=== PATIENT | male | born 1965 | race Caucasian/White ===

== ENCOUNTER 2023-05-04 09:27 | Emergency (ER) | payer OTHER, SELFPAY ==
[2023-05-04 09:33] VITALS: BP 143/81; PULSE 74; RESP 16; TEMP 36.8; O2SAT 95; BMI 30.8
--- NOTE | 2023-05-04 09:47 | ED_ITS ---
HPI - Dizziness General Chief Complaint: Dizziness Stated Complaint: DIZZINESS Time Seen by Provider: 05/04/23 09:47 Source: patient Mode of arrival: walk-in Limitations: no limitations History of Present Illness HPI Narrative: pt presents emergency department complaining of dizziness. Patient states He feels lightheaded since yesterday. He states when he turns his head it feels worse to the point where he gets nauseated he denies any headache, visual disturbance, or speech difficulties. He has not been vomiting. He denies any injury.Patient denies any recent upper respiratory infection symptoms. Denies any abdominal pain, chest, shortness of breath. He denies any palpitations. He has a history of HIV at states his viral load is undetectable. He states he has been compliant with all of his medications. He denies any cough. He denies any flank pain, hematuria, dysuria. Patient states he wanted to make sure he doesn't fluids because he could be dehydrated. He states he has been eating and drinking well despite of being nauseated. Related Data Home Medications Medication Instructions Recorded Confirmed aripiprazole 5 mg tablet 5 mg PO DAILY 05/04/23 05/04/23 atorvastatin 80 mg tablet 80 mg PO DAILY 05/04/23 05/04/23 bictegravir 50 mg-emtricitabine 1 tab PO DAILY 05/04/23 05/04/23 200 mg-tenofovir alafenam 25 mg tablet (Biktarvy) desvenlafaxine succinate 100 mg 100 mg PO Q24H 05/04/23 05/04/23 tablet,extended release 24 hr dextromethorphan 20 mg-quinidine 1 cap PO DAILY 05/04/23 05/04/23 10 mg capsule (Nuedexta) isosorbide mononitrate 30 mg 30 mg PO DAILY 05/04/23 05/04/23 tablet,extended release 24 hr lisinopril 20 mg tablet 20 mg PO DAILY 05/04/23 05/04/23 lorazepam 0.5 mg tablet 0.5 mg PO DAILY 05/04/23 05/04/23 methimazole 10 mg tablet 5 mg PO DAILY 05/04/23 05/04/23 methylphenidate HCl 20 mg tablet 20 mg PO TID 05/04/23 05/04/23 metoprolol succinate 50 mg 50 mg PO DAILY 05/04/23 05/04/23 tablet,extended release 24 hr nifedipine 30 mg tablet,extended 30 mg PO DAILY 05/04/23 05/04/23 release ubrogepant 100 mg tablet (Ubrelvy) 100 mg PO DAILY PRN migraines 05/04/23 05/04/23 Previous Rx's Medication Instructions Recorded amoxicillin 875 mg-potassium 1 tab PO BID #20 tabs 05/04/23 clavulanate 125 mg tablet meclizine 25 mg tablet 25 mg PO TID PRN dizziness #20 tabs 05/04/23 promethazine 25 mg tablet 25 mg PO TID PRN nausea and 05/04/23 vomiting #10 tabs Allergies Allergy/AdvReac Type Severity Reaction Status Date / Time No Known Drug Allergies Allergy Verified 05/04/23 09:35 Review of Systems ROS Status of ROS 10 or more systems reviewed and unremarkable except as noted in history and below [facility] Social History Smoking status: Current every day smoker Exam Narrative Exam Narrative: Nurses notes and vital signs reviewed and patient is not hypoxic. General: Nontoxic, Well-appearing and in no apparent distress. Skin: Warm, dry, no pallor noted. No Rash Head: Normocephalic, atraumatic. Neck: Supple, non-tender. Eye: Pupils are equal, round and EOMI. No scleral icterus. Ears, Nose, Mouth, and Throat: TM clear, no posterior oropharynx erythema or nasal mucosal hypertrophy, uvula is mid-line Oral mucosa is moist Cardiovascular: Regular Rate and Rhythm without murmur, gallop or rub. Respiratory: No accessory muscle use or respiratory distress. Lungs are clear to auscultation, no wheezing, rales or rhonchi Chest Wall: no tenderness Back: No midline thoracic or lumbar vertebral tenderness. No CVA tenderness Musculoskeletal: normal ROM, no calf or popliteal tenderness, no lower extremity edema/swelling GI: Abdomen is soft, non-distended. Normal bowel sounds. No masses appreciated. No tenderness to palpation. No rebound, guarding, or rigidity noted. Neurological: A&O x4. No cranial nerve dysfunction observed. No truncal ataxia. Moves all extremities. Sensation intact. Psychiatric: Cooperative and interactive. Normal mood and affect. Constitutional Vital Signs, click to edit/add: Last Vital Signs Temp 98.2 F 05/04/23 09:33 Pulse 74 05/04/23 09:33 Resp 16 05/04/23 09:33 BP 143/81 H 05/04/23 09:33 Pulse Ox 95 05/04/23 09:33 O2 Del Method Room Air 05/04/23 09:33 Course Vital Signs Vital signs: Vital Signs Temperature 98.2 F 05/04/23 09:33 Pulse Rate 74 05/04/23 09:33 Respiratory Rate 16 05/04/23 09:33 Blood Pressure 143/81 H 05/04/23 09:33 Pulse Oximetry 95 05/04/23 09:33 Oxygen Delivery Method Room Air 05/04/23 09:33 Temperature 98.2 F 05/04/23 09:33 Pulse Rate 74 05/04/23 09:33 Respiratory Rate 16 05/04/23 09:33 Blood Pressure 143/81 H 05/04/23 09:33 Pulse Oximetry 95 05/04/23 09:33 Oxygen Delivery Method Room Air 05/04/23 09:33 MDM - Dizziness MDM Narrative Medical decision making narrative: pt was given 1 L of normal saline. Lab studies were done and are unremarkable. Patient here she will be given Antivert, and Zofran. ALSO discussed with patient. CT scan with the patient was ordered to rule out any intracranial pathology.CT scan is showing sinusitis and vital EMS and daughter. The patient does not have any pain with percussion of the mastoids bilaterally. He will be placed on Augmentin. At this time the patient is without objective evidence of an acute process requiring hospitalization or inpatient management. The patient has remained hemodynamically stable. No additional indication for emergent studies at this time. I answered all questions. Discussed discharge instructions including standard anticipatory guidance and what should prompt a return to the emergency department, including if they get worse are not getting better or develops any new or concerning symptoms. I've given them specific time frame in which to follow-up, and who to follow-up with. The patient demonstrates understanding. Patient is nontoxic and stable for discharge with outpatient follow-up. This note was created with the assistance of a speech recognition program. Although the intention is to generate documents that actually reflects the content of the visit, no guarantees can be provided that every mistake has been identified and corrected by editing. Lab Data Attestation: I reviewed the patient's lab results. Labs: Lab Results 05/04/23 Range/Units 09:58 WBC 6.9 (4.0-11.0) 10^3/uL RBC 5.13 (4.70-6.10) 10^6/uL Hgb 16.1 (14.0-18.0) g/dL Hct 46.5 (42.0-54.0) % MCV 90.6 (80.0-94.0) fL MCH 31.4 (25.9-34.0) pg MCHC 34.6 (29.9-35.2) g/dL RDW 13.1 (11.0-15.0) % Plt Count 285 (150-450) 10^3/uL MPV 8.3 L (9.5-13.5) fL Neut % (Auto) 56.3 (43.0-75.0) % Lymph % (Auto) 36.1 (20.5-60.0) % [place] % (Auto) 5.5 (1.7-12.0) % Eos % (Auto) 1.0 (0.9-7.0) % Baso % (Auto) 0.7 (0.2-2.0) % Neut # (Auto) 3.9 (1.4-6.5) 10^3/uL Lymph # (Auto) 2.5 (1.2-3.8) 10^3/uL [place] # (Auto) 0.4 (0.3-0.8) 10^3/uL Eos # (Auto) 0.1 (0.0-0.7) 10^3/uL Baso # (Auto) 0.1 (0.0-0.1) 10^3/uL Abs Immat Gran (auto) 0.03 (0.00-0.03) 10^3/uL Imm/Tot Granulo (auto) 0.4 (0.0-0.5) % Sodium 135 L (136-145) mmol/L Potassium 4.2 (3.5-5.1) mmol/L Chloride 99 (98-107) mmol/L Carbon Dioxide 23.6 (21.0-32.0) mmol/L Anion Gap 16.6 BUN 18.0 (7.0-18.0) mg/dL Creatinine 1.07 (0.70-1.30) mg/dL Est GFR ( Amer) >60 (>=60) Est GFR (Non-Af Amer) >60 (>=60) BUN/Creatinine Ratio 16.8 Glucose 123 H (74-106) mg/dL Lactate 1.1 (0.4-2.0) mmol/L Calcium 9.6 (8.5-10.1) mg/dL Magnesium 2.1 (1.8-2.4) mg/dL Total Bilirubin 0.6 (0.2-1.0) mg/dL AST 27 (15-37) U/L ALT 51 (16-63) U/L Alkaline Phosphatase 95 (46-116) U/L Troponin I High Sens 4.6 (4.0-76.1) pg/mL Total Protein 7.7 (6.4-8.2) g/dL Albumin 4.2 (3.4-5.0) g/dL Globulin 3.5 g/dL Albumin/Globulin Ratio 1.2 Urine Color Lt. yellow (YELLOW) Urine Clarity Clear (CLEAR) Urine pH 6.0 (5.0-9.0) Ur Specific [place] <=1.005 A (1.005-1.025) Urine Protein Negative (NEG/TRACE) mg/dL Urine Glucose (UA) Negative (NEGATIVE) mg/dL Urine Ketones Negative (NEGATIVE) mg/dL Urine Occult Blood Negative (NEGATIVE) Urine Nitrite Negative (NEGATIVE) Urine Bilirubin Negative (NEGATIVE) Urine Urobilinogen 0.2 (0.2-1.0) EU/dL Ur Leukocyte Esterase Negative (NEGATIVE) ECG Data Attestation: I personally reviewed and interpreted this ECG as follows: Interpretation: Sinus rhythm 70 beats per minutes. Normal axis, no acute ischemic changes. Discharge Plan Discharge Chief Complaint: Dizziness Clinical Impression: Sinusitis Patient Disposition: Home, Self-Care Time of Disposition Decision: 11:21 Condition: Good Mode of Transportation: Private Vehicle Prescriptions / Home Meds: New meclizine 25 mg tablet 25 mg PO TID PRN (Reason: dizziness) Qty: 20 0RF promethazine 25 mg tablet 25 mg PO TID PRN (Reason: nausea and vomiting) Qty: 10 0RF amoxicillin-pot clavulanate 875-125 mg tablet 1 tab PO BID Qty: 20 0RF No Action aripiprazole 5 mg tablet 5 mg PO DAILY atorvastatin 80 mg tablet 80 mg PO DAILY Biktarvy 50-200-25 mg tablet 1 tab PO DAILY desvenlafaxine succinate 100 mg tablet extended release 24 hr 100 mg PO Q24H Nuedexta 20-10 mg capsule 1 cap PO DAILY isosorbide mononitrate 30 mg tablet extended release 24 hr 30 mg PO DAILY lisinopril 20 mg tablet 20 mg PO DAILY lorazepam 0.5 mg tablet 0.5 mg PO DAILY methimazole 10 mg tablet 5 mg PO DAILY methylphenidate HCl 20 mg tablet 20 mg PO TID metoprolol succinate 50 mg tablet extended release 24 hr 50 mg PO DAILY nifedipine 30 mg tablet extended release 30 mg PO DAILY Ubrelvy 100 mg tablet 100 mg PO DAILY PRN (Reason: migraines) Instructions: Sinusitis (ED), Dizziness (ED) Stand Alone Forms: Portal Instructions Referrals: QUITA WOODS [Primary Care Provider] - 1 week
--- NOTE | 2023-05-04 10:03 | ECG_ITS ---
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
[2023-05-04 10:10] LABS: Basophils Absolute Auto 0.1 10^3/uL (0.0-0.1); Basophils Percent Auto 0.7 % (0.2-2.0); Eosinophils Absolute Auto 0.1 10^3/uL (0.0-0.7); Hematocrit 46.5 % (42.0-54.0); Hemoglobin 16.1 g/dL (14.0-18.0); Immature Granulocytes Abs Auto 0.03 10^3/uL (0.00-0.03); Immature Granulocytes Pct Auto 0.4 % (0.0-0.5); Lymphocytes Absolute Auto 2.5 10^3/uL (1.2-3.8); Lymphocytes Percent Auto 36.1 % (20.5-60.0); Mean Corpuscular HGB Conc 34.6 g/dL (29.9-35.2); Mean Corpuscular Hemoglobin 31.4 pg (25.9-34.0); Mean Corpuscular Volume 90.6 fL (80.0-94.0); Mean Platelet Volume 8.3 fL (9.5-13.5); Monocytes Absolute Auto 0.4 10^3/uL (0.3-0.8); Monocytes Percent Auto 5.5 % (1.7-12.0); Neutrophils Absolute Auto 3.9 10^3/uL (1.4-6.5); Neutrophils Percent Auto 56.3 % (43.0-75.0); Platelet Count 285 10^3/uL (150-450); Red Blood Count 5.13 10^6/uL (4.70-6.10); Red Cell Distribution Width 13.1 % (11.0-15.0); White Blood Count 6.9 10^3/uL (4.0-11.0)
[2023-05-04 10:16] LABS: Bilirubin Urine NEGATIVE (NEGATIVE); Blood Urine NEGATIVE (NEGATIVE); Clarity Urine CLEAR (CLEAR); Color Urine LT. YELLOW (YELLOW); Glucose Urine UA NEGATIVE (NEGATIVE); Ketones Urine NEGATIVE (NEGATIVE); Leukocyte Esterase Urine NEGATIVE (NEGATIVE); Nitrite Urine NEGATIVE (NEGATIVE); Protein Urine NEGATIVE (NEG/TRACE); Specific Gravity Urine <=1.005 (1.005-1.025); Urine Microscopic Indicated NO; Urobilinogen Urine 0.2 EU/dL (0.2-1.0)
[2023-05-04] MEDS: ONDANSETRON PF 4 MG/2 ML VIAL IV (10:31)
[2023-05-04] MEDS: 0.9 % SODIUM CHLORIDE 1,000 ML 999 ML IV (10:31)
[2023-05-04 10:43] LABS: Alanine Aminotransferase 51 U/L (16-63); Albumin Globulin Ratio 1.2; Albumin Level 4.2 g/dL (3.4-5.0); Alkaline Phosphatase 95 U/L (46-116); Anion Gap 16.6; Aspartate Amino Transferase 27 U/L (15-37); BUN Creatinine Ratio 16.8; Bilirubin Total 0.6 mg/dL (0.2-1.0); Calcium 9.6 mg/dL (8.5-10.1); Carbon Dioxide 23.6 mmol/L (21.0-32.0); Chloride 99 mmol/L (98-107); Estimated GFR (African America >60 (>=60); Estimated GFR (Non-African Ame >60 (>=60); Globulin 3.5 g/dL; Glucose 123 mg/dL (74-106); Lactate/Lactic Acid 1.1 mmol/L (0.4-2.0); Magnesium 2.1 mg/dL (1.8-2.4); Potassium 4.2 mmol/L (3.5-5.1); Sodium 135 mmol/L (136-145); Total Protein 7.7 g/dL (6.4-8.2); Troponin I High Sensitivity 4.6 pg/mL (4.0-76.1)
--- NOTE | 2023-05-04 11:13 | CT_ITS ---
The [address] [address] Patient Name: LUZ SHAHID MRN: [id number] date: 1965 Sex: M Assigned Patient Location: ER Current Patient Location: ER Accession/Order Number: [id number] Exam Date: 05/04/2023 11:26 Report Date: 05/04/2023 11:51 At the request of: SUHAIL GRIDER Procedure: CT head/brain wo con EXAMINATION: CT head/brain wo con HISTORY: dizziness COMPARISON: No relevant comparison available. TECHNIQUE: Axial CT images were obtained without IV contrast. Dose reduction techniques were achieved by using automated exposure control and/or adjustment of mA and/or kV according to patient size and/or use of iterative reconstruction technique. FINDINGS: BRAIN: No edema, hemorrhage, mass, acute infarction, or inappropriate atrophy. CSF SPACES: No hydrocephalus, subarachnoid hemorrhage, or mass. Appropriate for age. SKULL: No fracture, mass, or other significant visible lesion. SINUSES: Fluid levels within the maxillary sinuses and numerous fluid-filled right mastoid air cells; no fluid within the middle ear. ORBITS: No appreciable abnormality on the limited views. OTHER: Negative CT/CT head/brain wo con IMPRESSION: 1. Normal CT appearance of the brain. 2. Bilateral maxillary acute sinusitis, and likely right mastoiditis. Electronically authenticated by: CAILIN JARAMILLO Date: 05/04/2023 11:51
== END 2023-05-04 12:22 | disposition home or self-care (01) ==
PROVIDERS: Emergency Provider Emergency Medicine; PCP Nurse Practitioner
DX: J32.9 Chronic sinusitis, unspecified (principal); Z79.899 Other long term (current) drug therapy; Z21 Asymptomatic human immunodeficiency virus [HIV] infection status; F17.210 Nicotine dependence, cigarettes, uncomplicated
CPT/HCPCS: 36415; 70450; 80053; 81003; 83605; 83735; 84484; 85025; 93005; 96374; 99285

== ENCOUNTER 2023-10-10 17:13 | Emergency (ER) | payer OTHER, SELFPAY ==
[2023-10-10 17:18] VITALS: BP 147/87; PULSE 71; RESP 16; TEMP 36.8; O2SAT 99; BMI 31.9
--- NOTE | 2023-10-10 17:27 | CT_ITS ---
The [address] [address] Patient Name: LUZ SHAHID MRN: [id number] date: 1965 Sex: M Assigned Patient Location: ER Current Patient Location: ER Accession/Order Number: [id number] Exam Date: 10/10/2023 17:57 Report Date: 10/10/2023 18:19 At the request of: CHARMAINE LIN Procedure: CT head/brain wo con CT head/brain wo con, 10/10/2023 5:57 PM EST INDICATION: Headache, weakness COMPARISON: Prior CT of head dated 05/04/2023 TECHNIQUE: Axial CT images of the brain from skull base to vertex, including portions of the face and sinuses, were obtained without contrast . Multiplanar reformatted images were generated and reviewed as needed. Dose reduction techniques were achieved by using automated exposure control and/or adjustment of mA and/or kV according to patient size and/or use of iterative reconstruction technique. FINDINGS: The cerebral sulci as well as ventricular system are appropriate for age. There is no intracranial mass, mass effect, midline shift, intra or extra-axial fluid collection or hemorrhage. There is mild mucosal thickening within the right maxillary sinus. The visualized portions of orbits, mastoid air cells as well as remainder of paranasal sinuses are unremarkable. There is no suspicious osteolytic or osteoblastic lesion. CT/CT head/brain wo con IMPRESSION: No acute intracranial process is noted. Electronically authenticated by: CARA ESPANA Date: 10/10/2023 18:19
--- NOTE | 2023-10-10 17:27 | ECG_ITS ---
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
--- NOTE | 2023-10-10 17:27 | XR_ITS ---
[address] [address] Patient Name: LUZ SHAHID MRN: [id number] date: 1965 Sex: M Assigned Patient Location: ER Current Patient Location: ER Accession/Order Number: [id number] Exam Date: 10/10/2023 17:57 Report Date: 10/10/2023 18:24 At the request of: CHARMAINE LIN Procedure: XR chest 1V EXAM: XR chest 1V HISTORY: Weakness COMPARISON: 06/29/2023 TECHNIQUE: Chest X-ray AP, 1 view FINDINGS: Support devices: None. Lungs/pleura: No consolidation, effusion, or pneumothorax. Heart and mediastinum: Normal contours. Bones: No acute abnormality identified. XR/XR chest 1V Impression: No radiographic evidence of acute cardiopulmonary process. Electronically authenticated by: THOMAS SINGER Date: 10/10/2023 18:24
--- NOTE | 2023-10-10 17:27 | CT_ITS ---
The [address] [address] Patient Name: LUZ SHAHID MRN: [id number] date: 1965 Sex: M Assigned Patient Location: ER Current Patient Location: Accession/Order Number: [id number] Exam Date: 10/10/2023 17:57 Report Date: 10/10/2023 19:19 At the request of: CHARMAINE LIN Procedure: CT angio neck EXAM: CT angio neck, CT angio head HISTORY: Slurred speech, headache and difficulty with walking. COMPARISON: Head CT without contrast on 10/10/2023. TECHNIQUE: Following IV administration of iodinated contrast, axial CT scans of the head and neck were obtained. MPR and MIP images images were obtained. Carotid stenosis is based on NASCET criteria. Dose reduction techniques were achieved by using automated exposure control and/or adjustment of mA and/or kV according to patient size and/or use of iterative reconstruction technique. FINDINGS: CTA OF THE HEAD: No major branch occlusion or significant intracranial stenosis. No aneurysm. Dural venous sinuses are patent. CTA OF THE NECK: No abnormal soft tissue mass in the neck. The visualized lungs are clear. Osseous structures are intact. Aortic arch shows no aneurysm. The great vessels of the aortic arch show no significant stenosis. Vertebral arteries show no significant stenosis or dissection. Common carotids and internal carotids show no significant stenosis or dissection. CT/CT angio neck IMPRESSION: No large vessel occlusion. No significant intracranial stenosis. Patent dural venous sinuses. Common carotids and internal carotids show no dissection or significant stenosis. Vertebral arteries show no dissection or significant stenosis. Electronically authenticated by: MIKEL EPPS Date: 10/10/2023 19:19
--- NOTE | 2023-10-10 17:27 | CT_ITS ---
[address] [address] Patient Name: LUZ SHAHID MRN: [id number] date: 1965 Sex: M Assigned Patient Location: ER Current Patient Location: ER Accession/Order Number: [id number] Exam Date: 10/10/2023 17:57 Report Date: 10/10/2023 19:19 At the request of: CHARMAINE LIN Procedure: CT angio head EXAM: CT angio neck, CT angio head HISTORY: Slurred speech, headache and difficulty with walking. COMPARISON: Head CT without contrast on 10/10/2023. TECHNIQUE: Following IV administration of iodinated contrast, axial CT scans of the head and neck were obtained. MPR and MIP images images were obtained. Carotid stenosis is based on NASCET criteria. Dose reduction techniques were achieved by using automated exposure control and/or adjustment of mA and/or kV according to patient size and/or use of iterative reconstruction technique. FINDINGS: CTA OF THE HEAD: No major branch occlusion or significant intracranial stenosis. No aneurysm. Dural venous sinuses are patent. CTA OF THE NECK: No abnormal soft tissue mass in the neck. The visualized lungs are clear. Osseous structures are intact. Aortic arch shows no aneurysm. The great vessels of the aortic arch show no significant stenosis. Vertebral arteries show no significant stenosis or dissection. Common carotids and internal carotids show no significant stenosis or dissection. CT/CT angio head IMPRESSION: No large vessel occlusion. No significant intracranial stenosis. Patent dural venous sinuses. Common carotids and internal carotids show no dissection or significant stenosis. Vertebral arteries show no dissection or significant stenosis. Electronically authenticated by: MIKEL EPPS Date: 10/10/2023 19:19
--- NOTE | 2023-10-10 17:29 | ED.GENADUL1 ---
HPI - General Adult General Chief complaint: Headache Stated complaint: THINKS HE IS HAVING STROKE Time Seen by Provider: 10/10/23 17:15 Source: patient Mode of arrival: Wheelchair Limitations: no limitations History of Present Illness HPI narrative: Patient is a 57-year-old male with a history of high blood pressure, cholesterol, HIV positive with an undetectable viral load presents to the ER for evaluation of headache and not feeling well. He is concerned he may be having a stroke. He has a history of migraines and states he gets 1-2 of these a month, headache for the last 14 hours is different because it is global over the entire head. He denies visual loss, chest pain, shortness of breath. He states he feels generally weak. He had nausea earlier today with 1 episode of diarrhea. He has no peripheral paresthesias. He states he is dizzy and unsteady on his feet. He has no peripheral paresthesias or unilateral weakness. He states he feels as though he is very fatigued and slow.He drove himself to the emergency department, he is able to ambulate about the exam room to change into a gown. Related Data Home Medications Medication Instructions Recorded Confirmed aripiprazole 5 mg tablet 5 mg PO DAILY 05/04/23 05/04/23 atorvastatin 80 mg tablet 80 mg PO DAILY 05/04/23 05/04/23 bictegravir 50 mg-emtricitabine 1 tab PO DAILY 05/04/23 05/04/23 200 mg-tenofovir alafenam 25 mg tablet (Biktarvy) desvenlafaxine succinate 100 mg 100 mg PO Q24H 05/04/23 05/04/23 tablet,extended release 24 hr dextromethorphan 20 mg-quinidine 1 cap PO DAILY 05/04/23 05/04/23 10 mg capsule (Nuedexta) isosorbide mononitrate 30 mg 30 mg PO DAILY 05/04/23 05/04/23 tablet,extended release 24 hr lisinopril 20 mg tablet 20 mg PO DAILY 05/04/23 05/04/23 lorazepam 0.5 mg tablet 0.5 mg PO DAILY 05/04/23 05/04/23 methimazole 10 mg tablet 5 mg PO DAILY 05/04/23 05/04/23 methylphenidate HCl 20 mg tablet 20 mg PO TID 05/04/23 05/04/23 metoprolol succinate 50 mg 50 mg PO DAILY 05/04/23 05/04/23 tablet,extended release 24 hr nifedipine 30 mg tablet,extended 30 mg PO DAILY 05/04/23 05/04/23 release ubrogepant 100 mg tablet (Ubrelvy) 100 mg PO DAILY PRN migraines 05/04/23 05/04/23 Previous Rx's Medication Instructions Recorded amoxicillin 875 mg-potassium 1 tab PO BID #20 tabs 05/04/23 clavulanate 125 mg tablet meclizine 25 mg tablet 25 mg PO TID PRN dizziness #20 tabs 05/04/23 promethazine 25 mg tablet 25 mg PO TID PRN nausea and 05/04/23 vomiting #10 tabs kssofnjvct-tsfedndhjworp-xluffedv 1 cap PO Q6H PRN headache 3 days 10/10/23 50 mg-300 mg-40 mg capsule #10 caps (Fioricet) ketorolac 10 mg tablet 10 mg PO TID PRN pain #10 tabs 10/10/23 ondansetron 4 mg disintegrating 4 mg PO Q6H PRN nausea and 10/10/23 tablet vomiting #12 tabs Allergies Allergy/AdvReac Type Severity Reaction Status Date / Time No Known Drug Allergies Allergy Verified 05/04/23 09:35 Review of Systems ROS Constitutional Denies: fever or chills Ears, nose, mouth, and throat Denies: throat pain or nasal congestion Cardiovascular Denies: chest pain Respiratory Denies: shortness of breath or cough Gastrointestinal Reports: nausea and diarrhea Musculoskeletal Denies: back pain or neck pain Integumentary/Breast Denies: rash Neurological Reports: headache, weakness in extremities and dizziness; Denies: numbness in extremities Endocrine Denies: excessive urination Hematologic/Lymphatic Denies: easy bruising PFSH PFSH Social History Smoking status: Current every day smoker Exam Narrative Exam Narrative: Gen.: Awake, alert, in no distress Head: Normocephalic, atraumatic ENT: Moist mucous membranes Respiratory: No respiratory distress, lungs clear bilaterally Cardio: Regular rate and rhythm Gastrointestinal: Abdomen is soft, nondistended and nontender to palpation Extremities: Moves extremities equally, no injuries noted Psych: Normal mood and affect Neuro: No focal neuro deficit; NIH stroke scale of 0,Clear speech, no unilateral weakness or deficit noted Skin: Warm, dry, intact Constitutional Vital Signs, click to edit/add: Last Vital Signs Temp 98.3 F 10/10/23 17:18 Pulse 71 10/10/23 17:18 Resp 16 10/10/23 17:18 BP 147/87 H 10/10/23 17:18 Pulse Ox 99 10/10/23 17:18 O2 Del Method Room Air 10/10/23 17:18 Course Vital Signs Vital signs: Vital Signs Temperature 98.3 F 10/10/23 17:18 Pulse Rate 71 10/10/23 17:18 Respiratory Rate 16 10/10/23 17:18 Blood Pressure 147/87 H 10/10/23 17:18 Pulse Oximetry 99 10/10/23 17:18 Oxygen Delivery Method Room Air 10/10/23 17:18 Temperature 98.3 F 10/10/23 17:18 Pulse Rate 71 10/10/23 17:18 Respiratory Rate 16 10/10/23 17:18 Blood Pressure 147/87 H 10/10/23 17:18 Pulse Oximetry 99 10/10/23 17:18 Oxygen Delivery Method Room Air 10/10/23 17:18 Medical Decision Making MDM Narrative Medical decision making narrative: Patient medicated with IV fluids, Toradol, Decadron. Noncontrast CT and chest x-ray are unremarkable. Patient was also sent for CT angio of the head and neck. The studies are unremarkable as well. He is negative for influenza and COVID. Labs do not show any evidence of abnormalities. Patient with stable vital signs and no focal neurodeficits in the ER. He is not able to find a ride home so he will drive himself, he was given Toradol and Decadron for headache in the ER. He denied nausea in the ER. He was counseled that his symptoms may represent an atypical migraine versus viral syndrome. He will be discharged home with nausea medication and medication for headache. Follow-up with PCP and return to the ER if symptoms change or worsen. Medical Records Medical records reviewed: Yes I reviewed the patient's medical records Lab Data Lab results reviewed: Yes I reviewed the patient's lab results Labs: Lab Results 10/10/23 10/10/23 Range/Units 17:39 18:48 WBC 7.4 (4.0-11.0) 10^3/uL RBC 5.24 (4.70-6.10) 10^6/uL Hgb 16.5 (14.0-18.0) g/dL Hct 48.5 (42.0-54.0) % MCV 92.6 (80.0-94.0) fL MCH 31.5 (25.9-34.0) pg MCHC 34.0 (29.9-35.2) g/dL RDW 12.6 (11.0-15.0) % Plt Count 301 (150-450) 10^3/uL MPV 8.0 L (9.5-13.5) fL Neut % (Auto) 53.1 (43.0-75.0) % Lymph % (Auto) 34.7 (20.5-60.0) % [place] % (Auto) 9.3 (1.7-12.0) % Eos % (Auto) 1.8 (0.9-7.0) % Baso % (Auto) 0.4 (0.2-2.0) % Neut # (Auto) 3.9 (1.4-6.5) 10^3/uL Lymph # (Auto) 2.6 (1.2-3.8) 10^3/uL [place] # (Auto) 0.7 (0.3-0.8) 10^3/uL Eos # (Auto) 0.1 (0.0-0.7) 10^3/uL Baso # (Auto) 0.0 (0.0-0.1) 10^3/uL Abs Immat Gran (auto) 0.05 H (0.00-0.03) 10^3/uL Imm/Tot Granulo (auto) 0.7 H (0.0-0.5) % PT 9.8 (9.0-11.6) sec INR <0.93 Sodium 134 L (136-145) mmol/L Potassium 4.2 (3.5-5.1) mmol/L Chloride 100 (98-107) mmol/L Carbon Dioxide 24.8 (21.0-32.0) mmol/L Anion Gap 13.4 BUN 19.0 H (7.0-18.0) mg/dL Creatinine 1.23 (0.70-1.30) mg/dL Est GFR ( Amer) >60 (>=60) Est GFR (Non-Af Amer) >60 (>=60) BUN/Creatinine Ratio 15.4 Glucose 100 (74-106) mg/dL Calcium 9.4 (8.5-10.1) mg/dL Total Bilirubin 0.3 (0.2-1.0) mg/dL AST 16 (15-37) U/L ALT 37 (16-63) U/L Alkaline Phosphatase 86 (46-116) U/L Troponin I High Sens <4.0 L (4.0-76.1) pg/mL Total Protein 7.6 (6.4-8.2) g/dL Albumin 3.8 (3.4-5.0) g/dL Globulin 3.8 g/dL Albumin/Globulin Ratio 1.0 TSH 0.988 (0.358-3.740) uIU/mL Urine Color Lt. yellow (YELLOW) Urine Clarity Clear (CLEAR) Urine pH 7.0 (5.0-9.0) Ur Specific [place] <=1.005 A (1.005-1.025) Urine Protein Negative (NEG/TRACE) mg/dL Urine Glucose (UA) Negative (NEGATIVE) mg/dL Urine Ketones Negative (NEGATIVE) mg/dL Urine Occult Blood Negative (NEGATIVE) Urine Nitrite Negative (NEGATIVE) Urine Bilirubin Negative (NEGATIVE) Urine Urobilinogen 0.2 (0.2-1.0) EU/dL Ur Leukocyte Esterase Negative (NEGATIVE) Influenza Type A Ag Negative Influenza Type B Ag Negative SARS-CoV-2 Ag (CV2AG) Negative (NEGATIVE) Imaging Data CT scan - head: Radiologist's impression: ITS Impressions Chest X-Ray 10/10/23 17:27 Impression: No radiographic evidence of acute cardiopulmonary process. Electronically authenticated by: THOMAS SINGER Date: 10/10/2023 18:[address] 10/10/23 17:27 IMPRESSION: No acute intracranial process is noted. Electronically authenticated by: CARA ESPANA Date: 10/10/2023 18:19 Head CTA 10/10/23 17:27 IMPRESSION: No large vessel occlusion. No significant intracranial stenosis. Patent dural venous sinuses. Common carotids and internal carotids show no dissection or significant stenosis. Vertebral arteries show no dissection or significant stenosis. Electronically authenticated by: MIKEL EPPS Date: 10/10/2023 19:19 Neck CTA 10/10/23 17:27 IMPRESSION: No large vessel occlusion. No significant intracranial stenosis. Patent dural venous sinuses. Common carotids and internal carotids show no dissection or significant stenosis. Vertebral arteries show no dissection or significant stenosis. Electronically authenticated by: MIKEL EPPS Date: 10/10/2023 19:19 ECG Data Attestation: I personally reviewed and interpreted this ECG as follows: (Normal sinus rhythm at a rate of 66, no acute ST elevation, no ectopy. EKG reviewed by attending physician.) Discharge Plan Discharge Chief Complaint: Headache Clinical Impression: Headache, Weakness Patient Disposition: Home, Self-Care Time of Disposition Decision: 19:36 Prescriptions / Home Meds: New ejcwiddvua-ymqthnfruwjyh-uxrp [Fioricet] 50-300-40 mg capsule 1 cap PO Q6H PRN (Reason: headache) 3 Days Qty: 10 0RF Rx Instructions: DX: R51 ketorolac 10 mg tablet 10 mg PO TID PRN (Reason: pain) Qty: 10 0RF ondansetron 4 mg tablet,disintegrating 4 mg PO Q6H PRN (Reason: nausea and vomiting) Qty: 12 0RF No Action aripiprazole 5 mg tablet 5 mg PO DAILY atorvastatin 80 mg tablet 80 mg PO DAILY Biktarvy 50-200-25 mg tablet 1 tab PO DAILY desvenlafaxine succinate 100 mg tablet extended release 24 hr 100 mg PO Q24H Nuedexta 20-10 mg capsule 1 cap PO DAILY isosorbide mononitrate 30 mg tablet extended release 24 hr 30 mg PO DAILY lisinopril 20 mg tablet 20 mg PO DAILY lorazepam 0.5 mg tablet 0.5 mg PO DAILY methimazole 10 mg tablet 5 mg PO DAILY methylphenidate HCl 20 mg tablet 20 mg PO TID metoprolol succinate 50 mg tablet extended release 24 hr 50 mg PO DAILY nifedipine 30 mg tablet extended release 30 mg PO DAILY Ubrelvy 100 mg tablet 100 mg PO DAILY PRN (Reason: migraines) meclizine 25 mg tablet 25 mg PO TID PRN (Reason: dizziness) Qty: 20 0RF promethazine 25 mg tablet 25 mg PO TID PRN (Reason: nausea and vomiting) Qty: 10 0RF amoxicillin-pot clavulanate 875-125 mg tablet 1 tab PO BID Qty: 20 0RF Instructions: Acute Headache (ED), Weakness (ED) Stand Alone Forms: Portal Instructions Referrals: QUITA WOODS [Primary Care Provider] - 1 week
[2023-10-10] MEDS: 0.9 % SODIUM CHLORIDE 1,000 ML 999 ML IV (17:44)
[2023-10-10 17:51] LABS: Basophils Percent Auto 0.4 % (0.2-2.0); Eosinophils Absolute Auto 0.1 10^3/uL (0.0-0.7); Eosinophils Percent Auto 1.8 % (0.9-7.0); Hematocrit 48.5 % (42.0-54.0); Hemoglobin 16.5 g/dL (14.0-18.0); Immature Granulocytes Abs Auto 0.05 10^3/uL (0.00-0.03); Immature Granulocytes Pct Auto 0.7 % (0.0-0.5); Lymphocytes Absolute Auto 2.6 10^3/uL (1.2-3.8); Lymphocytes Percent Auto 34.7 % (20.5-60.0); Mean Corpuscular Hemoglobin 31.5 pg (25.9-34.0); Mean Corpuscular Volume 92.6 fL (80.0-94.0); Monocytes Absolute Auto 0.7 10^3/uL (0.3-0.8); Monocytes Percent Auto 9.3 % (1.7-12.0); Neutrophils Absolute Auto 3.9 10^3/uL (1.4-6.5); Neutrophils Percent Auto 53.1 % (43.0-75.0); Platelet Count 301 10^3/uL (150-450); Red Blood Count 5.24 10^6/uL (4.70-6.10); Red Cell Distribution Width 12.6 % (11.0-15.0); White Blood Count 7.4 10^3/uL (4.0-11.0)
[2023-10-10 17:59] LABS: Influenza Virus A Antigen Negative; Influenza Virus B Antigen Negative; Internal Control Within Normal Limits; SARS-CoV-2 Ag NEGATIVE (NEGATIVE)
[2023-10-10 18:01] LABS: Prothrombin Time 9.8 sec (9.0-11.6)
[2023-10-10 18:04] LABS: Alanine Aminotransferase 37 U/L (16-63); Albumin Level 3.8 g/dL (3.4-5.0); Alkaline Phosphatase 86 U/L (46-116); Anion Gap 13.4; Aspartate Amino Transferase 16 U/L (15-37); BUN Creatinine Ratio 15.4; Bilirubin Total 0.3 mg/dL (0.2-1.0); Calcium 9.4 mg/dL (8.5-10.1); Carbon Dioxide 24.8 mmol/L (21.0-32.0); Chloride 100 mmol/L (98-107); Estimated GFR (African America >60 (>=60); Estimated GFR (Non-African Ame >60 (>=60); Globulin 3.8 g/dL; Glucose 100 mg/dL (74-106); Potassium 4.2 mmol/L (3.5-5.1); Sodium 134 mmol/L (136-145); Total Protein 7.6 g/dL (6.4-8.2)
[2023-10-10 18:08] LABS: INR <0.93
[2023-10-10 18:13] LABS: Thyroid Stimulating Hormone 0.988 uIU/mL (0.358-3.740); Troponin I High Sensitivity <4.0 pg/mL (4.0-76.1)
[2023-10-10] MEDS: DEXAMETHASONE SOD PHOS 10 MG/ML VIAL IV (18:41)
[2023-10-10] MEDS: KETOROLAC TROMETHAMINE 30 MG/ML VIAL IVP (18:41)
[2023-10-10 18:55] LABS: Bilirubin Urine NEGATIVE (NEGATIVE); Blood Urine NEGATIVE (NEGATIVE); Clarity Urine CLEAR (CLEAR); Color Urine LT. YELLOW (YELLOW); Glucose Urine UA NEGATIVE (NEGATIVE); Ketones Urine NEGATIVE (NEGATIVE); Leukocyte Esterase Urine NEGATIVE (NEGATIVE); Nitrite Urine NEGATIVE (NEGATIVE); Protein Urine NEGATIVE (NEG/TRACE); Specific Gravity Urine <=1.005 (1.005-1.025); Urine Microscopic Indicated NO; Urobilinogen Urine 0.2 EU/dL (0.2-1.0)
== END 2023-10-10 19:53 | disposition home or self-care (01) ==
PROVIDERS: Physician Assistant; Emergency Provider Emergency Medicine; PCP Nurse Practitioner
DX: R51.9 Headache, unspecified (principal); R53.1 Weakness; I10 Essential (primary) hypertension; Z21 Asymptomatic human immunodeficiency virus [HIV] infection status; E78.00 Pure hypercholesterolemia, unspecified; Z79.899 Other long term (current) drug therapy; F17.210 Nicotine dependence, cigarettes, uncomplicated; Z20.822 Contact with and (suspected) exposure to COVID-19
CPT/HCPCS: 36415; 70450; 70496; 70498; 71045; 80053; 81003; 84443; 84484; 85025; 85610; 87804; 87811; 93005; 96361; 96374; 96375; 99285; J1100; J1885; Q9967

== ENCOUNTER 2025-07-03 08:17 | Emergency (ER) | payer OTHER, SELFPAY ==
--- OUTSIDE RECORDS SUMMARY | 2024-07-24 11:30 | XMS_ITS ---
Author Organization The [facility] in [place] Address [address] [place] [address] Care Team Providers Care Airbrush Artist Technical Name Role Phone Daria Stoddard Primary Care Provider Unavaila Ranulfo Flanagan Unavailable [phone] REASON FOR VISIT 1YEAR-COPD Encounters Encounter Location Date Provider Diagnosis Pulmonary Medicine [address] [address] 07/24/2024 Ranulfo Mendoza Plan Of Treatment No Information Progress Notes * Yoan SHAHIDin WDOB:1965 (59 yo M)Acc No.[id number]:07/24/2024 UNLOCKED PROGRESS NOTE Follow Up Patient: Hunter STROUD :?Ranulfo Mendoza DODOB:1965???Age:58 Y ???Sex:MaleDate:4Phone:[phone]: [address], [place], [id number]:Daria Stoddard Subjective: * Chief Complaints: * 1 . 1YEAR-COPD. * Medical History: Objective: * Vitals: Assessment: Plan: * Treatment: * * Electronic signature of Ranulfo Mendoza DO on 07/03/2025 at 08:32 AM EDTSign off status: PendingVisit Status:?R/S By O/P (Rescheduled by Office/Provider) * Provider: Odilia Mendoza DO Date: 09/23/2023 Generated for Printing/Faxing/eTransmitting on:?07/03/2025 08:32 AM EDT
--- OUTSIDE RECORDS SUMMARY | 2024-08-07 04:20 | XMS_ITS ---
Author Organization The [facility] in [place] Address [address] [place] [address] Care Team Providers Care Java Oracle Developer Name Role Phone Daria Stoddard Primary Care Provider Jarrod donahue Ranulfo Mendoza Unavailable [phone] Allergies No Known Allergies REASON FOR VISIT 1YEAR-COPD Medications Medication SIG (Take, Route, Frequency, Duration) Notes Start Date End Date Status Methylphenidate HCl 20 MG TAKE 1 TABLET BY MOUTH THREE TIMES DAILY. Oral; Duration: 30 Days ActivePromethazine HCl 25 MGTAKE 1 TABLET BY MOUTH THREE TIMES DAILY NEEDED FOR NAUSEA OR VOMITING Oral; Duration: 3 DaysActiveNIFEdipine ER 30 MGOral; Duration: 90 DaysActiveNuedexta 20-10 MGTAKE 1 CAPSULE BY MOUTH IN THE MORNING AND AT BEDTIME Oral; Duration: 30 DaysActiveMetoprolol Succinate ER 50 MGOral; Duration: 90 DaysActivemethIMAzole 5 MGOral; Duration: 90 DaysActiveLORazepam 0.5 MGOral; Duration: 30 DaysActiveMeclizine HCl 25 MGTAKE 1 TABLET BY MOUTH THREE TIMES DAILY NEEDED FOR DIZZINESS Oral; Duration: 6 DaysActiveIsosorbide Mononitrate ER 30 MGOral; Duration: 90 DaysActiveLisinopril 20 MGOral; Duration: 17 DaysActiveAtorvastatin Calcium 80 MGOral; Duration: 90 DaysActive Desvenlafaxine Succinate ER 100 MGOral; Duration: 90 DaysActiveEzetimibe 10 MG Oral; Duration: 90 DaysActiveBiktarvy 50-200-25 MGTAKE 1 TABLET BY MOUTH IN THE MORNING Oral; Duration: 30 DaysActiveBudesonide-Formoterol Fumarate 160-4.5 MCG/ACT2 puffs Inhalation BID; Duration: 90 daysRinse after useActiveAlbuterol Sulfate HFA 108 (90 Base) MCG/ACT2 puffs as needed for SOB Inhalation Q4H; Duration: 90 daysActiveARIPiprazole 5 MGOral; Duration: 30 DaysActiveVarenicline Tartrate (Starter) 0.5 MG X 11 & 1 MG X 42Oral; Duration: 28 DaysActive SUMAtriptan Succinate 50 MGOral; Duration: 30 DaysActive Social History Tobacco Use: Social History Observation Description Date Details (start date - stop date) Current Smoker NA - NA Tobacco Control (Standard) Question Answer Notes Tobacco use: Current every day smoker Additional Findings: Tobacco userModerate cigarette smoker (10-19 cigs/day) Encounters Encounter Location Date Provider Diagnosis Pulmonary Medicine [place] [address] [place] [address] 08/07/2024 Ranulfo Kelly Plan Of Treatment No Information Procedure Notes * VexkpmkqWfs-BeittagoHxmzjaWodjhSltzx-6 AntitrypsinScreening Date:07/14/2022 Genotype:M/M Progress Notes * Hunter SHAHID WDOB:1965 (59 yo M)Acc No.[id number]:08/07/2024 UNLOCKED PROGRESS NOTE Follow Up Patient: Hunter STROUD :?Ranulfo Mendoza DODOB:1965???Age:58 Y ???Sex:MaleDate:08/07/2024hone:[phone]:LUMA BAKER [address] [place] [id number]:Daria Stoddard Subjective: * Chief Complaints: * 1 . 1YEAR-COPD. * Medical History: S olitary pulmonary nodule, COPD (chronic obstructive pulmonary disease), Hepatitis C, HTN (hypertension), HLD (hyperlipidemia), Depression, Panic attacks, HIV (human immunodeficiency virus infection), Cigarette nicotine dependence with nicotine-induced disorder, snf (current) use of inhaled steroids. * Surgical History: N erve Block-Back , Cardiac Catheterization . * Hospitalization/Major Diagno stic Procedure: D enies Past Hospitalization. * Family History: Nayan hercules Grandfather: diagnosed with Heart Disease. * Social History: ???Tobacco Use:?Tobacco Control (Standard)?Tobacco use:?Current every day smoker ?Additional Findings: Tobacco user?Moderate cigarette smoker (10-19 cigs/day) ?LM: Additional Tobacco Questions?Number of Years Pt Smoked:?31 ?Number of Packs per Day:?1 ???Miscellaneous:?Occupation?Occupation:?Works full-time [employer] ?Pets: cats. ???Drugs/Alcohol:?Drugs?Have you used drugs other than those for medical reasons in the past 12 months??No ?Does the Patient have a History of Drug Abusein the Past??No ?Caffeine?Intake:?1-2 cups per day ?Do you drink alcohol?: No. ?Do you smoke marijuana?: Denies. * Medications: T aking Albuterol Sulfate HFA 108 (90 Base) MCG/ACT Aerosol Solution 2 puffs as needed for SOB Inhalation Q4H , Taking ARIPiprazole 5 MG Tablet Oral , Taking Atorvastatin Calcium 80 MG Tablet Oral , Taking Biktarvy(Ohddfnlhurw-Kdfcbpyydn-Ehkawoz) 50-200-25 MG Tablet TAKE 1 TABLET BY MOUTH IN THE MORNING Oral , Taking Budesonide- Formoterol Fumarate 160-4.5 MCG/ACT Aerosol 2 puffs Inhalation BID , Notes to Pharmacist: Rinse after use, Taking Desvenlafaxine Succinate ER 100 MG Tablet Extended Release 24 Hour Oral , Taking Ezetimibe 10 MG Tablet Oral , Taking Isosorbide Mononitrate ER 30 MG Tablet Extended Release 24 Hour Oral , Taking Lisinopril 20 MG Tablet Oral , Taking LORazepam 0.5 MG Tablet Oral , Taking Meclizine HCl 25 MG Tablet TAKE 1 TABLET BY MOUTH THREE TIMES DAILY NEEDED FOR DIZZINESS Oral , Taking methIMAzole 5 MG Tablet Oral , Taking Methylphenidate HCl 20 MG Tablet TAKE 1 TABLET BY MOUTH THREE TIMES DAILY. Oral , Taking Metoprolol Succinate ER 50 MG Tablet Extended Release 24 Hour Oral , Taking NIFEdipine ER 30 MG Tablet Extended Release 24 Hour Oral , Taking Nuedexta(Dextromethorphan-quiNIDine) 20-10 MG Capsule TAKE 1 CAPSULE BY MOUTH IN THE MORNING AND AT BEDTIME Oral , Taking Promethazine HCl 25 MG Tablet TAKE 1 TABLET BY MOUTH THREE TIMES DAILY NEEDED FOR NAUSEA OR VOMITING Oral , Taking SUMAtriptan Succinate 50 MG Tablet Oral , Taking Varenicline Tartrate (Starter) 0.5 MG X 11 & 1 MG X 42 Tablet Therapy Pack Oral * Allergies: N .K.D.A. Objective: * Vitals: Assessment: Plan: * Treatment: * Procedures: ???Alpha-1 Antitrypsin:?Screening Date:?07/14/2022.?Genotype:?M/M.? * Preventive Medicine: ??COVID Vaccination:?Has patient had COVID Vaccination?COVID Vaccination?Yes 06/06/2022 ??Immunization Status:?Pneumovacc?pneumovacc -06/30/2023.?Influenza?07/26/2024.?Zostivax?12/31/2023.?Boostrix?12/31/2023.? ??Screenings/Counseling:?FALL RISK SCREENING?Fall Risk Assessment:?No falls in the past year ?Are you afraid of falling??No ?TOBACCO ACTION PLAN?Patient counselled on the dangers of tobacco use and urged to quit.? 07/14/2023 ?Cessation counseling provided?07/14/2023 ?BMI ACTION PLAN?Above Normal BMI Follow-up?Dietary management education, guidance, and counseling * * Electronic signature of Ranulfo Mendoza DO on 07/03/2025 at 08:32 AM EDTSign off status: PendingVisit Status:?N/S N/C (No Show/No Charge) * Provider: Odilia Mendoza DO Date: 10/07/2023 Generated for Printing/Faxing/eTransmitting on:?07/03/2025 08:32 AM EDT
--- OUTSIDE RECORDS SUMMARY | 2024-09-26 05:00 | XMS_ITS ---
Author Organization The [facility] in [place] Address [address] [place] [address] Care Team Providers Care Polymerization Supervisor Name Role Phone Daria Stoddard Primary Care Provider Unavaila Ranulfo Flanagan Unavailable [phone] REASON FOR VISIT 1YEAR-COPD Encounters Encounter Location Date Provider Diagnosis Pulmonary Medicine [address] [address] 09/26/2024 Ranulfo Mendoza Plan Of Treatment No Information Progress Notes * Hunter SHAHID WDOB:1965 (59 yo M)Acc No.[id number]:09/26/2024 UNLOCKED PROGRESS NOTE Follow Up Patient: Hunter STROUD :?Ranulfo Mendoza DODOB:1965???Age:58 Y ???Sex:MaleDate:09/26/2024Phone:[phone]: [address], [place], [id number]:Daria Stoddard Subjective: * Chief Complaints: * 1 . 1YEAR-COPD. * Medical History: Objective: * Vitals: Assessment: Plan: * Treatment: * * Electronic signature of Ranulfo Mendoza DO on 07/03/2025 at 08:33 AM EDTSign off status: PendingVisit Status:?CANC (Cancelled) * Provider: Odilia Mendoza DO Date: 0 09/26/2024 Generated for Printing/Faxing/eTransmitting on:?07/03/2025 08:33 AM EDT
--- OUTSIDE RECORDS SUMMARY | 2025-07-03 08:33 | XMS_ITS | Continuity of Care Document ---
Author [facility] Address [address] [place] [address] Problems Unknown Problems Results Test Result Date/Time Value / Unit Interp. Refere nce Range SARS-CoV-2 (COVID-19), RT-PC R/TMA[[id number]] Collected: 07/24/2021 02:13 PM Specimen Received: 07/25/2021 09:41 PM Source: [facility] SARS-CoV-2 INTERPRETATION [[id number]] 07/26/2021 03:53 A M Negative See PwcdXFMB-[id number] RNA NOT DETECTEDNegative results do not preclude SARS-CoV-2 infection and should notbe used as the sole basis for patient management decisions. Negativeresults must be combined with clinical observations, patient history,and epidemiological information. Optimum specimen types and timingfor peak viral levels during infections caused by SARS-CoV-2 have notbeen determined. Collection of multiple specimens or types ofspecimens may be necessary to detect virus. Improper specimencollectionand handling, sequence variability under primers/probes,or organism present below the limit of detec tion may lead to falsenegative results. Positive and negative predictive values oftesting are highly dependent on prevalence. False negative testresults are more likely when prevalence is high.SOURCE [[id number]]07/26/2021 03:53 AM NASOPHARYNGEALNote: Methodology is Anabella Omer Real-Time RT-PCR. The expected result or reference range is NEGATIVE (Not Detected). For more information regarding COVID-19 testing to include clinicalinformation, methodology detail, intended use, FDA authorization andrecommended fact sheets for patients or healthcare providers, see [employer] Announcement: SARS-CoV-2 (COVID-19) by NAAT at URL below (note,fact sheets are provided by method given in report:[email or web address]/ Alternatively, see downloadable PDF fact sheet at:https://www.[email or web address]/OPTES-[email or web address]-AA-PCR SARS-COV-2 (COVID19), NAAT[60114-0]?Collected: 08/19/2020 12:52 PM?Specimen Received: 08/20/2020 06:10 PM?Source: [facility] - [id number]-HmG-7 INTERPRETATION [[id number]] 08/21/2020 07:44 AMNegativeSee XwxxCRXY-DgJ-8 RNA NOT DETECTEDNegative results do not preclude SARS-CoV-2 infection and should notbe used as the sole basis for patient management decisions. Negativeresults must be combined with clinical observations, patient history,and epidemiological information. Optimum specimen types and timingfor peak viral levels during infections caused by SARS-CoV-2 have notbeen determined. Collection of multiple specimens or types ofspecimens may be necessary to detect virus. Improper specimencollectionand handling, sequence variability under primers/probes,or organism present below the limit of detection may lead to falsenegative results. Positive and negative predictive values oftesting are highly dependent on prevalence. False negative testresults are more likely when prevalence is high.SOURCE [[id number]]08/21/2020 07:44 AM NASOPHARYNGEALNote: Methodology is [employer] Real-Time RT-PCR. The expectedresult or reference range is NEGATIVE (Not Detected). For more information regarding COVID-19 testing to include clinicalinformation, m ethodology detail, intended use, FDA authorization andrecommended fact sheets for patients or healthcare providers, see [employer] Announcement: SARS-CoV-2 (COVID-19) by NAAT at URL below (note,fact sheets are provided by method given in report:[email or web address]/[email or web address]-communications/ Alternatively, see downloadable PDF fact sheet at:https://www.[email or web address]/LRSHO-73-CG-PCR Allergies, adverse reactions, alerts No known allergies and adverse reactions Medications No administered medications reported Vital Signs No vital signs reported Social History No smoking Hx information available
--- OUTSIDE RECORDS SUMMARY | 2025-07-03 08:33 | XMS_ITS | Clinical Summary ---
Author Organization [employer] tem Address [id number] [address] [place] [address] Care Team Providers Care Sprue Cutting Press Operator Name Role Phone Robert Diaz APRN-DISTRICT RECRUITER Primary Care Provider + Allergies No known active allergies Medications MedicationSigDispense QuantityRefillsLast FilledStart DateEnd DateStatus desvenlafaxine (PRISTIQ) 100 mg 24 hr tablet Indications:Bipolar affective disorder, current episode mixed, current episode severity unspecified (CMS-HCC)Take 1 tablet (100 mg total) by mouth daily. 30 tablet 05/23/2019Active dextromethorphan-quiNIDine (NUEDEXTA) 20-10 mg capsule Indications:Bipolar affective disorder, current episode mixed, current episode severity unspecified (CMS-HCC)Take 1 capsule by mouth 2 (two) times a day. 30 capsule 05/23/2019Active bisacodyL (DULCOLAX) 5 mg EC tablet Indications:Chronic constipationTake 1 tablet (5 mg total) by mouth daily as needed for constipation. 5 tablet 10/01/2020ctive BIKTARVY 50-200-25 mg per tablet Take 1 tablet by mouth in the morning.09/11/2020Active aspirin 81 mg chewable tablet Chew 1 tablet (81 mg total) and swallow in the morning. Chew.10/30/2020ctive albuterol (PROVENTIL,VENTOLIN) 2.5 mg /3 mL (0.083 %) nebulizer solution Indications:Chronic obstructive pulmonary disease with acute lower respiratory infection (CMS-HCC)Inhale 3 mL (2.5 mg total) by nebulization every 6 (six) hours as needed for wheezing or shortness of breath. 75 mL 106/08/2021Active albuterol (PROVENTIL HFA) 90 mcg/actuation inhaler Indications:COPD with exacerbation ([facility])Inhale 2 puffs every 6 (six) hours as needed for wheezing or shortness of breath. 18 g ctive methylphenidate HCl (RITALIN) 20 mg tablet Take 1 tablet (20 mg total) by mouth.06/24/2022ctive LORazepam (ATIVAN) 0.5 mg tablet Take 1 tablet (0.5 mg total) by mouth in the morning.06/24/2022ctive ARIPiprazole (ABILIFY) 5 mg tablet Take 1 tablet (5 mg total) by mouth.08/10/2022ctive famotidine (PEPCID) 10 mg tablet Take by mouth in the morning.Active cetirizine (ZyrTEC) 5 mg tablet Take 1 tablet (5 mg total) by mouth in the morning.Active budesonide-formoteroL (SYMBICORT) 160-4.5 mcg/actuation inhaler Active venlafaxine XR (EFFEXOR XR) 75 mg 24 hr capsule Take 1 capsule (75 mg total) by mouth in the morning.4Active methIMAzole (TAPAZOLE) 5 mg tablet 5Active atorvastatin (LIPITOR) 80 mg tablet Indications:Mixed hyperlipidemiaTAKE 1 TABLET(80 MG) BY MOUTH DAILY 90 tablet 5Active NIFEdipine CC (ADALAT CC) 30 mg 24 hr tablet Indications:Essential hypertensionTake 1 tablet (30 mg total) by mouth every morning. TAKE 1 TABLET(30 MG) BY MOUTH IN THE MORNING 90 tablet 5Active ezetimibe (ZETIA) 10 mg tablet Indications:Mixed hyperlipidemiaTake 1 tablet (10 mg total) by mouth in the morning. 90 tablet 5Active isosorbide mononitrate (IMDUR) 30 mg 24 hr tablet Indications:Essential hypertension,Arteriosclerosis of coronary arteryTake 1 tablet (30 mg total) by mouth every morning. 90 tablet 5Active metoprolol succinate XL (TOPROL XL) 50 mg 24 hr tablet Indications:Essential hypertensionTake 1 tablet (50 mg total) by mouth in the morning. TAKE 1 TABLET(50 MG) BY MOUTH IN THE MORNING. 90 tablet 5Active lisinopriL (PRINIVIL,ZESTRIL) 20 mg tablet Indications:Essential hypertensionTake 1 tablet (20 mg total) by mouth in the morning. TAKE 1 TABLET(20 MG) BY MOUTH IN THE MORNING. 90 tablet 5Active galcanezumab-gnlm 120 mg/mL pen injector Indications:Intractable migraine with aura without status migrainosus1 subcu injection (120 mg) every 28 days 1 mL 1105Active ubrogepant (UBRELVY) 100 mg tablet Indications:Intractable migraine with aura without status migrainosusTAKE 1/2 TO 1 TABLET BY MOUTH AT ONSET OF MIGRAINE. MAY REPEAT IN 1 HOUR. MAXIMUM 2 TABLETS DAILY 10 tablet 5Active baclofen (LIORESAL) 10 mg tablet Take 1 tablet (10 mg total) by mouth 3 (three) times a day. 90 tablet 5Active baclofen (LIORESAL) 10 mg tablet Take 1 tablet (10 mg total) by mouth 3 (three) times a day. 90 tablet 509/Discontinued(Reorder) Active Problems ProblemNoted DateDiagnosed DateChronic RANJANA (middle ear effusion), right 2Coronary dffkttmiuiwlhere90/02/202104/ Overview (12/23/2022): Images from the original note were not included. 10/28/2020 Echo 10/29/2020 Cath Last Assessment & Plan: Coronary artery disease is Stable without any concerning symptoms at this time Continue goal-directed medical therapy including aspirin, Lipitor, metoprolol And Imdur Disorder of xslcrs6112/03/2020 Overview (12/03/2020): Added automatically from request for surgery [id number] Migraine without aura and without status migrainosus, not qljmdlqoadv02/07/2020 Overweight (BMI 25.0-29.9)02/20/2020Mixed zzvpnwyijzkvda18/09/2019Muscle tension okplvnko38/10/2019Annual physical exam04/24/2018 Assessment & Plan (08/14/2018 9:45 AM EST): DATE WHEN VACCINE ------- --FLU YRLY IN FALL Done 2018 --TETANUS Q 10 YRS ? --HZ ONCE AGE 60 na --PREVNAR 13 ONCE AGE 65 na --PPSSV 23 ONCE AGE 66 na CA SCREENING --COLONOSCOPY AGE 50 - 75 Done ? --FIT AGE 50 - 75 na --PSA AGE 50 - 70 ordered -PAUL AGE 50 - 70 --PAP AGE 21 - 65 na --MAMMOGRAM AGE 45 TO 75 na OSTEOPOROSIS --DEXA MENOPAUSAL na OPTHO YEALRY utd 2018 DENTAL YEARLY utd 2018 TOBACCO USE YEARLY counseld OBESITY BMI > 30 OVERWT BMI 25 -29 NORMAL BMI 18.5 -24.9 YEARLY YEARLY YEARLY 28.2 Medicare Wellness YEARLY (65) na DM na -diabetic eye exam -diabetic foot exam YEARLY -diabetic shoes -diabetic classes -asa, arb/johanna, statin Assessment & Plan (04/24/2018 10:37 AM EDT): DATE WHEN VACCINE ------- --FLU YRLY IN FALL --TETANUS Q 10 YRS --HSV ONCE AGE 60 --PREVNAR 13 ONCE AGE 65 --PPSSV 23 ONCE AGE 66 CA SCREENING ----- --COLONOSCOPY AGE 50 - 75 --FIT AGE 50 - 75 --PSA AGE 50 - 70 -PAUL AGE 50 - 70 --PAP AGE 21 - 65 --MAMMOGRAM AGE 45 TO 75 OSTEOPOROSIS ----- --DEXA MENOPAUSAL OPTHO YEALRY DENTAL YEARLY TOBACCO USE YEARLY OBESITY BMI > 30 OVERWT BMI 25 -29 NORMAL BMI 18.5 -24.9 YEARLY YEARLY YEARLY MEDICARE WELLNESS YEARLY (65) DM FOOT EXAM DM SHOES YEARLY Tobacco use04/24/2018Lumbosacral spondylosis without rdigylbqdg66/07/2017Severe recurrent major depression without psychotic fhjyhlzv19/04/2014Thyrotoxicosis 07/17/2012goraphobia with panic omszofr69Herpes simplex Neurosyphilis03/05/2011Multiple joint pain12/03/2010 Recurrent major depressive episodes, kycheedj83/22/193559/01/2023Bipolar disorder Overview (05/23/2019): Manuel ADAMSON at [facility] HypertensionHypertriglyceridemia Overview (09/27/2018): Diet therapy and re evaluate HIV (human immunodeficiency virus infection) Overview (05/23/2019): Dr. Hoang Infectious Disease.[facility] Chronic pain disorder Overview (05/23/2019): Dr Caal Encounters DateTypeDepartmentCare UfifRhcpbajjuxw85/29/2025Refill [facility] [address] [place] [phone] Adenike Oneill RN 05/30/2025 9:00 AM EDTOffice Visit [facility], A Department of [facility] [address] [facility] [address] [place] [phone] Latha Umana MD Intractable migraine with aura without status migrainosus (Primary Dx); Pseudobulbar affect; Lumbosacral spondylosis without myelopathy; Bipolar affective disorder, remission status unspecified ([facility]); Agoraphobia with panic ljloxvb8505/30/20252000Xfjzvt64/17/2025Refill [facility] [address] [place] [address] Laurie Perez CMA Essential zztioelvwest53/15/2025Refill [facility] [address] [place] [address] Neyda Fair CMA 04/29/20250021Gusmev26/22/2025Refill [facility] [address] [place] [phone] Jazlyn Boone RN from Last 3 Months Immunizations ImmunizationAdministration DatesNext DueHep B, Adolescent or Ktbjkpxrz76/02/2012 Hepatitis A004/01/2023,11/12/2011,10/24/2009Hepatitis B004/01/2023,03/16/2012, 11/12/2011,10/24/2009Influenza (IM) Preservative Free06/25/2011Influenza High Dose Preservative Free IM07/01/2020Influenza, Im Pediatric (Pf)05/26/2022 Influenza, Im Trivalent Nuutppnukobk86/19/2013,10/24/2009Influenza, Injectable, Oofqhtevmxdd46/02/2021,06/16/2019Influenza, Injectable, quadrivalent (PF) 07/13/2023,06/24/2021,08/20/2020,06/16/2019,07/06/2018,09/29/2017,06/24/2016, 06/26/2015,08/15/2014Influenza, Czxvpvxasip28/25/2018,09/29/2017,06/24/2016 Pneumococcal Conjugate 13-Zhvjwl4303/11/2016Pneumococcal Hgqjoggcqktslx04/20/2017, 06/30/2013,03/16/2012Zoster Vaccine Yfrfrrwdmpk05/25/2024 Family History Medical HistoryRelationNameCommentsCancerFatherHyperlipidemiaMotherDrug abuse SisterRelationNameStatusCommentsBrother 1AliveBrother 2DeceasedFatherDeceased MotherAliveSisterDeceased Social History Tobacco UseTypesPacks/DayYears UsedDateSmoking Tobacco: Every OlsAzyzaxbokm185 Started: 1985Smokeless Tobacco: Never Tobacco Cessation:Ready to Q uit: Not Asked; Counseling Given: Not Answered Alcohol UseStandard Drinks/WeekCommentsNot Currently0 (1 standard drink = 0.6 oz pure alcohol)Overall Financial Resource Strain (CARDIA)AnswerDate RecordedHow hard is it for you to pay for the very basics like food, housing, medical care, and heating?Hard3PHQ-2AnswerDate RecordedTotal Akmfk610PRAPARE - TransportationAnswerDate RecordedIn the past 12 months, has lack of transportation kept you from medical appointments or from getting medications?No 11/02/2022Lack of Transportation (Non-Medical)Not on file11/02/2022Housing InstabilityAnswerDate RecordedAre you worried or concerned that in the next two months you may not have stable housing that you own, rent or stay in as a part of a household?No3ChildcareAnswerDate RecordedChildcareUnknown 02/09/2019EmploymentAnswerDate FsgnruxeDkinskkmdgHtssebr47/31/2019Hunger ScreeningAnswerDate RecordedWithin the past 12 months we worried whether our food would run out before we got money to buy more.Never True05/30/2025Within the past 12 months the food we bought just didn't last and we didn't have money to get more.Never True05/30/2025Purpose - LifeAnswerDate RecordedPurpose and direction in xhzcPsktpwg66/20/2021ex and Gender InformationValueDate Recorded Sex Assigned at BirthNot on fileLegal WztGrke6804/15/2015 1:29 PM EDTGender IdentityNot on fileSexual OrientationNot on file Last Filed Vital Signs Vital SignReadingTime TakenCommentsBlood Bgjozlbo006/60005/30/2025 8:38 AM EDT Oivxl0373/18/2025 8:38 AM EHCFspgcmoihab27.4 ??C (97.6 ??F)01/18/2025 8:01 AM EDTRespiratory Thoa456303/28/2025 12:50 PM EDTOxygen Kmuuwobizl36%03/28/2025 12:50 PM EDTInhaled Oxygen Concentration--Bwxogv69.5 kg (204 lb)05/30/2025 8:38 AM EDT Slumfu778.8 cm (5' 10 )05/30/2025 8:38 AM EDTBody Mass Index29.27005/30/2025 8:38 AM EDT Plan of Treatment DateTypeDepartmentCare Team (Latest Contact Info)Thynejagdxp00/11/2025 3:20 PM ESTOffice Visit [facility] [address] [place] [address] Robert Diaz, [employer]-DISTRICT RECRUITER [address], [facility] [address] [place] [id number] 09/20/2025 9:00 AM ESTOffice Visit [facility] [address] [place] [phone] Latha Umana MD [address] [place] [address], [facility] [address] [place] [address] Health MaintenanceDue DateLast DoneCommentsTobacco Noadzorfsr50/18/1966COVID-19 Vaccine ( season)5006/06/2022, 10/01/2021, 03/28/2021, Additional history existsInfluenza Pjizaxj01, 07/13/2023, 05/26/2022, Additional history existsAdult BMI Follow Up Plan01/14/2026 01/14/2025Statin Use: Trhnvpmraatbxd96/05/202605/9194Vtyqoiabchv17/16/2026 04/27/2016Adult BMI Abbxeagdp24/Depression Exlddwfit07/18/2026 05/30/2025Tobacco Ssqddpoza70DTaP,Tdap and Td Vaccines (2 - Td or Tdap)Zoster (Shingles) KnygmbdTovdllnvr13/20/2024, 10/06/2023 Medical Devices Not on file Procedures Procedure NamePriorityDate/TimeAssociated DiagnosisCommentsHM COLONOSCOPYRoutine 04/27/2016from Last 3 Months or Most Recently Relevant to Health Maintenance Results * COLONOSCOPY (04/27/2016)Specimen (Source)Anatomical Location / Laterality Collection Method / VolumeCollection TimeReceived Time04/27/2016 Narrative Authorizing ProviderResult TypeResult StatusScanning Provider ExternalHEALTH MAINTENANCEFinal ResultPerforming OrganizationAddressCity/State/ZIP CodePhone Number MANUALLY TRANSCRIBED LAB RESULTS from Last 3 Months or Most Recently Relevant to Health Maintenance Insurance Care Teams Team MemberRelationshipSpecialtyStart DateEnd Date Robert Diaz, [employer]-DISTRICT RECRUITER [address] [place] [address] PCP - GeneralInternal Pkeysmza16/15/25
--- OUTSIDE RECORDS SUMMARY | 2025-07-03 08:33 | XMS_ITS | Patient Health Record ---
Author Organization [facility] Address [address] [place] [address] Care Team Providers Care Loop Tender Name Role Phone Daria Stoddard Primary Care Provider Jarrod donahue Ranulfo Mendoza Unavailable [phone] Allergies No Known Allergies Results Component Value Reference Range Notes CT Chest Low Dose for Screen ing* Reviewed date:07/19/2024 09:29:18 AM Interpretation: Performing Lab: Notes/Report: Reason For Referral No Information Medications Medication SIG (Take, Route, Frequency, Duration) Notes Start Date End Date Status Atorvastatin Calcium 80 MG Oral; Duration: 90 Da ys ActiveAlbuterol Sulfate HFA 108 (90 Base) MCG/ACT2 puffs as needed for SOB Inhalation Q4H; Duration: 90 daysActivemethIMAzole 5 MGOral; Duration: 90 Days ActiveARIPiprazole 5 MGOral; Duration: 30 DaysActiveMethylphenidate HCl 20 MG TAKE 1 TABLET BY MOUTH THREE TIMES DAILY. Oral; Duration: 30 DaysActiveLORazepam 0.5 MGOral; Duration: 30 DaysActiveMeclizine HCl 25 MGTAKE 1 TABLET BY MOUTH THREE TIMES DAILY NEEDED FOR DIZZINESS Oral; Duration: 6 DaysActiveIsosorbide Mononitrate ER 30 MGOral; Duration: 90 DaysActiveVarenicline Tartrate (Starter) 0.5 MG X 11 & 1 MG X 42Oral; Duration: 28 DaysActiveLisinopril 20 MGOral; Duration: 17 DaysActiveDesvenlafaxine Succinate ER 100 MGOral; Duration: 90 Days ActivePromethazine HCl 25 MGTAKE 1 TABLET BY MOUTH THREE TIMES DAILY NEEDED FOR NAUSEA OR VOMITING Oral; Duration: 3 DaysActiveEzetimibe 10 MGOral; Duration: 90 DaysActiveSUMAtriptan Succinate 50 MGOral; Duration: 30 DaysActive Biktarvy 50-200-25 MGTAKE 1 TABLET BY MOUTH IN THE MORNING Oral; Duration: 30 DaysActiveNIFEdipine ER 30 MGOral; Duration: 90 DaysActiveBudesonide-Formoterol Fumarate 160-4.5 MCG/ACT2 puffs Inhalation BID; Duration: 90 daysRinse after use ActiveNuedexta 20-10 MGTAKE 1 CAPSULE BY MOUTH IN THE MORNING AND AT BEDTIME Oral; Duration: 30 DaysActiveMetoprolol Succinate ER 50 MGOral; Duration: 90 DaysActive Immunizations Vaccine Route Administration Date Status Comme nts Flu, (23715) -historic- Whole Unknown 07/26/2024 Admini stered Flu, Fluzone (03814) 6 mos+, single-dose syringe/vial (7481-3281)Unknown 3AdministeredHep B, Adult, 2 SzuoTkihwxy71/21/2023Administered Pneumococcal (Pneumovax 23)Kjnuixd9803/16/2012dministeredPneumococcal (Pneumovax 23)Bfjvjwh9006/30/2013dministeredPneumococcal (Prevnar 13)Hpiublk3703/11/2016 IbmxxzmgoqblJOQX-BFA-8 (COVID 19 Moderna Bivalent Booster 0.5mL)Unknown 4819WckfakhnnwiwBtpmHuoozci12/20/2024dministeredZOSTER (SHINGLES) VACCINE (HZV)Mxohqil85/20/2024Administered Social History Tobacco Use: Social History Observation Description Date Details (start date - stop date) Current Smoker NA - NA Tobacco Control (Standard) Question Answer Notes Tobacco use: Current every day smoker Additional Findings: Tobacco userModerate cigarette smoker (10-19 cigs/day) Problems Problem Type SNOMED Code ICD Code Onset Dates Problem Status W/U Status Risk Notes Problem Obesity (995742828) Obesity, unspecified (E66.9) ActiveconfirmedProblemSolitary pulmonary nodule (256687930)Solitary pulmonary nodule (R91.1)ActiveconfirmedProblemLong-term current use of inhaled steroid (366633331)senior care (current) use of inhaled steroids (Z79.51)Activeconfirmed ProblemCOPD - Chronic obstructive pulmonary disease (00282892)COPD (chronic obstructive pulmonary disease) (J44.9)ActiveconfirmedProblemMental disorder caused by drug (729414583)Cigarette nicotine dependence with nicotine-induced disorder (F17.219)ActiveconfirmedProblemBody mass index 30+ - obesity (796018531)Body mass index [BMI] 30.0-30.9, adult (Z68.30)Activeconfirmed Encounters Encounter Location Date Provider Diagnosis Pulmonary Medicine [facility] [address] [place] [address] 08/07/2024 Ranulfo [facility] Pulmonary [facility] [address] [place] [address]/13/2025 Ranulfo Mendoza Plan Of Treatment No Information Insurance Providers Payer Name Payer Address Payer Phone Subscriber Number Group Number Insured Name Patient Relationship to Insured Coverage Start Date Coverage End Date [employer] [address] [address] [place] [address] [id number] zoeHunter Self - patient is the insured Medical (General) History Medical History History ICD Code Solitary pulmonary nodule R91.1 COPD (chronic obstructive pulmonary dise ase) J44.9 Hepatitis C B19.20 HTN (hypertension) I10 HLD (hyperlipidemia) E78.5 Depression F32.9 Panic attacks F41.0 HIV (human immunodeficiency virus infect ion) B20 Cigarette nicotine dependence with nicot ine-induced disorder F17.219 senior care (current) use of inhaled stero ids Z79.51 Surgical History Surgery Date(Month/Year) Cardiac Catheterization Nerve Block-Back
--- OUTSIDE RECORDS SUMMARY | 2025-07-03 08:33 | XMS_ITS | Clinical Summary ---
Author Organization [facility] Address [address] [place] [address] Care Team Providers Care Seismology Teacher Name Role Phone Unavailable Primary Care Provider Unavailabl e Social History Tobacco UseTypesPacks/DayYears UsedDateSmoking Tobacco: Never AssessedSex and Gender InformationValueDate RecordedSex Assigned at BirthNot on fileLegal Sex Male11/24/2022 8:13 PM EDTGender IdentityNot on fileSexual OrientationNot on file Plan of Treatment Not on file
--- OUTSIDE RECORDS SUMMARY | 2025-07-03 08:35 | XMS_ITS | CCD ---
Author Organization [facility] Care Team Providers Care Roving Winder Name Role Phone Shante Jacobs Unavailable PAY, DR PEPPER Consulting Unavailable PAY, DR PEPPER Attending Unavailable STODDARD, QUITA Primary Care Unavailable PAY, DR PEPPER Admitting Unavailable STODDARD, QUITA Primary Care Unavailable MANIBERTRAND Alcala Admitting Unavailable BERTRAND SINGLETON Attending Unavailable Stoddard ONLINE JOURNALIST-TEST CASE DEVELOPER, Quita Mcclure Primary Care Provid er Stoddard ONLINE JOURNALIST-TEST CASE DEVELOPER, Quita Mcclure Primary Care Provid er QUITA STODDARD Attending Unavailable ERIKA STODDARDERIE J Referring Unavailable STODDARD, QUITA J Primary Care Unavailable STODDARD, QUITA Mcclure Attending Unavailable STODDARDQUITA KO Referring Unavailable STODDARD, QUITA Kami Primary Care Unavailable STODDARD, QUITA Mcclure Attending Unavailable STODDARDERIKA KOERIE J Referring Unavailable STODDARD, QUITA J Primary Care Unavailable TSODDARD, QUITA J Attending Unavailable STODDARDERIKAQUITA J Referring Unavailable STODDARD, QUITA J Primary Care Unavailable PROVIDER, UNKNOWN Referring Unavailable STODDARD, QUITA J Primary Care Unavailable MARLYS PEPPER Attending Unavailable STODDARDERIKAQUITA J Referring Unavailable STODDARD, QUITA J Primary Care Unavailable MARLYS PEPPER Attending Unavailable MARLYS PEPPER Referring Unavailable STODDARD, QUITA J Primary Care Unavailable GIBRAN SALDANA Referring Unavailable STODDARD, QUITA Kami Primary Care Unavailable JESE CAAL Admitting Unavailable JESE CAAL Attending Unavailable QUITA STODDARD Referring Unavailable STODDARD, QUITA J Primary Care Unavailable JESE CAAL Attending Unavailable JESE CAAL Referring Unavailable STODDARD, QUITA Mcclure Primary Care Unavailable MARLYS PEPPER Attending Unavailable QUITA STODDARD Referring Unavailable STODDARDERIKA KOERIE J Primary Care Unavailable JESE CAAL Attending Unavailable JESE CAAL Referring Unavailable STODDARD, QUITA Mcclure Primary Care Unavailable JESE CAAL Admitting Unavailable JESE CAAL Attending Unavailable STODDARD, QUITA Mcclure Referring Unavailable STODDARD, QUITA J Primary Care Unavailable JESE CAAL Admitting Unavailable JESE CAAL Attending Unavailable STODDARD, QUITA Mcclure Referring Unavailable STODDARD, QUITA Kami Primary Care Unavailable JESE CAAL Attending Unavailable JESE CAAL Referring Unavailable STODDARD, QUITA Kami Primary Care Unavailable DONYA HURLEY Referring Unavailable STODDARD, QUITA Kami Primary Care Unavailable MARLYS PEPPER Attending Unavailable STODDADR, QUITA Mcclure Referring Unavailable STODDARD, QUITA J Primary Care Unavailable MARLYS PEPPER Attending Unavailable PING MORALES Referring Unavailable STODDARD, QUITA J Primary Care Unavailable Stoddard ONLINE JOURNALIST-TEST CASE DEVELOPER, Quita J Primary Care Provid er Unavailable Primary Care Provider Unavailabl e STODDARD QUITA J Referring Unavailable STODDARD, QUITA J Primary Care Unavailable BRITNI UMANA Attending Unavailabl e STODDARDDEVORA KOE Kami Referring Unavailable STODDARD, QUITA J Primary Care Unavailable BRITNI UMANA Attending Unavailabl e ERIKA STODDARDERIE Kami Referring Unavailable DONYA HURLEY Attending Unavailable MAGDALENA JACKSON Attending Unavailable DONYA HURLEY Attending Unavailable DONYA HURLEY Attending Unavailable MAGDALENA JACKSON Attending Unavailable MAGDALENA JACKSON Attending Unavailable LOU MANNING Attending Unavailable DONYA HURLEY Referring Unavailable DENA FREEDMAN Attending Unavailable Medications Current Medications MedicationDrug Class(es)DatesSig (Normalized)Sig (Original)[id number] 200 actuat albuterol 0.09 mg/actuat metered dose inhaler (20 sources)beta2-Adrenergic AgonistStart: 60-10-1178tyrm 2 puff(s) by inhalation every six hours as needed for wheezingalbuterol (PROVENTIL HFA) 90 mcg/actuation inhaler Indications: COPD with exacerbation ([facility]) Inhale 2 puffs every 6 (six) hours as needed for wheezing or shortness of breath. 18 g 3 03/10/2022 ActiveStart: 47-04-3580uvdq 3 mL by inhalation every six hours as needed for wheezingalbuterol (PROVENTIL,VENTOLIN) 2.5 mg /3 mL (0.083 %) nebulizer solution Indications: Chronic obstructive pulmonary disease with acute lower respiratory infection ([facility]) Inhale 3 mL (2.5 mg total)by nebulization every 6 (six) hours as needed for wheezing or shortness of breath. 75 mL 1 02/17/2021 ActiveStart: 59-21-7631fzcv 2 puff(s) by inhalation every four hours as neededAlbuterol Sulfate HFA 108 (90 Base) MCG/ACT 2 puffs as needed Inhalation every 4 hrs Aug, Not-Takingamoxicillin 875 mg / clavulanate 125 mg oral tablet (1 source)Penicillin-class AntibacterialStart: 07-30-2024 End: 23-72-7872rbib 1 tablet by mouth once in the morningamoxicillin-pot clavulanate (AUGMENTIN) 875-125 mg per tablet Indications: Acute non-recurrent pansinusitis Take 1 tablet by mouth in the morning and 1 tablet before bedtime. Do all this for 10 days.20 tablet 07/30/2024 08/09/2024 ActiveARIPiprazole 5 mg oral tablet (20 sources)Atypical AntipsychoticStart: 32-28-0389ZVEBqmjqblhs (ABILIFY) 5 mg tablet Take 1 tablet (5 mg total) by mouth. 08/10/2022 ActiveARIPiprazole Active aspirin 81 mg chewable tablet (20 sources)Platelet Aggregation Inhibitor, Nonsteroidal Anti-inflammatory Drug Start: 15-90-9158ktryrde 81 mg chewable tablet Chew 1 tablet (81 mg total) and swallow in the morning. Chew. 10/30/2020 Activeatorvastatin 80 mg oral tablet (20 sources)HMG-CoA Reductase InhibitorStart: 01-10-2023 End: 70-08-7277zbcq 1 tablet by mouth once dailyatorvastatin (LIPITOR) 80 mg tablet Indications: Mixed hyperlipidemia TAKE 1 TABLET(80 MG) BY MOUTHDAILY 90 tablet 2 01/14/2025 ActiveAtorvastatin Calcium Activebaclofen 10 mg oral tablet (11 sources)gamma-Aminobutyric Acid-ergic AgonistStart: 12-27-2024 End: 85-33-5931rywg 1 tablet by mouth three times dailybaclofen (LIORESAL) 10 mg tablet Take 1 tablet (10 mg total) by mouth 3 (three) times a day. 90 tablet 1 06/11/2025 Activebictegravir 50 mg / emtricitabine 200 mg / tenofovir alafenamide 25 mg oral tablet (20 sources)Human Immunodeficiency Virus Nucleoside Analog Reverse Transcriptase InhibitorStart: 46-67-0655alsl 1 tablet by mouth once in the morningBIKTARVY 50-200-25 mg per tablet Take 1 tablet by mouth in the morning. 09/11/2020 Active Biktarvy (1 source)Biktarvy Activebisacodyl 5 mg delayed release oral tablet (20 sources)Stimulant LaxativeStart: 99-59-7850mkgb 1 tablet by mouth once daily as needed for constipationbisacodyL (DULCOLAX) 5 mg EC tablet Indications: Chronic constipation Take 1 tablet (5 mg total) bymouth daily as needed for constipation. 5 tablet 10/01/2020 ActiveBudesonide / formoterol (20 sources)Corticosteroid, beta2-Adrenergic Agonistbudesonide-formoteroL (SYMBICORT) 160-4.5 mcg/actuation inhaler Activetake 2 puff(s) by mouth twice dailybudesonide-formoteroL (SYMBICORT) 160-4.5 mcg/actuation inhaler INHALE 2 PUFFS BY MOUTH TWICE DAILYActivetake 2 puff(s) by mouth twice dailybudesonide- formoteroL (SYMBICORT) 160-4.5 mcg/actuation inhaler INHALE 2 PUFFS BY MOUTH TWICE DAILY0 Activecetirizine hydrochloride 5 mg oral tablet (20 sources)Histamine-1 Receptor Antagonisttake 1 tablet by mouth in the morning cetirizine (ZyrTEC) 5 mg tablet Take 1 tablet (5 mg total) by mouth in the morning. Nwmkcx47 hr desvenlafaxine succinate 100 mg extended release oral tablet (20 sources)Serotonin and Norepinephrine Reuptake InhibitorStart: 78-97-6491niql 1 tablet by mouth once dailydesvenlafaxine (PRISTIQ) 100 mg 24 hr tablet Indications: Bipolar affective disorder, current episode mixed, current episode severity unspecified ([facility]) Take 1 tablet (100 mg total) by mouth daily. 30 tablet 05/23/2019 ActiveDesvenlafaxine Succinate ER Activedextromethorphan hydrobromide 20 mg / quiNIDine sulfate 10 mg oral capsule (20 sources)Antiarrhythmic, Uncompetitive I-rxjejz-V-aspartate Receptor Antagonist, Cytochrome P450 2D6 Inhibitor, Sigma-1 AgonistStart: 43-57-2253bscb 1 capsule by mouth twice dailydextromethorphan-quiNIDine (NUEDEXTA) 20-10 mg capsule Indications: Bipolar affective disorder, current episode mixed, current episode severity unspecified (CMS-HCC) Take 1 capsule by mouth 2 (two) times a day. 30 capsule 05/23/2019 ActiveNuedexta Activedoxycycline hyclate 100 mg oral capsule (2 sources)Tetracycline-class DrugStart: 10-14-2023 End: 00-17-0105yjotnsidtvw (VIBRAMYCIN) 100 mg capsule Indications: COPD exacerbation ([facility]) TAKE ONE CAPSULE BY MOUTH EVERY MORNING AND 1 EVERY NIGHT AT BEDTIME FOR 7 DAYS. TAKE WITH LARGE GLASS OF WATER AND DONOT LIE DOWN FOR 30 MINUTES 14 capsule 0 10/14/2023 10/20/2023 ActiveStart: 10-06-2023 End: 79-72-6922oihyodyecfu (VIBRAMYCIN) 100 mg capsule TAKE ONE CAPSULE BY MOUTH EVERY MORNING AND 1 EVERY NIGHT AT BEDTIME FOR 7 DAYS. TAKE WITH LARGE GLASS OF WATER AND DO NOT LIE DOWN FOR 30 MINUTES 0 Discontinued (Reorder)Emgality (1 source)Emgality Activeezetimibe 10 mg oral tablet (20 sources)Dietary Cholesterol Absorption InhibitorStart: 05-30-2023 End: 86-30-6171ivrt 1 tablet by mouth in the morningezetimibe (ZETIA) 10 mg tablet Indications: Mixed hyperlipidemia Take 1 tablet (10 mg total) by mouth in the morning. 90 tablet 1 01/14/2025 Activefamotidine 10 mg oral tablet (20 sources)Histamine-2 Receptor Antagonistfamotidine (PEPCID) 10 mg tablet Take by mouth in the morning. Active1 ml galcanezumab-gnlm 120 mg/ml auto-injector (15 sources)Start: 17-81-1729leqazgccxhro-gnlm 120 mg/mL pen injector Indications: Intractable migraine with aura without statusmigrainosus 1 subcu injection (120 mg) every 28 days 1 mL 11 05/30/2025 ActiveStart: 11-26-2024 End: 02-53-6726mdlpnwhrjiev-gnlm 120 mg/mL pen injector Indications: Intractable migraine with aura without statusmigrainosus Start with 2 subcu injections (240 mg), in 28 days repeat 1 injection subcu (120 mg) 2 mL 4 11/26/2024 05/30/2025 Discontinued (Reorder)hydroCHLOROthiazide / Lisinopril (1 source)Thiazide Diuretic, Angiotensin Converting Enzyme InhibitorLisinopril- hydroCHLOROthiazide Wmxydd40 hr isosorbide mononitrate 30 mg extended release oral tablet (20 sources)Nitrate VasodilatorStart: 07-13-2023 End: 54-70-7617aqym 1 tablet by mouth once daily in the morningisosorbide mononitrate (IMDUR) 30 mg 24 hr tablet Indications: Essential hypertension , Arteriosclerosis of coronary artery Take 1 tablet (30 mg total) by mouth every morning. 90 tablet 1 01/14/2025 Activelisinopril 20 mg oral tablet (20 sources)Angiotensin Converting Enzyme InhibitorStart: 06-24-2023 End: 26-86-8107yape 1 tablet by mouth in the morning, then take 1 tablet by mouth in the morninglisinopriL (PRINIVIL,ZESTRIL) 20 mg tablet Indications: Essential hypertension Take 1 tablet (20 mgtotal) by mouth in the morning. TAKE 1 TABLET(20 MG) BY MOUTH IN THE MORNING. 90 tablet 1 05/29/2025 ActiveLORazepam 0.5 mg oral tablet (20 sources)BenzodiazepineStart: 32-72-6733imeh 1 tablet by mouth in the morning LORazepam (ATIVAN) 0.5 mg tablet Take 1 tablet (0.5 mg total) by mouth in the morning. 06/24/2022 ActiveLORazepam ActivemethIMAzole 5 mg oral tablet (20 sources)Thyroid Hormone Synthesis InhibitorStart: 79-05-3781rnweQMEntot (TAPAZOLE) 5 mg tablet 11/09/2024 ActiveStart: 04-16-2022 End: 79-81-8014bxla 1 tablet by mouth in the morningmethIMAzole (TAPAZOLE) 10 mg tablet Take 1 tablet (10 mg total) by mouth in the morning. / Discontinued (Therapy completed)methylphenidate hydrochloride 20 mg oral tablet (20 sources)Central Nervous System StimulantStart: 79-10-3588sxfdfxtqbzrhjcu HCl (RITALIN) 20 mg tablet Take 1 tablet (20 mg total) by mouth. 06/24/2022 Active Methylphenidate HCl Not-Jzfrkq38 hr metoprolol succinate 50 mg extended release oral tablet (20 sources)beta-Adrenergic BlockerStart: 07-13-2023 End: 43-58-1653lody 1 tablet by mouth every twenty-four hours in the morning, then take 1 tablet by mouth in the morningmetoprolol succinate XL (TOPROL XL) 50 mg 24 hr tablet Indications: Essential hypertension Take 1 tablet (50 mg total) by mouth in the morning. TAKE 1 TABLET(50 MG) BY MOUTH IN THE MORNING. 90 tablet 1 01/14/2025 ActiveMetoprolol Succinate ER Dckefh81 hr NIFEdipine 30 mg extended release oral tablet (20 sources)Dihydropyridine Calcium Channel BlockerStart: 07-17-2024 End: 93-07-8945ojot 1 tablet by mouth once daily in the morning, then take 1 tablet by mouth every twenty-four hours in the morningNIFEdipine CC (ADALAT CC) 30 mg 24 hr tablet Indications: Essential hypertension Take 1 tablet (30 mg total) by mouth every morning. TAKE 1 TABLET(30 MG) BY MOUTH IN THE MORNING 90 tablet 1 01/14/2025 ActiveStart: 07-13-2023 End: 18-63-7299ilxn 1 tablet by mouth every twenty-four hours in the morning NIFEdipine CC (ADALAT CC) 30 mg 24 hr tablet Indications: Essential hypertension TAKE 1 TABLET(30 MG) BY MOUTH IN THE MORNING 90 tablet 1 11/23/2023 07/17/2024 Discontinued (Reorder)NIFEdipine ER ActivepredniSONE 20 mg oral tablet (16 sources)Start: 10-12-2023 End: 25-23-9442nwsayuTQSF (DELTASONE) 20 mg tablet Indications: COPD exacerbation (CMS-HCC) Take 1 tablet (20 mg total) by mouth See Admin Instructions. 1 tab 2x daily x3 days, 1 tab daily x3 days, 1/2 tablet dailyx4 days 11 tablet 10/12/2023 07/30/2024 Discontinued (Therapy completed)SUMAtriptan (1 source)Serotonin-1b and Serotonin-1d Receptor AgonistSUMAtriptan Succinate Activeubrogepant 100 mg oral tablet (20 sources)Start: 03-07-2023 End: 40-00-8380cchi 0.5-1 tablets by mouth every hour, then take 2 tablets by mouth once dailyubrogepant (UBRELVY) 100 mg tablet Indications: Intractable migraine with aura without status migrainosus TAKE 1/2 TO 1 TABLET BY MOUTH AT ONSET OF MIGRAINE. MAY REPEAT IN 1 HOUR. MAXIMUM 2 TABLETS DAILY 10 tablet 7 05/30/2025 Fvlmjk16 hr venlafaxine 75 mg extended release oral capsule (20 sources)Serotonin and Norepinephrine Reuptake InhibitorStart: 18-30-1009kkty 1 capsule by mouth every twenty-four hours in the morningvenlafaxine XR (EFFEXOR XR) 75 mg 24 hr capsule Take 1 capsule (75 mg total) by mouth in the morning. 11/17/2023 Active Completed/Discontinued Medications MedicationDrug Class(es)DatesSig (Normalized)Sig (Original)fluticasone propionate 0.05 mg/actuat metered dose nasal spray (1 source)CorticosteroidStart: 70-63-3289hpxt 1 spray(s) nasal route once daily Fluticasone Propionate 50 MCG/ACT 1 spray in each nostril Nasally Once a day for 30 day(s) Aug, Not-Takingketorolac tromethamine 10 mg oral tablet (14 sources)Nonsteroidal Anti-inflammatory Drug, Cyclooxygenase InhibitorStart: 10-10-2023 End: 66-04-5693shubezgsr (TORADOL) 10 mg tablet 10/10/2023 07/17/2024 Discontinued (Therapy completed)meclizine hydrochloride 25 mg oral tablet (17 sources)AntiemeticStart: 05-04-2023 End: 08-21-5434cmnx 1 tablet by mouth three times daily as needed for dizziness meclizine (ANTIVERT) 25 mg tablet TAKE 1 TABLET BY MOUTH THREE TIMES DAILY NEEDED FOR DIZZINESS 05/04/2023 07/17/2024 Discontinued (Therapy completed) methylPREDNISolone (14 sources)CorticosteroidStart: 03-28-2025 End: 62-73-6922olejeyPMHPLMFpwxzi (MEDROL, ARMOND,) 4 mg tablet follow package directions 21 tablet 03/28/2025 05/30/2025 Discontinued (Therapy completed) Start: 54-37-5943fqbmvhVJIIQGFhzdhm (MEDROL, ARMOND,) 4 mg tablet follow package directions 21 tablet 03/28/2025 ActiveStart: 12-13-2024 End: 01-74-2769nzrrkaJUZKHGBjybmh (MEDROL, ARMOND,) 4 mg tablet follow package directions 21 tablet 12/13/2024 01/14/2025 Discontinued (Therapy completed) Start: 36-79-2228jyigfgOWORRYRjltqk (MEDROL, ARMOND,) 4 mg tablet follow package directions 21 tablet 12/13/2024 ActiveStart: 11-15-2024 End: 17-76-9588rygngbJRBOFDDftjkm (MEDROL, ARMOND,) 4 mg tablet follow package directions 21 tablet 11/15/2024 11/26/2024 Discontinued (Therapy completed) Start: 08-23-0047rcaiezDGDYIPJfller (MEDROL, ARMOND,) 4 mg tablet follow package directions 21 tablet 11/15/2024 ActiveStart: 10-15-6473Vduyey (Armond) 4 MG half of daily dose in the morning with food and the rest at night with food Orally Aug, Not-Takingmupirocin 0.02 mg/mg topical ointment (9 sources)RNA Synthetase Inhibitor AntibacterialStart: 11-19-2024 End: 95-52-6180gcrpxunuz (BACTROBAN) 2 % ointment Indications: Rash Apply 1 Application topically 3 (three) times a day. 15 g 11/19/2024 01/14/2025 Discontinued (Therapy completed)ondansetron 4 mg disintegrating oral tablet (20 sources)Serotonin-3 Receptor AntagonistStart: 10-10-2023 End: 09-88-3440hdnctbrobpe ODT (ZOFRAN ODT) 4 mg disintegrating tablet 10/10/2023 11/26/2024 Discontinued (Therapycompleted)varenicline 1 mg oral tablet (17 sources)Partial Cholinergic Nicotinic AgonistStart: 07-20-2023 End: 13-40-8589jfum 1 tablet by mouth once daily in the morning, then take 1 tablet by mouth at bedtimevarenicline (CHANTIX) 1 mg tablet Indications: Tobacco use , Needs smoking cessation education TAKE1 TABLET BY MOUTH EVERY MORNING AND 1 BEFORE BEDTIME WITH FULL GLASS OF WATER 180 tablet /01/2024 Discontinued (Therapy completed) Problems Active Problems Problem ClassificationProblemDateDocumented DateEpisodic/ChronicAnxiety disorders (20 sources)Agoraphobia with panic attacks; Translations: [Agoraphobia with panic disorder]Onset: 082805-18-3768OqipezoObpotcs obstructive pulmonary disease and bronchiectasis (1 source)Acute exacerbation of chronic obstructive airways disease; Translations: [Chronic obstructive pulmonary disease with (acute) exacerbation] 03-10-5247RzecpkeNncopntp atherosclerosis and other heart disease (20 sources)Coronary arteriosclerosis; Translations: [Atherosclerotic heart disease of [place] coronary artery without angina pectoris]Onset: 03-13-2021 12-68-1396RkxlbmfRnvyjycx, dementia, and amnestic and other cognitive disorders (4 sources)Pseudobulbar affect; Translations: [Pseudobulbar affect]Onset: 537724-08-2258SziqceaGnnstpwr mellitus without complication (2 sources)Type 2 diabetes mellitus without complications; Translations: [Type 2 diabetes mellitus without complications]Onset: 43-86-8507ZeclcomRqtdigxt mellitus without complication (1 source)Hyperglycemia, unspecified; Translations: [Hyperglycemia, unspecified] Onset: 01-07-9648PyufibbcTmmjauaip of lipid metabolism (20 sources)Hypertriglyceridemia; Translations: [Pure hyperglyceridemia]Onset: 969637-78-6604CkxvnzeBesekrjly hypertension (20 sources)Essential (primary) hypertension; Translations: [Hypertensive disorder]Onset: 402584-71-3374ZiwspxjMbfixbttnnixp symptoms and ill- defined conditions (3 sources)Increased frequency of urination; Translations: [Frequency of micturition]Onset: 167971-54-5428YkdqkigoPhemkdrf; including migraine (20 sources)Muscular headache ; Translations: [Tension-type headache, unspecified, not intractable]Onset: 130151-89-0604SfextqfPLH infection (20 sources)Asymptomatic human immunodeficiency virus [HIV] infection status; Translations: [Human immunodeficiency virus infection]Onset: 02-15-2022 64-75-4716OnhyjimXpyyjbegalsir and screening for infectious disease (4 sources)Encounter for immunization; Translations: [Encounter for screening for infections with a predominantly sexual mode of transmission]Onset: 05-56-3319JqkyeknwWaru disorders (20 sources)Bipolar disorder; Translations: [Bipolar disorder, unspecified] Onset: 842465-00-4057TopdojkQavfl nervous system disorders (20 sources)Chronic pain syndrome; Translations: [Chronic pain syndrome] 80-27-7371IkosumlEczlv non-traumatic joint disorders (1 source)Hip pain; Translations: [Pain in left hip]91-29-4658AzmwrolkSvfsh screening for suspected conditions (not mental disorders or infectious disease) (6 sources)Patient encounter status; Translations: [Encounter for screening for malignant neoplasm of prostate]Onset: 232793-76-8899JmfdxbylBnjks skin disorders (1 source)Eruption; Translations: [Rash and other nonspecific skin eruption] 16-43-8283QouiwgoeFmvzh skin disorders (1 source)Rash and other nonspecific skin eruption; Translations: [Rash and other nonspecific skin eruption]Onset: 30-45-6568WekrhskpUeuptr media and related conditions (20 sources)Chronic mucoid otitis media of right middle ear; Translations: [Other chronic nonsuppurative otitismedia, right ear]Onset: ChronicSpondylosis; intervertebral disc disorders; other back problems (20 sources)Lumbosacral spondylosis without myelopathy; Translations: [Spondylosis without myelopathy or radiculopathy, lumbosacral region]Onset: 081897-23-9303VxcmxijAqivwlzfi-veuwlqo disorders (2 sources)Nicotine dependence, cigarettes, uncomplicated; Translations: [Nicotine dependence, cigarettes, with unspecified nicotine-induced disorders] Onset: 23-15-2657QtrolcaDqqbdem disorders (20 sources)Thyrotoxicosis; Translations: [Thyrotoxicosis, unspecified without thyrotoxic crisis or storm]Onset: 538631-91-0781TtebsahVlxdsbwovree (1 source)RashOnset: 22-38-0552Hhxawrqevjpw (1 source)Annual ExamOnset: 07-17-2024 Past or Other Problems Problem ClassificationProblemDateDocumented DateEpisodic/ChronicCardiac dysrhythmias (4 sources)Tachycardia, unspecified; Translations: [Palpitations]Onset: 37-95-8328IklpxfypLgqh disorders (20 sources)Mood disordersOnset: 10-12-2023 Resolved: Other aftercare (1 source)Other usp (current) drug therapy; Translations: [OTH CORRECTION CURRENT DRUG THERAPY]Onset: 58-61-7153AamisebuWbsmh non-traumatic joint disorders (20 sources)Multiple joint pain; Translations: [Pain in unspecified joint]Onset: 057343-70-9270RgffbluwPpxps non-traumatic joint disorders (1 source)Pain in left hip; Translations: [Pain in left hip]Onset: 11-15-2024 EpisodicOther nutritional; endocrine; and metabolic disorders (20 sources)Body mass index 25-29 - overweight; Translations: [Overweight]Onset: 511786-92-1223UkobrqeoSxwoc skin disorders (2 sources)Disorder of the skin and subcutaneous tissue, unspecified; Translations: [Disorder of the skin and subcutaneous tissue, unspecified]Onset: 64-97-4028MoupgtpuIbyjj upper respiratory infections (1 source)Acute pansinusitis; Translations: [Acute pansinusitis, unspecified] 70-42-0673GdwxypqpVjgifh media and related conditions (1 source)Other acute nonsuppurative otitis media, right earOnset: 12-04-2021 Resolved: 31-27-5166RwbvonzbRjeeqgjb codes; unclassified (20 sources)Tobacco use and exposure - finding; Translations: [Tobacco use] Onset: 980691-25-6258FszphicqSyycjcvt transmitted infections (not HIV or hepatitis) (20 sources)Neurosyphilis; Translations: [Neurosyphilis, unspecified]Onset: 896263-15-6328KnilnbajWiiybkoermq; intervertebral disc disorders; other back problems (20 sources)Disorder of sacrum; Translations: [Sacrococcygeal disorders, not elsewhere classified]Onset: 46-09-119942900985-04-4424XjvrauhxExorjsbutuzl (20 sources)Onset: 10-12-2023 Resolved: Viral infection (20 sources)Herpes simplex; Translations: [Herpesviral infection, unspecified] Onset: 051251-09-6662Gwowngpk Results Test NameValueInterpretationReference RdoazBtvvuipb63ge 81-19-929680Fsaoi Dr. Coffey office called, says while he was at his appointment, his glucose tested at 200. Emi prescribed 500 mg tablet of metFORMIN for the patient, and placed a referral if needed for the patient to be seen for his diabetes. Has been seeing Dr. Manning for Graves Disease, would you prefer him be scheduled with a PA, or add to the visit when he comes in August?[facility]36Spoke with Dr Manning's office. Terminal Clerk requested an appointment for patient. Dr Manning's staff will inform Dr Manning of the elevated glucose and new prescription for Metformin [address] Manning staff will schedule patient per Dr Manning's instructions.[facility]3612/26/25 06/27/25 HIV Quantitative RNA (copies/mL) Date Value 01/24/2025 <30 10/01/2022 <30 CD4 Abs (cells/mm3) Date Value 01/24/2025 851 Creatinine (mg/dL) Date Value 06/27/2025 1.15 Income on file: Yes Patient and pharmacy are requesting 90 day supply at a time instead of 30 day supply that was sent yesterday.[facility] HospitalOrders Onlyon 08-15-2969Oznlht [id number] Luz Shahid 1965 M Date Provider Department Center 06/28/2025 258-DONYA HURLEY [facility] Family History Family Status - Relation Status Age at Mother Alive Father DeceasedNormalUniCrystal Clinic Orthopedic CenterRefillon 06-28-2025 [id number] Luz Shahid W 1965 M Date Provider Department Center 06/28/2025 Mira5-NATALIO NGO [facility] Family History Family Status - Relation Status Age at Mother Alive Father Reason for Visit and Comments: Med Refill [[id number]][facility]37on Continue Biktarvy. We will perform labs and flu shot now. We will order Low-Dose CT Chest for lung cancer screening. Follow-up in 4-6 months.[facility] HospitalCBC WITH AUTO DIFFERENTIALon 01-33-0189Pcvebyjtc (Bld) [#/Vol]0.06 10*3/uLNormal0.00-0.20 [facility] CenterComment on above:Performed By: #### [id number] #### [facility] ([facility]) [address] [place], [place] [address]Fkzbzwpnc/100 WBC (Bld)1.0 %Normal0.0-1.0UnSt. Charles HospitalComment on above:Performed By: #### [id number] #### [facility] ([facility]) [address] [facility], [place] [address]Ljmzpsooyep (Bld) [#/Vol]0.11 10*3/uLNormal0.00-0.50UnSt. Charles HospitalComment on above:Performed By: #### [id number] #### [facility] ([facility]) [address] [place], [place] [address]Lzbaxixbofz/100 WBC (Bld)1.8 %Normal0.0-6.0UnSt. Charles HospitalComment on above:Performed By: #### [id number] #### [facility] ([facility]) [address] [facility], [place] [address]Vrkvtaikumv distribution width (RBC) [Ratio]13.4 %Normal 11.5-15.0UnSt. Charles HospitalComment on above:Performed By: #### [id number] #### [facility] ([facility]) [address] [facility], [place] [address]VVDXTOKYXMC MEAN CORPUSCULAR HEMOGLOBIN CONCENTRATION (G/DL) BY HUBTPZIOA07.9 g/vSOuzthb92.0-35.0UnSt. Charles HospitalComment on above:Performed By: #### [id number] #### [facility] ([facility]) [address] [place] [address]Riblrrdmoy (Bld) [Volume fraction]44.9 %Fefmto89.0-50.0 [facility] Medical CenterComment on above:Performed By: #### [id number] #### [facility] ([facility]) [address] [place] [address]Wskjlupdqo (Bld) [Mass/Vol]15.2 g/iWKopdei44.0-17.0UnSt. Charles HospitalComment on above:Performed By: #### [id number] #### [facility] ([facility]) [address] [place] [address]Rqwodhal granulocytes (Bld) [#/Vol]0.04 10*3/uLNormal0.00-0.20 [facility] Medical CenterComment on above:Performed By: #### [id number] #### [facility] ([facility]) [address] [place] [address]Pbfgrdqu granulocytes/100 WBC (Bld)0.7 %Normal0.0-1.0UnSt. Charles HospitalComment on above:Performed By: #### [id number] #### [facility] ([facility]) [address] [place] [place] [address]Sbgpbxeijrq (Bld) [#/Vol]1.85 10*3/uLNormal1.20-4.00UnSt. Charles HospitalComment on above:Performed By: #### [id number] #### [facility] ([facility]) [address] [place] [place] [address]Ughxloabwbs/100 WBC (Bld)30.9 %Afnxmb18.0-45.0UnSt. Charles HospitalComment on above:Performed By: #### [id number] #### [facility] ([facility]) [address] [place] [address]NZA (RBC) [Entitic mass]31.7 orWypkyi60.0-33.0UnSt. Charles HospitalComment on above:Performed By: #### [id number] #### [facility] ([facility]) [address] [place] [address]NDW (RBC) [Entitic vol]93.5 lAFanvtu62.0-98.0UnSt. Charles HospitalComment on above:Performed By: #### [id number] #### [facility] ([facility]) [address] [place] [address]Aqbxzxfga (Bld) [#/Vol]0.34 10*3/uLNormal0.10-1.00UnSt. Charles HospitalComment on above:Performed By: #### [id number] #### [facility] ([facility]) [address] [place], [place] [address]Jxwfppedq/100 WBC (Bld)5.7 %Normal5.0-12.0UnSt. Charles HospitalComment on above:Performed By: #### [id number] #### [facility] ([facility]) [address] [place], [place] [address]Rqhyinpfdip (Bld) [#/Vol]3.59 10*3/uLNormal1.60-7.60UnSt. Charles HospitalComment on above:Performed By: #### [id number] #### [facility] ([facility]) [address] [place], [place] [address]Idipcgazdve/100 WBC (Bld)59.9 %Eqopka85.0-72.0UnSt. Charles HospitalComment on above:Performed By: #### [id number] #### [facility] ([facility]) [address] [place], [place] [address]NLMX (PER 100 WBCS) BY AUTOMATED COUNT0.0 %Bohzon2NctfhfewdsSt. Charles HospitalComment on above:Performed By: #### [id number] #### [facility] ([facility]) [address] [place], [place] [address]OTINZGLFO (10*3/UL) IN BLOOD AUTOMATED [id number] 10*3/uLNormal 150-400UnSt. Charles HospitalComment on above:Performed By: #### [id number] #### [facility] ([facility]) [address] [place], [place] [address]OYN (Bld) [#/Vol]4.80 10*6/uLNormal4.20-5.70UnSt. Charles HospitalComment on above:Performed By: #### [id number] #### [facility] ([facility]) [address] [facility] [place], [place] [address]AGO (Bld) [#/Vol]5.99 10*3/uLNormal4.00-10.60UnSt. Charles HospitalComment on above:Performed By: #### [id number] #### [facility] ([facility]) [address] [place], [place] [address]XUGRRCKUH TRACHOMATIS AND NEISSERIA GONORRHEA, TMAon 06-27-2025 CHLAMYDIA TRACHOMATIS DNA PROBE (PRESENCE) IN UNSP SPECNegativeNormalNegative [facility] Medical CenterComment on above:Result Comment: No Chlamydia trachomatis rRNA Detected. The Aptima Combo 2 Assay is a FDA approved target amplification nucleic acid probe test that utilizes target capture for the in vitro qualitative detection and differentiation of ribosomal RNA (rRNA)from Chlamydia trachomatis (CT) and/or Neisseria gonorrhoeae (GC) to aid the diagnosis of chlamydial and/or gonococcal urogenital disease using the [place] System. The Aptima Combo 2 Assay involves target capture, target amplification by Quantitative Software Engineer-Mediated Amplification (TMA), and the detection of the amplification products (amplicon) by the Hybridization Protection Assay (HPA). The internal process controls of the [place] System monitor the target capture, amplification, and detection steps of the assay, this is not intended to control for sampling adequacy.Performed By: #### [id number] ####[facility] ([facility])[address] [place], [place] [address]ZMRGSIOOK GONORRHOEAE DNA PROBE (PRESENCE) IN UNSP SPECNegativeNormalNegativeUnSt. Charles Hospital Comment on above:Result Comment: No Neisseria gonorrhoeae rRNA Detected. The Aptima Combo 2 Assay is a FDA approved target amplification nucleic acid probe test that utilizes target capture for the in vitro qualitative detection and differentiation of ribosomal RNA (rRNA)from Chlamydia trachomatis (CT) and/or Neisseria gonorrhoeae (GC) to aid the diagnosis of chlamydial and/or gonococcal urogenital disease using the [place] System. The Aptima Combo 2 Assay involves target capture, target amplification by Quantitative Software Engineer-Mediated Amplification (TMA), and the detection of the amplification products (amplicon) by the Hybridization Protection Assay (HPA). The internal process controls of the [place] System monitor the target capture, amplification, and detection steps of the assay, this is not intended to control for sampling adequacy.Performed By: #### [id number] ####[facility] ([facility]ER)[address] [facility], [place] [address]PGCXKNMAG TRACHOMATIS DNA PROBE (PRESENCE) IN UNSP SPECNegativeNormSheltering Arms Hospital Comment on above:Result Comment: No Chlamydia trachomatis rRNA Detected. The Aptima Combo 2 Assay is a FDA approved target amplification nucleic acid probe test that utilizes target capture for the in vitro qualitative detection and differentiation of ribosomal RNA (rRNA)from Chlamydia trachomatis (CT) and/or Neisseria gonorrhoeae (GC) to aid the diagnosis of chlamydial and/or gonococcal urogenital disease using the [place] System. The Aptima Combo 2 Assay involves target capture, target amplification by Quantitative Software Engineer-Mediated Amplification (TMA), and the detection of the amplification products (amplicon) by the Hybridization Protection Assay (HPA). The internal process controls of the [place] System monitor the target capture, amplification, and detection steps of the assay, this is not intended to control for sampling adequacy.Performed By: #### [id number] ####[facility] ([facility]ER)[address] [facility], [place] [address]LRSVARBIX GONORRHOEAE DNA PROBE (PRESENCE) IN UNSP SPECNegativeNormalNegMercy Health Tiffin Hospital Comment on above:Result Comment: No Neisseria gonorrhoeae rRNA Detected. The Aptima Combo 2 Assay is a FDA approved target amplification nucleic acid probe test that utilizes target capture for the in vitro qualitative detection and differentiation of ribosomal RNA (rRNA)from Chlamydia trachomatis (CT) and/or Neisseria gonorrhoeae (GC) to aid the diagnosis of chlamydial and/or gonococcal urogenital disease using the [place] System. The Aptima Combo 2 Assay involves target capture, target amplification by Quantitative Software Engineer-Mediated Amplification (TMA), and the detection of the amplification products (amplicon) by the Hybridization Protection Assay (HPA). The internal process controls of the [place] System monitor the target capture, amplification, and detection steps of the assay, this is not intended to control for sampling adequacy.Performed By: #### [id number] ####[facility] ([facility])[address] [place] [address]WYZRGSDOVDTCX METABOLIC PANELon 85-38-1448Ycudbmq [Mass/Vol]4.2 g/dLNormal3.5-5.7UnSt. Charles HospitalComment on above:Performed By: #### [id number] #### [facility] ([facility]) [address] [place] [address]GEG [Catalytic activity/Vol]99 U/JEkgvmo71-977CjfoutwfcvSt. Charles HospitalComment on above:Performed By: #### [id number] #### [facility] ([facility]) [address] [place] [address]ZED [Catalytic activity/Vol]27 U/LNormal7-52UnSt. Charles HospitalComment on above:Performed By: #### [id number] #### [facility] ([facility]) [address] [place] [address]Rlvst gap [Moles/Vol]11 mmol/LNormal7-20UnSt. Charles HospitalComment on above:Performed By: #### [id number] #### [facility] ([facility]) [address] [place], [place] [address]SMH [Catalytic activity/Vol]19 U/NUyhkof55-23ZkovxxjuqzSt. Charles HospitalComment on above:Performed By: #### [id number] #### [facility] ([facility]) [address] [place] [address]Shyyxbigg [Mass/Vol]0.5 mg/dLNormal0.3-1.0UnSt. Charles HospitalComment on above:Performed By: #### [id number] #### [facility] ([facility]) [address] [place] [address]Ayitltm [Mass/Vol]8.6 mg/dLNormal8.6-10.3UnSt. Charles HospitalComment on above:Performed By: #### [id number] #### [facility] ([facility]) [address] [place] [address]Uwhiyndt [Moles/Vol]104 mmol/LLbjeso87-136QnxepwqyudSt. Charles HospitalComment on above:Performed By: #### [id number] #### [facility] ([facility]) [address] [place] [address]XD7 [Moles/Vol]26 mmol/RFplhpw17-93IedgkqdfllSt. Charles HospitalComment on above:Performed By: #### [id number] #### [facility] ([facility]) [address] [place] [address]Vmtvpqhxok [Mass/Vol]1.15 mg/dLNormal0.70-1.30UnSt. Charles HospitalComment on above:Performed By: #### [id number] #### [facility] ([facility]) [address] [place] [address]TGXYRLCMMZ FILTRATION RATE ML/MIN/1.73 SQ M.ODZCYGQNJ24.3 mL/min/1.73m*2Normal>60.0UnSt. Charles HospitalComment on above: Result Comment: The [facility]???s estimated glomerular filtration rate (eGFR) will no longer include consideration of race in its calculation. The National Kidney Foundation???s eGFR Task Force developed new recommendations for the estimation of the glomerular filtration rate in the [place] They recommend immediate implementation of the new equation refit without the race variable in all laboratories because the calculation does not include race. In addition to not including race in the calculation and reporting, it included diversity in its development, and has acceptable performance characteristics and potential consequences that do not disproportionately affect anyone group of individuals.Performed By: #### [id number] #### [facility] ([facility]) [address] [place], [place] [address]Dwvsxlq [Mass/Vol]200 mg/uZUeda17-388DlijnltryySt. Charles HospitalComment on above:Performed By: #### [id number] #### [facility] ([facility] [address] [place] [address]Fplubcidr [Moles/Vol]3.9 mmol/LNormal3.5-5.1UnSt. Charles HospitalComment on above:Performed By: #### [id number] #### [facility] ([facility]) [address] [place], [place] [address]Rkbcowj [Mass/Vol]6.5 g/dLNormal6.0-8.3UnSt. Charles HospitalComment on above:Performed By: #### [id number] #### [facility] ([facility]) [address] [place] [address]Bitnvm [Moles/Vol]137 mmol/ZPwysri223-304QmkaigiehgSt. Charles HospitalComment on above:Performed By: #### [id number] #### [facility] ([facility]) [address] [place], [place] [address]Buwu nitrogen [Mass/Vol]17 mg/dLNormal7-25UnSt. Charles HospitalComment on above:Performed By: #### [id number] #### [facility] ([facility]) [address] [place], [place] [address]HDGJ NITROGEN/CREATININE (MASS RATIO) IN SER/PLAS14.8Normal [facility] Medical CenterComment on above:Performed By: #### [id number] #### [facility] ([facility]) [address] [place], [place] [address]Ogsvdglhdsgsaab [id number] Luz Shahid 1965 M Date Provider Department Center 06/27/2025 JASPREET ARRIOLA [facility]ARE [facility] Family History Family Status - Relation Status Age at Mother Alive Father Reason for Visit and Comments: Care plan [Other] - Due 3-99-02DqxrxoFwwrbfjvylCrystal Clinic Orthopedic CenterOffice Visiton 90-00-9196Fdeeun-up [id number] Luz Shahid 1965 Provider Department Center 06/27/2025 DONYA REILLY [facility]ARE [facility] Family History Family Status - Relation Status Age at Mother Alive Father Level of Service:43514 [place] OFFICE/OUTPATIENT ESTABLISHED MOD MDM 30 MIN () Reason for Visit and Comments: HIV Positive/AIDS [109] Health Maintenance [619] Med Management [[id number]]NormalUnSt. Charles HospitalOrders Only on 00-24-6188Bflmta [id number] Luz Shahid 1965 Provider Department Center 06/27/2025 DONYA REILLY [facility] Family History Family Status - Relation Status Age at Mother Alive Father DeceasedNormalUniCrystal Clinic Orthopedic CenterOrders [id number] Luz Shahid 1965 Provider Department Center 06/27/2025 MAGDALENA SESAY [facility] Family History Family Status - Relation Status Age at Mother Alive Father DeceasedNormalUMercy HealthRPRon 14-43-4462GGNNYJ AB PRESENCE IN SERUM BY RPRNon-ReactiveNormalNonreactiveUnSt. Charles HospitalComment on above:Performed By: #### [id number] #### [facility] ([employer]) [address] [place], [place] [address]D CELL SUBSET ANALYSISon 29-44-0647CK470.90 %Lmzkgv24.00-90.00 [facility] Medical CenterComment on above:Performed By: #### [id number] #### [facility] ([employer]) [address] [place], [place] [address]RD1 [id number] cells/kh3Kqlwhe529-3397XhfbiaqcfzSt. Charles HospitalComment on above:Performed By: #### [id number] #### [facility] ([employer]) [address] [place], [place] [address]IB[address].81 %Ntvvqo19.00-70.00[facility] Comment on above:Performed By: #### [id number] #### [facility] ([facility]) [address] [place] [address]JY5 SLQDBZUR076 cells/hh4Mdhiya464-5607DqvoxjcmneSt. Charles HospitalComment on above:Performed By: #### [id number] #### [facility] ([facility]) [address] [place] [address]NT8:CD81.81Skjjaq0.00-4.00[facility] Comment on above:Performed By: #### [id number] #### [facility] ([facility]) [address] [place] [address]VU621.37 %High15.00-40.00[facility] Comment on above:Performed By: #### [id number] #### [facility] ([facility]) [address] [place], [place] [address]HD[address] WQNDJHPE498 cells/yb6Gvuugu036-954FicmtwqzkbSt. Charles HospitalComment on above:Performed By: #### [id number] #### [facility] ([facility]) [address] [place], [place] [address]PGWFAWQUSZ WITH REFLEX CULTUREon 14-49-4334VMANZIRRD, TOTAL PRESENCE IN URINENegativeNormalNegativeUnSt. Charles Hospital Comment on above:Order Comment: Microscopics not performed on urines with negative chemical reactions unless requested on original order.Performed By: #### [id number] #### [facility] ([facility]) [address] [place], [place] [address]Jriczxz (U)ClearNormalClearUnSt. Charles Hospital Comment on above:Order Comment: Microscopics not performed on urines with negative chemical reactions unless requested on original order.Performed By: #### [id number] #### [facility] ([facility]) [address] [place], [place] [address]Lyyyr (U)Light-YellowNormalColorless, Yellow, Light-Yellow [facility] Medical CenterComment on above:Order Comment: Microscopics not performed on urines with negative chemical reactions unless requested on original order.Performed By: #### [id number] #### [facility] ([facility]) [address] [place], [place] [address]Yumwrye (U) [Mass/Vol]150 mg/dLAbnormalNormalUniversMount Carmel Health SystemComment on above:Order Comment: Microscopics not performed on urines with negative chemical reactions unless requested on original order. Performed By: #### [id number] #### [facility] ([facility]) [address] [place], [place] [address]ZBOECMQWQS PRESENCE IN URINENegativeNormscNegativeBarney Children's Medical CenterComment on above:Order Comment: Microscopics not performed on urines with negative chemical reactions unless requested on original order. Performed By: #### [id number] #### [facility] ([facility]) [address] [place], [place] [address]Bfmghnf Ql (U)NegativeNormalNegativeBarney Children's Medical CenterComment on above:Order Comment: Microscopics not performed on urines with negative chemical reactions unless requested on original order.Performed By: #### [id number] #### [facility] ([facility]) [address] [place], [place] [address]VBEXRSFNY ESTERASE PRESENCE IN URINE BY TEST STRIPNegativeNormal NegativeBarney Children's Medical CenterComment on above:Order Comment: Microscopics not performed on urines with negative chemical reactions unless requested on original order.Performed By: #### [id number] #### [facility] ([facility]) [address] [place], [place] [address]ISVQTAY PRESENCE IN URINENegativeNormscNegativeBarney Children's Medical CenterComment on above:Order Comment: Microscopics not performed on urines with negative chemical reactions unless requested on original order. Performed By: #### [id number] #### [facility] ([facility]) [address] [place], [place] [address]zL (U)6.5 [pH]Normal5.0-8.0UnSt. Charles Hospital Comment on above:Order Comment: Microscopics not performed on urines with negative chemical reactions unless requested on original order.Performed By: #### [id number] #### [facility] ([facility]) [address] [place], [place] [address]Isoavvd (U) [Mass/Vol]NegativeNormalNegativeUnSt. Charles HospitalComment on above:Order Comment: Microscopics not performed on urines with negative chemical reactions unless requested on original order. Performed By: #### [id number] #### [facility] ([facility]) [address] [place], [place] [address]Dnfywjvt gravity (U) [Rel density]1.528Yaqwwx4.010-1.030 [facility] Medical CenterComment on above:Order Comment: Microscopics not performed on urines with negative chemical reactions unless requested on original order.Performed By: #### [id number] #### [facility] ([facility]) [address] [place], [place] [address]FMLXKBPHINGG (MG/DL) IN URINENormalNormalNormalUniversMount Carmel Health SystemComment on above:Order Comment: Microscopics not performed on urines with negative chemical reactions unless requested on original order. Performed By: #### [id number] #### [facility] ([facility]) [address] [place], [place] [address]sf 90-07-19122050/16/25 01/24/25 HIV Quantitative RNA (copies/mL) Date Value 01/24/2025 <30 10/01/2022 <30 CD4 Abs (cells/mm3) Date Value 01/24/2025 851 Creatinine (mg/dL) Date Value 01/24/2025 1.22 Income on file: YesNormalUniversMount Carmel Health SystemRefillon 06-21-2025 [id number] Luz Shahid 1965 M Date Provider Department Center 06/21/2025 DONYA REILLY [facility] Family History Family Status - Relation Status Age at Mother Alive Father Reason for Visit and Comments: Med Refill [[id number]][facility]36on 09/17/25 06/14/25 HIV Quantitative RNA (copies/mL) Date Value 01/24/2025 <30 10/01/2022 <30 CD4 Abs (cells/mm3) Date Value 01/24/2025 851 Creatinine (mg/dL) Date Value 01/24/2025 1.22 Income on file: YesNormalUniCrystal Clinic Orthopedic CenterRefillon 06-15-2025 [id number] Luz Shahid 1965 M Date Provider Department [place] 06/15/2025 MAGDALENA SESAY [facility] Family History Family Status - Relation Status Age at Mother Alive Father Reason for Visit and Comments: Med Refill [[id number]][facility] HospitalTelemedicineon [id number] Luz Shahid 1965 Provider Department Center 06/14/2025 MAGDALENA SESAY [facility] Family History Family Status - Relation Status Age at Mother Alive Father Level of Service:[address] [place] OFFICE/OUTPATIENT ESTABLISHED LOW MDM 20 MIN (GE) Reason for Visit and Comments: Med Management [[id number]][facility] HospitalFollow-Upon [id number] Luz Shahid 1965 Provider Department Center 05/30/2025 316-LOU MANNING [facility] Family History Family Status - Relation Status Age at Mother Alive Father Level of Service:[address]004 [place] OFFICE/OUTPATIENT ESTABLISHED MOD MDM 30 MIN (GC) [facility] HospitalLabon [id number] Luz Shahid 1965 Date Provider Department Center 05/30/2025 [facility] MP DRAW Medical Pavi Family History Family Status - Relation Status Age at Mother Alive Father DeceasedNormalUni[address] 05-30-2025 TRIIODOTHYRONINE (T3) (NG/DL) IN SER/MIQP367 ng/jMKpntbk85-643HrywuubzamSt. Charles HospitalComment on above:Result Comment: REFERENCE INTERVAL: Triiodothyronine, Total (Total T3) Access complete set of age- and/or gender-specific reference intervals for this test in the [facility] Test Directory (mobiTeris). Performed By: [place] [address] [place] [id number] Deputy Sheriff Civil Division: Savage Wiggins MD, PhD CLIA Number: [id number] By: #### [id number] #### [facility] (BEAKER) [address] [place], [place] [address]C0, FREEon [phone] (T4) FREE (NG/DL) IN SER/PLAS1.07 ng/dLNormal0.71-1.85UnSt. Charles HospitalComment on above: Performed By: #### [id number] #### [facility] (BEAKER) [address] [place], [place] [address]HGBet 77-41-2602AOGKVPYNISE (MIU/L) IN SER/PLAS BY DETECTION LIMIT <= 0.05 MIU/L0.58 mIU/LNormal0.34-5.60UnSt. Charles Hospital Comment on above:Performed By: #### [id number] #### [facility] (BEAKER) [address] [place], [place] [address]24gq [id number] appt. 06/14/25 Past appt. 02/19/25 HIV Quantitative RNA (copies/mL) Date Value 01/24/2025 <30 10/01/2022 <30 CD4 Abs (cells/mm3) Date Value 01/24/2025 851 Creatinine (mg/dL) Date Value 01/24/2025 1.22 Income on file: YesNormalUniversity [facility]36on 06/14/25 02/19/25 HIV Quantitative RNA (copies/mL) Date Value 01/24/2025 <30 10/01/2022 <30 CD4 Abs (cells/mm3) Date Value 01/24/2025 851 Creatinine (mg/dL) Date Value 01/24/2025 1.22 [facility] file[facility] Future appt. 06/14/25 Past appt. 02/19/25 HIV Quantitative RNA (copies/mL) Date Value 01/24/2025 <30 10/01/2022 <30 CD4 Abs (cells/mm3) Date Value 01/24/2025 851 Creatinine (mg/dL) Date Value 01/24/2025 1.22 Income on file: [address] 06/14/25 02/19/25 HIV Quantitative RNA (copies/mL) Date Value 01/24/2025 <30 10/01/2022 <30 CD4 Abs (cells/mm3) Date Value 01/24/2025 851 Creatinine (mg/dL) Date Value 01/24/2025 1.22 Income on file: [address] Called patient back and instructed him to go to the ER per Dr. Hurley. Patient verbalized understanding.[facility]36Patient called to report sharp pain in the front of his left leg that radiates downward at a pain level of 9 when it hits and lasts for about 3 minutes . Patient also reported left hip pain at a level of 8 that he described as throbbing when walking . Patient mentioned not being able [facility] regard to open sore on ankle that is not healing and has had for 6 months . Terminal Clerk contacted Dermatology about existing referral and spoke with Rina to get patient scheduled for an appt.[place] [address]on 01/24/25 HIV Quantitative RNA (copies/mL) Date Value 01/24/2025 <30 10/01/2022 <30 CD4 Abs (cells/mm3) Date Value 01/24/2025 851 Creatinine (mg/dL) Date Value 01/24/2025 1.22 [facility] file[facility]Tele[facility]icineon [phone] Luz Shahid 1965 M Date Provider Department Center 02/19/2025 MAGADLENA SESAY [facility] Family History Family Status - Relation Status Age at Mother Alive Father Level of Service:[address] [place] OFFICE/OUTPATIENT ESTABLISHED LOW MDM 20 [facility]36on 01/24/252024 income on file HIV Quantitative RNA (copies/mL) Date Value 01/24/2025 <30 10/01/2022 <30 CD4 Abs (cells/mm3) Date Value 01/24/2025 851 Creatinine (mg/dL) Date Value 01/24/2025 1.22NormalUniversMount Carmel Health SystemRefillon 02-01-2025 [id number] Luz Shahid 1965 M Date Provider Department [place] 02/01/2025 DONYA REILLY [facility] Family History Family Status - Relation Status Age at Mother Alive Father Reason for Visit and Comments: Med Refill [[id number]][facility]36on Called pcp office per Dr. Hurley to inform of abnormal labs. Confirmed that they could get labs in [facility]36Called patient and let him know his lab results. Informed him of additional lab work that the Ordered and would like completed in the next few days. Also let him know that the results would be sent to his pcp as well. He asked that lab orders be sent to [facility] and states he will have them drawn today after work. I printed and faxed orders to [facility] registration/lab at [phone].[facility] GLUCOSE RANDOM OR FASTINGon 02-63-4783Ynqyrbc [Mass/Vol]95 mg/sKYziaiw98-86 [facility] BakersfieldComment on above:Performed By: #### GLU #### [facility] (TT) [address] [place] [address] VIRHEMOGLOBIN A1Con 76-45-7358Ateaneo [Mass/Vol]146 mg/dLNormal [facility] BakersfieldComment on above:Performed By: #### HA1C #### [facility] ([facility]) [address] [place] [address] JFTZiF6y (Bld) [Mass fraction]6.7 %High4.4-5.6Pro[facility] Hospital BakersfieldComment on above:Result Comment: ADA Guidelines Result HgbA1c Normal : less than 5.7 % Prediabetes : 5.7 % to 6.4 % Diabetes : > 6.4 % Use with caution in patients with abnormal hemoglobin variants as the half-life of red blood cells and in vivo glycation rates are affected.Performed By: #### HA1C #### [facility] ([facility]) [address] [place] [address] VIRTelephoneon [phone] zoeLuz W 1965 M Date Provider Department Center 01/25/2025 NATALIO WITT [facility] Family History Family Status - Relation Status Age at Mother Alive Father Reason for Visit and Comments: lab results and additional lab orders [Other]NormalUnSt. Charles HospitalCBC WITH AUTO DIFFERENTIALon 10-68-3707Ydisggyzo (Bld) [#/Vol]0.06 10*3/uL Normal0.00-0.20UnSt. Charles HospitalComment on above:Performed By: #### [id number] ####[facility] (BEAKER)[address] [place] [address] Basophils/100 WBC (Bld)0.7 %Normal0.0-1.0UnSt. Charles Hospital Comment on above:Performed By: #### [id number] ####[facility] (BEAKER)[address] [place], [place] [address]Kynzdinlfwd (Bld) [#/Vol]0.06 10*3/uLNormal 0.00-0.50UnSt. Charles HospitalComment on above:Performed By: #### [id number] ####[facility] ([facility] [place] [address] Eosinophils/100 WBC (Bld)0.7 %Normal0.0-6.0UnSt. Charles Hospital Comment on above:Performed By: #### [id number] ####[facility] ([facility])[address] [place], [place] [address]Cybouxzvava distribution width (RBC) [Ratio]13.6 % Wgexnt53.5-15.0UnSt. Charles HospitalComment on above:Performed By: #### [id number] ####[facility] ([facility])[address] [place] [address] ERYTHROCYTE MEAN CORPUSCULAR HEMOGLOBIN CONCENTRATION (G/DL) BY UTNJBSVCG80.1 g/lHEcbxgp80.0-35.0UnSt. Charles HospitalComment on above:Performed By: #### [id number] ####[facility] ([facility])[address] [place], [place] [address]Loesidqfay (Bld) [Volume fraction]51.1 %High39.0-50.0UnSt. Charles HospitalComment on above:Performed By: #### [id number] ####[facility] (BEAKER)[address] [place], [place] [address]Nvhawottcy (Bld) [Mass/Vol]17.4 g/dL High13.0-17.0UnSt. Charles HospitalComment on above:Performed By: #### [id number] ####[facility] (BEAKER)[address] [place] [address] Immature granulocytes (Bld) [#/Vol]0.13 10*3/uLNormal0.00-0.20UnSt. Charles HospitalComment on above:Performed By: #### [id number] ####[facility] (BEAKER)[address] [place], [place] [address]Obxieemw granulocytes/100 WBC (Bld)1.5 %High0.0-1.0UnSt. Charles HospitalComment on above: Performed By: #### [id number] ####[facility] (BEAKER)[address] [place] [place] [address]Cegngpiqnqo (Bld) [#/Vol]2.16 10*3/uLNormal1.20-4.00 [facility] CenterComment on above:Performed By: #### [id number] ####[facility] ([facility])[address] [place] [place] [address]Eufpbgyluhk/100 WBC (Bld)25.4 %Ojhzam65.0-45.0UnSt. Charles HospitalComment on above:Performed By: #### [id number] ####[facility] ([facility])[address] [place] [place] [address]SOB (RBC) [Entitic mass]31.9 ipVjgowk63.0-33.0UnSt. Charles HospitalComment on above:Performed By: #### [id number] ####[facility] (AKER)[address] YEVGENIYCLARKS SUMMIT STATE HOSPITALRiverC[place], [place] [address]ZTP (RBC) [Entitic vol] 93.6 nMWooilc62.0-98.0UnSt. Charles HospitalComment on above: Performed By: #### [id number] ####[facility] (BEAKER)[address] [place], [place] [address]Zvdpmbbpg (Bld) [#/Vol]0.46 10*3/uLNormal0.10-1.00UnSt. Charles HospitalComment on above:Performed By: #### [id number] ####[facility] (BEAKER)[address] YEVGENIYCLARKS SUMMIT [place]ITALRiver, [place] [address]Cwitqdnaf/100 WBC (Bld) 5.4 %Normal5.0-12.0UnSt. Charles HospitalComment on above:Performed By: #### [id number] ####[facility] (BEAKER)[address] YEVGENIYSELECT [facility], [place] [address]Oroynltfeze (Bld) [#/Vol]5.63 10*3/uLNormal1.60-7.60UnSt. Charles HospitalComment on above:Performed By: #### [id number] ####[facility] ([facility])[address] [place] [address]Ilcowaxdjyb/100 WBC (Bld)66.3 %Normal 40.0-72.0UnSt. Charles HospitalComment on above:Performed By: #### [id number] ####[facility] ([facility])[address] [place] [address]WSFS (PER 100 WBCS) BY AUTOMATED COUNT0.0 %Wlkptr1RkfvwcuoqsSt. Charles Hospital Comment on above:Performed By: #### [id number] ####[facility] ([facility])[address] [place] [address]OZLDESHBM (10*3/UL) IN BLOOD AUTOMATED XWGKL207 10*3/eGImbwre237-025ZcutmbfoyfSt. Charles HospitalComment on above: Performed By: #### [id number] ####[facility] ([facility])[address] [place] [address]FRV (Bld) [#/Vol]5.46 10*6/uLNormal4.20-5.70UnSt. Charles HospitalComment on above:Performed By: #### [id number] ####[facility] ([facility])[address] [place] [address]WSG (Bld) [#/Vol]8.50 10*3/uLNormal4.00-10.60UnSt. Charles HospitalComment on above: Performed By: #### [id number] ####[facility] ([facility])[address] [place], [place] [address]DLZRFYGYR TRACHOMATIS AND NEISSERIA GONORRHEA, TMAon 94-13-3133YISDTHEEF TRACHOMATIS DNA PROBE (PRESENCE) IN UNSP SPECNegativeNormal NegativeUnSt. Charles HospitalComment on above:Result Comment: No Chlamydia trachomatis rRNA Detected. The Aptima Combo 2 Assay is a FDA approved target amplification nucleic acid probe test that utilizes target capture for the in vitro qualitative detection and differentiation of ribosomal RNA (rRNA)from Chlamydia trachomatis (CT) and/or Neisseria gonorrhoeae (GC) to aid the diagnosis of chlamydial and/or gonococcal urogenital disease using the [place] System. The Aptima Combo 2 Assay involves target capture, target amplification by Quantitative Software Engineer-Mediated Amplification (TMA), and the detection of the amplification products (amplicon) by the Hybridization Protection Assay (HPA). The internal process controls of the [place] System monitor the target capture, amplification, and detection steps of the assay, this is not intended to control for sampling adequacy.Performed By: #### [id number] ####[facility] ([facility])[address] [place], [place] [address]SUTTJEWFU GONORRHOEAE DNA PROBE (PRESENCE) IN UNSP SPECNegativeNormalNegativeUnSt. Charles Hospital Comment on above:Result Comment: No Neisseria gonorrhoeae rRNA Detected. The Aptima Combo 2 Assay is a FDA approved target amplification nucleic acid probe test that utilizes target capture for the in vitro qualitative detection and differentiation of ribosomal RNA (rRNA)from Chlamydia trachomatis (CT) and/or Neisseria gonorrhoeae (GC) to aid the diagnosis of chlamydial and/or gonococcal urogenital disease using the [place] System. The Aptima Combo 2 Assay involves target capture, target amplification by Quantitative Software Engineer-Mediated Amplification (TMA), and the detection of the amplification products (amplicon) by the Hybridization Protection Assay (HPA). The internal process controls of the [place] System monitor the target capture, amplification, and detection steps of the assay, this is not intended to control for sampling adequacy.Performed By: #### [id number] ####[facility] (BEAKER)[address] [facility], [place] [address]UMANKVHERVSFP METABOLIC PANELon 35-55-5272Vblafzr [Mass/Vol]5.0 g/dLNormal3.5-5.7UnSt. Charles HospitalComment on above:Performed By: #### [id number] ####[facility] (AKER)[address] [place], [place] [address]JMQ [Catalytic activity/Vol]98 U/L Wxwnhx43-156GugwdojkckSt. Charles HospitalComment on above:Performed By: #### [id number] ####[facility] ([facility])[address] [place], [place] [address]YJA [Catalytic activity/Vol]26 U/LNormal7-52UnSt. Charles Hospital Comment on above:Performed By: #### [id number] ####[facility] ([facility])[address] [place], [place] [address]Dvzpd gap [Moles/Vol]12 mmol/LNormal7-20UnSt. Charles HospitalComment on above:Performed By: #### [id number] ####[facility] ([facility])[address] [place], [place] [address]PPW [Catalytic activity/Vol]19 U/VLorvpu97-00HbzsbekumiSt. Charles HospitalComment on above:Performed By: #### [id number] ####[facility] ([facility])[address] [place], [place] [address]Srgipanfl [Mass/Vol]0.6 mg/dLNormal0.3-1.0UnSt. Charles HospitalComment on above:Performed By: #### [id number] ####[facility] ([facility])[address] [place] [place], [place] [address]Nxwjzzu [Mass/Vol]9.5 mg/dLNormal 8.6-10.3UnSt. Charles HospitalComment on above:Performed By: #### [id number] ####[facility] ([facility])[address] [place] [place], [place] [address]Xnjkygrp [Moles/Vol]101 mmol/JAsvlix53-654EfqsihbxoySt. Charles HospitalComment on above:Performed By: #### [id number] ####[facility] ([facility])[address] [place] [place], [place] [address]FF5 [Moles/Vol]27 mmol/CAbxehc04-37ZgwhrdrujvSt. Charles HospitalComment on above:Performed By: #### [id number] ####[facility] ([facility])[address] [place] [place], [place] [address]Yyzbgyndld [Mass/Vol]1.22 mg/dLNormal 0.70-1.30UnSt. Charles HospitalComment on above:Performed By: #### [id number] ####[facility] ([facility])[address] [place] [address]FAFSKRCUML FILTRATION RATE ML/MIN/1.73 SQ M.OPAAQNWLO64.3 mL/min/1.73m*2Normal>60.0 [facility] CenterComment on above:Result Comment: The [facility]???s estimated glomerular filtration rate (eG FR) will no longer include consideration of race in its calculation. The National Kidney Foundation???s eGFR Task Force developed new recommendations for the estimation of the glomerular filtration rate in the [place] They recommend immediate implementation of the new equation refit without the race variable in all laboratories because the calculation does not include race. In addition to not including race in the calculation and reporting, it included diversity in its development, and has acceptable performance characteristics and potential consequences that do not disproportionately affect anyone group of individuals. Performed By: #### [id number] ####[facility] ([facility])[address] [place] [place] [address]Lxyywgo [Mass/Vol]183 mg/wGGieo09-163IxhoupulclSt. Charles HospitalComment on above:Performed By: #### [id number] ####[facility] ([facility])[address] [place] [address]Yevnisdof [Moles/Vol]4.2 mmol/LNormal 3.5-5.1UnSt. Charles HospitalComment on above:Performed By: #### [id number] ####[facility] ([facility])[address] [place] [address]Mmksffp [Mass/Vol]7.8 g/dLNormal6.0-8.3UnSt. Charles HospitalComment on above:Performed By: #### [id number] ####[facility] ([facility])[address] [place] [address]Rxsqrz [Moles/Vol]136 mmol/HWuhkwl426-528LcvevirxkxSt. Charles HospitalComment on above:Performed By: #### [id number] ####[facility] (BEAKER)[address] [facility], [place] [address]Qtlr nitrogen [Mass/Vol]19 mg/dLNormal 7-UnSt. Charles HospitalComhills & d[facility] on above:Performed By: #### [id number] ####[facility] (BEAKER)[address]EVGENIYCLAR[address] [facility] [place] [address]ZSAJ NITROGEN/CREATININE (MASS RATIO) IN SER/PLAS15.6NormalUniversMount Carmel Health SystemComment on above:Performed By: #### [id number] ####[facility] (BEAKER)[address] [place], [place] [address]Yvpjwemwwqvonph 01-24-2025 [id number] Luz Shahid W 1965 M Date Provider Department Center 01/24/2025 3600[facility]PREET ESTES [facility] Family History Family Status - Relation Status Age at Mother Alive Father Reason for Visit and Comments: Safe T [Other]NormalUnSt. Charles [id number] Luz Shahid W 1965 M Date Provider Department Center 01/24/2025 3600[facility]ITALMEERA JASPREET [facility] Family History Family Status - Relation Status Age at Mother Alive Father Reason for Visit and Comments: care plan [Other] - Due 34-53-20HzechiKgmttdxvlbMount Carmel Health SystemLabon [id number] Luz Shahid W 1965 M Date Provider Department Center 01/24/2025 2244-[facility] RESOURCE MP DRAW Medical Pavi Family History Family Status - Relation Status Age at Mother Alive Father DeceasedNormalUniCrystal Clinic Orthopedic CenterOffice Visiton 64-50-3201Qzxvwx-up [id number] Luz Shahid W 1965 M Date Provider Department Center 01/24/2025 258-DONYA HURLEY [facility] Family History Family Status - Relation Status Age at Mother Alive Father Level of Service:24[address] [place] OFFICE/OUTPATIENT ESTABLISHED MOD MDM 30 MIN Reason for Visit and Comments: Human immunodeficiency virus (CMS/HCC) [Other] Health Maintenance [619] Med Management [[id number]]NormalUnSt. Charles HospitalOrders Only on 78-52-1521Endrxo [id number] Luz Shahid 1965 M Date Provider Department Center 01/24/2025 DONYA REILLY [facility]ARE [facility] Family History Family Status - Relation Status Age at Mother Alive Father DeceasedNormalUniversMount Carmel Health SystemRPRon 40-29-0278CZDBCK AB PRESENCE IN SERUM BY RPRNon-ReactiveNormalNonreactiveUnSt. Charles HospitalComment on above:Performed By: #### [id number] #### [facility] ([facility]) [address] [place], [place] [address]A CELL SUBSET ANALYSISon 70-14-1787DZ050.00 %Olxvlt94.00-90.00 [facility] CenterComment on above:Performed By: #### [id number] #### [facility] ([facility]) [address] [place], [place] [address] YOLVKEPN1861 cells/er8Uuawhl751-5140XnmdbtcxzjSt. Charles HospitalComment on above:Performed By: #### [id number] #### [facility] ([facility]) [address] [place], [place] [address]ZH166.40 %Low40.00-70.00UnSt. Charles Hospital Comment on above:Performed By: #### [id number] #### [facility] ([facility]) [address] [place], [place] [address]UI1 JOVYKGIQ112 cells/aw3Npbyse277-5822IrjxcmxbsiSt. Charles HospitalComment on above:Performed By: #### [id number] #### [facility] ([facility]) [address] [place], [place] [address]TK1:CD80.90Low1.00-4.00UnSt. Charles Hospital Comment on above:Performed By: #### [id number] #### [facility] ([facility]) [address] [place], [place] [address]ZS[address].67 %High15.00-40.00UnSt. Charles Hospital Comment on above:Performed By: #### [id number] #### [facility] ([facility]) [address] [place] [address]JQ4 IWFEDQOG564 cells/qn3Kxix084-311GacozswfhdSt. Charles HospitalComment on above:Performed By: #### [id number] #### [facility] ([facility]) [address] [place] [address]UDCPVEKABKar 47-12-6246UTANTWHZT, TOTAL PRESENCE IN URINE NegativeNormalNegativeUnSt. Charles HospitalComment on above: Performed By: #### [id number] ####[facility] ([facility])[address] [place], [place] [address]Zcqlahr (U)ClearNormalClearUnSt. Charles HospitalComment on above:Performed By: #### [id number] ####[facility] ([facility])[address] [place], [place] [address]Frpci (U)ColorlessNormalColorless, Yellow, Light-YellowUnSt. Charles HospitalComment on above: Performed By: #### [id number] ####[facility] ([facility])[address] [place], [place] [address]IASHCII (MG/DL) IN URINENormalNormalNormalUniversMount Carmel Health SystemComment on above:Performed By: #### [id number] ####[facility] ([facility])[address] [facility]EVGENIYSELECT [facility], [place] [address]MMTVXENCSN PRESENCE IN URINETraceAbnormalNegativeUnSt. Charles HospitalComment on above: Performed By: #### [id number] ####[facility] ([facility])[address] YEVGENIYSELECT [facility], [place] [address]Shiqvzl Ql (U)NegativeNormalNegbassett army community hospitalUnSt. Charles HospitalComment on above:Performed By: #### [id number] ####[facility] ([facility])[address] [place], [place] [address]DJUVTWVML ESTERASE PRESENCE IN URINE BY TEST STRIPNegativeNormalNegativeUnSt. Charles HospitalComment on above:Performed By: #### [id number] ####[facility] ([facility])[address] [place] [address]DWYKNNM PRESENCE IN URINENegativeNormalNegativeUnSt. Charles HospitalComment on above:Performed By: #### [id number] ####[facility] ([facility])[address] [place] [address]aY (U)6.5 [pH]Normal 5.0-8.0[facility] Medical CenterComment on above:Performed By: #### [id number] ####[facility] ([facility])[address] [place] [address]Dwzoavf (U) [Mass/Vol]NegativeNormalNegativeUnSt. Charles HospitalComment on above:Performed By: #### [id number] ####[facility] ([facility])[address] [place] [address]Wkpbwqsi gravity (U) [Rel density]1.755Grh1.010-1.030 [facility] Medical CenterComment on above:Performed By: #### [id number] ####[facility] ([facility])[address] [place] [address]TQANRLWHSVIT (MG/DL) IN URINENormalNormalNormalUniversMount Carmel Health SystemComment on above:Performed By: #### [id number] ####[facility] ([facility])[address] [place], [place] [address]XTECSRWTEQ MICROSCOPICon [id number] (#/HPF) IN URINE SEDIMENT0-2NormalNone Seen, 0-2UnSt. Charles HospitalComment on above:Performed By: #### [id number] #### [facility] ([facility]) [address] [place], [place] [address]VFQIVPXK EPITHELIAL CELLS (#/LPF) IN URINE SEDIMENTNone Seen NormalNone Seen, Occasional, FewUnSt. Charles HospitalComment on above:Performed By: #### [id number] #### [facility] (BEAKER) [address] [place], [place] [address]CCI (LEUKOCYTE) (#/HPF) IN URINE SEDIMENT3-5AbnormalNone Seen, 0-2UnSt. Charles HospitalComment on above:Performed By: #### [id number] #### [facility] (BEAKER) [address] [place], [place] [address]IPQZ urinalysis dipstick onlyon 10-76-0570Xrbwxpkhwg (U)clear [facility] SystemExternal Poct Urine BilirubinNegativeProMedica Health SystemExternal Poct Urine BloodNegativeProMedica Health SystemExternal Poct Urine ColoryellowProMedica Health SystemExternal Poct Urine GlucoseNegative [facility] SystemExternal Poct Urine KetonesNegativeProMedica Health SystemExternal Poct Urine Leukocyte EsteraseNegativeProMedica Health System External Poct Urine NitriteNegativeProMedica Health SystemExternal Poct Urine Ph 6Pro[facility] SystemExternal Poct Urine Protein1+[facility] Comment on above:60External Poct Urine Specific Gravity1.025[facility] SystemExternal Poct Urine Urobilinogen0.2Pro[facility]ica Health SystemProMedica Health SystemRefillon [id number] Luz Shahid W 1965 M Date Provider Department Center 12/10/2024 316-BECKALOU [facility] ENDOCR [facility] Family History Family Status - Relation Status Age at Mother Alive Father Reason for Visit and Comments: Med Refill [[id number]]NormalUnSt. Charles Hospital36on Patient [facility] todayNormalUniversMount Carmel Health SystemT3 [Mass/Vol]on 15-81-4333GNEQB T3 (TT3)126 ng/dLNormal 87-178ProChi St. Luke'S Health – Patients Medical CenterComment on above:Performed By: #### THYR, 3053-6 #### [facility] ([id number]) [address], [address] [place] [address] #### 5385-0, 56299-8 #### [facility] ([id number]) [address] [place] [address] 158[address]BFAZPFS PROFILEon 54-73-6418Skns T4 [Mass/Vol]0.72 ng/dLNormal 0.61-1.60ProChi St. Luke'S Health – Patients Medical CenterComment on above:Performed By: #### THYR, 3053-6 #### [facility] ([id number]) [address], [address] [place] [address] #### 5385-0, 23583-0 #### [facility] ([id number]) [address] [place] [address] 20734KXD6.60 uIU/mLNormal0.49-4.67ProChi St. Luke'S Health – Patients Medical CenterComment on above:Performed By: #### THYR, 3053-6 #### [facility] ([id number]) [address], [address] [place] [address] #### 5385-0, 77301-7 #### [facility] ([id number]) [address] [place] [address] 20829ETG receptor Ab Qn (S)on 80-34-3691KRJYCGJRDOG RECEPTOR ABSEE COMMENTS 11/29/2024 10:[address] Luke'S Health – Patients Medical CenterComment on above: Result Comment: NOTE Test Result Flag Unit RefValue Thyrotropin Receptor Ab, S 6.64 H IU/L 0.00 - 1.75 ADDITIONAL INFORMATION At a decision limit of 1.75 IU/L, this assay has 97% sensitivity and 99% specificity for detection of Graves' disease. In healthy individuals and in patients with thyroid disease without diagnosis of Graves' disease, the upper limit of anti-TSHR values are 1.22 IU/L and 1.58 IU/L, respectively (97.5th percentiles). Test Performed by: [place] [address] Director Industrial Nursing: Logan Weller Ph.D.; CLIA# [id number] By: #### THYR, 3053-6 #### [facility] ([id number]) [address] [place] [address], [address] [address] #### 5385-0, 88317-5 #### [facility] ([id number]) [address] [place] [address]Qaeztis stimulating immunoglobulins Qn (S)on 85-97-3053Dswedex- Stimulating Immunoglob, S1.3 TSI indexNormal<=1.3PParkview Health Bryan Hospital Comment on above:Result Comment: NOTE Test Performed by: [place] [address] Director Industrial Nursing: Logan Weller Ph.D.; CLIA# [id number] By: #### THYR, 3053-6 #### [facility] ([id number]) [address] [place] [address], [address] [address] #### 5385-0, 75231-9 #### [facility] ([id number]) [address] [place] [address]Saaett-Gsju [id number] Luz Shahid 1965 M Date Provider Department Center 11/26/2024 [id number]-VOQCNDUDENA JAMESON [facility] ENDOCR [facility] Family History Family Status - Relation Status Age at Mother Alive Father Level of Service:30187 [place] OFFICE/OUTPATIENT ESTABLISHED MOD MDM 30 [facility] CenterXR HIP LT 2-3 VIEWS W OR WO PELVISon 91-84-2281ON HIP LT 2-3 VIEWS W OR WO PELVISXR HIP LT 2-3 VIEWS W OR WO PELVIS Examination: Left hip radiographs performed with pelvis Number of views:3 History:Left hip pain Comparison:None Findings: There is no fracture or destructive lesion. Joint space is well preserved with both hips.The SI joints are patent. Impression: 1. No acute findings. Finalized by Shola Mims MD on 11/15/2024 1:57 PMNSalem Regional Medical CenterXR Pelvis and Hip - left 2 Viewson 11-15-2024 Examination: Left hip radiographs performed with pelvis Number of views:3 History:Left hip pain Comparison:None Findings: There is no fracture or destructive lesion. Joint space is well preserved with both hips.The SI joints are patent. Impression: 1. No acute findings. Finalized by Shola Mims MD on 11/15/2024 1:57 PMSATRIUM HEALTH CABARRUSShola Bobby MD - 11/15/2024 Examination: Left hip radiographs performed with pelvis Number of views:3 History:Left hip pain Comparison:None Findings: There is no fracture or destructive lesion. Joint space is well preserved with both hips.The SI joints are patent. Impression: 1. No acute findings. Finalized by Shola Mims MD on 11/15/2024 1:57 PM [facility] CentermFoundry Insight Surgical HospitalRadiology Study observation (narrative)[facility]ional Medical CenterHang w/XR Pelvis and Hip - left 2 ViewsOrdered By: Shola Mims on 11-15-2024 [facility] CenterHang w/ Work Phone: Telemedicineon [id number] Luz Shahid 1965 M Date Provider Department Center 11/13/2024 Dony-MAGDALENA JACKSON [facility] Family History Family Status - Relation Status Age at Mother Alive Father Level of Service:88557 [place] OFFICE/OUTPATIENT ESTABLISHED LOW MDM 20 [facility]36on [id number] contacted the office requesting medication refill for methimazole. Patient verified pharmacy information. Pharmacy: [facility] [place] Patient scheduled follow up appointment for 11/[address] Freedman.[facility]36Left voicemail for patient that Dr. Hurley is requesting that he follow up with endocrinology for his thyroid medications.[facility] HospitalOrders Onlyon [id number] [id number] Luz Shahid Mar 1965 M Date Provider Department Center 11/08/2024 DONYA REILLY [facility] Family History Family Status - Relation Status Age at Mother Alive Father DeceasedNormParkwood HospitalRefillon 11-08-2024 [id number] Luz Shahid Mar 1965 M Date Provider Department Center 11/08/2024 316-LOU MANNING [facility] ENDOCR [facility] Family History Family Status - Relation Status Age at Mother Alive Father Reason for Visit and Comments: Med Refill [[id number]][facility]36on 01/24/25 07/26/24 No income on file for 2024 HIV Quantitative RNA (copies/mL) Date Value 07/26/2024 <30 10/01/2022 <30 CD4 Abs (cells/mm3) Date Value 07/26/2024 998 Creatinine (mg/dL) Date Value 07/26/2024 1.17NormalUniShannon [place] [address]on [facility] contacted office requesting refill for patient. Requested methimazole 5mg tablet. Confirmed [facility] [place]Sheltering Arms HospitalTelemedicineon [id number] Yoan Shahidchano Hendrix 1965 M Date Provider Department Center 10/11/2024 MAGDALENA SESAY [facility] Family History Family Status - Relation Status Age at Mother Alive Father Level of Service:50960 [place] OFFICE/OUTPATIENT ESTABLISHED LOW MDM 20 [facility]36on 05/29/20242024 Income not on file HIV Quantitative RNA (copies/mL) Date Value 07/26/2024 <30 10/01/2022 <30 CD4 Abs (cells/mm3) Date Value 07/26/2024 998 Creatinine (mg/dL) Date Value 07/26/2024 1.17NormalUniversMount Carmel Health System36on 05/29/2024 VM to call for appt HIV Quantitative RNA (copies/mL) Date Value 07/26/2024 <30 10/01/2022 <30 CD4 Abs (cells/mm3) Date Value 07/26/2024 998 Creatinine (mg/dL) Date Value 07/26/2024 1.17NoalUniCrystal Clinic Orthopedic Center36on / No followup scheduled Income on file HIV Quantitative RNA (copies/mL) Date Value 07/26/2024 <30 10/01/2022 <30 CD4 Abs (cells/mm3) Date Value 07/26/2024 998 Creatinine (mg/dL) Date Value 07/26/2024 1.17NormalUniCrystal Clinic Orthopedic CenterOrders Onlyon 08-21-2024 Orders [id number] Luz Shahid 1965 M Date Provider Department Center 08/21/2024196974317-KHVTZKCBILLY ZELAYA [facility] Family History Family Status - Relation Status Age at Mother Alive Father DeceasedNormalUniversSelect Medical Specialty Hospital [facility], Inc WITH AUTO DIFFERENTIALon 98-02-7062Dgxvxporc (Bld) [#/Vol]0.06 10*3/uLNormal0.00-0.20 [facility] Medical CenterComment on above:Performed By: #### [id number] #### [facility] (BEAKER) [address] [place], [place] [address]Vqqdmqsxz/100 WBC (Bld)0.8 %Normal0.0-1.0UnSt. Charles HospitalComment on above:Performed By: #### [id number] #### [facility] ([facility]) [address] [place] [place] [address]Hvozftatnpi (Bld) [#/Vol]0.12 10*3/uLNormal0.00-0.50UnSt. Charles HospitalComment on above:Performed By: #### [id number] #### [facility] ([facility]) [address] [place] [place] [address]Zvieylsubcq/100 WBC (Bld)1.7 %Normal0.0-6.0UnSt. Charles HospitalComment on above:Performed By: #### [id number] #### [facility] ([facility]) [address] [place], [place] [address]Bsjrxxpemvt distribution width (RBC) [Ratio]13.6 %Normal 11.5-15.0UnSt. Charles HospitalComment on above:Performed By: #### [id number] #### [facility] ([facility]) [address] [place], [place] [address]TAITTIGAACD MEAN CORPUSCULAR HEMOGLOBIN CONCENTRATION (G/DL) BY OARSZQVKH09.0 g/jCGkckds67.0-35.0UnSt. Charles HospitalComment on above:Performed By: #### [id number] #### [facility] ([facility]) [address] [place] [place] [address]Vjpibsxagv (Bld) [Volume fraction]49.1 %Elroqu49.0-55.0 [facility] Medical CenterComment on above:Performed By: #### [id number] #### [facility] ([facility]) [address] [place] [place], [place] [address]Pdgydeithd (Bld) [Mass/Vol]16.7 g/bJInlskr06.0-17.0UnSt. Charles HospitalComment on above:Performed By: #### [id number] #### [facility] ([facility]) [address] [place], [place] [address]Jyrashlm granulocytes (Bld) [#/Vol]0.03 10*3/uLNormal0.00-0.20 [facility] Medical CenterComment on above:Performed By: #### [id number] #### [facility] ([facility]) [address] [place] [place] [address]Gxbwoqdv granulocytes/100 WBC (Bld)0.4 %Normal0.0-1.0UnSt. Charles HospitalComment on above:Performed By: #### [id number] #### [facility] ([facility]) [address] [place] [place] [address]Bjtpwykmxmy (Bld) [#/Vol]2.36 10*3/uLNormal1.20-4.00UnSt. Charles HospitalComment on above:Performed By: #### [id number] #### [facility] ([facility]) [address] [place] [place] [address]Yaywnizlsab/100 WBC (Bld)33.0 %Qwfvlu57.0-45.0UnSt. Charles HospitalComment on above:Performed By: #### [id number] #### [facility] ([facility]) [address] [place] [place] [address]RBF (RBC) [Entitic mass]31.5 rxCrsvyc68.0-33.0UnSt. Charles HospitalComment on above:Performed By: #### [id number] #### [facility] ([facility]) [address] [place] [place] [address]ROQ (RBC) [Entitic vol]92.6 gSUwilhk93.0-98.0UnSt. Charles HospitalComment on above:Performed By: #### [id number] #### [facility] ([facility]) [address] [place] [address]Bfiwbasjr (Bld) [#/Vol]0.44 10*3/uLNormal0.10-1.00UnSt. Charles HospitalComment on above:Performed By: #### [id number] #### [facility] ([facility]) [address] [place] [address]Puilmbbns/100 WBC (Bld)6.2 %Normal5.0-12.0UnSt. Charles HospitalComment on above:Performed By: #### [id number] #### [facility] ([facility]) [address] [place] [address]Nnkpzjfeijm (Bld) [#/Vol]4.14 10*3/uLNormal1.60-7.60UnSt. Charles HospitalComment on above:Performed By: #### [id number] #### [facility] ([facility]) [address] [place] [address]Ddplfxzbtfd/100 WBC (Bld)57.9 %Ndbufy87.0-72.0UnSt. Charles HospitalComment on above:Performed By: #### [id number] #### [facility] ([facility]) [address] [place] [place] [address]HDMQ (PER 100 WBCS) BY AUTOMATED COUNT0.0 %Nazqxk7MnubivdcemSt. Charles HospitalComment on above:Performed By: #### [id number] #### [facility] ([facility]) [address] [place] [address]FWIAFWDIZ (10*3/UL) IN BLOOD AUTOMATED UMZQF639 10*3/uLNormal 150-400UnSt. Charles HospitalComment on above:Performed By: #### [id number] #### [facility] ([facility]) [address] [place] [address]LHV (Bld) [#/Vol]5.30 10*6/uLNormal4.20-5.70UnSt. Charles HospitalComment on above:Performed By: #### [id number] #### [facility] ([facility]) [address] [place] [address]HAO (Bld) [#/Vol]7.15 10*3/uLNormal4.00-10.60UnSt. Charles HospitalComment on above:Performed By: #### [id number] #### [facility] ([facility]) [address] [place] [address]YBSMUARCG TRACHOMATIS AND NEISSERIA GONORRHEA, [facility]ICAL CENTERon 07-26-2024 CHLAMYDIA TRACHOMATIS DNA PROBE (PRESENCE) IN UNSP SPECNegativeNormalNegative [facility]'s Medical CenterComment on above:Result Comment: No Chlamydia trachomatis rRNA Detected. The Aptima Combo 2 Assay is a FDA approved target amplification nucleic acid probe test that utilizes target capture for the in vitro qualitative detection and differentiation of ribosomal RNA (rRNA)from Chlamydia trachomatis (CT) and/or Neisseria gonorrhoeae (GC) to aid the diagnosis of chlamydial and/or gonococcal urogenital disease using the [place] System. The Aptima Combo 2 Assay involves target capture, target amplification by Quantitative Software Engineer-Mediated Amplification (TMA), and the detection of the amplification products (amplicon) by the Hybridization Protection Assay (HPA). The internal process controls of the [place] System monitor the target capture, amplification, and detection steps of the assay, this is not intended to control for sampling adequacy.Performed By: #### [id number] ####[facility] (BEAKER)[address] [facility], [place] [address]HNOEYREHL GONORRHOEAE DNA PROBE (PRESENCE) IN UNSP SPECNegativeNoatrium health lincolnNegMercy Health Tiffin Hospital Comment on above:Result Comment: No Neisseria gonorrhoeae rRNA Detected. The Aptima Combo 2 Assay is a FDA approved target amplification nucleic acid probe test that utilizes target capture for the in vitro qualitative detection and differentiation of ribosomal RNA (rRNA)from Chlamydia trachomatis (CT) and/or Neisseria gonorrhoeae (GC) to aid the diagnosis of chlamydial and/or gonococcal urogenital disease using the [place] System. The Aptima Combo 2 Assay involves target capture, target amplification by Quantitative Software Engineer-Mediated Amplification (TMA), and the detection of the amplification products (amplicon) by the Hybridization Protection Assay (HPA). The internal process controls of the [place] System monitor the target capture, amplification, and detection steps of the assay, this is not intended to control for sampling adequacy.Performed By: #### [id number] ####[facility] (BEAKER)[address] [facility], [place] [address]UXALXSEUT TRACHOMATIS DNA PROBE (PRESENCE) IN UNSP SPECNegativeNormalNegativeBarney Children's Medical Center Comment on above:Result Comment: No Chlamydia trachomatis rRNA Detected. The Aptima Combo 2 Assay is a FDA approved target amplification nucleic acid probe test that utilizes target capture for the in vitro qualitative detection and differentiation of ribosomal RNA (rRNA)from Chlamydia trachomatis (CT) and/or Neisseria gonorrhoeae (GC) to aid the diagnosis of chlamydial and/or gonococcal urogenital disease using the [place] System. The Aptima Combo 2 Assay involves target capture, target amplification by Quantitative Software Engineer-Mediated Amplification (TMA), and the detection of the amplification products (amplicon) by the Hybridization Protection Assay (HPA). The internal process controls of the [place] System monitor the target capture, amplification, and detection steps of the assay, this is not intended to control for sampling adequacy.Performed By: #### [id number] ####[facility] ([facility])[address] [place], [place] [address]HXJKBDLEG GONORRHOEAE DNA PROBE (PRESENCE) IN UNSP SPECNegativeNormalNegativeUnSt. Charles Hospital Comment on above:Result Comment: No Neisseria gonorrhoeae rRNA Detected. The Aptima Combo 2 Assay is a FDA approved target amplification nucleic acid probe test that utilizes target capture for the in vitro qualitative detection and differentiation of ribosomal RNA (rRNA)from Chlamydia trachomatis (CT) and/or Neisseria gonorrhoeae (GC) to aid the diagnosis of chlamydial and/or gonococcal urogenital disease using the [place] System. The Aptima Combo 2 Assay involves target capture, target amplification by Quantitative Software Engineer-Mediated Amplification (TMA), and the detection of the amplification products (amplicon) by the Hybridization Protection Assay (HPA). The internal process controls of the [place] System monitor the target capture, amplification, and detection steps of the assay, this is not intended to control for sampling adequacy.Performed By: #### [id number] ####[facility] ([facility] [place], [place] [address]VXWZHYNZTGLNB METABOLIC PANELon 33-03-5949Zzlhdmw [Mass/Vol]4.7 g/dLNormal3.5-5.7Bar[facility] Children's Medical CenterComment on above:Performed By: #### [id number] ####[facility] ([facility])[address] [place], [place] [address]KHZ [Catalytic activity/Vol]101 U/L Izqpls02-399PoodgqfsduSt. Charles HospitalComment on above:Performed By: #### [id number] ####[facility] ([facility])[address] [place], [place] [address]QQP [Catalytic activity/Vol]30 U/LNormal7-52UnSt. Charles Hospital Comment on above:Performed By: #### [id number] ####[facility] ([facility])[address] [place], [place] [address]Jbpif gap [Moles/Vol]11 mmol/LNormal7-20UnSt. Charles HospitalComment on above:Performed By: #### [id number] ####[facility] ([facility])[address] [place], [place] [address]VOV [Catalytic activity/Vol]21 U/FXrzdcg17-24RcotsktiqiSt. Charles HospitalComment on above:Performed By: #### [id number] ####[facility] ([facility])[address] [place], [place] [address]Flrhmaynb [Mass/Vol]0.5 mg/dLNormal0.3-1.0UnSt. Charles HospitalComment on above:Performed By: #### [id number] ####[facility] ([facility])[address] [place], [place] [address]Xhochex [Mass/Vol]9.2 mg/dLNormal 8.6-10.3UnSt. Charles HospitalComment on above:Performed By: #### [id number] ####[facility] ([facility])[address] [place], [place] [address]Ignpgvif [Moles/Vol]102 mmol/VCwtecm60-762NulfdqvkmzSt. Charles HospitalComment on above:Performed By: #### [id number] ####[facility] ([facility])[address] [place], [place] [address]TE9 [Moles/Vol]25 mmol/GLuwbwg85-40CinldinhcbSt. Charles HospitalComment on above:Performed By: #### [id number] ####[facility] ([facility])[address] [place] [address]Lpvygbjkdi [Mass/Vol]1.17 mg/dLNormal 0.70-1.30UnSt. Charles HospitalComment on above:Performed By: #### [id number] ####[facility] ([facility])[address] [place] [address]GVAJMMEXUD FILTRATION RATE ML/MIN/1.73 SQ M.HCIOJSXED05.3 mL/min/1.73m*2Normal>60.0 [facility] Medical CenterComment on above:Result Comment: The [facility]???s estimated glomerular filtration rate (eG FR) will no longer include consideration of race in its calculation. The National Kidney Foundation???s eGFR Task Force developed new recommendations for the estimation of the glomerular filtration rate in the [place] They recommend immediate implementation of the new equation refit without the race variable in all laboratories because the calculation does not include race. In addition to not including race in the calculation and reporting, it included diversity in its development, and has acceptable performance characteristics and potential consequences that do not disproportionately affect anyone group of individuals. Performed By: #### [id number] ####[facility] ([facility])[address] [place] [address]Bdmffcu [Mass/Vol]108 mg/rXYxhm28-335HjxkmykvvgSt. Charles HospitalComment on above:Performed By: #### [id number] ####[facility] ([facility])[address] [place] [address]Bqpljhdxm [Moles/Vol]4.1 mmol/LNormal 3.5-5.1UnSt. Charles HospitalComment on above:Performed By: #### [id number] ####[facility] ([facility])[address] [place] [address]Cvgjsxw [Mass/Vol]7.4 g/dLNormal6.0-8.3UnSt. Charles HospitalComment on above:Performed By: #### [id number] ####[facility] ([facility])[address] [place] [address]Noujvj [Moles/Vol]134 mmol/HMgx780-176IklmwcpiawSt. Charles HospitalComment on above:Performed By: #### [id number] ####[facility] ([facility])[address] [place], [place] [address]Wfxd nitrogen [Mass/Vol]21 mg/dLNormal 7-UnSt. Charles HospitalComment on above:Performed By: #### [id number] ####[facility] ([facility])[address] [place], [place] [address]NZHX NITROGEN/CREATININE (MASS RATIO) IN SER/PLAS17.9NormalUniversMount Carmel Health SystemComment on above:Performed By: #### [id number] ####[facility] ([facility])[address] [place], [place] [address]Qfqbo [id number] Luz Shahid W 1965 M Date Provider Department Center 07/26/2024 2[facility] MP DRAW Medical Pavi Family History Family Status - Relation Status Age at Mother Alive Father DeceasedNormalUniCrystal Clinic Orthopedic CenterOffice Visiton 75-64-4098Txgazw-up [id number] Luz Shahid W 1965 M Date Provider Department Center 07/26/2024 258-DONYA HURLEY [facility] Family History Family Status - Relation Status Age at Mother Alive Father Level of Service:63283 [place] OFFICE/OUTPATIENT ESTABLISHED MOD MDM 30 MIN Reason for Visit and Comments: Medication Visit [612] HIV Positive/AIDS [109] Health Maintenance [619] Immunizations [58] - Influenza vaccinationNormalUniCrystal Clinic Orthopedic CenterRPRon 75-20-5427PICJQB AB PRESENCE IN SERUM BY RPRNon-ReactiveNormal NonreactiveUnSt. Charles HospitalComment on above:Performed By: #### [id number] #### [facility] ([facility]) [address] [place], [place] 88369J CELL SUBSET ANALYSISon 54-18-4925BO590.27 %Rgigpz13.00-90.00 [facility] Children's Medical CenterComment on above:Performed By: #### [id number] ####[facility] ([facility])[address] [place] [address]NV7 [id number] cells/zg2Hfpboj273-5450NcriwjiihoSt. Charles HospitalComment on above: Performed By: #### [id number] ####[facility] ([facility])[address] [place] [address]XQ412.31 %Etekzd04.00-70.00UnSt. Charles HospitalComment on above:Performed By: #### [id number] ####[facility] ([facility])[address] [place] [address]OI8 CAVYZIEC659 cells/il5Eajwow 430-1185UnSt. Charles HospitalComment on above:Performed By: #### [id number] ####[facility] ([facility])[address] [address]JZ1:CD8 1.20Lifaqn8.00-4.00UnSt. Charles HospitalComment on above:Performed By: #### [id number] ####[facility] ([facility])[address] [place] [address]QA228.93 %High15.00-40.00UnSt. Charles HospitalComment on above:Performed By: #### [id number] ####[facility] ([facility])[address] [place] [address]RO7 [id number] cells/vs1Bnia377-977RvnttttoxgSt. Charles HospitalComment on above:Performed By: #### [id number] ####[facility] ([facility])[address] [place] [address]DUNot 95-82-4963BYUPRFONRSI (MIU/L) IN SER/PLAS BY DETECTION LIMIT <= 0.05 MIU/L1.68 mIU/LNormal0.34-5.60UnSt. Charles HospitalComment on above:Performed By: #### [id number] #### [facility] ([facility]) [address] [place], [place] [address]YVUXVXBCJJ MICROSCOPIC WITH REFLEX CULTUREon 30-50-5160FZG (#/HPF) IN URINE SEDIMENT3-5AbnormalNone Seen, 0-2UnSt. Charles HospitalComment on above:Performed By: #### [id number] #### [facility] ([facility]) [address] [place], [place] [address]TJMKHTEM EPITHELIAL CELLS (#/LPF) IN URINE SEDIMENTNone Seen NormalNone Seen, Occasional, FewUnSt. Charles HospitalComment on above:Performed By: #### [id number] #### [facility] ([facility]) [address] [place], [place] [address]VZA (LEUKOCYTE) (#/HPF) IN URINE SEDIMENT3-5AbnormalNone Seen, 0-2UnSt. Charles HospitalComment on above:Performed By: #### [id number] #### [facility] ([facility]) [address] [place], [place] [address]WAJXGBYNOM WITH REFLEX CULTUREon 15-14-6707HBFWZVJRL, TOTAL PRESENCE IN URINENegativeNormalNegativeBarney Children's Medical Center Comment on above:Performed By: #### [id number] #### [facility] ([facility]) [address] [place], [place] [address]Hdntmue (U)ClearNormalClearBarney Children's Medical Center Comment on above:Performed By: #### [id number] #### [facility] ([facility]) [address] [place], [place] [address]Vkttr (U)Light-YellowNormalColorless, Yellow, Light-Yellow [facility]'s Medical CenterComment on above:Performed By: #### [id number] #### [facility] ([facility]) [address] [place], [place] [address]TIYKSKS (MG/DL) IN URINENormalNormalNormalUniversMount Carmel Health SystemComment on above:Performed By: #### [id number] #### [facility] ([facility]) [address] [place], [place] [address]YAZTOYUSGJ PRESENCE IN URINETraceAbnormalNegativeBarney Children's Medical CenterComment on above:Performed By: #### [id number] #### [facility] ([facility]) [address] [place] [address]Xezmkmw Ql (U)NegativeNormalNegativeUnSt. Charles HospitalComment on above:Performed By: #### [id number] #### [facility] ([facility]) [address] [place] [address]BYTUOOLSG ESTERASE PRESENCE IN URINE BY TEST STRIPNegativeNormal NegativeUnSt. Charles HospitalComment on above:Performed By: #### [id number] #### [facility] ([facility]) [address] [place] [address]BVPQKVP PRESENCE IN URINENegativeNormalNegativeUnSt. Charles HospitalComment on above:Performed By: #### [id number] #### [facility] ([facility]) [address] [place] [address]wS (U)6.0 [pH]Normal5.0-8.0UnSt. Charles Hospital Comment on above:Performed By: #### [id number] #### [facility] ([facility]) [address] [place] [address]Cfkkadp (U) [Mass/Vol]NegativeNormalNegativeUnSt. Charles HospitalComment on above:Performed By: #### [id number] #### [facility] ([facility]) [address] [place] [address]Pmpbbonm gravity (U) [Rel density]1.044Xczbxr0.010-1.030 [facility]'s Medical CenterComment on above:Performed By: #### [id number] #### [facility] ([facility]) [address] [place] [address]XZXIXNQIQCEJ (MG/DL) IN URINENormalNormalNormalUniversMount Carmel Health SystemComment on above:Performed By: #### [id number] #### [facility] ([facility] [address] [place] [address]TB LOW DOSE LUNG SCREENINGon 01-56-4449IN LOW DOSE LUNG SCREENINGCT LOW DOSE LUNG SCREENING CLINICAL INFORMATION: Screening visit: Personal history of tobacco use/personal history of nicotine dependence. Lung cancer screening. The patient is a current smoker. The patient has a 38 pack year history of smoking. COMPARISON: CT chest 06/29/2023 TECHNIQUE: Low dose CT chest performed without contrast with coronal and sagittal and maximum intensity projection reconstructed images. Maximum intensity projection images generated to increase the sensitivityof pulmonary nodule detection. All CT scans at this facility use dose modulation, iterative reconstruction, and/or weight based dosing when appropriate to reduce radiation dose to as low as reasonably achievable. Automated exposure control was utilized. Computer aided detection for pulmonary nodules?was performed utilizing [employer] software.? FINDINGS: Diagnostic quality: Satisfactory Lung nodules: No suspicious pulmonary nodules Lungs and pleural spaces: No focal consolidation or pleural effusion. Mediastinum: Unremarkable Heart size: Normal Coronary calcification: Moderate Pericardial effusion: None Other findings: None IMPRESSION: Lung Rads Category: 1- Negative Recommendation: CT Low Dose Lung Screening 1 year Finalized by Addi Cantu MD on 07/18/2024 8:48 PM 1 LDCT 1 [facility] AND AUTO DIFFon 84-44-6100CJJSBGCP BASOPHIL0.1 X10E9/LNormal0.0-0.2PParkwood HospitalComment on above: Performed By: #### 59258-6, CMP, CBCA, 2857-1, HA1C #### [facility] ([id number]) [address] [facility] [place], [place] [address]NTEWVFNY NEUTROPHIL4.2 X10E9/LNormal1.5-6.6Keenan Private HospitalComment on above:Performed By: #### 47693-1, CMP, CBCA, 2857-1, HA1C #### [facility] ([id number]) [address] [facility], [address] [place], [place] [address]Trguvnwmy/100 WBC (Bld)1.0 %NormalKeenan Private Hospital Comment on above:Performed By: #### 67174-6, CMP, CBCA, 2857-1, HA1C #### [facility] ([id number]) [address], [address] [place], [place] [address]Zxnsfwgpnbj (Bld) [#/Vol]0.2 10*3/uLNormal0.0-0.4ProUniversity Hospitals Parma Medical CenterComment on above:Performed By: #### 07129-0, CMP, CBCA, 2857-1, HA1C #### [facility] ([id number]) [address], [address] [place], [place] [address]Ghcfqlyhlxv/100 WBC (Bld)3.1 %NormalProUniversity Hospitals Parma Medical Center Comment on above:Performed By: #### 84224-6, CMP, CBCA, 2857-1, HA1C #### [facility] ([id number]) [address] [address] [place], [place] [address]Rgfqjcmepju distribution width (RBC) [Ratio]14.5 %Normal 11.5-15.0ProUniversity Hospitals Parma Medical CenterComment on above:Performed By: #### 98747-7, CMP, CBCA, 2857-1, HA1C #### [facility] ([id number]) [address] [address]Rqarqmoozq (Bld) [Volume fraction]47.8 %Ipbmle74-86SitXycvnqUniversity Hospitals Parma Medical CenterComment on above:Performed By: #### 23962-2, CMP, CBCA, 2857-1, HA1C #### [facility] ([id number]) [address], [facility] [address] [place], [place] [address]Hgstsljhgg (Bld) [Mass/Vol]17.0 g/sZNpevve46.0-17.0ProUniversity Hospitals Parma Medical CenterComment on above:Performed By: #### 79709-1, CMP, CBCA, 2857-1, HA1C #### [facility] ([id number]) [address] [address] [place], [place] [address]Ghikiaudpdj (Bld) [#/Vol]2.1 10*3/uLNormal1.0-3.5ProMedica Opp HospitalComment on above:Performed By: #### 57071-2, CMP, CBCA, 2857-1, HA1C #### [facility] ([id number]) [address], [address] [place], [place] [address]Fafzowecjem/100 WBC (Bld)30.4 %NormalProMemorial Health System [facility] Hospital Comment on above:Performed By: #### 87432-6, CMP, CBCA, 2857-1, HA1C #### [facility] ([id number]) [address], [address] [place], [place] [address]NTL (RBC) [Entitic mass]32.6 qiUiygde11-54OxqBzczeq [place] HospitalComment on above:Performed By: #### 78914-4, CMP, CBCA, 2857-1, HA1C #### [facility] ([id number]) [address], [address] [place], [place] [address]GFWU (RBC) [Mass/Vol]35.5 g/jDCqrrrx28-85XjdGupcke [place] HospitalComment on above:Performed By: #### 88295-4, CMP, CBCA, 2857-1, HA1C #### [facility] ([id number]) [address], [address] [place], [place] [address]NRT (RBC) [Entitic vol]92 eKOshlmf10-153KfvYvwezc [place] HospitalComment on above:Performed By: #### 65737-5, CMP, CBCA, 2857-1, HA1C #### [facility] ([id number]) [address], [address] [place], [place] [address]Ejtnqdxmh (Bld) [#/Vol]0.4 10*3/uLNormal0-0.9ProMemorial Health System [facility] HospitalComment on above:Performed By: #### 39233-0, CMP, CBCA, 2857-1, HA1C #### [facility] ([id number]) [address], [address] [place], [place] [address]Hdjqziboc/100 WBC (Bld)5.1 %NormalKeenan Private Hospital Comment on above:Performed By: #### 71505-7, CMP, CBCA, 2857-1, HA1C #### [facility] ([id number]) [address], [address] [place], [place] [address]Dokluvtnuyu/100 WBC (Bld)60.4 %[facility] Comment on above:Performed By: #### 20109-9, CMP, CBCA, 2857-1, HA1C #### [facility] ([id number]) [address], [address] [place], [place] [address]Fgargqvu mean volume (Bld) [Entitic vol]6.5 fLLow7-12Pro[facility]ica [facility] Memorial HospitalComment on above:Performed By: #### 84198-2, CMP, CBCA, 2857-1, HA1C #### [facility] ([id number]) [address], [address] [place], [place] [address]Wzupuslzc (Bld) [#/Vol]333 10*3/tDJbhwjq418-805UuvKazlzi [place] HospitalComment on above:Performed By: #### 55371-8, CMP, CBCA, 2857-1, HA1C #### [facility] ([id number]) [address], [address] [place], [place] [address]LQE COUNT5.20 X10E12/LNormal4.10-5.70[facility] Comment on above:Performed By: #### 55733-6, CMP, CBCA, 2857-1, HA1C #### [facility] ([id number]) [address], [address] [place], [place] [address]CTJ (Bld) [#/Vol]6.9 10*3/uLNormal4.0-11.0ProMedica [facility] HospitalComment on above:Performed By: #### 31346-1, CMP, CBCA, 2857-1, HA1C #### [facility] ([id number]) [address], [address] [place], [place] [address]PITWSASZYLUNB METABOLIC PANELon 08-04-6021Fnmffco [Mass/Vol]4.5 g/dLNormal3.2-5.3ProMedica [facility] HospitalComment on above:Performed By: #### 58608-7, CMP, CBCA, 2857-1, HA1C #### [facility] ([id number]) [address], [address] [place], [place] [address]TEW [Catalytic activity/Vol]95 U/JVyejdy18-707EtvXmzxov [facility] HospitalComment on above:Performed By: #### 34326-9, CMP, CBCA, 2857-1, HA1C #### [facility] ([id number]) [address], [address] [place], [place] [address]ROP [Catalytic activity/Vol]35 U/LNormal0-40ProMedica [facility] HospitalComment on above:Performed By: #### 84968-9, CMP, CBCA, 2857-1, HA1C #### [facility] ([id number]) [address], [address] [place], [place] [address]Okrev gap [Moles/Vol]11 mmol/LNormal5-15ProMedica [facility] HospitalComment on above:Performed By: #### 43595-9, CMP, CBCA, 2857-1, HA1C #### [facility] ([id number]) [address], [address] [place], [place] [address]AUA [Catalytic activity/Vol]25 U/LNormal0-41ProMedica [facility] HospitalComment on above:Performed By: #### 77409-9, CMP, CBCA, 2857-1, HA1C #### [facility] ([id number]) [address], [address] [place], [place] [address]Ybwmrkowu [Mass/Vol]0.4 mg/dLNormal0.3-1.2PSelect Medical [facility], [facility] HospitalComment on above:Performed By: #### 86702-0, CMP, CBCA, 2857-1, HA1C #### [facility] ([id number]) [address], [address] [place], [place] [address]Mpniwyt [Mass/Vol]9.9 mg/dLNormal8.5-10.5PParkwood HospitalComment on above:Performed By: #### 44470-7, CMP, CBCA, 2857-1, HA1C #### [facility] ([id number]) [address], [address] [place], [place] [address]Bivvbbmf [Moles/Vol]100 mmol/ELztspx10-622WcoPikhhu [place] HospitalComment on above:Performed By: #### 52946-0, CMP, CBCA, 2857-1, HA1C #### [facility] ([id number]) [address], [address] [place], [place] [address]GR0 [Moles/Vol]26 mmol/EOvjuiq21-55WdbYemgiz [facility] Comment on above:Performed By: #### 92938-1, CMP, CBCA, 2857-1, HA1C #### [facility] ([id number]) [address], [address] [place], [place] [address]Gczplzmdqb [Mass/Vol]1.16 mg/dLNormal0.60-1.30ProUniversity Hospitals Parma Medical CenterComment on above:Result Comment: METHOD TRACEABLE TO IDMS STANDARD Performed By: #### 20024-8, CMP, CBCA, 2857-1, HA1C #### [facility] ([id number]) [address], [address] [place], [place] [address]AAV/1.73 sq M.predicted among non-blacks MDRD (S/P/Bld) [Vol rate/Area]73 mL/min/{1.73_m2}Normal>59ProUniversity Hospitals Parma Medical CenterComment on above: Result Comment: Reported eGFR is based on the CKD-EPI 2020 equation that does not use a race coefficient.Performed By: #### 07309-3, CMP, CBCA, 2857-1, HA1C #### [facility] ([id number]) [address] [address] [place], [place] [address]Vpjdsss [Mass/Vol]169 mg/mIPqlt25-57PhvUkdfnhUniversity Hospitals Parma Medical Center Comment on above:Performed By: #### 51228-7, CMP, CBCA, 2857-1, HA1C #### [facility] ([id number]) [address] [address] [place], [place] [address]Birnwjgzc [Moles/Vol]3.9 mmol/LNormal3.5-5.0ProUniversity Hospitals Parma Medical CenterComment on above:Performed By: #### 86993-6, CMP, CBCA, 2857-1, HA1C #### [facility] ([id number]) [address] [address] [place], [place] [address]Ssfgque [Mass/Vol]7.3 g/dLNormal6.0-8.0[facility] Comment on above:Performed By: #### 85546-5, CMP, CBCA, 2857-1, HA1C #### [facility] ([id number]) [address] [address] [place], [place] [address]Zztpkh [Moles/Vol]137 mmol/QKmbqse815-221WqmJnpwxs [place] HospitalComment on above:Performed By: #### 64404-7, CMP, CBCA, 2857-1, HA1C #### [facility] ([id number]) [address] [address] [place], [place] [address]Wmum nitrogen [Mass/Vol]19 mg/dLNormal5-23ProMem[facility] HospitalComment on above:Performed By: #### 85391-1, CMP, CBCA, 2857-1, HA1C #### [facility] ([id number]) [address], [address] [place], [place] [address]PTF A1C (GLYCO-HGB)on 34-44-8673Yjcujvh [Mass/Vol]131 mg/dL NormalProMemorial Health System [facility] Memorial Hospital HospitalComment on above:Performed By: #### 06127-4, CMP, CBCA, 2857-1, HA1C #### [facility] ([id number]) [address] [facility], [address] [address]WmT3i (Bld) [Mass fraction]6.2 %High4.4-5.6ProUniversity Hospitals Parma Medical CenterComment on above:Result Comment: NOTE ADA Guidelines Result HgbA1c Normal : less than 5.7 % Prediabetes : 5.7 % to 6.4 % Diabetes : > 6.4 % Use with caution in patients with abnormal hemoglobin variants as the half-life of red blood cells and in vivo glycation rates are affected.Performed By: #### 50883-8, CMP, CBCA, 2857-1, HA1C #### [facility] ([id number]) [address], [address] [place], [place] [address]Uthtl 1996 panelon 78-22-2612Xhyxkcfxbyb [Mass/Vol]111 mg/dLLow 150-200ProUniversity Hospitals Parma Medical CenterComment on above:Performed By: #### 82118-2, CMP, CBCA, 2857-1, HA1C #### [facility] ([id number]) [address], [address] [place], [place] [address]Kkwfibdjirj in HDL [Mass/Vol]39 mg/dLLow>39ProMemorial [facility] HospitalComment on above:Result Comment: HDL <40 mg/dL - High Risk HDL > or = 40mg/dL- Desirable HDL >60 mg/dL - Negative Risk Performed By: ###Latoya Ga73382-1, CMP, CBCA, 2857-1, HA1C #### [facility] ([id number]) [address], [address] [place], [place] [address]Vrqstrjxzak in LDL [Mass/Vol]29 mg/dLNormal<130ProMediNorwalk [facility] HospitalComment on above:Result Comment: LDL <100 mg/dL - Desirable LDL >160 mg/dL - High Risk Performed By: ###Latoya Pryor-1, CMP, CBCA, 2857-1, HA1C #### [facility] ([id number]) [address], [address] [place], [place] [address]Ckssaaxnuxj in VLDL [Mass/Vol]43 mg/dLHigh0-30ProMem[facility] HospitalComment on above:Performed By: ###Latoya Ga55090-4, CMP, CBCA, 2857-1, HA1C #### [facility] ([id number]) [address], [address] [place], [place] [address]RHKWDDUBWEL:HDL2.4Uoqmiy3.0-5.0ProMemorial [facility] HospitalComment on above:Performed By: #Phillip Pryor-1, CMP, CBCA, 2857-1, HA1C #### [facility] ([id number]) [address], [address] [place], [place] [address]Ewlamkyxohuj [Mass/Vol]215 mg/vFKmkb18-743WvbEjsrxd [place] HospitalComment on above:Performed By: ###Latoya Pryor-1, CMP, CBCA, 2857-1, HA1C #### [facility] ([id number]) [address] [place], [place] [address]Phrxgctb specific Ag [Mass/Vol]on 34-45-8397LLP SCREEN0.68 ng/mL Normal0.00-4.00Pro[facility] Memorial HospitalComment on above:Result Comment: The method used for this test is Prosper Salma DXI chemiluminescent immunoassay. Values obtained by different assay methods cannot be used interchangeably.Performed By: #### 68393-6, CMP, CBCA, 2857-1, HA1C #### [facility] ([id number]) [address] [place], [place] [address]Jseeeklk [id number] Luz Shahid W 1965 M Date Provider Department Center 07/12/2024 DONYA REILLY [facility] Family History Family Status - Relation Status Age at Mother Alive Father Reason for Visit and Comments: Med Refill [[id number]]NormalUnSt. Charles HospitalPulmonary Functionon 23-06-3409Hbgxuttyq FunctionMR #: [id number] [facility] PT. Name: Luz Shahid Date: 04/12/2022 Date of : 1965 Patient Type: D Pulmonary Function INTERPRETATION [facility] Name: Luz Shahid Date: 04/12/2022 Pulmonary Function Interpretation Clinical Indication: The patient is a 56-year old male with BMI 30.4. The clinical indication is COPD. Patient is on Symbicort, as needed albuterol. Both medications used 24 hours ago. FLOW VOLUME LOOP: Flow volume loop appears normal, no evidence of obstruction or restriction, no evidence of intrathoracic or extrathoracic obstruction Lung Mechanics: FEV1: 2.83 L, 77% predicted FVC: 3.48 L, 76% predicted FEV1/FVC: 0.81 FEV1/SVC: 0.76 There is no bronchodilator testing performed MVV is normal at 132 L/min, 103% predicted Lung Volumes: Plethysmography technique TLC is normal at 5.72 L, 85% predicted RV is normal at 2.01 L, 87% predicted Lung Diffusion: DLCO uncorrected: 64% predicted DL/VA: 80% predicted Arterial Blood Gas: Not performed Clinical Impression: FEV1 and FVC are slightly reduced. Lung volumes are near the lower limit of normal. Additionally, diffusion is decreased, and only partially improves when corrected for alveolar volume overall, these PFTs may suggest early restrictive lung disease. Correlate clinically. Electronically Signed by: Hemant Urena M.D. 05/05/2022 12:51 P Hemant Urena M.D. Pulmonary Critical Care and Sleep Medicine I personally reviewed the films/tests and agree with the resident's interpretation. Date Dict: 05/03/2022/06:39 P/Magnus Bhardwaj, DO Date Trans: 05/03/2022 06:39 P/ DN_JN:[id number] Hospitals Lake West Medical CenterCT LUNG CANCER SCREENING LDCTon 53-65-9206ZA LUNG CANCER SCREENING LDCTUnSt. Charles Hospital Department of Radiology [address] [place] [address] Patient Name: LUZ SHAHID : 1965 Sex: M Age: Race: White Pt. Location: [facility] Patient Status: D Ordered Date: 03/26/2022 3:15:00 PM Completed Date: 04/15/2022 07:33 AM Requesting Provider: RIVERA MORALES Attending Provider: RIVERA MORALES Report Copy To: QUITA HILL Signs & Symptoms: F17.210 Nicotine dependence, cigarettes, uncomplicated I10 History: Maureen Comments: , Patient age is between 55 and 77: Y , Patient has no signs/symptoms of lung cancer: N ,Is the patient a smoker?: Current , Packs per day: 1 , If no longer smoking, years since quitting: na , Actual pack-year history: 45 , Has shared decision-making been properly documented per CMS?: Y , Status: Initial Screening , Patient age is between 55 and 77: Y , Patient has no signs/symptoms oflung cancer: N , Is the patient a smoker?: Current , Packs per day: 1 , If no longer smoking, yearssince quitting: na , Actual pack-year history: 45 , Has shared decision-making been properly documented per CMS?: Y , Status: Initial Screening , , , Ordering Provider - RIVERA MORALES MD , Exam: CT LUNG CANCER SCREENING LDCT PROCEDURE: CT CHEST NON CONTRAST - LUNG CANCER SCREENING CLINICAL INDICATION: Current smoker. COMPARISON: CT 10/30/2020 TECHNIQUE: Low dose helical CT was acquired from lung apices to bases was obtained and reconstructed without intravenous contrast. MIP and coronal \EANDE\ sagittal MPR images were generated and reviewed. FINDINGS: Lower Neck \EANDE\ Thyroid: Unremarkable. Lungs: 3 mm nodule posterior aspect of right lung apex (/88). 9 x 6 mm perifissural nodule abutting the minor fissure (4/209). Subtle centrilobular emphysema. Central Airway: Unremarkable. Pleura: No pleural effusion, thickening or pneumothorax. Thoracic Aorta \EANDE\ Great Vessels: Normal in diameter. No atherosclerotic calcification. Pulmonary Arteries: Nonenlarged. Heart \EANDE\ Pericardium: Minimal coronary arterial calcification. Unremarkable cardiac morphology and pericardium. Lymph Nodes: No enlarged thoracic lymph nodes. Mediastinum \EANDE\ Esophagus: Unremarkable. Thoracic Spine \EANDE\ Chest Wall: No suspicious osseous lesion. Other Lines/Tubes/Devices/Hardware: None. Visualized Upper Abdomen: Unremarkable. IMPRESSION: 1. LungRADS Category 2 - Benign screen. Continue annual screening in 12 months. LungRADS reference table: See www.[facility].org/Quality-Safety/Resources/LungRads for more information on the lung cancer screening reporting structure. Category 0: Incomplete screen Category 1: Negative screen - no nodules and/or definitely benign nodules - continue annual screening in 12 months Category 2: Benign screen - nodules with benign appearance or behavior - continue annual screening in 12 months Category 3: Positive screen, probably benign - recommend low dose nodule CT in 6 months Category 4A: Positive screen, suspicious - recommend low dose nodule CT in 3 months; may consider PET/CT if solid nodule component of 8 mm or more Category 4B: Positive screen, suspicious - recommend multidisciplinary consultation and additional imaging(either chest CT with contrast and/or PET CT if solid nodule component of 8 mm or more)and/or tissue sampling S modifier: Other clinically significant or potentially significant findings C modifier: History of prior lung cancer All CT scans at this facility use dose modulation, iterative reconstruction, and/or weight based dosing when appropriate to reduce radiation dose to as low as reasonably achievable. Electronically signed: Nikhil Palomares. Transcribed by: [email or web address], User Resident: Electronically Signed by: NIKHIL PALOMARES @ 04/16/2022 09:41 [facility] HospitalComment on above:Order Comment: , Patient age is between 55 and 77: Y , Patient has no signs/symptoms of lung cancer: N , Is the patient a smoker?: Current , Packs per day: 1 , If no longer smoking, years since quitting: na , Actual pack-year history: 45 , Has shared decision-making been properly documented per CMS?: Y , Status: Initial Screening , Patient age is between 55 and 77: Y , Patient has no signs/symptoms of lung cancer: N , Is the patient a smoker?: Current , Packs per day: 1 , If no longer smoking, years since quitting: na , Actual pack-year history: 45 , Has shared decision-making been properly documented per CMS?: Y , Status: Initial Screening , , , Ordering Provider - RIVERA MORALES MD , Vital Signs Date TimeVital SignValuePerforming UymdxrafxTxtycwyh58-17-6028 08:38-0400Body ixqnli771.8 Stephanie Umana MD Work Phone: [facility]09-18-2025 08:38-0400Body mass index (BMI) [Ratio]29.27 kg/n7QzehmwBritni Umana MD Work Phone: [facility]09-18-2025 08:38-0400Body upeocm29.53 kgBritni Umana MD Work Phone: [facility]09-18-2025 08:38-0400Diastolic blood mm[Hg]Britni Umana MD Work Phone: [facility]09-18-2025 08:38-0400Heart rate 80 /minBritni Umana MD Work Phone: [facility]09-18-2025 08:38-0400Systolic blood isycrazu085 mm[Hg]Britni Umana MD Work Phone: [facility]07-17-2025 12:50-0400Body xrguxr351.8 cmMattfoster Pepper PA Work Phone: [facility]07-17-2025 12:50-0400Body mass index (BMI) [Ratio]29.56 kg/l6Vmiufmh Nilorne PA Work Phone: [facility]07-17-2025 12:50-0400Body aedtfa38.44 kgMatthew Ayden PA Work Phone: [facility]07-17-2025 12:50-0400Diastolic blood qgnveqxc54 mm[Hg]Marlys BEACH Work Phone: [facility]07-17-2025 12:50-0400Heart rate 66 /minMatthew Nienberg PA Work Phone: [facility] Ygpzuj13-22-6025 12:50-0400 Respiratory rate18 /minMatthew Nienberg PA Work Phone: [facility]07-17-2025 12:50-8994NtK3% (BldA) [Mass fraction]98 %Marlys Nienberg PA Work Phone: [facility] Moulmj02-92-1341 12:50-0400Systolic blood ffeixjxv330 mm[Hg]Marlys Nienberg PA Work Phone: [facility] Ykekma15-70-7270 07:54-0400Body mass index (BMI) [Ratio]29.7 kg/f8Sfaicvs Nienberg PA Work Phone: [facility] Jtdlhi24-67-1752 07:54-0400Body dtrqwy25.89 kgMatthew Nienberg PA Work Phone: [facility] Nvosaz71-96-6506 07:54-0400Diastolic blood rqyyqnuw99 mm[Hg]Marlys Nienberg PA Work Phone: [facility] Tdgyow19-87-7320 07:54-0400Heart rate 66 /minMatthew Nienberg PA Work Phone: [facility] Bifgkr13-03-0197 07:54-0400 Respiratory rate16 /minMatthew Nienberg PA Work Phone: [facility] Ebsqaq04-47-1941 07:54-1076OnE2% (BldA) [Mass fraction]100 %Marlys Nienberg PA Work Phone: [facility] Ozgcaa26-00-7212 07:54-0400Systolic blood xqikjqvi644 mm[Hg]Marlys Nienberg PA Work Phone: [facility] Dshezp04-15-3183 15:14-0400Body nokogh140.8 cmValericarolyne Stoddard ONLINE JOURNALIST-TEST CASE DEVELOPER Work Phone: [facility]05-05-2025 15:14-0400Body mass index (BMI) [Ratio]30.88 kg/x6YwsueudQuita Stoddard APRN-TEST CASE DEVELOPER Work Phone: [facility]05-05-2025 15:14-0400Body bqvxcaeddut91.6 [degF]Quita Stoddard APRN-TEST CASE DEVELOPER Work Phone: [facility]05-05-2025 15:14-0400Body .61 kgQuita Stoddard APRN-TEST CASE DEVELOPER Work Phone: [facility]05-05-2025 15:14-0400Diastolic blood mm[Hg]Quita Stoddard APRN-TEST CASE DEVELOPER Work Phone: [facility]05-05-2025 15:14-0400Heart rate 71 /minQuita Stoddard APRN-TEST CASE DEVELOPER Work Phone: [facility]05-05-2025 15:14-0400 Respiratory rate18 /minQuita Stoddard APRN-TEST CASE DEVELOPER Work Phone: [facility]05-05-2025 15:14-0521PiO8% (BldA) [Mass fraction]98 %Quita Stoddard APRN-TEST CASE DEVELOPER Work Phone: [facility]05-05-2025 15:14-0400Systolic blood rqbeqsxc236 mm[Hg]Quita Stoddard APRN-TEST CASE DEVELOPER Work Phone: [facility]04-10-2025 15:05-0400Body .8 cmValeena Stoddard APRN-TEST CASE DEVELOPER Work Phone: [facility]04-10-2025 15:05-0400Body mass index (BMI) [Ratio]31.16 kg/r4IchfnbzQuita Stoddard APRN-TEST CASE DEVELOPER Work Phone: [facility]04-10-2025 15:05-0400Body szdzurxyidr05.5 [degF]Quita Stoddard APRN-TEST CASE DEVELOPER Work Phone: [facility] Njrdah93-54-8457 15:05-0400Body tsrqju58.52 kgQuita Stoddard ONLINE JOURNALIST-TEST CASE DEVELOPER Work Phone: [facility] Yhhlqx73-53-7415 15:05-0400Diastolic blood pidjgyar78 mm[Hg]Quita Stoddard APRN-TEST CASE DEVELOPER Work Phone: [facility] Ejfgzn94-39-4154 15:05-0400Heart rate 68 /minQuita Stoddard APRN-TEST CASE DEVELOPER Work Phone: [facility] Lzerom71-41-6542 15:05-0400 Respiratory rate20 /minQuita Stoddard APRN-TEST CASE DEVELOPER Work Phone: [facility] Twtdqp43-74-6011 15:05-8214RjD2% (BldA) [Mass fraction]98 %Quita Stoddard APRN-TEST CASE DEVELOPER Work Phone: [facility] Jzdbjv05-83-9734 15:05-0400Systolic blood ljmqvqeg657 mm[Hg]Quita Stoddard APRN-TEST CASE DEVELOPER Work Phone: [facility] Victpe68-06-0041 11:49-0400Body mass index (BMI) [Ratio]30.99 kg/b6Pxkgjiy Ayden PA Work Phone: [facility] Ddpvta14-96-3375 11:49-0400Body csxnno86.98 kgMatthew Ayden PA Work Phone: [facility] Omeqaw39-43-8879 11:49-0400Diastolic blood ykoowuni47 mm[Hg]Marlys Pepper PA Work Phone: [facility] Xjwyzf36-74-0803 11:49-0400Heart rate 65 /minMatthew Nilorne PA Work Phone: [facility] Qabsif25-78-2057 11:49-0400 Respiratory rate16 /minMatthew Nienberg PA Work Phone: [facility] Eveffl02-76-6667 11:49-0400Systolic blood csouzshq077 mm[Hg]Marlys BEACH Work Phone: [facility]03-17-2025 10:51-0400Body ybdmkl444.8 Stephanie Umana MD Work Phone: [facility]03-17-2025 10:51-0400Body mass index (BMI) [Ratio]31.48 kg/p1EyvgrrBritni Umana MD Work Phone: [facility]03-17-2025 10:51-0400Body .52 kgBritni Umana MD Work Phone: [facility]03-17-2025 10:51-0400Diastolic blood vcixyddg465 mm[Hg]Britni Umana MD Work Phone: [facility]03-17-2025 10:51-0400Heart rate 74 /Leigh Umana MD Work Phone: [facility] Msqbgo22-40-7325 10:51-0400Systolic blood rujvjthb518 mm[Hg]Britni Umana MD Work Phone: [facility]03-10-2025 15:45-0400Body oiqnuh087.8 cmVgregory Stoddard ONLINE JOURNALIST-TEST CASE DEVELOPER Work Phone: [facility] Yehram10-66-1303 15:45-0400Body mass index (BMI) [Ratio]31.28 kg/p6JkjjxrfQuita Irvinillo ONLINE JOURNALIST-TEST CASE DEVELOPER Work Phone: [facility] Mvnkjw45-22-9348 15:45-0400Body vewydjvspcs27.1 [degF]Quita Stoddard ONLINE JOURNALIST-TEST CASE DEVELOPER Work Phone: [facility] Prnhxi19-39-8682 15:45-0400Body .88 kgQuita Stoddard ONLINE JOURNALIST-TEST CASE DEVELOPER Work Phone: [facility] Vlgjfm91-55-1025 15:45-0400Diastolic blood etcphjih35 mm[Hg]Quita Stoddard ONLINE JOURNALIST-TEST CASE DEVELOPER Work Phone: [facility] Kutlep02-53-4256 15:45-0400Heart rate 75 /minValerie Richi ONLINE JOURNALIST-TEST CASE DEVELOPER Work Phone: [facility] Sjegct71-70-6263 15:45-0400 Respiratory rate18 /minValerie Richi ONLINE JOURNALIST-TEST CASE DEVELOPER Work Phone: [facility] Zmgetf08-09-5660 15:45-4233DcY0% (BldA) [Mass fraction]96 %Quita Stoddard ONLINE JOURNALIST-TEST CASE DEVELOPER Work Phone: [facility] Iofffb67-14-3106 15:45-0400Systolic blood qdxedyjp412 mm[Hg]Quita Stoddard ONLINE JOURNALIST-TEST CASE DEVELOPER Work Phone: [facility] Awkgpv18-09-9260 12:56-0500Body qkolca381.8 cmMatthew Nienberg PA Work Phone: [facility] Vhfsfm44-69-1210 12:56-0500Body mass index (BMI) [Ratio]31.14 kg/y7Tzbbxpn Nienberg PA Work Phone: [facility] Kifhlo62-00-8143 12:56-0500Body vxskep40.43 kgMatthew Nienberg PA Work Phone: [facility] Oazqzz70-74-4749 12:56-0500Diastolic blood nawulxep28 mm[Hg]Marlys Pepper PA Work Phone: [facility] Uyvheo04-63-3102 12:56-0500Heart rate 75 /minMatthew Nienberg PA Work Phone: [facility] Tebpxb40-33-8415 12:56-0500 Respiratory rate18 /minMatthew Nienberg PA Work Phone: [facility]03-06-2025 12:56-7430IdE9% (BldA) [Mass fraction]95 %Marlys BEACH Work Phone: [facility]03-06-2025 12:56-0500Systolic blood ehnazhci437 mm[Hg]Marlys BEACH Work Phone: [facility]11-05-2024 15:21-0500Body ystbkf208.8 cmVgregory Irvinillo ONLINE JOURNALIST-TEST CASE DEVELOPER Work Phone: [facility]11-05-2024 15:21-0500Body mass index (BMI) [Ratio]30.02 kg/x0EibyhtgQuita Irvinillo ONLINE JOURNALIST-TEST CASE DEVELOPER Work Phone: [facility]11-05-2024 15:21-0500Body elyibfreiqt45.1 [degF]Quita Irvinillo ONLINE JOURNALIST-TEST CASE DEVELOPER Work Phone: [facility]11-05-2024 15:21-0500Body uumobd72.89 kgQuita Stoddard ONLINE JOURNALIST-TEST CASE DEVELOPER Work Phone: [facility] Rznvax50-96-6012 15:21-0500Diastolic blood ptxyfaav87 mm[Hg]Quita Stoddard ONLINE JOURNALIST-TEST CASE DEVELOPER Work Phone: [facility] Lrsexo89-19-2890 15:21-0500Heart rate 72 /minJaylynrie Stoddard ONLINE JOURNALIST-TEST CASE DEVELOPER Work Phone: [facility]11-05-2024 15:21-0500 Respiratory rate18 /minJaylynrie Stoddard ONLINE JOURNALIST-TEST CASE DEVELOPER Work Phone: [facility] Clbmti06-36-6890 15:21-7853ItX2% (BldA) [Mass fraction]96 %Quita Irvinillo ONLINE JOURNALIST-TEST CASE DEVELOPER Work Phone: [facility]11-05-2024 15:21-0500Systolic blood lrruoyry371 mm[Hg]Quita Stoddard ONLINE JOURNALIST-TEST CASE DEVELOPER Work Phone: [facility] Ryplrx12-55-5874 07:54-0400Body avwxlt329.8 cmMatthew Nienberg PA Work Phone: [facility] Mopzsv63-99-9015 07:54-0400Body mass index (BMI) [Ratio]30.42 kg/w3Qopssrz Nienberg PA Work Phone: [facility] Mtgyov07-33-0479 07:54-0400Body yajlaq98.16 kgMatthew Nienberg PA Work Phone: [facility] Lupwth66-51-4100 07:54-0400Diastolic blood sjejekrg70 mm[Hg]Marlys Pepper PA Work Phone: [facility] Xudfgj28-11-9940 07:54-0400Heart rate 74 /minMatthew Nienberg PA Work Phone: [facility] Tibbad48-93-9077 07:54-0400 Respiratory rate20 /minMatthew Nienberg PA Work Phone: [facility] Rsjnsw89-65-7356 07:54-0198NrL3% (BldA) [Mass fraction]98 %Marlys Nienberg PA Work Phone: [facility] Mfhwxf74-49-4894 07:54-0400Systolic blood aqzxkkis650 mm[Hg]Marlys Pepper PA Work Phone: [facility] Szzzic21-64-8780 07:47-0400Body swucjx620.8 cmMatthew Nienberg PA Work Phone: [facility] Cpvuiz23-88-9101 07:47-0400Body mass index (BMI) [Ratio]32 kg/b9Fgzdqna Nienberg PA Work Phone: [facility] Hyyaih24-84-6692 07:47-0400Body .15 kgMatthew Nienberg PA Work Phone: [facility] Zwyubd14-75-6685 07:47-0400Diastolic blood mqzxrpxa62 mm[Hg]Marlys Pepper PA Work Phone: [facility] Hdbhaw24-32-0926 07:47-0400Heart rate 76 /minMatthew Ayden PA Work Phone: [facility] Greapf69-26-1240 07:47-0400 Respiratory rate18 /minMatthew Ayden PA Work Phone: [facility] Wplhuc82-29-6305 07:47-2220AkH3% (BldA) [Mass fraction]98 %Marlys Ayden PA Work Phone: [facility] Pnmjac48-46-9342 07:47-0400Systolic blood yngjgykn419 mm[Hg]Marlys Ayden PA Work Phone: [facility] Mtghqk41-95-2568 15:40-0500Body hhwize216.8 cmValeena Stoddard ONLINE JOURNALIST-TEST CASE DEVELOPER Work Phone: [facility] Ckanqt50-66-5682 15:40-0500Body mass index (BMI) [Ratio]32.6 kg/j8Vjyylloena Stoddard ONLINE JOURNALIST-TEST CASE DEVELOPER Work Phone: [facility] Fwevfc34-08-6238 15:40-0500Body ujfonnijhlw33.3 [degF]Quita Stoddard ONLINE JOURNALIST-TEST CASE DEVELOPER Work Phone: [facility] Nksygc15-25-6257 15:40-0500Body .06 kgQuita Stoddard ONLINE JOURNALIST-TEST CASE DEVELOPER Work Phone: [facility] Wjiqzh89-27-7173 15:40-0500Diastolic blood vpsdfeqd22 mm[Hg]Quita Stoddard ONLINE JOURNALIST-TEST CASE DEVELOPER Work Phone: [facility] Hmixin87-21-2537 15:40-0500Heart rate 67 /minQuita Stoddard ONLINE JOURNALIST-TEST CASE DEVELOPER Work Phone: [facility] Dlqwgr46-00-9031 15:40-0301OqP5% (BldA) [Mass fraction]96 %Quita Stoddard APRN-TEST CASE DEVELOPER Work Phone: [facility] Xqslhd59-10-8699 15:40-0500Systolic blood mm[Hg]Quita Stoddard APRN-TEST CASE DEVELOPER Work Phone: [facility] Ogchyi07-35-5843 07:45-0500Body .8 cmMatthew Nienberg PA Work Phone: [facility] Hhfkhi06-81-9875 07:45-0500Body mass index (BMI) [Ratio]31.85 kg/r1Tvvxxzm Nienberg PA Work Phone: [facility] Lkcjmh00-42-6529 07:45-0500Body .7 kgMatthew Nienberg PA Work Phone: [facility] Jxlnry50-12-8870 07:45-0500Diastolic blood dctkjuxd38 mm[Hg]Marlys Pepper PA Work Phone: [facility] Xzinqr61-55-1642 07:45-0500Heart rate 85 /minMatthew Nienberg PA Work Phone: [facility] Knnexz34-63-1723 07:45-0500 Respiratory rate20 /minMatthew Nienberg PA Work Phone: [facility] Djjblv76-73-5005 07:45-0500Systolic blood bmmszkir197 mm[Hg]Marlys Pepper PA Work Phone: [facility] Ysezlm01-11-3848 15:58-0500Body qmxoom139.8 Stephanie Umana MD Work Phone: [facility] Huessw58-68-9676 15:58-0500Body mass index (BMI) [Ratio]31.58 kg/n8AyvunmBritni Umana MD Work Phone: [facility] Yfeazr54-30-4324 15:58-0500Body fcubah74.84 kgBritni Umana MD Work Phone: [facility] Oftcyj31-32-6290 15:58-0500Diastolic blood atckpwxx36 mm[Hg]Britni Umana MD Work Phone: [facility] Ufgvji64-12-2070 15:58-0500Heart rate 73 /minBritni Umana MD Work Phone: [facility] Hkybwm00-08-7121 15:58-0500 Respiratory rate14 /minBritni Umana MD Work Phone: [facility] Etoemb02-99-2145 15:58-0500Systolic blood wnvubczq728 mm[Hg]Britni Umana MD Work Phone: [facility] Vdwvzb70-18-4511 16:00-0400Body omuqtz496.8 cmAdelmis Jacobs Other [facility] Other 03-25-2022 16:00-0400Body mass index (BMI) [Ratio] 28.69 kg/r6AdbazShante Jacobs Other [employer] Other 03-25-2022 16:00-0400Body ilohxfdoubo28.7 [degF]Shante Jacobs Other [employer] Other 03-25-2022 16:00-0400Body hjczyr48.72 kgShante Jacobs Other [employer] Other 03-25-2022 16:00-0400Diastolic blood lbbaanpr76 mm[Hg] Shante Jacobs Other [employer] Other 03-25-2022 16:00-0400Respiratory rate18 /minShante Jacobs Other [facility] Other 03-25-2022 16:00-5242UgP4% (BldA) [Mass fraction]99 % Shante Jacobs Other [facility] [employer] Other 03-25-2022 16:00-0400Systolic blood mm[Hg] Shante Jacobs Other [facility] [employer] Other Encounters Encounter DateEncounter [facility] ProviderFacilityStart: 06-27-2025 End: 04-79-4893ukeukepyzdXCAQ [facility] End: 02-29-5843hqmtfxuulvWVYUE B [facility] Start: 06-10-2025 End: 58-76-8301WnhmcuCveuf EmrProMedica [facility] - Pain Management ClinicStart: 85-78-0591tdfzdlevulQKRK [facility]: 05-30-2025 End: 32-26-5765eaqcafzdpnVFRH YRiverside [facility] Hospitaltart: 05-30-2025 End: 20-03-2195Quouse outpatient visit 25 minutesAlijake Umana MD Work Phone: [facility] Department of [facility] HospitalComment on above:Intractable migraine with aura without status migrainosus (Primary Dx); Pseudobulbar affect; Lumbosacral spondylosis without myelopathy; Bipolar affective disorder, remission status unspecified ([facility]); Agoraphobia with panic attacksStart: 05-30-2025 End: 37-89-2958xtohlokxejNUIJQZRosanna UMANAProBellevue Hospitaltart: 05-29-2025 End: 09-14-4032MnjdycZtiizka Boggs CMAProMedica Physicians Internal Medicine - Family MedicineComment on above:Essential hypertensionStart: 04-02-2025 End: 80-99-9867XbqqutFzydafkwm [facility] - Pain Management ClinicStart: 03-28-2025 End: 70-96-3497Otzmjj outpatient visit 15 minutesMarlys BEACH Work Phone: [facility] - Pain Management ClinicComment on above:Lumbosacral spondylosis without myelopathy (Primary Dx) Start: 03-28-2025 End: 56-01-9512imtlrhyikmJNFJUITAcadian Medical Center HospitalStart: 02-22-2025 End: 76-21-6489Zrvgqlzxx encounterSCornerstone Specialty Hospital Neurology, A Department of [facility] Centertart: 02-19-2025 End: 77-34-6886gvjppbiuhbLEIYC B [facility] Start: 02-19-2025 End: 56-40-4027Rqsyjy outpatient visit 15 minutesMarlys BEACH Work Phone: [facility] - Pain Management ClinicComment on above:Disorder of sacrum (Primary Dx)Start: 02-19-2025 End: 49-46-1955adnmkrmmmjFRKUKJHMiraVista Behavioral Health Centertart: 56-66-3185wrwwlvapptFTZU M [facility]tart: 01-24-2025 ambulatoryAshtabula County Medical Centertart: 01-24-2025 End: 68-31-4154esgnvdexzaTZHJBellevue Hospitaltart: 01-18-2025 End: 48-84-2404simtzkrbctFVOFWOW E [facility] Ohiotart: 01-14-2025 End: 50-90-4490Bircfp outpatient visit 15 George Stoddard APRN-JUAN DIEGO Work Phone: [facility] - Family MedicineComment on above:Essential hypertension (Primary Dx); Mixed hyperlipidemia; Arteriosclerosis of coronary arteryStart: 01-14-2025 End: 55-14-1038lnvvjyvggfVIGDPZR J CA[facility]OFire[facility] Start: 01-04-2025 End: 73-65-2381uifdmgzhmgJCXUMOR E ADELINAProSelect Medical [facility], Inc HospitalStart: 12-27-2024 End: 29-31-0822Qridfecfv encounterCeli Reynoso [facility] - Pain Management ClinicStart: 12-20-2024 End: 16-63-9049Zedxos outpatient visit 15 minutesQuita Stoddard ONLINE JOURNALIST-TEST CASE DEVELOPER Work Phone: [facility] - Family MedicineComment on above:Frequency of urination (Primary Dx)Start: 12-20-2024 End: 92-04-9922lxfypqnjtiSQNGNQO Kami [facility] Start: 12-20-2024 End: 43-32-7932Mbkntk outpatient visit 25 minutesMarlys BEACH Work Phone: [facility] - Pain Management ClinicComment on above:Lumbosacral spondylosis without myelopathy (Primary Dx) Start: 12-20-2024 End: 21-29-7806ndwdchwrymLXUTXFP S NIENBERGDelaware County Hospital HospitalStart: 12-07-2024 End: 94-44-7712KdjagpTbaqctrYris BEACH Work Phone: [facility] - Pain Management ClinicStart: 11-30-2024 End: 16-26-9470rqnkbwshdqSTJKALB E [facility] BETHANYEMMYDelaware County Hospital HospitalStart: 11-29-2024 End: 68-53-0740Kmcoywapw encounterTa-Pam MazaNoland Hospital [facility] Physicians NeurologyComment on above:Prior Auth for EMGALITYStart: 2024 End: 07-95-6195lygafrprwzNARS S JODESt. Peter's Hospital HospitalStart: 11-26-2024 End: 83-01-2774tnjbekyxaxOQOVAD [facility] Centertart: 11-26-2024 End: 93-66-7321Qnktqj outpatient visit 25 minutesBritni Umana MD Work Phone: [facility] Department of [facility] HospitalComment on above:Intractable migraine with aura without status migrainosus (Primary Dx); Pseudobulbar affectStart: 11-26-2024 End: 04-50-0276ibvzpqmvopSHOLOA R PRESTEGAARDJ.W. Ruby Memorial Hospitaltart: 11-20-2024 End: 05-51-1105WbllpbTvxkagvSaray Stoddard APRN-TEST CASE DEVELOPER Work Phone: [facility] - Family MedicineComment on above:Essential hypertensionStart: 11-19-2024 End: 20-21-1439Wjfzhh outpatient visit 15 minutesQuita Stoddard APRN-TEST CASE DEVELOPER Work Phone: [facility] - Family MedicineComment on above:Rash (Primary Dx)Start: 11-19-2024 End: 48-63-5576lzlbxfgcjsKJQEZVA Kami [facility] Start: 11-15-2024 End: 67-91-4359Dcrywg outpatient visit 25 minutesAktatamar BEACH Work Phone: [facility] - Pain Management ClinicComment on above:Lumbosacral spondylosis without myelopathy (Primary Dx); Disorder of sacrum; Left hip painStart: 11-15-2024 End: 02-63-1023sodizosizwFEZNUNJ Cari LORNEDelaware County Hospital HospitalStart: 11-13-2024 End: 48-65-4371qovljbfpkiPGBXZ B [facility] Start: 11-08-2024 End: 60-84-4419AohkdcTrtxxmojgCelestina Silva Physicians NeurologyComment on above:Intractable migraine with aura without status migrainosusStart: 07-30-2024 End: 22-10-3696Ljsqgdglg encounterMisty Alpa [facility] CHILDRENProMedica Physicians Internal Medicine - Family MedicineStart: 07-28-2024 End: 85-18-1508HdyxmpQmbslkySaray Stoddard APRN-TEST CASE DEVELOPER Work Phone: [facility] - Family MedicineComment on above:Essential hypertension; Arteriosclerosis of coronary arteryStart: 60-98-6197vpzqmxblkhGEZCMercy Health Kings Mills Hospitaltart: 07-26-2024 End: 68-58-5153kjcnvneoieAPOBCommunity Regional Medical Centertart: 07-17-2024 End: 65-23-8788ieqsmbjcykVYUUYNL [facility] Hospitaltart: 23-06-2353Tryqaadjs for general adult medical examination without abnormal findingsNEW BRIDGE MEDICAL CENTERCarolyne [facility] Hospitaltart: 07-17-2024 End: 68-71-7174Yjaclnd encounter procedureValeena Stoddard APRN-TEST CASE DEVELOPER Work Phone: [facility] [employer] [facility] Work Phone: Start: 07-17-2024 End: 24-64-1056Kbleuhyp preventive med est patient 40-64yrsQuita Stoddard APRN-TEST CASE DEVELOPER Work Phone: [facility] - Family MedicineComment on above:Annual physical exam (Primary Dx); Encounter for screening for malignant neoplasm of prostate; Blood tests for routine general physical examination; Mixed hyperlipidemia; Essential hypertension; Arteriosclerosis of coronary arteryStart: 07-17-2024 End: 91-21-1493Tamjyvba examinationQuita Stoddard APRN-TEST CASE DEVELOPER Work Phone: [facility] Hospitaltart: 07-17-2024 End: 78-73-2853dddmzafvxsRRBRCON J [facility] Start: 07-17-2024 End: 62-73-8383ctjqhselnvLXBPPWP [facility] Hospitaltart: 06-12-2024 End: 89-33-4722LdvmsjLtuckcZe Umana MD Work Phone: [facility] NeurologyComment on above: Intractable migraine with aura without status migrainosusStart: 05-24-2024 End: 43-66-6755EktyumFodog Alpa CMAProMedica Physicians Internal Medicine - Family MedicineComment on above:Essential hypertensionStart: 04-09-2024 End: 46-70-1863WahleaUymdiaZe Umana MD Work Phone: [facility] NeurologyComment on above: Intractable migraine with aura without status migrainosusStart: 03-14-2024 End: 51-04-3201Xlykxwdmt encounterCeli Mcgrawe Edgardo [facility] Pain Management ClinicStart: 03-07-2024 End: 55-10-0973Udggtjmff encounterLina De LeonMedica Physicians Neurology Start: 02-26-2024 End: 96-71-0153JmzbciOwwexaw J Castillo ONLINE JOURNALIST-TEST CASE DEVELOPER Work Phone: [facility] Family MedicineComment on above: Mixed hyperlipidemiaStart: 02-19-2024 End: 60-51-7068CxrqoyFhjvthn J Castillo ONLINE JOURNALIST-TEST CASE DEVELOPER Work Phone: [facility] Medicine - Family MedicineComment on above:Essential hypertensionStart: 01-19-2024 End: 96-22-5421Nzggsc outpatient visit 15 minutesMarlys BEACH Work Phone: [facility] Pain Management ClinicComment on above:Disorder of sacrum (Primary Dx)Start: 12-22-2023 End: 92-14-3456QktafmEdqvzrx J Castillo ONLINE JOURNALIST-TEST CASE DEVELOPER Work Phone: [facility] Medicine - Family MedicineComment on above:Essential hypertension; Arteriosclerosis of coronary arteryStart: 12-22-2023 End: 50-10-8951Ofywnqcwy encounterQuita Stoddard ONLINE JOURNALIST-TEST CASE DEVELOPER Work Phone: [facility] - Family MedicineStart: 60-61-8319LwznscAriwevw J Castillo ONLINE JOURNALIST-TEST CASE DEVELOPER Work Phone: [facility] Medicine - Family MedicineComment on above:Essential hypertensionStart: 11-22-2023 End: 86-67-9923Aufgts outpatient visit 25 minutesMaguadalupe Pepper PA Work Phone: [facility] Pain Management ClinicComment on above:Lumbosacral spondylosis without myelopathy (Primary Dx) Start: 10-12-2023 End: 37-65-6631Vpyver outpatient visit 15 minutesQuita Stoddard APRN-TEST CASE DEVELOPER Work Phone: [facility] - Family MedicineComment on above:COPD exacerbation (CMS-HCC) (Primary Dx)Start: 10-11-2023 End: 18-69-7570Qdlvgr outpatient visit 15 minutesMarlys BEACH Work Phone: [facility] - Pain Management ClinicComment on above:Lumbosacral spondylosis without myelopathy (Primary Dx); Disorder of sacrumStart: 50-73-1472Yosmsxoiu encounterAlijake Umana MD Work Phone: [facility] NeurologyStart: 08-18-2023 End: 02-88-8525Pelyxl outpatient visit 15 minutesBritni Umana MD Work Phone: [facility] NeurologyComment on above: Intractable migraine with aura without status migrainosus (Primary Dx); Pseudobulbar affectStart: 01-14-2451odzbwwmdotQSRTSFF CASTILLOFacility:S9Lyjoy: 02-12-2022 End: 11-50-6804fjatvpegveWN JEFFREY PAYFacility:A8Tazsf: 12-04-2021 End: 86-57-4620gflfgdmfjbUdshu Keller Other [facility] [employer] Other Start: 77-14-3605Xuxdhk outpatient visit 25 minutes [facility] ClydeStart: 45-76-3502Txqcthc encounter procedure Britni Umana MD Work Phone: [facility] [employer] SystemStart: 60-89-8578Suvlqxmcg for general adult medical examination without abnormal findingsRogers [facility] Procedures DateProcedureProcedure DetailPerforming ClinicianStart: 26-63-5994Lcxfz depression screening assessmentBritni Umana MD Work Phone: Start: 93-97-9957Akupd depression screening assessment Quita Stoddard [facility] Work Phone: Start: 72-98-4712Rlbly dip stick/tablet rgnt non-auto w/o micrscpValerie Kami Stoddard [facility] Work Phone: Start: 12-98-3447Kuvlb depression screening assessment Quita Stoddard [facility] Work Phone: Start: 03-83-7402Vzblb depression screening assessment Britni Umana MD Work Phone: Start: 96-10-6295Fzorg depression screening assessment Quita Stoddard [facility] Work Phone: Start: 16-15-8700Bgmxj depression screening assessment Britni Umana MD Work Phone: Start: 38-55-7531XzouswpeyxlXhzauw Prestegaard MD Work Phone: Plan of Treatment DateCare ActivityDetailAuthorStart: 45-82-7780NPbH,Tdap and Td Vaccines (2 - Td or Tdap)DTaP,Tdap and Td Vaccines (2 - Td or Tdap)[facility] SystemStart: 01-93-8921Digjz BMI ScreeningAdult BMI ScreeningDiley Ridge Medical Center SystemStart: 10-94-8039Aakovczyaz ScreeningDepression ScreeningDiley Ridge Medical Center SystemStart: 35-23-0370Tweniea ScreeningTobacco ScreeningDiley Ridge Medical Center SystemStart: 81-85-1222Vzeqpgynb for malignant neoplasm of colonColonoscopyDiley Ridge Medical Center SystemStart: 86-41-8355Iryws BMI ScreeningAdult BMI ScreeningBerger Hospitalca [facility] SystemStart: 85-54-6696Pqzenfb ScreeningTobacco ScreeningD[facility] System Start: 30-16-8600Qlogv BMI ScreeningAdult BMI ScreeningD[facility] System Start: 32-89-0361Xvgbjzp ScreeningTobacco ScreeningBerger Hospitalca Health SystemStart: 21-72-4609Rwdpf BMI Follow Up PlanAdult BMI Follow Up PlanBerger Hospitalca [facility] SystemStart: 37-50-0082Wjzef BMI ScreeningAdult BMI ScreeningSouthwestern Vermont Medical CenterMedica Health SystemStart: 35-91-7304Ojesejueti ScreeningDepression ScreeningBerger Hospitalca [facility] SystemStart: 07-63-3452Ymdzkx Use: CardiovascularStatin Use: Cardiovascular [facility] SystemStart: 44-86-9409Wnnbgpg ScreeningTobacco Screening [facility] SystemStart: 05-05-1046Wturm BMI Follow Up PlanAdult BMI Follow Up PlanBerger Hospitalca [facility] SystemStart: 49-01-5952Oicxi BMI ScreeningAdult BMI ScreeningBerger Hospitalca [facility] SystemStart: 12-03-5958Fzuclnmlzu ScreeningDepression ScreeningBerger Hospitalca [facility] SystemStart: 64-63-8966Kvqwhjt ScreeningTobacco ScreeningBerger Hospitalca [facility] SystemStart: 18-78-1935Uqmvqsx ScreeningTobacco ScreeningBerger Hospitalca [facility] SystemStart: 18-73-6144Dhaiq BMI ScreeningAdult BMI ScreeningBerger Hospitalca [facility] SystemStart: 56-10-9053Iqwvrmvfxw ScreeningDepression ScreeningBerger Hospitalca [facility] SystemStart: 05-20-4015Gzzdjjc ScreeningTobacco ScreeningBerger Hospitalca [facility] SystemStart: 73-58-3448Bvejh BMI Follow Up PlanAdult BMI Follow Up PlanDiley Ridge Medical Center SystemStart: 50-10-0033Rocow BMI Screening Adult BMI ScreeningBerger Hospitalca [facility] SystemStart: 20-81-0486Nanhftt Screening Tobacco ScreeningBerger Hospitalca [facility] SystemStart: 43-58-3800Vdtlb BMI Screening Adult BMI ScreeningBerger Hospitalca [facility] SystemStart: 28-70-2203Owgmygm Screening Tobacco ScreeningBerger Hospitalca [facility] SystemStart: 09-20-2025 End: 18-72-4471Cnshdxx encounter wldwrcgov48/09/2026 9:00 AM EST Office Visit [facility] A Department of [facility] [address] [facility] [address] [place] [phone] Britni Umana MD [address] [facility] [address] [place] [address] [facility], A Department of [facility] Start: 07-23-2025 End: 10-63-5809Slyrthy encounter procedureProMedica Physicians Internal Medicine - Family MedicineStart: 88-78-7222Eibym BMI Follow Up PlanAdult BMI Follow Up PlanDiley Ridge Medical Center SystemStart: 63-54-6741Rvawa BMI ScreeningAdult BMI ScreeningDiley Ridge Medical Center SystemStart: 60-90-8813Cxajgee ScreeningTobacco ScreeningDiley Ridge Medical Center SystemStart: 05-30-2025 End: 39-57-3696Qffiesc encounter procedureProNol[facility]tart: 84-67-4284CHMBR-19 Vaccine ( season) COVID-19 Vaccine ( season)[facility] Hospitaltart: 05-13-2025 Influenza vaccinationInfluenza VaccineDiley Ridge Medical Center SystemStart: 02-19-2025 End: 67-29-8804Oloszty encounter aepfcxofj95/10/2025 7:45 AM EDT Office Visit [facility] [address] [place] [address] Marlys Pepper PA [address] [facility] [place] [address] [facility] Pain Management ClinicStart: 54-00-3339Smbpx BMI Screening Adult BMI ScreeningDiley Ridge Medical Center SystemStart: 28-91-7821Fhqmeum Screening Tobacco ScreeningDiley Ridge Medical Center SystemStart: 01-18-2025 End: 94-10-7416Mzldaxyex to same day surgery centerDayton [facility] Center - Pain ProceduresComment on above:RADIOFREQUENCY ABLATION SPINAL [72287 (CPT )]RADIOFREQUENCY ABLATION SPINAL Right L 4/5, 5/ [65247 (CPT )]Start: 01-18-2025 End: 39-72-0563Rkbe nrolytc agnt parverteb fct sngl lmbr/sacralFREMONT PAIN Start: 80-16-7152Ontkkhmiaw hospital visit by [facility] - Pain ProceduresStart: 01-18-2025 End: 57-35-4318Irifuhh encounter /09/2025 7:50 AM EDT Appointment [facility] [address] [place] [phone] Jese Caal MD [address] [place] [address] [facility]Start: 01-14-2025 End: 85-95-7185Ksnndtc encounter fjojdwxiw50/05/2025 3:20 PM EDT Office Visit [facility] - Family Medicine [address] [place] [address] Quita Stoddard, ONLINE JOURNALIST-TEST CASE DEVELOPER [address] [place] [address] [facility] Internal Medicine - Family MedicineStart: 95-06-0871Xmvtilz CounselingTobacco [facility] SystemStart: 01-04-2025 End: 03-28-6379Koraaybvk to same day surgery [facility] - Pain ProceduresComment on above:RADIOFREQUENCY ABLATION SPINAL: left L 4/5, 5 [31249 (CPT )]Start: 01-04-2025 End: 55-58-9307Fqxf nrolytc agnt parverteb fct sngl lmbr/sacralFREMONT PAIN Start: 11-98-0070Hgjxfvdzfj hospital visit by [facility] - Pain ProceduresStart: 01-04-2025 End: 15-23-5927Zzwzgll encounter qyrfkymxl92/25/2025 7:40 AM EDT Appointment [facility]iology [address] [place] [address] Jese Caal MD [address] [place] [address] [facility] - RadiologyStart: 09-52-2492Azhdiwh ScreeningTobacco ScreeningBerger Hospitalca [facility] SystemStart: 12-20-2024 End: 04-19-1604Dqhmsgo encounter iqbkmmgyt48/10/2025 12:00 PM EDT Office Visit [facility] [address] [place] [address] Marlys Pepper, YONG [address] [place] [address] [facility] Pain Management ClinicStart: 75-23-6780Viamjqb Screening Tobacco ScreeningDiley [facility] Medical Center SystemStart: 11-30-2024 End: 86-75-7740Qomzwjufa to same day surgery lirlyt9811/30/2024 9:15 AM EDT - 11/30/2024 9:22 AM EDT Surgery [facility] - Pain P rocedures [address] [place] [address] Jese Caal MD [address] [place] [address] INJECTION BLOCK SACROILIAC JOINT [11517 (CPT )][facility] - Pain ProceduresComment on above:INJECTION BLOCK SACROILIAC JOINT [37899 (CPT )]Start: 11-30-2024 End: 23-92-4307Tyfjax si joint arthrgrphy&/anes/steroid w/imaINJECTION BLOCK SACROILIAC JOINT Disorder of sacrum 11/30/2024 9:15 AM EDTFREMONT PAINStart: 38-48-5330Awlxcbqxll hospital visit by cwrvtoqto08/21/2025 9:15 AM EDT Hospital Encounter [facility] Pain Procedures [address] [place] [address] Jese Caal MD [address] [place], [place] [phone] [facility] - Pain ProceduresStart: 11-29-2024 End: 04-62-9652Taxoaba encounter bkkfwadyz27/20/2025 8:45 AM EDT Office Visit [facility] [address] [place] [phone] Marlys Pepper, PA [address], [address] [place], [place] [phone] [facility] Pain Management ClinicStart: 11-26-2024 End: 38-39-3713Evkbogb encounter procedureProMedica Physicians NeurologyStart: 95-82-1428Ldnij BMI ScreeningAdult BMI ScreeningBerger Hospitalca [facility] SystemStart: 98-22-8006Wjkimyz ScreeningTobacco ScreeningBerger Hospitalca [facility] SystemStart: 11-19-2024 End: 69-10-3744Ixrdiwk encounter zcccauinh47/10/2025 4:20 PM EDT Office Visit [facility] [address] [place] [address] Quita Stoddard, ONLINE JOURNALIST-TEST CASE DEVELOPER [address] [place] [address] [facility] - Family MedicineStart: 51-32-9536Otrcl BMI Follow Up PlanAdult BMI Follow Up PlanProUniversity Hospitals Conne[facility] Medical Centerca Health SystemStart: 67-26-4253Tbhdl BMI ScreeningAdult BMI ScreeningProUniversity Hospitals Conneaut Medical Centerca Health SystemStart: 06-34-9139Jqmpcjiddq ScreeningDepression ScreeningProUniversity Hospitals [facility] Medical Centerca Health SystemStart: 74-90-0010Yoqleho ScreeningTobacco ScreeningProUniversity Hospitals [facility] Medical Centerca Health SystemStart: 36-18-6282Lxpuv BMI ScreeningAdult BMI ScreeningDiley [facility] SystemStart: 25-34-1643Wmjncei ScreeningTobacco ScreeningDiley Ridge Medical Center SystemStart: 63-92-9247Djpnnax ScreeningTobacco ScreeningDiley Ridge Medical Center SystemStart: 96-20-0930Jglqv BMI ScreeningAdult BMI ScreeningProKind[facility] Hospital [facility] SystemStart: 55-32-5359Zidisyn ScreeningTobacco ScreeningDiley Ridge Medical Center SystemStart: 07-17-2024 End: 62-07-0435Uzadzhy encounter eafqgynzf68/05/2024 3:20 PM EST Office Visit [facility] - Family Medicine [address] [place] [address] Quita Stoddard, ONLINE JOURNALIST-TEST CASE DEVELOPER [address] [place] [address] [facility] Internal Medicine - Family MedicineStart: 67-08-5734Axmez BMI Follow Up PlanAdult BMI Follow Up PlanDiley Ridge Medical Center SystemStart: 50-83-0469KZXMX-19 Vaccine ( season)COVID-19 Vaccine ( season)[facility] SystemStart: 85-54-7699HKYGK-19 Vaccine ( season)COVID-19 Vaccine ( season)[facility] SystemStart: 83-85-8103Ysqazvoal vaccinationInfluenza VaccineDiley Ridge Medical Center SystemStart: 92-79-4104Dzxpyiyrpq ScreeningDepression ScreeningDiley Ridge Medical Center SystemStart: 04-19-2024 End: 11-80-8324Cpxmtkm encounter prfecdstp02/08/2024 7:45 AM EDT Office Visit [facility] [address] [place] [address] Marlys Pepper, PA [address], [address] [place] [address] [facility] Pain Management ClinicStart: 02-15-2024 End: 04-54-4308Kzpyobv encounter tsxtnshaj21/05/2024 4:30 PM EDT Office Visit [facility] [address] [place] [address] Britni Umana MD [address] [place] [address], [address], [address] [place], [place] [phone] (Work) [facility] NeurologyStart: 01-19-2024 End: 01-51-0319Qaylhgq encounter rldwfnack06/09/2024 7:45 AM EDT Office Visit [facility] [address] [place] [phone] Marlys Pepper PA [address] [place], [place] [address] [facility] Pain Management ClinicStart: 01-18-2024 End: 48-92-2606Gxlqvfm encounter procedureMiddletown Hospital Physicians Internal Medicine - Family MedicineStart: 12-23-2023 End: 12-72-5051Vvsxlptrd to same day surgery [facility] - Pain ProceduresComment on above:RADIOFREQUENCY ABLATION SPINAL: left L 4/5, 5/ [13878 (CPT )]Start: 12-23-2023 End: 57-60-8674Zeyr nrolytc agnt parverteb fct sngl lmbr/sacralFREMONT PAIN Start: 11-14-4353Dcqlejtueo hospital visit by physicianDayton [facility] - Pain ProceduresStart: 12-23-2023 End: 03-84-7848Toinpxh encounter ystkyanqs34/12/2024 7:45 AM EDT Appointment [facility] [address] [place] [address] Jese Caal MD [address] [place] [address] [facility] - RadiologyStart: 12-09-2023 End: 22-02-0275Zgyvikvyg to same day surgery csiskh7712/09/2023 2:00 PM EDT - 12/09/2023 2:13 PM EDT Surgery [facility] Pain P rocedures [address] [place] [address] Jese Caal MD [address] [place] [address] RADIOFREQUENCY ABLATION SPINAL: right L 4/5, 5/1 [40576 (CPT )][facility] - Pain ProceduresComment on above:RADIOFREQUENCY ABLATION SPINAL: right L 4/5, 5/1 [61968 (CPT )]Start: 12-09-2023 End: 35-43-4350Ahjc nrolytc agnt parverteb fct sngl lmbr/sacralRADIOFREQUENCY ABLATION SPINAL Lumbosacral spondylosis without myelopathy 12/09/2023 2:00 PM EDTFREMONT PAINStart: 97-62-3621Axzceiwwma hospital visit by bqaeazslj09/29/2024 2:00 PM EDT Hospital Encounter [facility] [address] [place] [address] Jese Caal MD [address] [place] [address] [facility] - Pain ProceduresStart: 12-01-2023 Administration of varicella zoster vaccineZoster (Shingles) Vaccine (2 of 2) [facility] SystemStart: 11-22-2023 End: 25-72-1478Qizkhek encounter aukfgktsb08/12/2024 7:45 AM EDT Office Visit [facility] [address] [place] [address] Marlys Pepper PA [address] [place] [address] [facility] Pain Management ClinicStart: 10-12-2023 End: 56-38-6468Ftbgeqh encounter vsqzzgfud79/31/2024 4:00 PM EST Office Visit [facility] - Family Medicine [address] [place] [address] Quita Stoddard, ONLINE JOURNALIST-TEST CASE DEVELOPER [address] [place] [address] [facility] - [facility] MedicineStart: 10-11-2023 End: 00-42-7500Rgdrupq encounter /30/2024 7:45 AM EST Office Visit [facility] [address] [place] [address] Marlys Pepper, PA [address], [address] [place] [address]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 symptoms Constitutional Symptom Yes No Comment Irritability [] [x] Anxiety [x] [] chronic, improved Difficulty concentrating [] [x] Difficulty sleeping [] [x] Mood swings [] [] Depression [] [] Exhaustion [x] [] Chronic Forgetfulness [] [] Decreased libido [] [] Low energy fatigue [x] [] Heat intolerance [] [x] Excessive sweating [] [x] Cold intolerance [] [] Weight loss [x] [] - 15 lbs since November 2024 Weight gain [] [x] Increasing itchiness [] [] Recent viral illness [] [] Cardiovascular Symptom Yes No Comment Racing heartbeat [] [] Palpitation [x] [] sometimes with position change Slow heartbeat [] [] Fluid retention [] [] Trouble breathing [] [] Neuromuscular Symptom Yes No Comment Proximal muscle weakness with upper extremities [] [x] Proximal muscle weakness with lower extremities [] [x] Muscle aches/cramps [] [] Shakes/tremors [] [x] Joint pain [] [] Decreased exercise capacity [] [] Gastrointestinal Symptom Yes No Comment Hyperactive bowel movement [x] [] Has both, intermittent Constipation [x] [] Integumentary Symptom Yes No Comment Dry skin [] [x] Yellowing skin [] [] Brittle hair [] [x] Hair loss [] [x] Brittle nail [] [x] Eyes Symptom Yes No Comment Dryness [] [x] Discomfort/pain [] [] Tearing [] [x] Protrusion [] [] Blurry vision [] [x] Double vision [] [] Decreased near vision [] [] Thyroid hormone administration N/A Compressive symptoms in the neck Symptom Yes No Comment A new mass [] [x] Choking [] [x] Trouble swallowing [] [] Change in voice [] [x] Fullness [] [] Lower central neck pain [] [x] For thyroid nodule(s) Yes No Comment Personal history of radiation exposure under the age 20 years [] [] Family history of thyroid cancer [] [] If yes, what type? Family history of thyroid disease: [No] REVIEW OF SYSTEMS Negative except as noted above. Past Medical History: Diagnosis Date CAD (coronary artery disease) HIV (human immunodeficiency virus infection) (CMS/HCC) Hyperlipidemia Hypertension Past Surgical History: Procedure Laterality Date CTA CHEST W IV CONTRAST 10/30/2020 CT CHEST ANGIOGRAM W AND/OR WO IV CONTRAST CHANCE CONVERSION Current Outpatient Medications: albuterol 90 mcg/actuation inhaler, INHALE 2 PUFFS BY MOUTH EVERY 6 HOURS NEEDED FOR WHEEZING OR SHORTNESS OF BREATH, Disp: 18 g, Rfl: 3 ARIPiprazole (Abilify) 5 mg tablet, TAKE 1 TABLET(5 MG) BY MOUTH AT BEDTIME, Disp: 30 tablet, Rfl: 0 aspirin 81 mg chewable tablet, Chew 1 tablet (81 mg) in the morning., Disp: 180 tablet, Rfl: 0 atorvastatin (Lipitor) 80 mg tablet, Take 1 tablet by mouth at bedtime., Disp: , Rfl: Biktarvy 50-200-25 mg tablet, TAKE 1 TABLET BY MOUTH EVERY MORNING, Disp: 30 tablet, Rfl: 0 Biktarvy 50-200-25 mg tablet, TAKE 1 TABLET BY MOUTH DAILY IN THE MORNING., Disp: 30 tablet, Rfl: 4 bisacodyl (Dulcolax) 5 mg EC tablet, Take 5 mg by mouth if needed each day., Disp: , Rfl: budesonide-formoteroL (Symbicort) 160-4.5 mcg/actuation inhaler, every 12 (twelve) hours. 2 puffs bid, Disp: , Rfl: cetirizine (ZyrTEC) 5 mg tablet, Take 5 mg by mouth in the morning., Disp: , Rfl: isosorbide mononitrate ER (Imdur) 30 mg 24 hr tablet, Take 1 tablet by mouth in the morning., Disp: , Rfl: LORazepam (Ativan) 0.5 mg tablet, Take 1 tablet (0.5 mg) by mouth if needed each day for anxiety., Disp: 30 tablet, Rfl: 2 meclizine (Antivert) 25 mg tablet, TAKE 1 TABLET BY MOUTH THREE TIMES DAILY NEEDED FOR DIZZINESS, Disp: , Rfl: methylphenidate (Ritalin) 20 mg tablet, One tablet by mouth three times daily. Do not start before March 20, 2025., Disp: 90 tablet, Rfl: 0 methylphenidate (Ritalin (more content not included)...[facility]09-18-2025 History of Present illness Narrative* Britni Umana MD - 05/30/2025 9:00 AM EDT Images from the original note were not included. NEUROLOGY OUTPATIENT CONSULT NOTE: REFERRING PHYSICIAN: PCP: No primary care provider on file. CHIEF COMPLAINT: SUBJECTIVE: History: Luz Shahid is a 59 y.o. right handed male who presents to neurology clinic today with a chief complaint of chronic headaches. At his previous visit on 11/26/2024 he was using Ubrelvy, and was restarted on Emgality. On the last visit, due to reported some increase in frequency of migraines, Emgality was re-initiated. He reported that he used to be on it but ultimately had to stop because it became too expensive as far as co-pay. However we were able to get it approved and he has been taking it regularly. The patient also benefits from Ubrelvy even though it is not as promptly relieving headache as previouslysumatriptan. Today, he reported that Ubrelvy, 10 tablets a month, and Emgality once month, still helping a lot even though his head pain escalates to severe once or twice per week reaching at least 7-8/10 in terms of pain intensity. The distribution of his head pain discomfort is still bilaterally on the forehead, however there is also some occipital pain. More recently in the past month he had an incident at work; he feels over- worked since his job requires him to work 6 days a week. He is very anxious and stressed that negatively impacts his headaches and other pain in his body. He has been still working with pain management on his lower back discomfort that is now 7-8/10 level already in the morning. It gets better after he starts moving around. He has had multiple procedures done including bilateral lumbar radiofrequencies in December 2024. Left sided procedure was helpful but not right sided one. YONG Abarca just saw him on 03/28/2025 and gave him Medrol dose pack to help with back pain. The patient has a significant history of kidney stones, generalized anxiety with agoraphobia and panic attacks, bipolar disorder still maintained on Abilify and Pristiq, as well as pseudo bulbar affect addressed with Nuedexta. He also has history of thyrotoxicosis maintained on Tapazole. The patient is on BIKTARVY for HIV positivity-his viral counts are under control. Headache characteristics: Date # Days /Mo Total # Days/Mo moderate # Days/Mo Severe WOLFE # Days/Mo Acute meds used 09/16/2022 2-3 2-3 03/07/2023 11 6 3 08/18/2023 7 3 2 11/26/24 10+ 7 4 05/30/2025 18 12+ 6 -Historical progression over the years: -Onset/Timing: -Aura: -Location at onset: Forehead bilaterally, occipital bone -Radiation: radiates down neck -Headache pain characteristics/ Quality: pounding -Range of Severity: previously 5-6/10 pain , now in the past month 7-8/10 pain -Duration: 5-8 hours , relieved by sleeping -Frequency:daily now , previously 1-2 a week -Context: -Associated signs and symptoms: yes Photophobia, yes phonophobia, no nausea,no vomiting, , yes lightheadedness, vertigo ongoing since before most recent flare up of headaches, -Any focal neurological symptoms? No -Any autonomic symptoms? -Modifying Exacerbating factors/triggers: light and sound -Modifying Alleviating factors: Sleeping, quietness, Umbrelvy, Emgality -ED/Urgent care visits in last 3 months: no -Days of work/school missed in last 3 months: around 4 in the past month less before that -History of head trauma: no -History of meningo-encephalitis: -Family history of migraine: -Migraine comorbidities: depression, anxiety, fibromyalgia Headache Treatment: Preventive Past: Emgality Preventive Present: On Abilify, Effexor and Prestiq for mood. Metoprolol for cardiac condition. Emgality Preventatives contraindicated: Topamax and Zonegran due to history of kidney stones. Depakote due to significant risk of liver damage with his current comorbidities Abortive Past: Sumatriptan, NSAIDs. Abortive Present: Ubrelvy Relevant LAB/IMAGING and other records reviewed: MR brain with and without contrast 05/30/2019 IMPRESSION: * Unremarkable MR Brain without and with contrast. MR lumbar spine without contrast 07/28/2023 IMPRESSION: * Mild multilevel degenerative changes as described. ALLERGIES: No Known Allergies SOCIAL HISTORY: Marital status: Employment/education: Tobacco smoking: Any illicit drug use: Alcohol use: RELEVANT PAST MEDICAL/SURGICAL HISTORY: Past Medical History: Diagnosis Date Bipolar disorder ([facility]) Chronic kidney disease Chronic pain disorder COPD (chronic obstructive pulmonary disease) ([facility]) Depression Disease of thyroid gland Heart attack ([facility]) 10/2019 HIV (human immunodeficiency virus infection) ([facility]) 22 years HIV (human immunodeficiency virus infection) ([facility]) Hypertension Hyperthyroidism Hypertriglyceridemia Low back pain Past Surgical History: Procedure Laterality Date COLONOSCOPY INJECTION BLOCK NERVE MEDIAL BRANCH: bilat L 4/5, 5/1 Bilateral 09/23/2023 Performed by Jese Caal MD at [facility] INJECTION BLOCK SACROILIAC JOINT Bilateral 11/30/2024 Performed by Jese Caal MD at [facility] INJECTION BLOCK SACROILIAC JOINT Bilateral 06/24/2023 Performed by Jese Caal MD at [facility] INJECTION BLOCK SACROILIAC JOINT Bilateral 10/29/2022 Performed by Jese Caal MD at [facility] INJECTION BLOCK SACROILIAC JOINT Bilateral 06/25/2022 Performed by Jese Caal MD at [facility] INJECTION BLOCK SACROILIAC JOINT Bilateral 08/28/2021 Performed by Jese Caal MD at [facility] INJECTION BLOCK SACROILIAC JOINT Bilateral 07/27/2021 Performed by Jese Caal MD at [facility] INJECTION MEDIAL BRANCH NERVE BLOCK Bilateral L 4/5, 5/1 Bilateral 06/20/2020 Performed by Jese Caal MD at [facility] INJECTION MEDIAL BRANCH NERVE BLOCK Bilateral L 4/5, 5/1 Medial Branch Block Bilateral 05/02/2017 Performed by Jese Caal MD at [facility] RADIO FREQUENCY ABLATION Left L 4/5, 5/1 Left 09/08/2020 Performed by Jese Caal MD at [facility] RADIO FREQUENCY ABLATION Right L 4/5, 5/1 Right 08/22/2020 Performed by Jese Caal MD at [facility] RADIOFREQUENCY ABLATION SPINAL Left L 4/5, 5/1 RFA Left 06/17/2017 Performed by Jese Caal MD at [facility] RADIOFREQUENCY ABLATION SPINAL Right L 4/5, 5/1 Right 01/18/2025 Performed by Jese Caal MD at [facility] RADIOFREQUENCY ABLATION SPINAL: left L 4/5, 5/ Left 12/23/2023 Performed by Jese Caal MD at [facility] RADIOFREQUENCY ABLATION SPINAL: right L 4/5, 5/1 Right 12/09/2023 Performed by Jese Caal MD at [facility] RADIOFREQUENCY ABLATION SPINAL: left L 4/5, 5/ Left 01/04/2025 Performed by Jese Caal MD at [facility] RADIOFREQUENCY ABLATION SPINAL: right L45 51 rfa Right 06/03/2017 Performed by Jese Caal MD at [facility] Reviewed, no changes CURRENT MEDICATIONS: Current Outpatient Medications on File Prior to Visit Medication Sig Dispense Refill albuterol (PROVENTIL HFA) 90 mcg/actuation inhaler Inhale 2 puffs every 6 (six) hours as needed forwheezing or shortness of breath. 18 g 3 albuterol (PROVENTIL,VENTOLIN) 2.5 mg /3 mL (0.083 %) nebulizer solution Inhale 3 mL (2.5 mg total)by nebulization every 6 (six) hours as needed for wheezing or shortness of breath. 75 mL 1 ARIPiprazole (ABILIFY) 5 mg tablet Take 1 tablet (5 mg total) by mouth. aspirin 81 mg chewable tablet Chew 1 tablet (81 mg total) and swallow in the morning. Chew. atorvastatin (LIPITOR) 80 mg tablet TAKE 1 TABLET(80 MG) BY MOUTH DAILY 90 tablet 2 baclofen (LIORESAL) 10 mg tablet Take 1 tablet (10 mg total) by mouth 3 (three) times a day. 90 tablet 0 BIKTARVY 50-200-25 mg per tablet Take 1 tablet by mouth in the morning. bisacodyL (DULCOLAX) 5 mg EC tablet Take 1 tablet (5 mg total) by mouth daily as needed for constipation. 5 tablet 0 budesonide-formoteroL (SYMBICORT) 160-4.5 mcg/actuation inhaler cetirizine (ZyrTEC) 5 mg tablet Take 1 tablet (5 mg total) by mouth in the morning. desvenlafaxine (PRISTIQ) 100 mg 24 hr tablet Take 1 tablet (100 mg total) by mouth daily. 30 tablet0 dextromethorphan-quiNIDine (NUEDEXTA) 20-10 mg capsule Take 1 capsule by mouth 2 (two) times a day.30 capsule 0 ezetimibe (ZETIA) 10 mg tablet Take 1 tablet (10 mg total) by mouth in the morning. 90 tablet 1 famotidine (PEPCID) 10 mg tablet Take by mouth in the morning. isosorbide mononitrate (IMDUR) 30 mg 24 hr tablet Take 1 tablet (30 mg total) by mouth every morning. 90 tablet 1 lisinopriL (PRINIVIL,ZESTRIL) 20 mg tablet Take 1 tablet (20 mg total) by mouth in the morning. TAKE 1 TABLET(20 MG) BY MOUTH IN THE MORNING. 90 tablet 1 LORazepam (ATIVAN) 0.5 mg tablet Take 1 tablet (0.5 mg total) by mouth in the morning. methIMAzole (TAPAZOLE) 5 mg tablet methylphenidate HCl (RITALIN) 20 mg tablet Take 1 tablet (20 mg total) by mouth. metoprolol succinate XL (TOPROL XL) 50 mg 24 hr tablet Take 1 tablet (50 mg total) by mouth in the morning. TAKE 1 TABLET(50 MG) BY MOUTH IN THE MORNING. 90 tablet 1 NIFEdipine CC (ADALAT CC) 30 mg 24 hr tablet Take 1 tablet (30 mg total) by mouth every morning. TAKE 1 TABLET(30 MG) BY MOUTH IN THE MORNING 90 tablet 1 venlafaxine XR (EFFEXOR XR) 75 mg 24 hr capsule Take 1 capsule (75 mg total) by mouth in the morning. No current facility-administered medications on file prior to visit. FAMILY Hx: Family History Problem Relation Age of Onset Hyperlipidemia Mother Cancer Father Drug abuse Sister Review of Systems Constitutional: Negative for appetite change, fatigue and fever. HENT: Negative for hearing loss and trouble swallowing. Eyes: Negative for pain. Respiratory: Negative for chest tightness. Musculoskeletal: Positive for back pain. 7-8/10 back pain being managed by pain management, pain starts at 7-8/10 in the morning and gets better with moving around Neurological: Positive for headaches. Negative for seizures. REVIEW OF SYSTEMS: PHYSICAL EXAM: Vital Signs: Vitals: 05/30/25 0838 BP: 100/60 Pulse: 80 Weight: 92.5 kg (204 lb) Height: 177.8 cm (5' 10 ) 1/3 Bp, pulse, Rr, temp, wt General: Normotensive, in no acute distress, reports some back pain. Cardiac Examination 09/14: Heart: RRR, no murmurs, no rubs, no gallops. Carotids: No bruit Physical Exam Constitutional: Appearance: Normal appearance. Eyes: General: No visual field deficit. Cardiovascular: Rate and Rhythm: Normal rate and regular rhythm. Heart sounds: Normal heart sounds. Neurological: Mental Status: He is alert and oriented to person, place, and time. Cranial Nerves: No cranial nerve deficit, dysarthria or facial asymmetry. Sensory: No sensory deficit. Motor: No weakness, tremor, atrophy or abnormal muscle tone. Coordination: Romberg sign negative. Coordination normal. Cdylte-Gxeu-Jfybeg Test and Heel to Larson Test normal. Gait: Tandem walk normal. Deep Tendon Reflexes: Reflexes normal. Reflex Scores: Tricep reflexes are 1+ on the right side and 1+ on the left side. Bicep reflexes are 2+ on the right side and 2+ on the left side. Brachioradialis reflexes are 1+ on the right side and 1+ on the left side. Patellar reflexes are 1+ on the right side and 1+ on the left side. Achilles reflexes are 1+ on the right side and 1+ on the left side. Psychiatric: Behavior: Behavior normal. ASSESSMENT/PLAN: 1. Chronic migraine headaches with and without aura, intractable-significantly worse, the patient needs to Continue monoclonal antibody- Emgality 2. 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 Chronic lower back pain-worse, under care with pain management- YONG Abarca 4. History of myocardial infarction (coronary artery disease) -contraindication for use of vasoconstrictors like triptans 5. HIV-stable on maintenance Biktarvy 6. History of thyrotoxicosis-maintained on Tapazole 7. 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 Mr. Shahid appears to have a significant exacerbation in frequency and intensity of breakthrough headaches despite of ongoing treatment with Emgality and having Ubrelvy as a abortive. It appears that significant work related stressors, and being in chronic pain related to lower backpain radiating to his legs, is aggravating his migraine condition adding on significant muscle tension components. I believe the patient could benefit from physical therapy, however his busy work schedule is not allowing time for it. Therefore, we emphasized the importance of about the importance of neck and back stretches and exercises to relive some of the tension in your neck and back as it may help improve the increased headache symptoms. Continue to use your Emgality and Ubrelvy for headache control. My detailed recommendations are included below in after visit patient's instructions: PATIENT INSTRUCTIONS: Please start stretching exercises for lower back pain like for example pelvic tilt-there is a lot of nice videos on you tube-look it up. 10 minutes a day is sufficient. Continue Emgality subQ injections every 28 days For acute breakthrough headaches/migraine continue Ubrelvy as abortive For back pain and muscle spasm use Lioresal (baclofen) 10 mg tablets you received from your pain management physician. It will help your back pain, neck pain and tension headaches Follow-up visit in 3-4 months Petr Mckinney MS3 I was physically present with participating a medical student. I personally verified the medical student's documentation in the medical records and performed a physical exam and medical decision making for the patient. I made appropriate changes or clarifications to the note. Britni Umana MD Chinese Herbalist of Neurology [facility] [place] [address] Clinic phone: [phone] Clinic fax: [phone] documented in [address] encounter[facility] Instructions* Patient Instructions* Britni Umana MD - 05/30/2025 9:00 AM EDT Please start stretching exercises for lower back pain like for example pelvic tilt-there is a lot of nice videos on you tube-look it up. 10 minutes a day is sufficient. Continue Emgality subQ injections every 28 days For acute breakthrough headaches/migraine continue Ubrelvy as abortive For back pain and muscle spasm use Lioresal (baclofen) 10 mg tablets you received from your pain management physician. It will help your back pain, neck pain and tension headaches Follow-up visit in 3-4 months * Attachments The following attachments cannot be sent through Care Everywhere. * Stretching Exercises for Your Lower Body (American) * Back Stretches Standing or Seated (American) documented in this encounterMer[facility]07-22-2025 Miscellaneous Notes* Telephone Encounter - Jazlyn Boone RN - 04/02/2025 3:22 PM EDT Last Office Visit: 03/28/25 Next Office Visit: Visit date not found Last Urine Drug Screen: No results found for: BENZOSCRN OARRS appropriate documented in this encounterMer[facility]-2025 Telephone encounter Note* Telephone Encounter - Jazlyn Boone RN - 04/02/2025 3:22 PM EDT Last Office Visit: 03/28/25 Next Office Visit: Visit date not found Last Urine Drug Screen: No results found for: BENZOSCRN OARRS appropriate [facility]07-17-2025 History of Present illness Narrative* YONG Abarca - 03/28/2025 1:00 PM EDT [facility] [address] [place] [address] Patient: Luz Shahid Sex: male : 1965 Age: 59 y.o. PCP: Quita Stoddard, ONLINE JOURNALIST-TEST CASE DEVELOPER 03/28/2025 Luz Shahid is here for a(n) follow up for increased back pain. He reports new onset right flank pain for past week. Chief Complaint Patient presents with Back Pain HPI: PT/HEP 2016 for about 10 sessions with no relief in [place]. Back: 06/03/17 Right and 06/17/17 Left L4/5, 5/1 RFA 3 yrs relief. 08/22/2020 Right L4/5, 5/1 RFA 06/03/17 & 09/08/2020 left L4/5, 5/1RFA w/ 95% relief. 07/27/21 Bilateral SI joint injection with 90% relief for 2 weeks 08/28/21 Bilateral SI Joint injection with 100% relief x1 week Bilateral SI joint injection on 06/25/2022 with 80% relief. 12/09/23 Right L4-S1 RFA with 98% relief. 12/23/23 Left L4-S1 RFA with 98% relief.. . 06/24/23 Bilateral SI injections with 75% continued relief. 09/23/2023 bilateral L 4/5, 5/1 medial branch block with at least 80% relief for a few days and 70% continued relief 11/30/2024 bilateral Sacroiliac joint injections with 90% (pain down to 0-1/10) relief of hip and groin pain that continues. post procedure follow up 01/04/2025 left right L4/5 L5/1 radiofrequency ablations. Patient reports 100% relief on left and 90% relief on right . Back Pain This is a chronic problem. The current episode started more than 1 year ago (2015). The problem occurs intermittently. The problem has been gradually improving (post lumbar Rfa) since onset. The painis present in the lumbar spine. The quality of the pain is described as aching (dull ache). The pain does not radiate. The pain is at a severity of 6/10 (up to 8/10). The pain is moderate. The symptoms are aggravated by bending, twisting, standing and lying down (reaching, working). Stiffness is present: n/a. Pertinent negatives include no bladder incontinence, bowel incontinence, chest pain, fever, leg pain, numbness, tingling or weakness. Risk factors include poor posture. He has tried home ex ercises, NSAIDs, chiropractic manipulation, heat, ice, bed rest and muscle relaxant (PT/HEP 2015. mobic/motrin in past, asa, heat/ice, rest and back brace) for the symptoms. The treatment provided mild (pt back on the line which is more standing and increases pain since 05/2022) relief. The effect of pain on patient's ADLS: Moderate Impairment. Past Medical History: Diagnosis Date Bipolar disorder ([facility] Chronic kidney disease Chronic pain disorder COPD (chronic obstructive pulmonary disease) ([facility]) Depression Disease of thyroid gland Heart attack ([facility] 10/2019 HIV (human immunodeficiency virus infection) ([facility]) 22 years HIV (human immunodeficiency virus infection) ([facility]) Hypertension Hyperthyroidism Hypertriglyceridemia Low back pain Past Surgical History: Procedure Laterality Date COLONOSCOPY INJECTION BLOCK NERVE MEDIAL BRANCH: bilat L 4/5, 5/1 Bilateral 09/23/2023 Performed by Jese Caal MD at [facility] INJECTION BLOCK SACROILIAC JOINT Bilateral 11/30/2024 Performed by Jese Caal MD at [facility] INJECTION BLOCK SACROILIAC JOINT Bilateral 06/24/2023 Performed by Jese Caal MD at [facility] INJECTION BLOCK SACROILIAC JOINT Bilateral 10/29/2022 Performed by Jese Caal MD at [facility] INJECTION BLOCK SACROILIAC JOINT Bilateral 06/25/2022 Performed by Jese Caal MD at [facility] INJECTION BLOCK SACROILIAC JOINT Bilateral 08/28/2021 Performed by Jese Caal MD at [facility] INJECTION BLOCK SACROILIAC JOINT Bilateral 07/27/2021 Performed by Jese Caal MD at [facility] INJECTION MEDIAL BRANCH NERVE BLOCK Bilateral L 4/5, 5/1 Bilateral 06/20/2020 Performed by Jese Caal MD at [facility] INJECTION MEDIAL BRANCH NERVE BLOCK Bilateral L 4/5, 5/1 Medial Branch Block Bilateral 05/02/2017 Performed by Jese Caal MD at [facility] RADIO FREQUENCY ABLATION Left L 4/5, 5/1 Left 09/08/2020 Performed by Jese Caal MD at [facility] RADIO FREQUENCY ABLATION Right L 4/5, 5/1 Right 08/22/2020 Performed by Jese Caal MD at [facility] RADIOFREQUENCY ABLATION SPINAL Left L 4/5, 5/1 RFA Left 06/17/2017 Performed by Jese Caal MD at [facility] RADIOFREQUENCY ABLATION SPINAL Right L 4/5, 5/1 Right 01/18/2025 Performed by Jese Caal MD at [facility] RADIOFREQUENCY ABLATION SPINAL: left L 4/5, 5/1 Left 12/23/2023 Performed by Jese Caal MD at [facility] RADIOFREQUENCY ABLATION SPINAL: right L 4/5, 5/1 Right 12/09/2023 Performed by Jese Caal MD at [facility] RADIOFREQUENCY ABLATION SPINAL: left L 4/5, 5/1 Left 01/04/2025 Performed by Jese Caal MD at [facility] RADIOFREQUENCY ABLATION SPINAL: right L45 51 rfa Right 06/03/2017 Performed by Jese Caal MD at [facility] No Known Allergies Family History Problem Relation Age of Onset Hyperlipidemia Mother Cancer Father Drug abuse Sister Social History Socioeconomic History Marital status: Single Spouse name: Not on file Number of children: Not on file Years of education: Not on file Highest education level: Not on file Occupational History Not on file Tobacco Use Smoking status: Every Day Average packs/day: 1 pack/day for 38.0 years (38.0 ttl pk-yrs) Types: Cigarettes Start date: 1985 Smokeless tobacco: Never Vaping Use Vaping status: Never Used Substance and Sexual Activity Alcohol use: Not Currently Drug use: No Sexual activity: Defer Partners: Male Other Topics Concern Not on file Social History Narrative Not on file Social Drivers of Health Financial Resource Strain: High Risk (11/02/2022) Overall Financial Resource Strain (CARDIA) Difficulty of Paying Living Expenses: Hard Food Insecurity: No Food Insecurity (03/28/2025) Hunger Screening Food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 incontinence No genital discharge Musculoskeletal: Negative for arthralgias, joint swelling, myalgias and neck pain. No joint pain Skin: Negative for rash. Neurological: Positive for dizziness. Negative for weakness, numbness and headaches. Hematological: Negative for adenopathy. Psychiatric/Behavioral: Negative for sleep disturbance. Objective Physical Exam Constitutional: Appearance: Normal appearance. HENT: Head: Normocephalic and atraumatic. Right Ear: External ear normal. Left Ear: External ear normal. Nose: Nose normal. Mouth/Throat: Mouth: Mucous membranes are moist. Pharynx: Oropharynx is clear. Eyes: Conjunctiva/sclera: Conjunctivae normal. Cardiovascular: Rate and Rhythm: Normal rate and regular rhythm. Heart sounds: Normal heart sounds. No murmur heard. Pulmonary: Effort: Pulmonary effort is normal. Breath sounds: Normal breath sounds. Abdominal: Palpations: Abdomen is soft. There is no mass. Tenderness: There is no abdominal tenderness. Musculoskeletal: General: Normal range of motion. Cervical back: Normal range of motion. Skin: General: Skin is warm and dry. Comments: Has small inner R ankle lesion raised without sharp borders and with some discoloration Neurological: General: No focal deficit present. Mental Status: He is alert and oriented to person, place, and time. Mental status is at baseline. Psychiatric: Mood and Affect: Mood normal. Lab on 07/26/2024 Component Date Value Sodium 07/26/2024 134 (L) Potassium 07/26/2024 4.1 Chloride 07/26/2024 102 CO2 07/26/2024 25 Anion Gap 07/26/2024 11 BUN 07/26/2024 21 Creatinine 07/26/2024 1.17 BUN/Creatinine Ratio 07/26/2024 17.9 Glucose 07/26/2024 108 (H) Calcium 07/26/2024 9.2 AST 07/26/2024 21 ALT (SGPT) 07/26/2024 30 Alkaline Phosphatase 07/26/2024 101 Total Protein 07/26/2024 7.4 Albumin 07/26/2024 4.7 Total Bilirubin 07/26/2024 0.5 eGFR 07/26/2024 72.3 HIV-1 Interpretation 07/26/2024 Detected (A) HIV Quantitative RNA 07/26/2024 <30 HIV Quantitative RNA Log 07/26/2024 <1.47 RPR 07/26/2024 Nonreactive CD3 07/26/2024 86.27 CD3 Abs 07/26/2024 2,036 CD4 07/26/2024 42.31 CD4 Abs 07/26/2024 998 CD8 07/26/2024 40.93 (H) CD8 Abs 07/26/2024 966 (H) CD4/CD8 Ratio 07/26/2024 1.03 TSH 07/26/2024 1.68 Auto WBC 07/26/2024 7.15 RBC 07/26/2024 5.30 Hemoglobin 07/26/2024 16.7 Hematocrit 07/26/2024 49.1 MCV 07/26/2024 92.6 MCH 07/26/2024 31.5 MCHC 07/26/2024 34.0 RDW 07/26/2024 13.6 Neutrophils % 07/26/2024 57.9 Lymphocytes % 07/26/2024 33.0 Monocytes % 07/26/2024 6.2 Eosinophils % 07/26/2024 1.7 Basophils % 07/26/2024 0.8 Neutrophils Absolute 07/26/2024 4.14 Lymphocytes Absolute 07/26/2024 2.36 Monocytes Absolute 07/26/2024 0.44 Eosinophils Absolute 07/26/2024 0.12 Basophils Absolute 07/26/2024 0.06 Platelets 07/26/2024 304 nRBC % 07/26/2024 0.0 Immature Granulocytes % 07/26/2024 0.4 Immature Granulocytes Ab* 07/26/2024 0.03 Office Visit on 07/26/2024 Component Date Value N gonorrhoeae, TMA 07/26/2024 Negative Chlamydia, TMA 07/26/2024 Negative N gonorrhoeae, TMA 07/26/2024 Negative Chlamydia, TMA 07/26/2024 Negative N gonorrhoeae, TMA 07/26/2024 Negative Chlamydia, TMA 07/26/2024 Negative Color, Urine (more content not included)...[facility] 01-24-2025 NoteSuicide Risk Assessment Current Suicide Risk: Denied ideation, Denied intent, and Denied planSometimes I wish I could fall asleep and not wake up but reported that he is not suicidal. He said that he feels overwhelmed when he thinks about his stressors. Frequency of Symptoms: Occasional and Situational mostly regarding financial struggles Intensity if Symptoms: In the next 24-48 hours how likely is it that you will act on your suicide plan? 1 Previous Suicide Attempts: Age of 1st attempt: When he was 18 yo. He has not attempted suicide since then Reason for Previous Attempts: Relationship stress Suicide Risk Factors: Anxiety, , Chronic pain, and Male Previous Suicidal Ideation: Duration of thoughts when most severe: 1 hr Suicide Protective Factors: Employment, Nonviolent ways of handling disputes and coping with stress, Support from ongoing medical and mental health care relationships, and Support system Suicide Inquiry: How long have you been having these thoughts? On and off when stress increases, When did they first start? Years ago , and What kind of thoughts have you been having in the last 48 hours, past month and worst ever? Patient reported that he does not feel suicidal and has no plan. He reported that he sometimes wants to go to sleep and not wake up. Violence Risk Assessment Homicide Risk: Denies ideation and Denies intent Homicide Risk Factors: No homicide risk factors Homicide Protective Factors: Cognitive flexibility, Employment, and Support system Violence Risk: No access to weapons and No criminal record Overall Risk Level Intervention Risk Factors: Acute precipitating event and feeling overwhelmed with finances Protective Factors: Forward thinking, Modifiable risk factors, Strong social supports, and Suicidality: Low: Thoughts of , no plan, intent, or behavior Possible Interventions: Give emergency crisis numbers Risk Assessment and Plan: Minimal risk of harm to self Risk Assessment Interventions: Given emergency/crisis number [facility] confirmed psychiatry appointment and asked if he would like to see Magdalena Jackson earlier. Clinical Impression: Luz answered yes on the PhQ9. He reported that he sometimes wishes that he would fall asleep and not wake up. Patient told [facility] that he has been overwhelmed with finances lately due to his paychecks being garnished a large amount weekly to pay for medical bills. He denied feeling like he wanted to harm himself or others. He was able to discuss protective factors and plans that he has for the future. He is making progress towards improving his finances. 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 Luz is linked with Magdalena Jackson and has an appointment scheduled. He said that he did not want to move the appointment up. He said that he has been taking his medication as prescribed. He was given emergency numbers within his county to call if symptoms increase.[facility]05-05-2025 History of Present illness Narrative* Quita Stoddard APRN-TEST CASE DEVELOPER - 01/14/2025 3:20 PM EDT Images from the original [place] [id number] SUBJECTIVE: Patient ID: Luz Shahid is a 59 y.o. male. Chief Complaint Patient presents with Hyperlipidemia Hypertension Presents today for follow up States his moods have been down over the last several weeks. Had his wages garnished of his paycheck due to unpaid medical bills. States he has a history of suicide but does not have these thoughts recently or today. Magdalena Jackson,psychiatrist, monitors his moods. Has not been to the aircraft landing gear inspector, states he cannot afford $50 dollar co-pay. States he basically goes to cardiology for medication refills at this time. He is in need of atorvastatin reordered at this time. Has not taken in several weeks. Hyperlipidemia This is a chronic problem. The current episode started more than 1 year ago. The problem is controlled. Recent lipid tests were reviewed and are variable. Exacerbating diseases include obesity. Thereare no known factors aggravating his hyperlipidemia. Pertinent negatives include no chest pain or shortness of breath. Current antihyperlipidemic treatment includes statins and ezetimibe. The currenttreatment provides significant improvement of lipids. There are no compliance problems. Risk factors for coronary artery disease include family history, dyslipidemia, male sex, hypertension and obesity. Hypertension This is a chronic problem. The current episode started more than 1 year ago. Pertinent negatives include no chest pain, headaches, palpitations or shortness of breath. The following portions of the patient's history were reviewed and updated as appropriate: allergies, current medications, past family history, past medical history, past social history, past surgicalhistory and problem list. Past Surgical History: Procedure Laterality Date COLONOSCOPY INJECTION BLOCK NERVE MEDIAL BRANCH: bilat L 4/5, 5/ Bilateral 09/23/2023 Performed by Jese Caal MD at [facility] INJECTION BLOCK SACROILIAC JOINT Bilateral 11/30/2024 Performed by Jese Caal MD at [facility] IN[facility] BLOCK SACROILIAC JOINT Bilateral 06/24/2023 Performed by Jese Caal MD at [facility] IN[facility] BLOCK SACROILIAC JOINT Bilateral 10/29/2022 Performed by Jese Caal MD at [facility] IN[facility]CTION BLOCK SACROILIAC JOINT Bilateral 06/25/2022 Performed by Jese Caal MD at [facility] INJECTION BLOCK SACROILIAC JOINT Bilateral 08/28/2021 Performed by Jese Caal MD at [facility] IN[facility]CTION BLOCK SACROILIAC JOINT Bilateral 07/27/2021 Performed by Jese Caal MD at [facility] INJECTION MEDIAL BRANCH NERVE BLOCK Bilateral L 4/5, 5/1 Bilateral 06/20/2020 Performed by Jese Caal MD at [facility] INJECTION MEDIAL BRANCH NERVE BLOCK Bilateral L 4/5, 5/1 Medial Branch Block Bilateral 05/02/2017 Performed by Jese Caal MD at [facility] RADIO FREQUENCY ABLATION Left L 4/5, 5/1 Left 09/08/2020 Performed by Jese Caal MD at [facility] RADIO FREQUENCY ABLATION Right L 4/5, 5/1 Right 08/22/2020 Performed by Jese Caal MD at [facility] RADIOFREQUENCY ABLATION SPINAL Left L 4/5, 5/1 RFA Left 06/17/2017 Performed by Jese Caal MD at [facility] RADIOFREQUENCY ABLATION SPINAL: left L 4/5, 5/1 Left 12/23/2023 Performed by Jese Caal MD at [facility] RADIOFREQUENCY ABLATION SPINAL: right L 4/5, 5/1 Right 12/09/2023 Performed by Jese Caal MD at [facility] RADIOFREQUENCY ABLATION SPINAL: left L 4/5, 5/1 Left 01/04/2025 Performed by Jese Caal MD at [facility] RADIOFREQUENCY ABLATION SPINAL: right L45 51 rfa Right 06/03/2017 Performed by Jese Caal MD at [facility] Past Medical History: Diagnosis Date Bipolar disorder ([facility]) Chronic kidney disease Chronic pain disorder COPD (chronic obstructive pulmonary disease) ([facility] [place]) Depression Disease of thyroid gland Heart attack ([facility] [place]) 10/2019 HIV (human immunodeficiency virus infection) ([facility]) 22 years HIV (human immunodeficiency virus infection) ([facility] [place]) Hypertension Hyperthyroidism Hypertriglyceridemia Low back pain Immunization History Administered Date(s) Administered COVID-19, mRNA, LNP-S, PF, 100mcg/0.5mL Dose 02/28/2021, 03/28/2021, 10/01/2021 Covid-19, Mrna, Lnp-s, Bivalent, Pf, 50mcg/0.5ml or 25mcg/0.25ml 06/06/2022 Hep B, Adolescent or Pediatric 11/12/2011 Hepatitis A 10/24/2009, 11/12/2011, 04/01/2023 Hepatitis B 10/24/2009, 11/12/2011, 03/16/2012, 04/01/2023 Influenza (IM) Preservative Free 06/25/2011 Influenza High Dose Preservative Free IM 07/01/2020 Influenza, Im Pediatric (Pf) 05/26/2022 Influenza, Im Trivalent Preservative 10/24/2009, 06/30/2013 Influenza, Injectable, Quadrivalent 06/16/2019, 08/13/2021 Influenza, Injectable, quadrivalent (PF) 08/15/2014, 06/26/2015, 06/24/2016, 09/29/2017, 07/06/2018, 06/16/2019, 08/20/2020, 06/24/2021, 07/13/2023 Influenza, Unspecified 06/24/2016, 09/29/2017, 07/06/2018 Pneumococcal Conjugate 13-Valent 03/11/2016 Pneumococcal Polysaccharide 03/16/2012, 06/30/2013, 03/31/2017 Zoster Vaccine Recombinant 10/06/2023 REVIEW OF SYSTEMS: Review of Systems Constitutional: Negative for chills, fatigue and fever. HENT: Negative for hearing loss and trouble swallowing. Eyes: Negative for pain and visual disturbance. Respiratory: Negative for cough, chest tightness and shortness of breath. Cardiovascular: Negative for chest pain, palpitations and leg swelling. Gastrointestinal: Negative for blood in stool. Endocrine: Negative for polydipsia, polyphagia and polyuria. Genitourinary: Negative for difficulty urinating, dysuria, flank pain, hematuria, scrotal swelling and testicular pain. Musculoskeletal: Negative. Skin: Negative. Allergic/Immunologic: Negative. Neurological: Negative for seizures, syncope and headaches. Hematological: Does not bruise/bleed easily. Psychiatric/Behavioral: Negative. PHYSICAL EXAMINATION: Vitals: 01/14/25 1514 BP: 138/82 BP Site: Left Arm BP Postition: Sitting BP CUFF SIZE: M (9-13 inches) Pulse: 71 Resp: 18 Temp: 37 C (98.6 F) TempSrc: Tympanic SpO2: 98% Weight: 97.6 kg (215 lb 3.2 oz) Height: 177.8 cm (5' 10 ) Patient noted to have elevated BMI and the following intervention(s) were applied: encouragement toexercise. Component Latest Ref Rng 07/17/2024 CHOLESTEROL 150 - 200 mg/dL 111 (L) Triglycerides 27 - 150 mg/dL 215 (H) HDL >39 mg/dL 39 (L) VLDL 0 - 30 mg/dL 43 (H) LDL (calc) <130 mg/dL 29 Cholesterol:HDL Ratio 1.0 - 5.0 2.8 Physical Exam Vitals and nursing note reviewed. Constitutional: General: He is not in acute distress. Appearance: He is well-developed. HENT: Head: Normocephalic and atraumatic. Right Ear: Tympanic membrane and external ear normal. Left Ear: Tympanic membrane and external ear normal. Nose: Nose normal. Mouth/Throat: Mouth: Mucous membranes are moist. Pharynx: No oropharyngeal exudate. Eyes: General: No scleral icterus. Right eye: No discharge. Left eye: No discharge. Conjunctiva/sclera: Conjunctivae normal. Pupils: Pupils are equal, round, and reactive to light. Neck: Vascular: No JVD. Cardiovascular: Rate and Rhythm: Normal rate and regular rhythm. Heart sounds: Normal heart sounds. No murmur heard. No friction rub. No gallop. Pulmonary: Effort: Pulmonary effort is normal. No respiratory distress. Breath sounds: Normal breath sounds. Chest: Chest wall: No tenderness. Abdominal: General: Bowel sounds are normal. There is no distension. Palpations: Abdomen is soft. There is no mass. Tenderness: There is no abdominal tenderness. There is no guarding or rebound. Hernia: No hernia is present. Musculoskeletal: General: No tenderness. Normal range of motion. Cervical back: Normal range of motion and neck supple. Lymphadenopathy: Cervical: No cervical adenopathy. Skin: General: Skin is warm and dry. Capillary Refill: Capillary refill takes less than 2 seconds. Findings: No rash. Neurological: Mental Status: He is alert and oriented to person, place, and time. Deep Tendon Reflexes: Reflexes are normal and symmetric. Psychiatric: Mood and Affect: Mood normal. Behavior: Behavior normal. Thought Content: Thought content normal. Judgment: Judgment normal. ASSESSMENT/PLAN: Luz was seen today for hyperlipidemia and hypertension. Diagnoses and all orders for this visit: Mixed hyperlipidemia - atorvastatin (LIPITOR) 80 mg tablet; TAKE 1 TABLET(80 MG) BY MOUTH DAILY - ezetimibe (ZETIA) 10 mg tablet; Take 1 tablet (10 mg total) by mouth in the morning. Essential hypertension - NIFEdipine CC (ADALAT CC) 30 mg 24 hr tablet; Take 1 tablet (30 mg total) by mouth every morning.TAKE 1 TABLET(30 MG) BY MOUTH IN THE MORNING - isosorbide mononitrate (IMDUR) 30 mg 24 hr tablet; Take 1 tablet (30 mg total) by mouth every morning. - metoprolol succinate XL (TOPROL XL) 50 mg 24 hr tablet; Take 1 tablet (50 mg total) by mouth in the morning. TAKE 1 TABLET(50 MG) BY MOUTH IN THE MORNING. Arteriosclerosis of coronary artery - isosorbide mononitrate (IMDUR) 30 mg 24 hr tablet; Take 1 tablet (30 mg total) by mouth every morning. Depression: At risk (01/14/2025) PHQ-2 PHQ-2 Score: 9 States his moods have been down over the last several weeks. Had his wages garnished of his paycheck due to unpaid medical bills. States he has a history of suicide but does not have these thoughts recently or today. Magdalena Jackson,psychiatrist, monitors his moods. Body mass index is 30.88 kg/m . Patient noted to have elevated BMI and the following intervention(s) were applied: Discussed current weight today. Consider healthy food choices, portion control. Avoid sugary beverages and high concentrated sweets. Routine exercise regimen encouraged. HTN Stable. 138/82 Continue lisinopril, metoprolol, nifedipine, and isosorbide 2. Mixed hyperlipidemia Reorder atorvastatin 80 mg oral daily Zetia 10 mg oral daily ALL QUESTIONS ANSWERED Total time spent was 25 minutes: Preparing to see the patient (e.g., review of tests) Obtaining and/or reviewing separately obtained history Performing a medically appropriate examination and/or evaluation Counseling and educating the patient/family/caregiver Ordering medications, tests, or procedures Follow-up: 6 months Annual physical TYLER Giang 01/14/25 1600 documented in this encounterBerger HospitalCeltaxsys [id number] Instructions* Patient Instructions* TYLER Giang - 01/14/2025 3:20 PM EDT Are You Ready To Kick The Habit? Free Tobacco Cessation Resources [facility] Services [facility] provide all employees with free tobacco cessation services that include: Counseling to understand nicotine addiction Education about medications that can help you successfully quit Assistance with developing a plan to quit Call to set up an individual appointment or find out when group classes will be held: [facility]: [phone] [facility]: [phone] [facility]: [phone] [facility]: [phone] Quit Smoking Action Plan and Resources [facility] offers an eight-week, online smoking cessation plan to all [facility] employees, regardless of whether [employer] is your medical insurance provider. Go to www.Chronicity.org/employeewellness and click the Health Risk Assessment and Resources link to get started. In the [employer] menu, click Action Plans instead of Health Risk Assessment to access the Quit Smoking Action Plan. Additional smoking cessation resources are also available to all [facility] employees on the [employer] web page at www.[employer]/quitsmoking. [employer] Tobacco Cessation Program If [employer] is your medical insurance provider, there are more free resources available to you, including: No copays or deductibles on local tobacco cessation counseling services to help you quit Prescription assistance for tobacco cessation medications to help you quit For details about the tobacco cessation program available to [employer] members, go to www.[employer].Bukupe (Search: Tobacco Cessation Program). [place] Tobacco Quit Line 6-898-FFTW-NOW ( ) is a toll-free, telephonic service that helps [place] residents quit smoking and using tobacco. It is staffed by experts who tailor a quit plan for you and provide you with advice. [place] Tobacco Quit Line 0-016-YWGP-NOW ( ) is a toll-free, telephonic service that helps [place] residents quit smoking and using tobacco. It is staffed by experts who tailor a quit plan for you and provide you with advice. Two weeks of nicotine replacement therapy may be provided at no charge, if needed. Additional Resources These national organizations also offer free information and resources to help you quit tobacco: [place] [employer]--www.cancer.org/healthy/stayawayfromtobacco [place] [employer]--www.heart.org (Search: Quit Smoking) Centers for Disease Control and Prevention--www.cdc.gov/tobacco [place] [employer]--www.lungusa.org * Attachments The following attachments cannot be sent through Care Everywhere. * Atherosclerosis (American) documented in this encounterBerger HospitalKahnoodle Beaumont [id number] Miscellaneous Notes* Telephone Encounter - Celi Reynoso RN - 12/27/2024 9:37 AM EDT Telephone message was received from patient stating a script was supposed to be called in. Nothing noted in chart. Call placed to patient to clarify. No answer- message left. * Telephone Encounter - YONG Abarca - 12/27/2024 9:37 AM EDT Sent baclofen 10tid documented [facility] Telephone encounter Note* Telephone Encounter - Celi Reynoso RN - 12/27/2024 9:37 AM EDT Telephone message was received from patient stating a script was supposed to be called in. Nothing noted in chart. Call placed to patient to clarify. No answer- message left. [facility] [employer] [id number] Telephone encounter Note* Telephone Encounter - YONG Abarca - 12/27/2024 9:37 AM EDT Sent baclofen [address]tid [facility]04-10-2025 History of Present illness Narrative* Quita Stoddard, ONLINE JOURNALIST-TEST CASE DEVELOPER - 12/20/2024 3:00 PM EDT Images from the original note [place] [id number] SUBJECTIVE: Patient ID: Luz Shahid is a 59 y.o. male. Chief Complaint Patient presents with Urinary frequency States has been experiencing urgency and frequency of urination for several days. Denies hematuria.He is not sure why he is urinating more often. The following portions of the patient's history were reviewed and updated as appropriate: allergies, current medications, past family history, past medical history, past social history, past surgicalhistory and problem list. Past Surgical History: Procedure Laterality Date COLONOSCOPY INJECTION BLOCK NERVE MEDIAL BRANCH: bilat L 4/5, 5/1 Bilateral 09/23/2023 Performed by Jese Caal MD at [facility] INJECTION BLOCK SACROILIAC JOINT Bilateral 11/30/2024 Performed by Jese Caal MD at [facility] INJECTION BLOCK SACROILIAC JOINT Bilateral 06/24/2023 Performed by Jese Caal MD at [facility] IN[facility] BLOCK SACROILIAC JOINT Bilateral 10/29/2022 Performed by Jese Caal MD at [facility] IN[facility] BLOCK SACROILIAC JOINT Bilateral 06/25/2022 Performed by Jese Caal MD at [facility] INJE[facility] BLOCK SACROILIAC JOINT Bilateral 08/28/2021 Performed by Jese Caal MD at [facility] INJE[facility] BLOCK SACROILIAC JOINT Bilateral 07/27/2021 Performed by Jese Caal MD at [facility] INJECTION MEDIAL BRANCH NERVE BLOCK Bilateral L 4/5, 5/1 Bilateral 06/20/2020 Performed by Jsee Caal MD at [facility] IN[facility]CTION MEDIAL BRANCH NERVE BLOCK Bilateral L 4/5, 5/1 Medial Branch Block Bilateral 05/02/2017 Performed by Jese Caal MD at [facility] RADIO FREQUENCY ABLATION Left L 4/5, 5/1 Left 09/08/2020 Performed by Jese Caal MD at [facility] RADIO FREQUENCY ABLATION Right L 4/5, 5/1 Right 08/22/2020 Performed by Jese Caal MD at [facility] RADIOFREQUENCY ABLATION SPINAL Left L 4/5, 5/1 RFA Left 06/17/2017 Performed by Jese Caal MD at [facility] RADIOFREQUENCY ABLATION SPINAL: left L 4/5, 5/1 Left 12/23/2023 Performed by Jese Caal MD at [facility] RADIOFREQUENCY ABLATION SPINAL: right L 4/5, 5/1 Right 12/09/2023 Performed by Jese Caal MD at [facility] RADIOFREQUENCY ABLATION SPINAL: right L45 51 rfa Right 06/03/2017 Performed by Jese Caal MD at [facility] Past Medical History: Diagnosis Date Bipolar disorder ([facility] Chronic kidney disease Chronic pain disorder COPD (chronic obstructive pulmonary disease) ([facility]) Depression Disease of thyroid gland Heart attack ([facility] 10/2019 HIV (human immunodeficiency virus infection) ([facility] 22 years HIV (human immunodeficiency virus infection) ([facility] Hypertension Hyperthyroidism Hypertriglyceridemia Low back pain Immunization History Administered Date(s) Administered COVID-19, mRNA, LNP-S, PF, 100mcg/0.5mL Dose 02/28/2021, 03/28/2021, 10/01/2021 Covid-19, Mrna, Lnp-s, Bivalent, Pf, 50mcg/0.5ml or 25mcg/0.25ml 06/06/2022 Hep B, Adolescent or Pediatric 11/12/2011 Hepatitis A 10/24/2009, 11/12/2011, 04/01/2023 Hepatitis B 10/24/2009, 11/12/2011, 03/16/2012, 04/01/2023 Influenza (IM) Preservative Free 06/25/2011 Influenza High Dose Preservative Free IM 07/01/2020 Influenza, Im Pediatric (Pf) 05/26/2022 Influenza, Im Trivalent Preservative 10/24/2009, 06/30/2013 Influenza, Injectable, Quadrivalent 06/16/2019, 08/13/2021 Influenza, Injectable, quadrivalent (PF) 08/15/2014, 06/26/2015, 06/24/2016, 09/29/2017, 07/06/2018, 06/16/2019, 08/20/2020, 06/24/2021, 07/13/2023 Influenza, Unspecified 06/24/2016, 09/29/2017, 07/06/2018 Pneumococcal Conjugate 13-Valent 03/11/2016 Pneumococcal Polysaccharide 03/16/2012, 06/30/2013, 03/31/2017 Zoster Vaccine Recombinant 10/06/2023 REVIEW OF SYSTEMS: Review of Systems Constitutional: Negative for fatigue and fever. HENT: Negative for hearing loss and trouble swallowing. Eyes: Negative for pain and visual disturbance. Respiratory: Negative for cough, chest tightness and shortness of breath. Cardiovascular: Negative for chest pain, palpitations and leg swelling. Gastrointestinal: Negative for blood in stool. Endocrine: Negative for polydipsia, polyphagia and polyuria. Genitourinary: Positive for frequency and urgency. Negative for difficulty urinating, dysuria, scrotal swelling and testicular pain. Musculoskeletal: Negative. Skin: Negative. Allergic/Immunologic: Negative. Neurological: Negative for seizures, syncope and headaches. Hematological: Does not bruise/bleed easily. Psychiatric/Behavioral: Negative. PHYSICAL EXAMINATION: Vitals: 12/20/24 1505 BP: 118/63 BP Site: Left Arm BP Postition: Sitting BP CUFF SIZE: L (13-17 inches) Pulse: 68 Resp: 20 Temp: 36.4 C (97.5 F) TempSrc: Oral SpO2: 98% Weight: 98.5 kg (217 lb 3.2 oz) Height: 177.8 cm (5' 10 ) Patient noted to have elevated BMI and the following intervention(s) were applied: encouragement toexercise. Physical Exam Vitals and nursing note reviewed. Constitutional: General: He is not in acute distress. Appearance: He is well-developed. HENT: Head: Normocephalic and atraumatic. Right Ear: Tympanic membrane and external ear normal. Left Ear: Tympanic membrane and external ear normal. Nose: Nose normal. Mouth/Throat: Mouth: Mucous membranes are moist. Pharynx: No oropharyngeal exudate. Eyes: General: No scleral icterus. Right eye: No discharge. Left eye: No discharge. Conjunctiva/sclera: Conjunctivae normal. Pupils: Pupils are equal, round, and reactive to light. Neck: Vascular: No JVD. Cardiovascular: Rate and Rhythm: Normal rate and regular rhythm. Heart sounds: Normal heart sounds. No murmur heard. No friction rub. No gallop. Pulmonary: Effort: Pulmonary effort is normal. No respiratory distress. Breath sounds: Normal breath sounds. Chest: Chest wall: No tenderness. Abdominal: General: Bowel sounds are normal. There is no distension. Palpations: Abdomen is soft. There is no mass. Tenderness: There is no abdominal tenderness. There is no guarding or rebound. Hernia: No hernia is present. Musculoskeletal: General: No tenderness. Normal range of motion. Cervical back: Normal range of motion and neck supple. Lymphadenopathy: Cervical: No cervical adenopathy. Skin: General: Skin is warm and dry. Capillary Refill: Capillary refill takes less than 2 seconds. Findings: No rash. Neurological: Mental Status: He is alert and oriented to person, place, and time. Deep Tendon Reflexes: Reflexes are normal and symmetric. Psychiatric: Mood and Affect: Mood normal. Behavior: Behavior normal. Thought Content: Thought content normal. Judgment: Judgment normal. ASSESSMENT/PLAN: Luz was seen today for urinary frequency. Diagnoses and all orders for this visit: Frequency of urination - POCT urinalysis dipstick only Urine dip completed in office today. Normal results Patient mentioned he is taking Medrol dose pack ordered by pain management. Onset of frequency and urgency started two days ago while he started steroids. He was unaware steroids may cause urinary output. ALL QUESTIONS ANSWERED Total time spent was 25 minutes: Preparing to see the patient (e.g., review of tests) Obtaining and/or reviewing separately obtained history Performing a medically appropriate examination and/or evaluation Counseling and educating the patient/family/caregiver Ordering medications, tests, or procedures Follow-up: Next scheduled TYLER Giang 12/20/24 1536 documented in this encounterBerger HospitalCeltaxsys [id number] History of Present illness Narrative* YONG Abarca - 12/20/2024 12:00 PM EDT [facility] [address] [place] [address] Patient: Luz Shahid Sex: male : 1965 Age: 59 y.o. PCP: Quita Stoddard, DEANNE-TEST CASE DEVELOPER 12/20/2024 Luz Shahid is here for a(n) post procedure follow up 11/30/2024 bilateral Sacroiliac joint injections with 90% (pain down to 0-1/10) relief of hip and groin pain that continues. Patient's worst pain is to left lumbar area. Patient had a flare up of low back and hip pain. Medrol dose pack was prescribed and patient states pain has decreased. Left hip x-ray completed since last visit. Date of onset of pain: 2015 , pain has lasted greater than 3 months. Pain scale before treatment: 6/10 Pre-op pain score: 6/10 Post-op pain score: 3/10 2 hour post-op pain score: 3/10 4 hour post-op pain score: 2/10 Percentage and duration of relief after treatment: see above Pain scale after treatment: 1-2/10 to SI/hip/groin area Chief Complaint Patient presents with Back Pain HPI: PT/HEP 2016 for about 10 sessions with no relief in [place]. Back: 06/03/17 Right and 06/17/17 Left L4/5, 5/1 RFA 3 yrs relief. 08/22/2020 Right L4/5, 5/1 RFA 06/03/17 & 09/08/2020 left L4/5, 5/1RFA w/ 95% relief. 07/27/21 Bilateral SI joint injection with 90% relief for 2 weeks 08/28/21 Bilateral SI Joint injection with 100% relief x1 week Bilateral SI joint injection on 06/25/2022 with 80% relief. 12/09/23 Right L4-S1 RFA with 98% relief. 12/23/23 Left L4-S1 RFA with 98% relief.. . 06/24/23 Bilateral SI injections with 75% continued relief. 09/23/2023 bilateral L 4/5, 5/1 medial branch block with at least 80% relief for a few days and 70% continued relief 11/30/2024 bilateral Sacroiliac joint injections with 90% (pain down to 0-1/10) relief of hip and groin pain that continues. Back Pain This is a chronic problem. The current episode started more than 1 year ago (2015). The problem occurs constantly (Left Lumbar worsens as day progresses.). Progression since onset: SI pain improved, Left hip and left lumbar. The pain is present in the lumbar spine. The quality of the pain is described as aching (dull ache). The pain is at a severity of 3/10 (left hip 2-3/10). The pain is moderate. The pain is The same all the time (worse depending on what he is doing). The symptoms are aggravated by bending, twisting, standing and lying down (reaching, working). Stiffness is present: n/a. Associated symptoms include weakness (BLE with ambulation). Pertinent negatives include no bladder incon tinence, bowel incontinence, chest pain, fever, leg pain, numbness or tingling. Risk factors include poor posture. He has tried home exercises, NSAIDs, chiropractic manipulation, heat, ice, bed rest and muscle relaxant (PT/HEP 2016. mobic/motrin in past, asa, heat/ice, rest and back brace) for the symptoms. The treatment provided mild (pt back on the line which is more standing and increases pain since 05/2022) relief. The effect of pain on patient's ADLS: Moderate Impairment. Past Medical History: Diagnosis Date Bipolar disorder ([facility] [place]) Chronic kidney disease Chronic pain disorder COPD (chronic obstructive pulmonary disease) ([facility] [place]) Depression Disease of thyroid gland Heart attack ([facility] [place]) 10/2019 HIV (human immunodeficiency virus infection) ([facility] [place]) 22 years HIV (human immunodeficiency virus infection) ([facility] [place]) Hypertension Hyperthyroidism Hypertriglyceridemia Low back pain Past Surgical History: Procedure Laterality Date COLONOSCOPY INJECTION BLOCK NERVE MEDIAL BRANCH: bilat L 4/5, 5/ Bilateral 09/23/2023 Performed by Jese Caal MD at [facility] INJECTION BLOCK SACROILIAC JOINT Bilateral 11/30/2024 Performed by Jese Caal MD at [facility] INJECTION BLOCK SACROILIAC JOINT Bilateral 06/24/2023 Performed by Jese Caal MD at [facility] INJECTION BLOCK SACROILIAC JOINT Bilateral 10/29/2022 Performed by Jese Caal MD at [facility] INJECTION BLOCK SACROILIAC JOINT Bilateral 06/25/2022 Performed by Jese Caal MD at [facility] INJECTION BLOCK SACROILIAC JOINT Bilateral 08/28/2021 Performed by Jese Caal MD at [facility] INJECTION BLOCK SACROILIAC JOINT Bilateral 07/27/2021 Performed by Jese Caal MD at [facility] INJECTION MEDIAL BRANCH NERVE BLOCK Bilateral L 4/5, 5/1 Bilateral 06/20/2020 Performed by Jese Caal MD at [facility] INJECTION MEDIAL BRANCH NERVE BLOCK Bilateral L 4/5, 5/1 Medial Branch Block Bilateral 05/02/2017 Performed by Jese Caal MD at [facility] RADIO FREQUENCY ABLATION Left L 4/5, 5/1 Left 09/08/2020 Performed by Jese Caal MD at [facility] RADIO FREQUENCY ABLATION Right L 4/5, 5/1 Right 08/22/2020 Performed by Jese Caal MD at [facility] RADIOFREQUENCY ABLATION SPINAL Left L 4/5, 5/1 RFA Left 06/17/2017 Performed by Jese Caal MD at [facility] RADIOFREQUENCY ABLATION SPINAL: left L 4/5, 5/1 Left 12/23/2023 Performed by Jese Caal MD at [facility] RADIOFREQUENCY ABLATION SPINAL: right L 4/5, 5/1 Right 12/09/2023 Performed by Jese Caal MD at [facility] RADIOFREQUENCY ABLATION SPINAL: right L45 51 rfa Right 06/03/2017 Performed by Jese Caal MD at [facility] No Known Allergies Family History Problem Relation Age of Onset Hyperlipidemia Mother Cancer Father Drug abuse Sister Social History Socioeconomic History Marital status: Single Spouse name: Not on file Number of children: Not on file Years of education: Not on file Highest education level: Not on file Occupational History Not on file Tobacco Use Smoking status: Every Day Average packs/day: 1 pack/day for 38.0 years (38.0 ttl pk-yrs) Types: Cigarettes Start date: 1985 Smokeless tobacco: Never Vaping Use Vaping status: Never Used Substance and Sexual Activity Alcohol use: Not Currently Drug use: No Sexual activity: Defer Partners: Male Other Topics Concern Not on file Social History Narrative Not on file Social Drivers of Health Financial Resource Strain: High Risk (11/02/2022) Overall Financial Resource Strain (CARDIA) Difficulty of Paying Living Expenses: Hard Food Insecurity: No Food Insecurity (12/20/2024) Hunger Screening Food Insecurity - Worry: Never True Food Insecurity - Inability: Never True Transportation Needs: Unmet Transportation Needs (04/05/2023) Received from [facility] - Transportation Lack of Transportation (Medical): Yes Lack of Transportation (Non-Medical): Yes Physical Activity: Not on file Stress: Not on file Social Connections: Not on file Interpersonal Safety: Not on file Housing Instability: Low Risk (11/02/2022) Housing Instability Housing Instability: No Review of Systems Constitutional: Negative for fever. HENT: Positive for ear pain. Respiratory: Positive for cough. Negative for shortness of breath. Cardiovascular: Negative for chest pain. Gastrointestinal: Negative for bowel incontinence, constipation and diarrhea. Genitourinary: Negative. Negative for bladder incontinence. Musculoskeletal: Positive for back pain. Skin: Negative. Neurological: Positive for weakness (BLE with ambulation). Negative for tingling and numbness. Psychiatric/Behavioral: Negative. Vital Signs: BP 140/81 Pulse 65 Resp 16 Wt 98 kg (216 lb) BMI 30.99 kg/m Physical Exam: GENERAL - Healthy patient that appears stated age. HEENT - Normocephalic / Atraumatic, Extraoccular movements intact, trachea midline, thyroid within normal limits. CV - pulse regular, Warm extremities with appropriate color of nailbeds. RESP - No obvious wheezing, No Shortness of Breath, No overexertion response to exam maneuvers. COORDINATION - remains intact. PSYCH - Alert and Oriented x4, Attentive and appropriate, constitutionally normal, displays normal mood and affect per situation, answered questions appropriately during examination, demonstrated appropriate attention during discussion, demonstrated appropriate cognitive reasoning and understandingof the medical condition by asking appropriate questions regarding the diagnosis and risks/benefits/alternatives of treatment modalities. No obvious deficits in memory, reasoning, or intellect. Lumbar: SKIN - No rashes or bruising in the area of the patient s pain. LYMPH NODES - demonstrate no obvious enlargement. EXTREMITIES - Lower extremities are warm, with minimal edema and palpable pulses. Tenderness to palpation noted in the lumbar spine and paraspinal musculature. Pain is elicited withflexion, extension, and lateral rotation of the lumbar spine. Range of motion is diminished with these motions due to pain. Facet palpation is noted to be painful and facet loading maneuvers elicit pain that is concordant with the patient s normal pain complaints. Some muscle spasm is noted in the overlying musculature. STRENGTH - noted to be 5 out of 5 all muscle groups bilateral lower extremities including muscles involving hip flexion and abduction, knee flexion and extension, as well as foot dorsiflexion and plantarflexion. No notable atrophy, fasciculations or spasm. SENSORY - No notable sensory deficits in the bilateral lower extremities to touch or pinprick in all dermatomal distributions. Straight Leg Raise is negative bilaterally. Gait is normal. Assessment/Treatment Plan: Luz was seen today for back pain. Diagnoses and all orders for this visit: Lumbosacral spondylosis without myelopathy - Case request operating room: RADIOFREQUENCY ABLATION SPINAL: left L45 51 - Case request operating room: RADIOFREQUENCY ABLATION SPINAL Left then Right L4/5, 5/1 Facet Radiofrequency Ablation - under fluoroscopy It is hopeful that the described procedure will provide symptomatic pain relief. It is felt to be medically necessary noting that the patient has tried and failed more conservative modalities of therapy and this is the next most appropriate step. The procedure was described in detail to the patientas well as the potential benefits of pain reduction alongside risks of the procedure and alternatives. Risks were described as including, but not limited to bleeding, infection, nerve damage, spinal cord injury, paralysis, stroke, dural puncture headache, and medication reaction. The patient expressed understanding regarding the risks and benefits and wishes to proceed. The patient has undergone diagnostic injections targeting the above mentioned facet joints. There was significant improvement in the patient s pain and functionality for the duration of the local anesthetic (approximately 2 hours) with return of the original symptoms after that time. For this reason, it is felt that the patient is a good candidate to undergo thermal Radio Frequency Lesioning of the Medial Branch Nerves at 80 degrees celsius for 90 seconds. This will effectively denervate the arthritic facet joints previously targeted with the diagnostic injection. It is noted that the procedure often requires 3-4 weeks to provide benefit, but the benefit usually lasts for approximately 1 year and can then be repeated if necessary. Patients undergoing this procedure often have mild post-procedural pain for 3-4 days which is generally relieved with application of heat and over the counterpain relievers. Follow up 4 weeks after procedure The medications prescribed have been reviewed for medication interactions/contraindications and/or for upcoming procedures: continue current medication regimen without any changes. DISCUSSION: Treatment options discussed with patient and all questions answered to patient's satisfaction. Discussed the rules and regulations surrounding prescription of opioids and compliance at length. Failure to follow the rules and regulation will result in tapering and discontinuation of medications if applicable. Prescribed medication that requires intensive monitoring for toxicity We do not currently prescribeany controlled substance from this practice. It does appear that the patient benefited from the previous injection and the benefit has continuedthrough this visit. At this time, we will monitor the patient s symptoms from an interventional standpoint and consider another injection in the future if the patient s symptoms return or intensify severely. The patient was made aware that they should call if symptoms worsen or if their pain beginsto have a negative impact on their quality of life and activities of daily living again. The spine model was demonstrated and MRI was reviewed and used to explain the condition. Chronic conditions not treated during this visit that affected my overall medical decision making: Comorbidity- Anxiety The patient describes a significant issue with anxiety. Although treatment is helpful with this regard, the patient is likely need special accommodation due to this condition. For this reason, necessary procedures will likely need to be performed under sedation to decrease procedural anxiety. Comorbidity- Depression The patient has an ongoing issue with depression and currently feels these symptoms are under control and further feels that appropriate pain management would also help these symptoms. The patient isoptimistic about the treatment plan we have laid out. We will continue to monitor these symptoms and remain cogniscent that they may affect the patients perceived improvement from the treatment and willingness to pursue further treatment. At this time the patient appears to be mentally and emotionally stable to undergo procedural and medical therapy. If any warning signs become present, I may refer the patient to a mental health professional for further evaluation. OARRS: Reviewed. Scribe Statement: IChrissy CNA, scribed for and in the presence of YONG ABARCA who performed the above service. Chrissy Moraes CNA 12/20/24 1228 YONG Abarca 12/27/24 1114 documented in this encounterBerger HospitalCeltaxsys [id number] Instructions* Patient Instructions* Chrissy Moraes CNA - 12/20/2024 12:00 PM EDT Radiofrequency Ablation (RFA) Radiofrequency ablation (or RFA) is a procedure used to reduce pain. An electrical current producedby a radio wave is used to heat up a small area of nerve tissue, thereby decreasing pain signals from that specific area. Which Conditions Are Treated With Radiofrequency Ablation? RFA can be used to help patients with chronic (long-lasting) back and neck pain and pain related tothe degeneration of joints from arthritis. How Long Does Pain Relief from Radiofrequency Ablation Last? The degree of pain relief varies, depending on the cause and location of the pain. Pain relief fromRFA can last from six to 12 months and in some cases, relief can last for years. More than 70% of patients treated with RFA experience pain relief. Is Radiofrequency Ablation Safe? RFA has proven to be a safe and effective way to treat some forms of pain. It also is generally well-tolerated, with very few associated complications. There is a slight risk of infection and bleeding at the insertion site. Your doctor can advise you about your particular risk. Can I Resume My Normal Activities After Radiofrequency Ablation? You will have a few restrictions immediately following radiofrequency ablation: If you had sedation, do not drive or operate machinery for at least 24 hours after the procedure. You may resume your normal diet and prescribed medications (including blood thinners) when you get home. Do not engage in any strenuous activity for the first 24 hours after the procedure. You may remove any bandages in the evening before going to bed. You may experience the following effects after RFA: Extremity numbness: If you have any leg numbness, walk only with assistance. This should only last a few hours and is due to the local anesthesia given during the procedure. Mild back discomfort: This may occur when the local anesthetic wears off and usually lasts two or three days. Apply heat to the area the day of the procedure and the day after the procedure. You may also use your usual pain medications and NSAID medications such as ibuprofen, naproxen, Aleve, Motrin, etc. if you are able. Expectations: Results will be gradual. It may take 3-4 weeks for full relief. If you feel severe pain at the injection site with swelling and redness, increased leg weakness, a fever of 101 or higher, headache (or worsening headache), changes in vision or urinary retention: Please call the office at , or have someone take you to the nearest emergency room. Tellthe emergency room staff that you just had RFA. A doctor must evaluate you for bleeding and injection complications. If you lose control over bowel, bladder, or legs: Go to the nearest emergency room. If you are diabetic, the steroids used in this procedure can increase your blood sugar. If your blood sugar is 250mg/dL or higher, contact your primary care physician, or the doctor who manages your diabetes, to discuss how to get it back to normal. documented in this encounterMer[facility]03-28-[facility]25 Miscellaneous Notes* Telephone Encounter - Jannet López - 12/07/2024 11:12 AM EDT Pt calls in requesting an extra FMLA day for this month. States that his back and hips have been really bothering him. Pt has already used his allowed 3 days. Pt has a procedure on 11/30 with a f/u on 12/20 * Telephone Encounter - YONG Abarca - 12/07/2024 11:12 AM EDT Not much I can do at this point. If he has not had any recent po steroids, could try MDP to help his through. * Telephone Encounter - Juli Andrade RN - 12/07/2024 11:12 AM EDT Called placed to pt, no answer. LM on VM * Telephone Encounter - Juli Andrade RN - 12/07/2024 11:12 AM EDT Pt agreeable to MDP documented in this encounterMer[facility]03-28-[facility]25 Telephone encounter Note* Telephone Encounter - Jannet López - 12/07/2024 11:12 AM EDT Pt calls in requesting an extra FMLA day for this month. States that his back and hips have been really bothering him. Pt has already used his allowed 3 days. Pt has a procedure on 11/30 with a f/u on 12/[address] [facility]03-28-2025 Telephone encounter Note* Telephone Encounter - YONG Abarca - 12/07/2024 11:12 AM EDT Not much I can do at this point. If he has not had any recent po steroids, could try MDP to help his through. [facility]03-28-[facility]25 Telephone encounter Note* Telephone Encounter - Juli Andrade RN - 12/07/2024 11:12 AM EDT Called placed to pt, no answer. LM on VM [facility]03-28-2025 Telephone encounter Note* Telephone Encounter - Juli Andrade RN - 12/07/2024 11:12 AM EDT Pt agreeable to MDP [facility] [employer] [id number] Miscellaneous Notes* Telephone Encounter - Lionel Acosta - 11/29/2024 1:59 PM EDT Patient stated a PRIOR AUTH is needed for medication galcanezumab-gnlm 120 mg/mL pen injector. Need to call [employer]. [phone] * Telephone Encounter - Neda Patel - 11/29/2024 1:59 PM EDT PA pending via [facility] with fermin # [id number] * Telephone Encounter - Neda Patel - 11/29/2024 1:59 PM EDT The request has been approved. The authorization is effective from 12/01/2024 to 12/31/2024, as long as the member is enrolled in their current health plan. The request was approved as submitted. This request has been approved for 2 mL per 30 days.In addition, authorization [id number] has been approvedfor Emgality 120 mg/mL pen with a quantity limit of 1 mL per 30 days. This authorization is valid from 12/24/2024 to 05/23/2025 * Telephone Encounter - Delmy Fitzgerald RN - 11/29/2024 1:59 PM EDT RN called and notified pharmacy of approval via prescriber JERAMIE. documented in this encounterMer[facility]03-[facility]-2025 Telephone encounter Note* Telephone Encounter - Bibi Acosta - 11/29/2024 1:59 PM EDT Patient stated a PRIOR AUTH is needed for medication galcanezumab-gnlm 120 mg/mL pen injector. Need to call [employer]. [phone] [facility]03-20-2025 Telephone encounter Note* Telephone Encounter - Neda Patel - 11/29/2024 1:59 PM EDT PA pending via [facility] with fermin # [id number] [facility]03-20-2025 Telephone encounter Note* Telephone Encounter - Neda Patel - 11/29/2024 1:59 PM EDT The request has been approved. The authorization is effective from 12/01/2024 to 12/31/2024, as long as the member is enrolled in their current health plan. The request was approved as submitted. This request has been approved for 2 mL per 30 days.In addition, authorization [id number] has been approvedfor Emgality 120 mg/mL pen with a quantity limit of 1 mL per 30 days. This authorization is valid from 12/24/2024 to 05/23/2025 [employer]03-20-2025 Telephone encounter Note* Telephone Encounter - Delmy Fitzgerald RN - 11/29/2024 1:59 PM EDT RN called and notified pharmacy of approval via prescriber VM. XIFIN [id number] Note Attestation signed by Gibran Saldana MD at 11/26/2024 3:53 PM I have discussed the patient's history, exam findings and reviewed pertinent studies with Dr. Freedman. I personally evaluated this patient on the day of the encounter in clinic, and agree with overall evaluation plan as delineated above. Visit complexity is inherent to evaluation and management associated with medical care services that are part of ongoing care related to the above-mentioned complex condition(s). This is a part of the long-term longitudinal physician-patient relationship and includes coordination/collaboration with primary care (via shared EMR or sent copy of this note) and other specialty providers as needed. I have the following additional comments: 58-year-old male with longstanding history of hypothyroidism on stable regimen of methimazole 2.5 mg daily. We will recheck his antibodies and thyroid levels and assess if patient is in remission and appropriate for medication taper. This will require close follow-up of lab work. Gibran Saldana MD 11/26/24 Reason for Visit: Luz Shahid is a 58 y.o. male who is being seen today for follow-up for Grave's Disease. Patient last seen on 09/2023. Interval History: Pt is here for follow up today of Graves disease. He is doing well with no concerns today. He is on 2.5 daily. History of Present Illness: Mr. Shahid's thyroid history began when he had a thyroid nodule biopsied at [facility] 10 years ago which resulted unremarkable per patient. He was later seen by Dr. Schaefer for hyperthyroidism in April 2022. He does not remember initial symptoms at the time of presentation, but was found to have suppressed TSH with normal fT4 and tT3 and was started on Methimazole 10 mg. He does not remember any improvement in symptoms while on medication. Patient also reported a greater than 10-year remote history of neck radiation, but was unsure of the reason, may have been related to thyroid. Patient re-established care with [facility] Endocrinology clinic in November of 2022 when he was found to have suppressed TSH with high normal fT3. He was re-started on Methimazole 5mg at that time. Thyroid-related symptoms Constitutional Symptom Yes No Comment Irritability [] [x] Anxiety [x] [] chronic Difficulty concentrating [] [x] Difficulty sleeping [] [x] Mood swings [] [] Depression [] [] Exhaustion [x] [] Chronic Forgetfulness [] [] Decreased libido [] [] Low energy fatigue [] [x] Heat intolerance [] [x] Excessive sweating [] [x] Cold intolerance [] [] Weight loss [] [x] Weight gain [] [x] Increasing itchiness [] [] Recent viral illness [] [] Cardiovascular Symptom Yes No Comment Racing heartbeat [] [] Palpitation [] [x] Slow heartbeat [] [] Fluid retention [] [] Trouble breathing [] [] Neuromuscular Symptom Yes No Comment Proximal muscle weakness with upper extremities [] [x] Proximal muscle weakness with lower extremities [] [x] Muscle aches/cramps [] [] Shakes/tremors [] [x] Joint pain [] [] Decreased exercise capacity [] [] Gastrointestinal Symptom Yes No Comment Hyperactive bowel movement [x] [] Has both Constipation [x] [] Integumentary Symptom Yes No Comment Dry skin [] [x] Yellowing skin [] [] Brittle hair [] [x] Hair loss [] [x] Brittle nail [] [x] Eyes Symptom Yes No Comment Dryness [] [x] Discomfort/pain [] [] Tearing [] [x] Protrusion [] [] Blurry vision [] [x] Double vision [] [] Decreased near vision [] [] Thyroid hormone administration N/A Compressive symptoms in the neck Symptom Yes No Comment A new mass [] [x] Choking [] [x] Trouble swallowing [] [] Change in voice [] [x] Fullness [] [] Lower central neck pain [] [x] For thyroid nodule(s) Yes No Comment Personal history of radiation exposure under the age 20 years [] [] Family history of thyroid cancer [] [] If yes, what type? Family history of thyroid disease: [No] REVIEW OF SYSTEMS Negative except as noted above. Past Medical History: Diagnosis Date CAD (coronary artery disease) HIV (human immunodeficiency virus infection) (CMS/HCC) Hyperlipidemia Hypertension Past Surgical History: Procedure Laterality Date CTA CHEST W IV CONTRAST 10/30/2020 CT CHEST ANGIOGRAM W AND/OR WO IV CONTRAST CHANCE CONVERSION Current Outpatient Medications: albuterol 90 mcg/actuation inhaler, INHALE 2 PUFFS BY MOUTH EVERY 6 HOURS NEEDED FOR WHEEZING OR SHORTNESS OF BREATH, Disp: 18 g, Rfl: 3 ARIPiprazole (Abilify) 5 mg tablet, TAKE 1 TABLET(5 MG) BY MOUTH AT BEDTIME, Disp: 30 tablet, Rfl: 2 aspirin 81 mg chewable tablet, Chew 1 tablet (81 mg) in the morning., Disp: 180 tablet, Rfl: 0 atorvastatin (Lipitor) 80 mg tablet, Take 1 tablet by mouth at bedtime., Disp: , Rfl: bicte (more content not included)...[facility] 11-26-2024 History of Present illness Narrative* Britni Umana MD - 11/26/2024 10:30 AM EDT Images from the original note were not included. NEUROLOGY OUTPATIENT CONSULT NOTE: REFERRING PHYSICIAN: PCP: Quita Stoddard APRN-JUAN DIEGO CHIEF COMPLAINT: SUBJECTIVE: History: Luz Shahid is a 58 y.o. right-handed male, last seen in August 2023 for evaluation of chronic headaches. At that time, patient's headaches were being well managed with just prn Ubrelvy. He comes today unaccompanied. He explains that missing his follow-up visit is driven by not being able to afford his high co-pay-50 dollars-he has to pay, each time sees a specialist. He has multiplespecialists involved in his care. Please refer to my initial dictation for more details regarding the patient's history of chronic migraines and previous treatments tried. The patient has a significant history of kidney stones, MRI, bipolar disorder still maintained on Abilify and Pristiq, as well as pseudo bulbar affect addressed with Nuedexta. He also has history of thyrotoxicosis maintained on Tapazole. The patient is on antiviral eyes for HIV positivity-his viralcounts are under control. Today, the patient reports experiencing increased frequency of headaches. He also reports increasedback and left hip pain.He just had evaluation with [facility]-pain management, and he is scheduled for sacroiliac joint injections. The patient denies any changes in clinical presentation his chronic migraines, however they significantly increased in frequency and intensity. In the past he used to be on Emgality, however that wasvery expensive and at 1 point he felt that he has not needed it anymore. It was discontinued. He reports relying on Ubrelvy as a main migraine control treatment . Ubrelvy is very reliable and his headache improves within approximately 2-3 hours. The patient was counseled on taking up to 2 tablets for more severe headaches. Patient is currently on Effexor. Due to his reported significant arthralgias and myalgias we discussed possibility of switching to Cymbalta or increasing Effexor dosagethrough his PCP/prescriber. The patient otherwise denied any other medical problems. His PHQ was a 12 in the office today. He is under care Psychiatry. Headache characteristics: Date # Days /Mo Total # Days/Mo moderate # Days/Mo Severe WOLFE # Days/Mo Acute meds used 09/16/2022 2-3 2-3 03/07/2023 11 6 3 08/18/2023 7 3 2 11/26/24 10+ 7 4 Headache Treatment: Preventive Past: Emgality Preventive Present: On Abilify, Effexor and Prestiq for mood. Metoprolol for cardiac condition. Preventatives contraindicated: Topamax and Zonegran due to history of kidney stones. Depakote due to significant risk of liver damage with his current comorbidities Abortive Past: Sumatriptan, NSAIDs. Abortive Present: Ubrelvy Relevant LAB/IMAGING and other records reviewed: I have reviewed all other relevant records as mentioned above. ALLERGIES: No Known Allergies RELEVANT PAST MEDICAL/SURGICAL HISTORY: Past Medical History: Diagnosis Date Bipolar disorder ([facility]) Chronic kidney disease Chronic pain disorder COPD (chronic obstructive pulmonary disease) ([facility]) Depression Disease of thyroid gland Heart attack ([facility]) 10/2019 HIV (human immunodeficiency virus infection) ([facility]) 22 years HIV (human immunodeficiency virus infection) ([facility]) Hypertension Hyperthyroidism Hypertriglyceridemia Low back pain Past Surgical History: Procedure Laterality Date COLONOSCOPY INJECTION BLOCK NERVE MEDIAL BRANCH: bilat L 4/5, 5/1 Bilateral 09/23/2023 Performed by Jese Caal MD at [facility] INJECTION BLOCK SACROILIAC JOINT Bilateral 06/24/2023 Performed by Jese Caal MD at [facility] INJECTION BLOCK SACROILIAC JOINT Bilateral 10/29/2022 Performed by Jese Caal MD at [facility] INJECTION BLOCK SACROILIAC JOINT Bilateral 06/25/2022 Performed by Jese Caal MD at [facility] INJECTION BLOCK SACROILIAC JOINT Bilateral 08/28/2021 Performed by Jese Caal MD at [facility] INJECTION BLOCK SACROILIAC JOINT Bilateral 07/27/2021 Performed by Jese Caal MD at [facility] INJECTION MEDIAL BRANCH NERVE BLOCK Bilateral L 4/5, 5/1 Bilateral 06/20/2020 Performed by Jese Caal MD at [facility] INJECTION MEDIAL BRANCH NERVE BLOCK Bilateral L 4/5, 5/1 Medial Branch Block Bilateral 05/02/2017 Performed by Jese Caal MD at [facility] RADIO FREQUENCY ABLATION Left L 4/5, 5/1 Left 09/08/2020 Performed by Jese Caal MD at [facility] RADIO FREQUENCY ABLATION Right L 4/5, 5/1 Right 08/22/2020 Performed by Jese Caal MD at [facility] RADIOFREQUENCY ABLATION SPINAL Left L 4/5, 5/1 RFA Left 06/17/2017 Performed by Jese Caal MD at [facility] RADIOFREQUENCY ABLATION SPINAL: left L 4/5, 5/1 Left 12/23/2023 Performed by Jese Caal MD at [facility] RADIOFREQUENCY ABLATION SPINAL: right L 4/5, 5/1 Right 12/09/2023 Performed by Jese Caal MD at [facility] RADIOFREQUENCY ABLATION SPINAL: right L45 51 rfa Right 06/03/2017 Performed by Jese Caal MD at [facility] Reviewed, no changes CURRENT MEDICATIONS: Current Outpatient Medications on File Prior to Visit Medication Sig Dispense Refill albuterol (PROVENTIL HFA) 90 mcg/actuation inhaler Inhale 2 puffs every 6 (six) hours as needed forwheezing or shortness of breath. 18 g 3 albuterol (PROVENTIL,VENTOLIN) 2.5 mg /3 mL (0.083 %) nebulizer solution Inhale 3 mL (2.5 mg total)by nebulization every 6 (six) hours as needed for wheezing or shortness of breath. 75 mL 1 ARIPiprazole (ABILIFY) 5 mg tablet Take 1 tablet (5 mg total) by mouth. aspirin 81 mg chewable tablet Chew 1 tablet (81 mg total) and swallow in the morning. Chew. atorvastatin (LIPITOR) 80 mg tablet TAKE 1 TABLET(80 MG) BY MOUTH DAILY 90 tablet 2 BIKTARVY 50-200-25 mg per tablet Take 1 tablet by mouth in the morning. bisacodyL (DULCOLAX) 5 mg EC tablet Take 1 tablet (5 mg total) by mouth daily as needed for constipation. 5 tablet 0 budesonide-formoteroL (SYMBICORT) 160-4.5 mcg/actuation inhaler INHALE 2 PUFFS BY MOUTH TWICE DAILY cetirizine (ZyrTEC) 5 mg tablet Take 1 tablet (5 mg total) by mouth in the morning. desvenlafaxine (PRISTIQ) 100 mg 24 hr tablet Take 1 tablet (100 mg total) by mouth daily. 30 tablet0 dextromethorphan-quiNIDine (NUEDEXTA) 20-10 mg capsule Take 1 capsule by mouth 2 (two) times a day.30 capsule 0 ezetimibe (ZETIA) 10 mg tablet famotidine (PEPCID) 10 mg tablet Take by mouth daily. isosorbide mononitrate (IMDUR) 30 mg 24 hr tablet TAKE 1 TABLET(30 MG) BY MOUTH DAILY 90 tablet 1 lisinopriL (PRINIVIL,ZESTRIL) 20 mg tablet TAKE 1 TABLET(20 MG) BY MOUTH IN THE MORNING 90 tablet 1 LORazepam (ATIVAN) 0.5 mg tablet Take 1 tablet (0.5 mg total) by mouth in the morning. methIMAzole (TAPAZOLE) 5 mg tablet methylphenidate HCl (RITALIN) 20 mg tablet Take 1 tablet (20 mg total) by mouth. metoprolol succinate XL (TOPROL XL) 50 mg 24 hr tablet Take 1 tablet (50 mg total) by mouth in the morning. TAKE 1 TABLET(50 MG) BY MOUTH IN THE MORNING. 90 tablet 1 mupirocin (BACTROBAN) 2 % ointment Apply 1 Application topically 3 (three) times a day. 15 g 0 NIFEdipine CC (ADALAT CC) 30 mg 24 hr tablet Take 1 tablet (30 mg total) by mouth every morning. TAKE 1 TABLET(30 MG) BY MOUTH IN THE MORNING 90 tablet 1 venlafaxine XR (EFFEXOR XR) 75 mg 24 hr capsule Take 1 capsule (75 mg total) by mouth in the morning. No current facility-administered medications on file prior to visit. FAMILY Hx: Family History Problem Relation Age of Onset Hyperlipidemia Mother Cancer Father Drug abuse Sister Review of Systems REVIEW OF SYSTEMS: Review of Systems Constitutional: Negative. HENT: Negative. Eyes: Negative. Respiratory: Positive for shortness of breath (Due to asthma). Cardiovascular: Negative. Gastrointestinal: Negative. Endocrine: Negative. Genitourinary: Negative. Musculoskeletal: Positive for back pain. Skin: Negative. Allergic/Immunologic: Negative. Neurological: Positive for headaches. Hematological: Negative. Psychiatric/Behavioral: Positive for dysphoric mood despite of being under care of Psychiatry. PHYSICAL EXAM: Vital Signs: Vitals: 11/26/24 1051 BP: (!) 146/103 BP Site: Left Arm BP Postition: Sitting BP CUFF SIZE: L (13-17 inches) Pulse: 74 Weight: 99.5 kg (219 lb 6.4 oz) Height: 177.8 cm (5' 10 ) General: Normotensive, in no acute distress. Neurological Examination: Higher Mental Function: Orientated to time, place, person Attention span and concentration intact Recent and Remote Memory Intact Language intact Fund of knowledge appropriate Opthalmological Examination: Clear conjunctiva, no cataracts. Undilated ophthalmoscopic examinationshows normal optic disc, posterior segments, retinal vessels, and fovea bilaterally. Physical Exam Eyes: General: No visual field deficit. Neurological: Mental Status: He is alert and oriented to person, place, and time. Cranial Nerves: No cranial nerve deficit, dysarthria or facial asymmetry. Sensory: No sensory deficit. Motor: No weakness, tremor or pronator drift. Coordination: Romberg sign negative. Ewgvsd-Eqam-Dkwclf Test normal. Gait: Gait is intact. Deep Tendon Reflexes: Babinski sign absent on the right side. Babinski sign absent on the left side. Reflex Scores: Tricep reflexes are 1+ on the right side and 1+ on the left side. Bicep reflexes are 2+ on the right side and 2+ on the left side. Brachioradialis reflexes are 1+ on the right side and 1+ on the left side. Patellar reflexes are 2+ on the right side and 2+ on the left side. Achilles reflexes are 1+ on the right side and 1+ on the left side. Comments: No tremor or cogwheeling. Gait was normal without bradykinesia. ASSESSMENT/PLAN: 1. Chronic migraine headaches with and without aura, intractable-significantly worse, the patient needs to go back on CGRP monoclonal antibody- Emgality 2. 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 Chronic lower back pain-worse, under care pain management, awaiting sacroiliac joint injections 4. History of myocardial infarction (coronary artery disease) -contraindication for use of vasoconstrictors like triptans 5. HIV-stable on maintenance Biktarvy 6. History of thyrotoxicosis-maintained on Tapazole 7. 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 Due to increased frequency of headaches, Emgality will be added back to his treatment regimen in addition to Ubrelvy to manage his chronic headaches. He may require ever prior authorization, hopefully he can use coupon to eliminate his co-pay. The rest of recommendations are below: PATIENT INSTRUCTIONS: Patient Instructions Please start Emgality-CGRP monoclonal antibody treatment for chronic migraine prophylaxis. Start with 2 subcu injections (120 mg each), then continue 1 injection every 28-32 days as directed as maintenance. This medication needs to be stored in the refrigerator, however bring it to the room temperature for at least 30-60 minutes prior to performing subcu injection. Please consult the pharmacist how to properly use the injector. Watch for injections side reaction; small area redness or itchingis okay , however if you notice spreading rash or hives you could be allergic. You will have to discontinue the medication immediately, use Benadryl. If the rash is severe seek evaluation with a physician. Call our office to let us know. This medication requires prior authorization with your insurance, let us know if you having difficulty obtaining it so we can file an appeal in case of denial. Sometimes you can use a coupon (only with commercial insurance) to have a discount on copays. Continue using Ubrelvy as needed for breakthrough migraine, remember if the 1 tablet is not workingyou can repeated in 1-2 hours, no more than 2 tablets per day Your physician could increase your Effexor or switch it to Cymbalta in order to help your arthritis/body pain Follow-up visit in approximately 6 months Anup Bowling, MS3 I was physically present with participating medical student. I personally verified the medical student's documentation in the medical records and performed a physical exam and medical decision makingfor the patient. I made appropriate changes or clarifications to the note. Britni Umana MD professor of sociology of Neurology [facility] documented in this encounterBerger HospitalCeltaxsys [id number] Instructions* Patient Instructions* Britni Umana MD - 11/26/2024 10:30 AM EDT Please start Emgality-CGRP monoclonal antibody treatment for chronic migraine prophylaxis. Start with 2 subcu injections (120 mg each), then continue 1 injection every 28-32 days as directed as maintenance. This medication needs to be stored in the refrigerator, however bring it to the room temperature for at least 30-60 minutes prior to performing subcu injection. Please consult the pharmacist how to properly use the injector. Watch for injections side reaction; small area redness or itchingis okay , however if you notice spreading rash or hives you could be allergic. You will have to discontinue the medication immediately, use Benadryl. If the rash is severe seek evaluation with a physician. Call our office to let us know. This medication requires prior authorization with your insurance, let us know if you having difficulty obtaining it so we can file an appeal in case of denial. Sometimes you can use a coupon (only with commercial insurance) to have a discount on copays. Continue using Ubrelvy as needed for breakthrough migraine, remember if the 1 tablet is not workingyou can repeated in 1-2 hours, no more than 2 tablets per day Your physician could increase your Effexor or switch it to Cymbalta in order to help your arthritis/body pain Follow-up visit in approximately 6 months [facility] History of Present illness Narrative* Quita Stoddard APRN-TEST CASE DEVELOPER - 11/19/2024 4:20 PM EDT Images from the original [place] [id number] SUBJECTIVE: Patient ID: Luz Shahid is a 58 y.o. male. Chief Complaint Patient presents with Rash On ankle Dime size rash with scabbing of right ankle. He states has been present since August. He does admit to scratching the scab off as it does itch. The only way he doesn't scratch it is if he has a bandaid on the area. Alleviating methods include hydrogen peroxide and neosporin. The following portions of the patient's history were reviewed and updated as appropriate: allergies, current medications, past family history, past medical history, past social history, past surgicalhistory and problem list. Past Surgical History: Procedure Laterality Date COLONOSCOPY INJECTION BLOCK NERVE MEDIAL BRANCH: bilat L 4/5, 5/1 Bilateral 09/23/2023 Performed by Jese Caal MD at [facility] INJECTION BLOCK SACROILIAC JOINT Bilateral 06/24/2023 Performed by Jese Caal MD at [facility] INJECTION BLOCK SACROILIAC JOINT Bilateral 10/29/2022 Performed by Jese Caal MD at [facility] INJECTION BLOCK SACROILIAC JOINT Bilateral 06/25/2022 Performed by Jese Caal MD at [facility] INJECTION BLOCK SACROILIAC JOINT Bilateral 08/28/2021 Performed by Jese Caal MD at [facility] INJECTION BLOCK SACROILIAC JOINT Bilateral 07/27/2021 Performed by Jese Caal MD at [facility] INJECTION MEDIAL BRANCH NERVE BLOCK Bilateral L 4/5, 5/1 Bilateral 06/20/2020 Performed by Jese Caal MD at [facility] INJECTION MEDIAL BRANCH NERVE BLOCK Bilateral L 4/5, 5/1 Medial Branch Block Bilateral 05/02/2017 Performed by Jese Caal MD at [facility] RADIO FREQUENCY ABLATION Left L 4/5, 5/1 Left 09/08/2020 Performed by Jese Caal MD at [facility] RADIO FREQUENCY ABLATION Right L 4/5, 5/1 Right 08/22/2020 Performed by Jese Caal MD at [facility] RADIOFREQUENCY ABLATION SPINAL Left L 4/5, 5/1 RFA Left 06/17/2017 Performed by Jese Caal MD at [facility] RADIOFREQUENCY ABLATION SPINAL: left L 4/5, 5/1 Left 12/23/2023 Performed by Jese Caal MD at [facility] RADIOFREQUENCY ABLATION SPINAL: right L 4/5, 5/1 Right 12/09/2023 Performed by Jese Caal MD at [facility] RADIOFREQUENCY ABLATION SPINAL: right L45 51 rfa Right 06/03/2017 Performed by Jese Caal MD at [facility] Past Medical History: Diagnosis Date Bipolar disorder ([facility]) Chronic kidney disease Chronic pain disorder COPD (chronic obstructive pulmonary disease) ([facility]) Depression Disease of thyroid gland Heart attack ([facility]) 10/2019 HIV (human immunodeficiency virus infection) ([facility]) 22 years HIV (human immunodeficiency virus infection) ([facility]) Hypertension Hyperthyroidism Hypertriglyceridemia Low back pain Immunization History Administered Date(s) Administered COVID-19, mRNA, LNP-S, PF, 100mcg/0.5mL Dose 02/28/2021, 03/28/2021, 10/01/2021 Covid-19, Mrna, Lnp-s, Bivalent, Pf, 50mcg/0.5ml or 25mcg/0.25ml 06/06/2022 Hep B, Adolescent or Pediatric 11/12/2011 Hepatitis A 10/24/2009, 11/12/2011, 04/01/2023 Hepatitis B 10/24/2009, 11/12/2011, 03/16/2012, 04/01/2023 Influenza (IM) Preservative Free 06/25/2011 Influenza High Dose Preservative Free IM 07/01/2020 Influenza, Im Pediatric (Pf) 05/26/2022 Influenza, Im Trivalent Preservative 10/24/2009, 06/30/2013 Influenza, Injectable, Quadrivalent 06/16/2019, 08/13/2021 Influenza, Injectable, quadrivalent (PF) 08/15/2014, 06/26/2015, 06/24/2016, 09/29/2017, 07/06/2018, 06/16/2019, 08/20/2020, 06/24/2021, 07/13/2023 Influenza, Unspecified 06/24/2016, 09/29/2017, 07/06/2018 Pneumococcal Conjugate 13-Valent 03/11/2016 Pneumococcal Polysaccharide 03/16/2012, 06/30/2013, 03/31/2017 Zoster Vaccine Recombinant 10/06/2023 REVIEW OF SYSTEMS: Review of Systems Constitutional: Negative for chills, fatigue and fever. HENT: Negative for hearing loss and trouble swallowing. Eyes: Negative for pain and visual disturbance. Respiratory: Negative for cough, chest tightness and shortness of breath. Cardiovascular: Negative for chest pain, palpitations and leg swelling. Gastrointestinal: Negative for blood in stool. Endocrine: Negative for polydipsia, polyphagia and polyuria. Genitourinary: Negative for difficulty urinating, dysuria, flank pain, hematuria, scrotal swelling and testicular pain. Musculoskeletal: Negative. Skin: Negative. Allergic/Immunologic: Negative. Neurological: Negative for seizures, syncope and headaches. Hematological: Does not bruise/bleed easily. Psychiatric/Behavioral: Negative. PHYSICAL EXAMINATION: Vitals: 11/19/24 1545 BP: 120/70 BP Site: Left Arm BP Postition: Sitting Pulse: 75 Resp: 18 Temp: 36.7 C (98.1 F) TempSrc: Oral SpO2: 96% Weight: 98.9 kg (218 lb) Height: 177.8 cm (5' 10 ) Patient noted to have elevated BMI and the following intervention(s) were applied: encouragement toexercise. Physical Exam Vitals and nursing note reviewed. Constitutional: General: He is not in acute distress. Appearance: He is well-developed. HENT: Head: Normocephalic and atraumatic. Right Ear: Tympanic membrane and external ear normal. Left Ear: Tympanic membrane and external ear normal. Nose: Nose normal. Mouth/Throat: Mouth: Mucous membranes are moist. Pharynx: No oropharyngeal exudate. Eyes: General: No scleral icterus. Right eye: No discharge. Left eye: No discharge. Conjunctiva/sclera: Conjunctivae normal. Pupils: Pupils are equal, round, and reactive to light. Neck: Vascular: No JVD. Cardiovascular: Rate and Rhythm: Regular rhythm. Heart sounds: Normal heart sounds. No murmur heard. No friction rub. No gallop. Pulmonary: Effort: Pulmonary effort is normal. No respiratory distress. Breath sounds: Normal breath sounds. Chest: Chest wall: No tenderness. Abdominal: General: Bowel sounds are normal. There is no distension. Palpations: Abdomen is soft. There is no mass. Tenderness: There is no abdominal tenderness. There is no guarding or rebound. Hernia: No hernia is present. Musculoskeletal: General: No tenderness. Normal range of motion. Cervical back: Normal range of motion and neck supple. Feet: Feet: Comments: Dime size rash with scabbing Lymphadenopathy: Cervical: No cervical adenopathy. Skin: General: Skin is warm and dry. Capillary Refill: Capillary refill takes less than 2 seconds. Findings: No rash. Neurological: Mental Status: He is alert and oriented to person, place, and time. Deep Tendon Reflexes: Reflexes are normal and symmetric.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 08/22/2020 Right L4/5, 5/1 RFA 06/03/17 & 09/08/2020 left L4/5, 5/1RFA w/ 95% relief. 07/27/21 Bilateral SI joint injection with 90% relief for 2 weeks 08/28/21 Bilateral SI Joint injection with 100% relief x1 week Bilateral SI joint injection on 06/25/2022 with 80% relief. 12/09/23 Right L4-S1 RFA with 98% relief. 12/23/23 Left L4-S1 RFA with 98% relief.. . 06/24/23 Bilateral SI injections with 75% continued relief. 09/23/2023 bilateral L 4/5, 5/1 medial branch block with at least 80% relief for a few days and 70% continued relief Back Pain This is a chronic problem. The current episode started more than 1 year ago (2016). The problem occurs constantly (worsens as day progresses.). The problem has been gradually improving since onset. The pain is present in the sacro- iliac. Quality: dull ache. Radiates to: bilateral hips. The pain is at a severity of 0/10. The patient is experiencing no pain (occasional pain only). The pain is The same all the time (worse depending on what he is doing). The symptoms are aggravated by bending, twisting, standing and lying down (reaching, working). Stiffness is present: n/a. Associated symptoms include headaches (average 3-4x month) and weakness (BUE). Pertinent negatives include no bladder incontinence, bowel incontinence, chest pain, fever, leg pain, numbness or tingling. (05/2023 onset LLE lateral to ankle with n/t and pain with weakness) He has tried home exercises, NSAIDs, chiropractic manipulation, heat, ice, bed rest and muscle relaxant (PT/HEP 2016. mobic/motrin in past, asa, heat/ice, rest and back brace) for the symptoms. The treatment provided mild (pt back on the line which is more standing and increases pain since 05/2022) relief. The effect of pain on patient's ADLS: Minimal Impairment. Past Medical History: Diagnosis Date Bipolar disorder ([facility]) Chronic kidney disease Chronic pain disorder COPD (chronic obstructive pulmonary disease) ([facility]) Depression Disease of thyroid gland Heart attack ([facility]) 10/2019 HIV (human immunodeficiency virus infection) ([facility]) 22 years HIV (human immunodeficiency virus infection) ([facility] [place]) Hypertension Hyperthyroidism Hypertriglyceridemia Low back pain Past Surgical History: Procedure Laterality Date COLONOSCOPY INJECTION BLOCK NERVE MEDIAL BRANCH: bilat L 4/5, 5/1 Bilateral 09/23/2023 Performed by Jese Caal MD at [facility] INJECTION BLOCK SACROILIAC JOINT Bilateral 06/24/2023 Performed by Jese Caal MD at [facility] INJECTION BLOCK SACROILIAC JOINT Bilateral 10/29/2022 Performed by Jese Caal MD at [facility] INJECTION BLOCK SACROILIAC JOINT Bilateral 06/25/2022 Performed by Jese Caal MD at [facility] INJECTION BLOCK SACROILIAC JOINT Bilateral 08/28/2021 Performed by Jese Caal MD at [facility] INJECTION BLOCK SACROILIAC JOINT Bilateral 07/27/2021 Performed by Jese Caal MD at [facility] INJECTION MEDIAL BRANCH NERVE BLOCK Bilateral L 4/5, 5/1 Bilateral 06/20/2020 Performed by Jese Caal MD at [facility] INJECTION MEDIAL BRANCH NERVE BLOCK Bilateral L 4/5, 5/1 Medial Branch Block Bilateral 05/02/2017 Performed by Jese Caal MD at [facility] RADIO FREQUENCY ABLATION Left L 4/5, 5/1 Left 09/08/2020 Performed by Jese Caal MD at [facility] RADIO FREQUENCY ABLATION Right L 4/5, 5/1 Right 08/22/2020 Performed by Jese Caal MD at [facility] RADIOFREQUENCY ABLATION SPINAL Left L 4/5, 5/1 RFA Left 06/17/2017 Performed by Jese Caal MD at [facility] RADIOFREQUENCY ABLATION SPINAL: left L 4/5, 5/ Left 12/23/2023 Performed by Jese Cala MD at [facility] RADIOFREQUENCY ABLATION SPINAL: right L 4/5, 5/ Right 12/09/2023 Performed by Jese Caal MD at [facility] RADIOFREQUENCY ABLATION SPINAL: right L45 51 rfa Right 06/03/2017 Performed by Jese Caal MD at [facility] No Known Allergies Family History Problem Relation Age of Onset Hyperlipidemia Mother Cancer Father Drug abuse Sister Social History Socioeconomic History Marital status: Single Spouse name: Not on file Number of children: Not on file Years of education: Not on file Highest education level: Not on file Occupational History Not on file Tobacco Use Smoking status: Every Day Current packs/day: 1.00 Average packs/day: 1 pack/day for 40.0 years (40.0 ttl pk-yrs) Types: Cigarettes Smokeless tobacco: Never Vaping Use Vaping status: Never Used Substance and Sexual Activity Alcohol use: Yes Alcohol/week: 0.0 standard drinks of alcohol Comment: only on holidays Drug use: No Sexual activity: Defer Partners: Male Other Topics Concern Not on file Social History Narrative Not on file Social Determinants of Health Financial Resource Strain: High Risk (11/02/2022) Overall Financial Resource Strain (CARDIA) Difficulty of Paying Living Expenses: Hard Food Insecurity: Food Insecurity Present (01/19/2024) Hunger Screening Food Insecurity - Worry: Sometimes True Food Insecurity - Inability: Sometimes True Transportation Needs: Unmet Transportation Needs (04/05/2023) [facility] from [facility] Lack of Transportation (Medical): Yes Lack of Transportation (Non-Medical): Yes Physical Activity: Not on file Stress: Not on file Social Connections: Not on file Interpersonal Safety: Not on file Housing Instability: Low Risk (11/02/2022) Housing Instability Housing Instability: No Review of Systems Constitutional: Negative. Negative for fever. HENT: Negative. Eyes: Negative. Respiratory: Negative. Cardiovascular: Negative for chest pain. Gastrointestinal: Negative for bowel incontinence. Endocrine: Negative. Genitourinary: Negative. Negative for bladder incontinence. Musculoskeletal: Positive for back pain. Skin: Negative. Allergic/Immunologic: Negative. Neurological: Positive for dizziness, weakness (BUE) and headaches (average 3-4x month). Negative for tingling and numbness. Hematological: Negative. Psychiatric/Behavioral: Negative. Vital Signs: BP 119/73 Pulse 74 Resp 20 Ht 177.8 cm (5' 10 ) Wt 96.2 kg (212 lb) SpO2 98% BMI 30.42 kg/m Physical Exam: GENERAL - Healthy patient that appears stated age. HEENT - Normocephalic / Atraumatic, Extraoccular movements intact, trachea midline, thyroid within normal limits. CV - pulse regular, Warm extremities with appropriate color of nailbeds. RESP - No obvious wheezing, No Shortness of Breath, No overexertion response to exam maneuvers. COORDINATION - remains intact. PSYCH - Alert and Oriented x4, Attentive and appropriate, constitutionally normal, displays normal mood and affect per situation, answered questions appropriately during examination, demonstrated appropriate attention during discussion, demonstrated appropriate cognitive reasoning and understandingof the medical condition by asking appropriate questions regarding the diagnosis and risks/benefits/alternatives of treatment modalities. No obvious deficits in memory, reasoning, or intellect. Lumbar: SKIN - No rashes or bruising in the area of the patient s pain. LYMPH NODES - demonstrate no obvious enlargement. EXTREMITIES - Lower extremities are warm, with minimal edema and palpable pulses. No significant tenderness to palpation noted in the lumbar spine and paraspinal musculature. Mild pain is elicited with flexion, extension, and lateral rotation of the lumbar spine. Range of motion is not diminished with these motions. Facet palpation is negative for significant pain and facet loading maneuvers elicit only mild pain that is not concordant with the patient s normal pain complaints. STRENGTH - noted to be 5 out of 5 all muscle groups bilateral lower extremities including muscles involving hip flexion and abduction, knee flexion and extension, as well as foot dorsiflexion and plantarflexion. No notable atrophy, fasciculations or spasm. SENSORY - No notable sensory deficits in the bilateral lower extremities to touch or pinprick in all dermatomal distributions. Straight Leg Raise is negative bilaterally. Tenderness to palpation is noted over the Bilateral SacroIliac Joint: Fabere sign (Yobani's Test) is significantly positive, as is compression and distraction of the sacroiliac joints, which is consistent with some of the patient's normal pain. Gait is normal. Assessment/Treatment Plan: Luz was seen today for back pain. Diagnoses and all orders for this visit: Disorder of sacrum Monitor Follow up 2-3 months The medications prescribed have been reviewed for medication interactions/contraindications and/or for upcoming procedures: continue current medication regimen without any changes. DISCUSSION: Treatment options discussed with patient and all questions answered to patient's satisfaction. Discussed the rules and regulations surrounding prescription of opioids and compliance at length. Failure to follow the rules and regulation will result in tapering and discontinuation of medications if applicable. Prescribed medication that requires intensive monitoring for toxicity We do not currently prescribeany controlled substance from this practice. Treatment plans discussed but not opted for at this time: SI joint injection. Pain is under adequate control. It does appear that the patient benefited from the previous injection and the benefit has continuedthrough this visit. At this time, we will monitor the patient s symptoms from an interventional standpoint and consider another injection in the future if the patient s symptoms return or intensify severely. The patient was made aware that they should call if symptoms worsen or if their pain beginsto have a negative impact on their quality of life and activities of daily living again. The spine model was demonstrated and MRI was reviewed and used to explain the condition. OARRS: Reviewed. Scribe Statement: Scribed for and in the presence of YONG ABARCA by Chrissy Moraes CNA. Provider Statement: I, YONG ABARCA, personally performed the services described in the documentation, as scribed by Chrissy Moraes CNA in my presence, and it is both accurate and complete. Chrissy Moraes CNA 01/19/24 [id number] Chrissy Moraes CNA 01/19/24 0926 YONG Abarca 01/19/24 1042 documented in this encounterSouthwestern Vermont Medical CenterPage2Images04-11-2024 Miscellaneous Notes* Telephone Encounter - Lottie Garcia - 12/22/2023 12:25 PM EDT Patient called in regards to his appt 01/17, he wanted to know if he had to come in, its for htn and hyperlipidemia. I told him probably but would check with you as well * Telephone Encounter - TYLER Giang - 12/22/2023 12:25 PM EDT He can move to July for his annual physical. I do see him often. He is managed closely by [employer]. * Telephone Encounter - Lottie Garcia - 12/22/2023 12:25 PM EDT LM on VM * Telephone Encounter - Lottie Garcia - 12/22/2023 12:25 PM EDT Lm on VM * Telephone Encounter - Lottie Garcia - 12/22/2023 12:25 PM EDT Canceled hoover appt scheduled in July sending letter to patient documented in this [facility]04-[facility]-2024 Telephone encounter Note* Telephone Encounter - Lottie Garcia - 12/22/2023 12:25 PM EDT Patient called in regards to his appt 01/17, he wanted to know if he had to come in, its for htn and hyperlipidemia. I told him probably but would check with you as well [facility] [employer] [id number] Telephone encounter Note* Telephone Encounter - TYLER Giang - 12/22/2023 12:25 PM EDT He can move to July for his annual physical. I do see him often. He is managed closely by [facility]. [facility]04-11-2024 Telephone encounter Note* Telephone Encounter - Lottie Garcia - 12/22/2023 12:25 PM EDT LM on VM [facility]04-11-2024 Telephone encounter Note* Telephone Encounter - Lottiekasie Garcia - 12/22/2023 12:25 PM EDT Lm on VM [facility]04-11-2024 Telephone encounter Note* Telephone Encounter - [facility] Jose - 12/22/2023 12:25 PM EDT Canceled hoover appt scheduled in July sending letter to patient [facility]03-12-2024 History of Present illness Narrative* YONG Abarca - 11/22/2023 7:45 AM EDT [facility] [address] [place] [address] Patient: Luz Shahid Sex: male : 1965 Age: 57 y.o. PCP: TYLER Giang 11/22/2023 Luz Shahid is here for a(n) follow up. He reports his low back pain has been increasing recently. Chief Complaint Patient presents with Back Pain HPI: PT/HEP 2016 Back: 06/03/17 Right and 06/17/17 Left L4/5, 5/1 RFA 3 yrs relief. 08/22/2020 Right L4/5, 5/1 RFA 06/03/17 & 09/08/2020 left L4/5, 5/1RFA w/ 95% relief. 07/27/21 Bilateral SI joint injection with 90% relief for 2 weeks 08/28/21 Bilateral SI Joint injection with 100% relief x1 week Bilateral SI joint injection on 06/25/2022 with 80% relief. 06/24/23 Bilateral SI injections with 75% continued relief. 09/23/2023 bilateral L 4/5, 5/1 medial branch block with at least 80% relief for a few days and 70% continued relief Back Pain This is a chronic problem. The current episode started more than 1 year ago (2016 ). The problem occurs constantly (worsens as day progresses.). The problem has been gradually worsening since onset. The pain is present in the lumbar spine and sacro-iliac. Quality: dull ache. Radiates to: bilateral hips. The pain is at a severity of 8/10. The pain is mild. The pain is The same all the time (worse depending on what he is doing). The symptoms are aggravated by bending, twisting, standing and lyingdown (reaching, working). Stiffness is present: n/a. Associated symptoms include headaches (average3-4x month) and weakness (BUE). Pertinent negatives include no bladder incontinence, bowel incontinence, chest pain, fever, leg pain, numbness or tingling. (05/2023 onset LLE lateral to ankle with n/tand pain with weakness) He has tried home exercises, NSAIDs, chiropractic manipulation, heat, ice, bed rest and muscle relaxant (PT/HEP 2016. mobic/motrin in past, asa, heat/ice, rest and back brace)for the symptoms. The treatment provided mild (pt back on the line which is more standing and incr eases pain since 05/2022) relief. The effect of pain on patient's ADLS: Moderate Impairment. Past Medical History: Diagnosis Date Bipolar disorder ([facility]) Chronic kidney disease Chronic pain disorder COPD (chronic obstructive pulmonary disease) ([facility] [place] [place]) Depression Disease of thyroid gland Heart attack ([facility] [place]) 10/2019 HIV (human immunodeficiency virus infection) ([facility] [place]) 22 years HIV (human immunodeficiency virus infection) ([facility] [place]) Hypertension Hyperthyroidism Hypertriglyceridemia Low back pain Past Surgical History: Procedure Laterality Date COLONOSCOPY INJECTION BLOCK NERVE MEDIAL BRANCH: bilat L 4/5, 5/1 Bilateral 09/23/2023 Performed by Jese Caal MD at [facility] INJECTION BLOCK SACROILIAC JOINT Bilateral 06/24/2023 Performed by Jsee Caal MD at [facility] INJECTION BLOCK SACROILIAC JOINT Bilateral 10/29/2022 Performed by Jese Caal MD at [facility] INJECTION BLOCK SACROILIAC JOINT Bilateral 06/25/2022 Performed by Jese Caal MD at [facility] INJECTION BLOCK SACROILIAC JOINT Bilateral 08/28/2021 Performed by Jese Caal MD at [facility] INJECTION BLOCK SACROILIAC JOINT Bilateral 07/27/2021 Performed by Jese Caal MD at [facility] INJECTION MEDIAL BRANCH NERVE BLOCK Bilateral L 4/5, 5/1 Bilateral 06/20/2020 Performed by Jese Caal MD at [facility] MEDIAL BRANCH NERVE BLOCK Bilateral L 4/5, 5/1 Medial Branch Block Bilateral 05/02/2017 Performed by Jese Caal MD at [facility] RADIO FREQUENCY ABLATION Left L 4/5, 5/1 Left 09/08/2020 Performed by Jese Caal MD at [facility] RADIO FREQUENCY ABLATION Right L 4/5, 5/1 Right 08/22/2020 Performed by Jese Caal MD at [facility] RADIOFREQUENCY ABLATION SPINAL Left L 4/5, 5/1 RFA Left 06/17/2017 Performed by Jese Caal MD at [facility] RADIOFREQUENCY ABLATION SPINAL: right L45 51 rfa Right 06/03/2017 Performed by Jese Caal MD at [facility] No Known Allergies Family History Problem Relation Age of Onset Hyperlipidemia Mother Cancer Father Drug abuse Sister Social History Socioeconomic History Marital status: Single Spouse name: Not on file Number of children: Not on file Years of education: Not on file Highest education level: Not on file Occupational History Not on file Tobacco Use Smoking status: Every Day Packs/day: 1.00 Years: 40.00 Additional pack years: 0.00 Total pack years: 40.00 Types: Cigarettes Smokeless tobacco: Never Vaping Use Vaping Use: Never used Substance and Sexual Activity Alcohol use: Yes Alcohol/week: 0.0 standard drinks of alcohol Comment: only on holidays Drug use: No Sexual activity: Defer Partners: Male Other Topics Concern Not on file Social History Narrative Not on file Social Determinants of Health Financial Resource Strain: High Risk (11/02/2022) Overall Financial Resource Strain (CARDIA) Difficulty of Paying Living Expenses: Hard Food Insecurity: No Food Insecurity (11/22/2023) Hunger Screening Food Insecurity - Worry: Never True Food Insecurity - Inability: Never True Transportation Needs: Unknown (11/02/2022) PRAPARE - Transportation Lack of Transportation (Medical): No Lack of Transportation (Non-Medical): Not on file Physical Activity: Not on file Stress: Not on file Social Connections: Not on file Interpersonal Safety: Not on file Housing Instability: Low Risk (11/02/2022) Housing Instability Housing Instability: No Review of Systems Constitutional: Negative. Negative for fever. HENT: Negative. Eyes: Negative. Respiratory: Negative. Cardiovascular: Negative for chest pain. Gastrointestinal: Negative. Negative for bowel incontinence. Endocrine: Negative. Genitourinary: Negative. Negative for bladder incontinence. Musculoskeletal: Positive for back pain. Skin: Negative. Neurological: Positive for weakness (BUE) and headaches (average 3-4x month). Negative for tinglingand numbness. Vital Signs: BP 135/75 (BP Site: Right Arm, BP Postition: Sitting) Pulse 76 Resp 18 Ht 177.8 cm (5' 10 ) Wt 101.2 kg (223 lb) SpO2 98% BMI 32.00 kg/m Physical Exam: GENERAL - Healthy patient that appears stated age. HEENT - Normocephalic / Atraumatic, Extraoccular movements intact, trachea midline, thyroid within normal limits. CV - pulse regular, Warm extremities with appropriate color of nailbeds. RESP - No obvious wheezing, No Shortness of Breath, No overexertion response to exam maneuvers. COORDINATION - remains intact. PSYCH - Alert and Oriented x4, Attentive and appropriate, constitutionally normal, displays normal mood and affect per situation, answered questions appropriately during examination, demonstrated appropriate attention during discussion, demonstrated appropriate cognitive reasoning and understandingof the medical condition by asking appropriate questions regarding the diagnosis and risks/benefits/alternatives of treatment modalities. No obvious deficits in memory, reasoning, or intellect. Lumbar: SKIN - No rashes or bruising in the area of the patient s pain. LYMPH NODES - demonstrate no obvious enlargement. EXTREMITIES - Lower extremities are warm, with minimal edema and palpable pulses. Tenderness to palpation noted in the lumbar spine and paraspinal musculature. Pain is elicited withflexion, extension, and lateral rotation of the lumbar spine. Range of motion is diminished with these motions due to pain. Facet palpation is noted to be painful and facet loading maneuvers elicit pain that is concordant with the patient s normal pain complaints. Some muscle spasm is noted in the overlying musculature. STRENGTH - noted to be 5 out of 5 all muscle groups bilateral lower extremities including muscles involving hip flexion and abduction, knee flexion and extension, as well as foot dorsiflexion and plantarflexion. No notable atrophy, fasciculations or spasm. SENSORY - No notable sensory deficits in the bilateral lower extremities to touch or pinprick in all dermatomal distributions. Straight Leg Raise is negative bilaterally. Gait is normal. Assessment/Treatment Plan: Luz was seen today for back pain. Diagnoses and all orders for this visit: Lumbosacral spondylosis without myelopathy - Case request operating room: RADIOFREQUENCY ABLATION SPINAL: right L45 51 - Case request operating room: RADIOFREQUENCY ABLATION SPINAL: left L45 51 Right then Left L4/5, 5/1 Facet Radiofrequency Ablation - under fluoroscopy It is hopeful that the described procedure will provide symptomatic pain relief. It is felt to be medically necessary noting that the patient has tried and failed more conservative modalities of therapy and this is the next most appropriate step. The procedure was described in detail to the patientas well as the potential benefits of pain reduction alongside risks of the procedure and alternatives. Risks were described as including, but not limited to bleeding, infection, nerve damage, spinal cord injury, paralysis, stroke, dural puncture headache, and medication reaction. The patient expressed understanding regarding the risks and benefits and wishes to proceed. The patient has undergone diagnostic injections targeting the above mentioned facet joints. There was significant improvement in the patient s pain and functionality for the duration of the local anesthetic (approximately 2 hours) with return of the original symptoms after that time. For this reason, it is felt that the patient is a good candidate to undergo thermal Radio Frequency Lesioning of the Medial Branch Nerves at 80 degrees celsius for 90 seconds. This will effectively denervate the arthritic facet joints previously targeted with the diagnostic injection. It is noted that the procedure often requires 3-4 weeks to provide benefit, but the benefit usually lasts for approximately 1 year and can then be repeated if necessary. Patients undergoing this procedure often have mild post-procedural pain for 3-4 days which is generally relieved with application of heat and over the counterpain relievers. Follow up 2 weeks after procedure The medications prescribed have been reviewed for medication interactions/contraindications and/or for upcoming procedures: continue current medication regimen without any changes. DISCUSSION: Treatment options discussed with patient and all questions answered to patient's satisfaction. Discussed the rules and regulations surrounding prescription of opioids and compliance at length. Failure to follow the rules and regulation will result in tapering and discontinuation of medications if applicable. Prescribed medication that requires intensive monitoring for toxicity We do not currently prescribeany controlled substance from this practice. The spine model was demonstrated and MRI was reviewed and used to explain the condition. Chronic conditions not treated during this visit that affected my overall medical decision making: Comorbidity- Anxiety The patient describes a significant issue with anxiety. Although treatment is helpful with this regard, the patient is likely need special accommodation due to this condition. For this reason, necessary procedures will likely need to be performed under sedation to decrease procedural anxiety. Comorbidity- Depression The patient has an ongoing issue with depression and currently feels these symptoms are under control and further feels that appropriate pain management would also help these symptoms. The patient isoptimistic about the treatment plan we have laid out. We will continue to monitor these symptoms and remain cogniscent that they may affect the patients perceived improvement from the treatment and willingness to pursue further treatment. At this time the patient appears to be mentally and emotionally stable to undergo procedural and medical therapy. If any warning signs become present, I may refer the patient to a mental health professional for further evaluation. OARRS: Reviewed. Scribe Statement: Scribed for and in the presence of YONG ABARCA by Chrissy Moraes CNA. Provider Statement: I, YONG ABARCA, personally performed the services described in the documentation, as scribed by Chrissy Moraes CNA in my presence, and it is both accurate and complete. Chrissy Moraes CNA 11/22/23 0826 YONG Abarca 11/24/23 1148 documented in this encounterBerger HospitalCeltaxsys [id number] Instructions* Patient Instructions* Chrissy Moraes CNA - 11/22/2023 7:45 AM EDT Radiofrequency Ablation (RFA) Radiofrequency ablation (or RFA) is a procedure used to reduce pain. An electrical current producedby a radio wave is used to heat up a small area of nerve tissue, thereby decreasing pain signals from that specific area. Which Conditions Are Treated With Radiofrequency Ablation? RFA can be used to help patients with chronic (long-lasting) back and neck pain and pain related tothe degeneration of joints from arthritis. How Long Does Pain Relief from Radiofrequency Ablation Last? The degree of pain relief varies, depending on the cause and location of the pain. Pain relief fromRFA can last from six to 12 months and in some cases, relief can last for years. More than 70% of patients treated with RFA experience pain relief. Is Radiofrequency Ablation Safe? RFA has proven to be a safe and effective way to treat some forms of pain. It also is generally well-tolerated, with very few associated complications. There is a slight risk of infection and bleeding at the insertion site. Your doctor can advise you about your particular risk. Can I Resume My Normal Activities After Radiofrequency Ablation? You will have a few restrictions immediately following radiofrequency ablation: Do not drive or operate machinery for at least 24 hours after the procedure. You may resume your normal diet and prescribed medications (including blood thinners) when you get home. Do not engage in any strenuous activity for the first 24 hours after the procedure. You may remove any bandages in the evening before going to bed. You may experience the following effects after RFA: Leg numbness: If you have any leg numbness, walk only with assistance. This should only last a few hours and is due to the local anesthesia given during the procedure. Mild back discomfort: This may occur when the local anesthetic wears off and usually lasts two or three days. Apply heat to the area the day of the procedure and the day after the procedure. You may also use your usual pain medications and NSAID medications such as ibuprofen, naproxen, Aleve, Motrin, etc. if you are able. Expectations: Results will be gradual. It may take 3-4 weeks for full relief. If you feel severe pain at the injection site with swelling and redness, increased leg weakness, a fever of 101 or higher, headache (or worsening headache), changes in vision or urinary retention: Please call the office at , or have someone take you to the nearest emergency room. Tellthe emergency room staff that you just had RFA. A doctor must evaluate you for bleeding and injection complications. If you lose control over bowel, bladder, or legs: Go to the nearest emergency room. If you are diabetic, the steroids used in this procedure can increase your blood sugar. If your blood sugar is 250mg/dL or higher, contact your primary care physician, or the doctor who manages your diabetes, to discuss how to get it back to normal. documented in this encounterBerger HospitalKahnoodle Beaumont [id number] History of Present illness Narrative* Quita Stoddard, ONLINE JOURNALIST-TEST CASE DEVELOPER - 10/12/2023 4:00 PM EST Images from the original note were [place] included[place] [id number] SUBJECTIVE: Patient ID: Luz Shahid is a 57 y.o. male. Chief Complaint Patient presents with Follow-up States he went to [place] ER last week for migraine headache with dizziness. He did not have his migraine medication available to take. Meds was at work. Today, states symptoms have resolved. Is experiencing cough with wheezing. He does have COPD. Smokes approximately 10 cigarettes per day. COPD Primary symptoms: chest tightness, cough, dyspnea on exertion, frequent throat clearing and wheezing Primary symptoms: no shortness of breath Onset: 1 to 4 weeks ago Frequency: Daily Progression since onset: Waxing and waning Severity: Mild Cough characteristics: non-productive Associated symptoms: nasal congestion and postnasal drip Associated symptoms: no trouble swallowing Aggravated by: Change in weather Current Treatment: Albuterol and inhaled corticosteriods Improvement on treatment: Moderate Not alleviated by: Rest Lung disease risks: Smoking/tobacco exposure PMH includes: COPD and smoker The following portions of the patient's history were reviewed and updated as appropriate: allergies, current medications, past family history, past medical history, past social history, past surgicalhistory and problem list. Past Surgical History: Procedure Laterality Date COLONOSCOPY INJECTION BLOCK NERVE MEDIAL BRANCH: bilat L 4/5, 5/ Bilateral 09/23/2023 Performed by Jese Caal MD at [facility] INJECTION BLOCK SACROILIAC JOINT Bilateral 06/24/2023 Performed by Jese Caal MD at [facility] INJECTION BLOCK SACROILIAC JOINT Bilateral 10/29/2022 Performed by Jese Caal MD at [facility] INJECTION BLOCK SACROILIAC JOINT Bilateral 06/25/2022 Performed by Jese Caal MD at [facility] INJECTION BLOCK SACROILIAC JOINT Bilateral 08/28/2021 Performed by Jese Caal MD at [facility] INJECTION BLOCK SACROILIAC JOINT Bilateral 07/27/2021 Performed by Jese Caal MD at [facility] INJECTION MEDIAL BRANCH NERVE BLOCK Bilateral L 4/5, 5/1 Bilateral 06/20/2020 Performed by Jese Caal MD at [facility] MEDIAL BRANCH NERVE BLOCK Bilateral L 4/5, 5/1 Medial Branch Block Bilateral 05/02/2017 Performed by Jese Caal MD at [facility] RADIO FREQUENCY ABLATION Left L 4/5, 5/1 Left 09/08/2020 Performed by Jese Caal MD at [facility] RADIO FREQUENCY ABLATION Right L 4/5, 5/1 Right 08/22/2020 Performed by Jese Caal MD at [facility] RADIOFREQUENCY ABLATION SPINAL Left L 4/5, 5/1 RFA Left 06/17/2017 Performed by Jese Caal MD at [facility] RADIOFREQUENCY ABLATION SPINAL: right L45 51 rfa Right 06/03/2017 Performed by Jese Caal MD at [facility] Past Medical History: Diagnosis Date Bipolar disorder ([facility]) Chronic kidney disease Chronic pain disorder COPD (chronic obstructive pulmonary disease) ([facility]) Depression Disease of thyroid gland Heart attack ([facility]) 10/2019 HIV (human immunodeficiency virus infection) ([facility]) 22 years HIV (human immunodeficiency virus infection) ([facility]) Hypertension Hyperthyroidism Hypertriglyceridemia Low back pain Immunization History Administered Date(s) Administered COVID-19, mRNA, LNP-S, PF, 100mcg/0.5mL Dose 02/28/2021, 03/28/2021, 10/01/2021 Covid-19, Mrna, Lnp-s, Bivalent, Pf, 50mcg/0.5ml or 25mcg/0.25ml 06/06/2022 Hep B, Adolescent or Pediatric 11/12/2011 Hepatitis A 10/24/2009, 11/12/2011 Hepatitis B 10/24/2009, 11/12/2011, 03/16/2012 Influenza (IM) Preservative Free 06/25/2011 Influenza High Dose Preservative Free IM 07/01/2020 Influenza, Im Pediatric (Pf) 05/26/2022 Influenza, Im Trivalent Preservative 10/24/2009, 06/30/2013 Influenza, Injectable, Quadrivalent 06/16/2019, 08/13/2021 Influenza, Injectable, quadrivalent (PF) 08/15/2014, 06/26/2015, 06/24/2016, 09/29/2017, 07/06/2018, 06/16/2019, 08/20/2020, 06/24/2021, 07/13/2023 Influenza, Unspecified 06/24/2016, 09/29/2017, 07/06/2018 Pneumococcal Conjugate 13-Valent 03/11/2016 Pneumococcal Polysaccharide 03/16/2012, 06/30/2013, 03/31/2017 REVIEW OF SYSTEMS: Review of Systems HENT: Positive for congestion and postnasal drip. Negative for hearing loss and trouble swallowing. Eyes: Negative for pain and visual disturbance. Respiratory: Positive for cough, chest tightness and wheezing. Negative for shortness of breath. Cardiovascular: Positive for dyspnea on exertion. Negative for palpitations and leg swelling. Gastrointestinal: Negative for blood in stool. Endocrine: Negative for polydipsia, polyphagia and polyuria. Genitourinary: Negative for difficulty urinating, dysuria, flank pain, hematuria, scrotal swelling and testicular pain. Musculoskeletal: Negative. Skin: Negative. Allergic/Immunologic: Negative. Neurological: Negative for seizures and syncope. Hematological: Does not bruise/bleed easily. Psychiatric/Behavioral: Negative. PHYSICAL EXAMINATION: Vitals: 10/12/23 1540 BP: 118/72 BP Site: Left Arm BP Postition: Sitting Pulse: 67 Temp: 36.3 C (97.3 F) TempSrc: Tympanic SpO2: 96% Weight: 103.1 kg (227 lb 3.2 oz) Height: 177.8 cm (5' 10 ) Patient noted to have elevated BMI and the following intervention(s) were applied: encouragement toexercise. Physical Exam Vitals and nursing note reviewed. Constitutional: General: He is not in acute distress. Appearance: He is well-developed. HENT: Head: Normocephalic and atraumatic. Right Ear: Tympanic membrane and external ear normal. Left Ear: Tympanic membrane and external ear normal. Nose: Nose normal. Mouth/Throat: Mouth: Mucous membranes are moist. Pharynx: No oropharyngeal exudate. Eyes: General: No scleral icterus. Right eye: No discharge. Left eye: No discharge. Conjunctiva/sclera: Conjunctivae normal. Pupils: Pupils are equal, round, and reactive to light. Neck: Vascular: No JVD. Cardiovascular: Rate and Rhythm: Normal rate and regular rhythm. Heart sounds: Normal heart sounds. No murmur heard. No friction rub. No gallop. Pulmonary: Effort: Pulmonary effort is normal. No respiratory distress. Breath sounds: Wheezing present. Comments: Expiratory wheezing. Non productive coughing present. Chest: Chest wall: No tenderness. Abdominal: General: Bowel sounds are normal. There is no distension. Palpations: Abdomen is soft. There is no mass. Tenderness: There is no abdominal tenderness. There is no guarding or rebound. Hernia: No hernia is present. Musculoskeletal: General: No tenderness. Normal range of motion. Cervical back: Normal range of motion and neck supple. Lymphadenopathy: Cervical: No cervical adenopathy. Skin: General: Skin is warm and dry. Capillary Refill: Capillary refill takes less than 2 seconds. Findings: No rash. Neurological: Mental Status: He is alert and oriented to person, place, and time. Deep Tendon Reflexes: Reflexes are normal and symmetric. Psychiatric: Mood and Affect: Mood normal. Behavior: Behavior normal. Thought Content: Thought content normal. Judgment: Judgment normal. ASSESSMENT/PLAN: Luz was seen today for follow-up. Diagnoses and all orders for this visit: COPD exacerbation ([facility]) - doxycycline (VIBRAMYCIN) 100 mg capsule; TAKE ONE CAPSULE BY MOUTH EVERY MORNING AND 1 EVERY NIGHT AT BEDTIME FOR 7 DAYS. TAKE WITH LARGE GLASS OF WATER AND DO NOT LIE DOWN FOR 30 MINUTES - predniSONE (DELTASONE) 20 mg tablet; Take 1 tablet (20 mg total) by mouth See Admin Instructions.1 tab 2x daily x3 days, 1 tab daily x3 days, 1/2 tablet daily x4 days Continue an additional 7 days of doxycycline Start Prednisone taper Has albuterol nebulizer at home but states he is not sure how to work machine. Education provided today how to use. I recommend doing albuterol nebulizer as directed PRN Patient is a current smoker, smoking cessation discussed today in office. He is currently working on this. Is down to 1/2 PPD at this time ALL QUESTIONS ANSWERED Total time spent was 25 minutes: Preparing to see the patient (e.g., review of tests) Obtaining and/or reviewing separately obtained history Performing a medically appropriate examination and/or evaluation Counseling and educating the patient/family/caregiver Ordering medications, tests, or procedures Follow-up: Next scheduled Sooner if no improvement TYLER Giang 10/12/23 1647 documented in this encounterMer[facility] Health [facility]01[facility] History of Present illness Narrative* YONG Abarca - 10/11/2023 7:45 AM EST [facility] [address] [place] [address] Patient: Luz Shahid Sex: male : 1965 Age: 57 y.o. PCP: TYLER Giang 10/11/2023 Luz Shahid is here for a(n) post procedure follow up bilateral L 4/5, 5/1 medial branch block on09/23/2023 with at least 80% relief for a few days and 70% continued relief. Chief Complaint Patient presents with Back Pain HPI: PT/HEP 2015 Back: 06/03/17 Right and 06/17/17 Left L4/5, 5/1 RFA 3 yrs relief. 08/22/2020 Right L4/5, 5/1 RFA 06/03/17 & 09/08/2020 left L4/5, 5/1RFA w/ 95% relief. 07/27/21 Bilateral SI joint injection with 90% relief for 2 weeks 08/28/21 Bilateral SI Joint injection with 100% relief x1 week Bilateral SI joint injection on 06/25/2022 with 80% relief. 06/24/23 Bilateral SI injections with 75% continued relief. 09/23/2023 bilateral L 4/5, 5/1 medial branch block with at least 80% relief for a few days and 70% continued relief Back Pain This is a chronic problem. The current episode started more than 1 year ago (2016 ). The problem occurs constantly. The problem has been gradually improving since onset. The pain is present in the lumbar spine, gluteal and sacro-iliac. Quality: dull ache. The pain does not radiate. The pain is at aseverity of 3/10. The pain is mild. The pain is The same all the time (worse depending on what he is doing). The symptoms are aggravated by bending, twisting, standing and lying down (reaching, working). Stiffness is present: n/a. Associated symptoms include headaches (average 3-4x month) and weakness (BUE). Pertinent negatives include no bladder incontinence, bowel incontinence, chest pain, fever, leg pain, numbness or tingling. (05/2023 onset LLE lateral to ankle with n/t and pain with weakness) He has tried home exercises, NSAIDs, chiropractic manipulation, heat, ice, bed rest and muscle relaxant (PT/HEP 2016. mobic/motrin in past, asa, heat/ice, rest and back brace) for the symptoms. Thetreatment provided mild (pt back on the line which is more standing and increases pain since 05/2022) relief. The effect of pain on patient's ADLS: Moderate Impairment. Past Medical History: Diagnosis Date Bipolar disorder ([facility]) Chronic kidney disease Chronic pain disorder COPD (chronic obstructive pulmonary disease) ([facility]) Depression Disease of thyroid gland Heart attack ([facility]) 10/2019 HIV (human immunodeficiency virus infection) ([facility]) 22 years HIV (human immunodeficiency virus infection) ([facility]) Hypertension Hyperthyroidism Hypertriglyceridemia Low back pain Past Surgical History: Procedure Laterality Date COLONOSCOPY INJECTION BLOCK NERVE MEDIAL BRANCH: bilat L 4/5, 5/1 Bilateral 09/23/2023 Performed by Jese Caal MD at [facility] IN[facility] BLOCK SACROILIAC JOINT Bilateral 06/24/2023 Performed by Jese Caal MD at [facility] INJECTION BLOCK SACROILIAC JOINT Bilateral 10/29/2022 Performed by Jese Caal MD at [facility] INJECTION BLOCK SACROILIAC JOINT Bilateral 06/25/2022 Performed by Jese Caal MD at [facility] INJECTION BLOCK SACROILIAC JOINT Bilateral 08/28/2021 Performed by Jese Caal MD at [facility] INJECTION BLOCK SACROILIAC JOINT Bilateral 07/27/2021 Performed by Jese Caal MD at [facility] INJECTION MEDIAL BRANCH NERVE BLOCK Bilateral L 4/5, 5/1 Bilateral 06/20/2020 Performed by Jese Caal MD at [facility] INJECTION MEDIAL BRANCH NERVE BLOCK Bilateral L 4/5, 5/1 Medial Branch Block Bilateral 05/02/2017 Performed by Jese Caal MD at [facility] RADIO FREQUENCY ABLATION Left L 4/5, 5/1 Left 09/08/2020 Performed by Jese Caal MD at [facility] RADIO FREQUENCY ABLATION Right L 4/5, 5/1 Right 08/22/2020 Performed by Jese Caal MD at [facility] RADIOFREQUENCY ABLATION SPINAL Left L 4/5, 5/1 RFA Left 06/17/2017 Performed by Jese Caal MD at [facility] RADIOFREQUENCY ABLATION SPINAL: right L45 51 rfa Right 06/03/2017 Performed by Jese Caal MD at [facility] No Known Allergies Family History Problem Relation Age of Onset Hyperlipidemia Mother Cancer Father Drug abuse Sister Social History Socioeconomic History Marital status: Single Spouse name: Not on file Number of children: Not on file Years of education: Not on file Highest education level: Not on file Occupational History Not on file Tobacco Use Smoking status: Every Day Packs/day: 1.00 Years: 40.00 Additional pack years: 0.00 Total pack years: 40.00 Types: Cigarettes Smokeless tobacco: Never Vaping Use Vaping Use: Never used Substance and Sexual Activity Alcohol use: Yes Alcohol/week: 0.0 standard drinks of alcohol Comment: only on holidays Drug use: No Sexual activity: Defer Partners: Male Other Topics Concern Not on file Social History Narrative Not on file Social Determinants of Health Financial Resource Strain: High Risk (11/02/2022) Overall Financial Resource Strain (CARDIA) Difficulty of Paying Living Expenses: Hard Food Insecurity: No Food Insecurity (10/11/2023) Hunger Screening Food Insecurity - Worry: Never True Food Insecurity - Inability: Never True Transportation Needs: Unknown (11/02/2022) PRAPARE - Transportation Lack of Transportation (Medical): No Lack of Transportation (Non-Medical): Not on file Physical Activity: Not on file Stress: Not on file Social Connections: Not on file Interpersonal Safety: Not on file Housing Instability: Low Risk (11/02/2022) Housing Instability Housing Instability: No Review of Systems Constitutional: Negative. Negative for chills, fatigue and fever. HENT: Negative. Eyes: Negative. Respiratory: Negative. Cardiovascular: Negative. Negative for chest pain. Gastrointestinal: Negative. Negative for bowel incontinence. Endocrine: Negative. Genitourinary: Negative. Negative for bladder incontinence. Musculoskeletal: Positive for back pain. Skin: Negative. Allergic/Immunologic: Negative. Neurological: Positive for weakness (BUE) and headaches (average 3-4x month). Negative for tinglingand numbness. Hematological: Negative. Psychiatric/Behavioral: Negative. Vital Signs: BP 159/82 (BP Site: Left Arm, BP Postition: Sitting) Pulse 85 Resp 20 Ht 177.8 cm (5' 10 ) Wt 100.7 kg (222 lb) BMI 31.85 kg/m Physical Exam: GENERAL - Healthy patient that appears stated age. HEENT - Normocephalic / Atraumatic, Extraoccular movements intact, trachea midline, thyroid within normal limits. CV - pulse regular, Warm extremities with appropriate color of nailbeds. RESP - No obvious wheezing, No Shortness of Breath, No overexertion response to exam maneuvers. COORDINATION - remains intact. PSYCH - Alert and Oriented x4, Attentive and appropriate, constitutionally normal, displays normal mood and affect per situation, answered questions appropriately during examination, demonstrated appropriate attention during discussion, demonstrated appropriate cognitive reasoning and understandingof the medical condition by asking appropriate questions regarding the diagnosis and risks/benefits/alternatives of treatment modalities. No obvious deficits in memory, reasoning, or intellect. Lumbar: SKIN - No rashes or bruising in the area of the patient s pain. LYMPH NODES - demonstrate no obvious enlargement. EXTREMITIES - Lower extremities are warm, with minimal edema and palpable pulses. Tenderness to palpation noted in the lumbar spine and paraspinal musculature. Pain is elicited withflexion, extension, and lateral rotation of the lumbar spine. Range of motion is diminished with these motions due to pain. Facet palpation is noted to be somewhat tender and facet loading maneuvers are mildly positive, but not concordant with the patient s normal pain complaints. STRENGTH - noted to be 5 out of 5 all muscle groups bilateral lower extremities including muscles involving hip flexion and abduction, knee flexion and extension, as well as foot dorsiflexion and plantarflexion. No notable atrophy, fasciculations or spasm. SENSORY - No notable sensory deficits in the bilateral lower extremities to touch or pinprick in all dermatomal distributions. Straight Leg Raise is negative. Tenderness to palpation is noted over the Bilateral SacroIliac Joint: Fabere sign (Yobani's Test) is significantly positive, as is compression and distraction of the sacroiliac joints, which is consistent with some of the patient's normal pain. Gait is normal. Assessment/Treatment Plan: Luz was seen today for back pain. Diagnoses and all orders for this visit: Lumbosacral spondylosis without myelopathy Disorder of sacrum Monitor Follow up 4-6 weeks The medications prescribed have been reviewed for medication interactions/contraindications and/or for upcoming procedures: continue current medication regimen without any changes. DISCUSSION: Treatment options discussed with patient and all questions answered to patient's satisfaction. Discussed the rules and regulations surrounding prescription of opioids and compliance at length. Failure to follow the rules and regulation will result in tapering and discontinuation of medications if applicable. Prescribed medication that requires intensive monitoring for toxicity We do not currently prescribeany controlled substance from this practice. Treatment plans discussed but not opted for at this time: Lumbar RFA. Pain is under adequate control. It is noted that the patient did have good response from the previously performed procedure. It is felt that the patient would benefit from an additional procedure of the same nature in that the samesymptoms have returned. It is hopeful that this additional injection will provide additional benefit and duration when combined with the previous injection. The spine model was demonstrated and MRI was reviewed and used to explain the condition. OARRS: Reviewed. Scribe Statement: Scribed for and in the presence of YONG ABRACA by Chrissy Moraes CNA. Provider Statement: I, YONG ABARCA, personally performed the services described in the documentation, as scribed by Chrissy Moraes CNA in my presence, and it is both accurate and complete. Chrissy Moraes CNA 10/11/23 [id number] Chrissy Moraes CNA 10/11/23 0958 YONG Abarca 10/11/23 0914 [facility] Miscellaneous Notes* Telephone Encounter - Britni Umana MD - 09/08/2023 5:48 PM EST I am not sure if I actually asked to schedule this patient for repeated blocks and trigger point injections just as we did in the past. Thank you Dr. Francis Addendum: This is indeed a wrong entry. The above was relating to a different patient. He does not need blocks. Thank you Dr. Francis documented [facility] Telephone encounter Note* Telephone Encounter - Britni Umana MD - 09/08/2023 5:48 PM EST I am not sure if I actually asked to schedule this patient for repeated blocks and trigger point injections just as we did in the past. Thank you Dr. Francis Addendum: This is indeed a wrong entry. The above was relating to a different patient. He does not need blocks. Thank you Dr. Francis [facility]12-07-[facility]23 History of Present illness Narrative* Britni Umana MD - 08/18/2023 4:30 PM EST Images from the original note were not included. NEUROLOGY OUTPATIENT CONSULT NOTE: REFERRING PHYSICIAN: PCP: Quita Stoddard APRN-JUAN [facility]IE[facility] CHIEF COMPLAINT: SUBJECTIVE: History: Luz Shahid is a 57 y.o. right-handed male, previously a patient of Evonne Ruffin seen by myself on 09/16/2022, comes today for re- evaluation of his chronic migraine condition that started already in his teens. His last visit in the office was in February 2023. The patient has a significant history of kidney stones, MRI, bipolar disorder still maintained on Abilify and Pristiq, as well as pseudo bulbar affect addressed with Nuedexta. He also has history of thyrotoxicosis maintained on Tapazole. The patient is on antiviral eyes for HIV positivity-his viral counts are under control. Please refer to my initial dictation for more details regarding the patient's history of chronic migraines and previous treatments tried. Today the patient essentially has no complaints about his current approach to episodic migraine management. He is not on any specific preventative treatment for his migraine condition. Overall some medications like for example Pristiq and Abilify could be helpful even for migraine prophylaxis for some patients. He reports no problem with controlling his breakthrough migraines with prescription Ubrelvy that is very reliable and his headache improves within approximately 1-2 hours. His headache frequency has not changed but it is still not significant enough to thing about introducing more medications to his already complex medication regiment. Actually he is not even on Emgality that he discontinued prior to his last visit. As I previously recommended he is not using any sumatriptan because of his underlying coronary artery disease. He reports having stable mood and has no additional questions or concerns today. Headache characteristics: Date # Days /Mo Total # Days/Mo moderate # Days/Mo Severe WOLFE # Days/Mo Acute meds used 09/16/2022 2-3 2-3 03/07/2023 11 6 3 08/18/2023 7 3 2 Headache Treatment: Preventive Past: Emgality Preventive Present: On Abilify ans Prestiq for mood. Metoprolol for cardiac condition. Abortive Past: Sumatriptan, NSAIDs. Abortive Present:Ubrelvy Relevant LAB/IMAGING and other records reviewed: I have reviewed all other relevant records as mentioned above. ALLERGIES: No Known Allergies RELEVANT PAST MEDICAL/SURGICAL HISTORY: Past Medical History: Diagnosis Date Bipolar disorder ([facility] [place]) Chronic kidney disease Chronic pain disorder COPD (chronic obstructive pulmonary disease) ([facility] [place]) Depression Disease of thyroid gland Heart attack ([facility] 10/2019 HIV (human immunodeficiency virus infection) ([facility]) 22 years HIV (human immunodeficiency virus infection) ([facility] [place]) Hypertension Hyperthyroidism Hypertriglyceridemia Low back pain Past Surgical History: Procedure Laterality Date COLONOSCOPY INJECTION BLOCK SACROILIAC JOINT Bilateral 06/24/2023 Performed by Jese Caal MD at [facility] INJECTION BLOCK SACROILIAC JOINT Bilateral 10/29/2022 Performed by Jese Caal MD at [facility] INJECTION BLOCK SACROILIAC JOINT Bilateral 06/25/2022 Performed by Jese Caal MD at [facility] INJECTION BLOCK SACROILIAC JOINT Bilateral 08/28/2021 Performed by Jese Caal MD at [facility] INJECTION BLOCK SACROILIAC JOINT Bilateral 07/27/2021 Performed by Jese Caal MD at [facility] INJECTION MEDIAL BRANCH NERVE BLOCK Bilateral L 4/5, 5/1 Bilateral 06/20/2020 Performed by Jese Caal MD at [facility] MEDIAL BRANCH NERVE BLOCK Bilateral L 4/5, 5/1 Medial Branch Block Bilateral 05/02/2017 Performed by Jese aCal MD at [facility] RADIO FREQUENCY ABLATION Left L 4/5, 5/1 Left 09/08/2020 Performed by Jese Caal MD at [facility] RADIO FREQUENCY ABLATION Right L 4/5, 5/1 Right 08/22/2020 Performed by Jese Caal MD at [facility] RADIOFREQUENCY ABLATION SPINAL Left L 4/5, 5/1 RFA Left 06/17/2017 Performed by Jese Caal MD at [facility] RADIOFREQUENCY ABLATION SPINAL: right L45 51 rfa Right 06/03/2017 Performed by Jese Caal MD at [facility] Reviewed, no changes CURRENT MEDICATIONS: Current Outpatient Medications on File Prior to Visit Medication Sig Dispense Refill albuterol (PROVENTIL HFA) 90 mcg/actuation inhaler Inhale 2 puffs every 6 (six) hours as needed forwheezing or shortness of breath. 18 g 3 albuterol (PROVENTIL,VENTOLIN) 2.5 mg /3 mL (0.083 %) nebulizer solution Inhale 3 mL (2.5 mg total)by nebulization every 6 (six) hours as needed for wheezing or shortness of breath. 75 mL 1 ARIPiprazole (ABILIFY) 5 mg tablet Take 1 tablet (5 mg total) by mouth. aspirin 81 mg chewable tablet Chew 1 tablet (81 mg total) and swallow in the morning. Chew. atorvastatin (LIPITOR) 80 mg tablet TAKE 1 TABLET(80 MG) BY MOUTH DAILY 90 tablet 2 BIKTARVY 50-200-25 mg per tablet Take 1 tablet by mouth in the morning. bisacodyL (DULCOLAX) 5 mg EC tablet Take 1 tablet (5 mg total) by mouth daily as needed for constipation. 5 tablet 0 cetirizine (ZyrTEC) 5 mg tablet Take 1 tablet (5 mg total) by mouth in the morning. desvenlafaxine (PRISTIQ) 100 mg 24 hr tablet Take 1 tablet (100 mg total) by mouth daily. 30 tablet0 dextromethorphan-quiNIDine (NUEDEXTA) 20-10 mg capsule Take 1 capsule by mouth 2 (two) times a day.30 capsule 0 ezetimibe (ZETIA) 10 mg tablet Take 1 tablet (10 mg total) by mouth in the morning. 90 tablet 3 famotidine (PEPCID) 10 mg tablet Take by mouth daily. isosorbide mononitrate (IMDUR) 30 mg 24 hr tablet TAKE 1 TABLET(30 MG) BY MOUTH DAILY 90 tablet 1 lisinopriL (PRINIVIL,ZESTRIL) 20 mg tablet TAKE 1 TABLET(20 MG) BY MOUTH DAILY 90 tablet 1 LORazepam (ATIVAN) 0.5 mg tablet Take 1 tablet (0.5 mg total) by mouth in the morning. meclizine (ANTIVERT) 25 mg tablet TAKE 1 TABLET BY MOUTH THREE TIMES DAILY NEEDED FOR DIZZINESS methIMAzole (TAPAZOLE) 10 mg tablet Take 1 tablet (10 mg total) by mouth in the morning. methylphenidate HCl (RITALIN) 20 mg tablet Take 1 tablet (20 mg total) by mouth. metoprolol succinate XL (TOPROL XL) 50 mg 24 hr tablet Take 1 tablet (50 mg total) by mouth in the morning. 90 tablet 1 NIFEdipine CC (ADALAT CC) 30 mg 24 hr tablet Take 1 tablet (30 mg total) by mouth in the morning. 90 tablet 1 varenicline (CHANTIX) 1 mg tablet TAKE 1 TABLET BY MOUTH EVERY MORNING AND 1 BEFORE BEDTIME WITH FULL GLASS OF WATER 180 tablet 0 No current facility-administered medications on file prior to visit. FAMILY Hx: Family History Problem Relation Age of Onset Hyperlipidemia Mother Cancer Father Drug abuse Sister Review of Systems REVIEW OF SYSTEMS: Review of Systems Constitutional: Negative. HENT: Negative. Eyes: Negative. Respiratory: Positive for shortness of breath (Due to asthma). Cardiovascular: Negative. Gastrointestinal: Negative. Endocrine: Negative. Genitourinary: Negative. Musculoskeletal: Positive for back pain. Skin: Negative. Allergic/Immunologic: Negative. Neurological: Positive for headaches. Hematological: Negative. Psychiatric/Behavioral: Positive for dysphoric mood (Stable current medications). PHYSICAL EXAM: Vital Signs: Vitals: 08/18/23 1558 BP: 143/67 Pulse: 73 Resp: 14 Weight: 99.8 kg (220 lb 1.6 oz) Height: 177.8 cm (5' 10 ) General: Normotensive, in no acute distress. Cardiac Examination 09/14: Heart: RRR, no murmurs, no rubs, no gallops. Carotids: No bruit Neurological Examination: Higher Mental Function: Orientated to time, place, person Attention span and concentration intact Recent and Remote Memory Intact Language intact Fund of knowledge appropriate Opthalmological Examination: Clear conjunctiva, no cataracts. Undilated ophthalmoscopic examinationshows normal optic disc, posterior segments, retinal vessels, and fovea bilaterally. Physical Exam Eyes: General: No visual field deficit. Neurological: Mental Status: He is alert and oriented to person, place, and time. Cranial Nerves: No cranial nerve deficit, dysarthria or facial asymmetry. Sensory: No sensory deficit. Motor: No weakness, tremor or pronator drift. Coordination: Romberg sign negative. Xaxblq-Mquh-Qlelmv Test normal. Gait: Gait is intact. Deep Tendon Reflexes: Babinski sign absent on the right side. Babinski sign absent on the left side. Reflex Scores: Tricep reflexes are 1+ on the right side and 1+ on the left side. Bicep reflexes are 2+ on the right side and 2+ on the left side. Brachioradialis reflexes are 1+ on the right side and 1+ on the left side. Patellar reflexes are 2+ on the right side and 2+ on the left side. Achilles reflexes are 1+ on the right side and 1+ on the left side. Comments: The patient had mild facial masking with decreased blink rate. Otherwise there was no tremor or cogwheeling. Gait was normal without bradykinesia. ASSESSMENT/PLAN: 1. Chronic migraine headaches with and without aura, intractable-currently improved 2. 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 Chronic lower back pain-stable 4. History of myocardial infarction (coronary artery disease) -contraindication for use of vasoconstrictors like triptans 5. HIV-stable on maintenance Biktarvy 6. History of thyrotoxicosis-maintained on Tapazole 7. Psychological factors affecting chronic pain condition with bipolar disorder and recurrent majordepression without psychotic features-stable on current psychotherapy. Since the patient is happy with his current medication regiment in terms of having Ubrelvy and using it just for breakthrough headache. At this time there is no need to start on any preventative regiment. The rest of recommendations are below: PATIENT INSTRUCTIONS: Patient Instructions Continue using Ubrelvy as needed for breakthrough migraines Follow-up visit in 6 months Britni Umana MD Chinese Herbalist of Neurology [id number] Instructions* Patient Instructions* Britni Umana MD - 08/18/2023 4:30 PM EST Continue using Ubrelvy as needed for breakthrough migraines Follow-up visit in 6 months documented in this [facility]03-25-2022 Evaluation note* Encounter Date Diagnosis Assessment Notes Treatment Notes Treatment Clinical Notes Nov, Acute effusion of right ear (ICD -10 - H65.191) Discussed diagnosis with patient, explained to patient that there is middle ear fluid without signs of bacterial infection, antibiotics are not indicated at this time. This is commonly due to ET dysfunction, viral illness, allergies, barotrauma, or recent AOM. Advised patient that fluid in middle ear may take several weeks to resolve. Advised patient to take OTC Zyrtec and Flonase as directed. Avoid flushing ear at this time. Supportive treatment as directed, pushfluids/test, Tylenol/Motrin for discomfort. Follow up with PCP in 2 weeks or sooner for new or worsening symptoms. Patient verbalizes understanding and is agreeable to treatment plan Nov,therEar fluid (middle ear effusion) material was printed Diana Other Evaluation note* Diagnosis Intractable migraine with aura without status migrainosus- Primary Pseudobulbar affect Lumbosacral spondylosis without myelopathy- Primary Lumbosacral spondylosis without myelopathy [facility] Diagnosis Disorder of sacrum- Primary Disorders of sacrum [facility] Diagnosis Essential hypertension Unspecified essential hypertension [facility] Diagnosis Lumbosacral spondylosis without myelopathy- Primary Disorder of sacrum Disorders of sacrum [facility] Diagnosis COPD exacerbation ([facility] Primary Obstructive chronic bronchitis with exacerbation [facility] Diagnosis Mixed hyperlipidemia [facility] Diagnosis Lumbosacral spondylosis without myelopathy- Primary Essential hypertension Unspecified essential hypertension Lumbosacral spondylosis without myelopathy Lumbosacral spondylosis without myelopathy [facility] Diagnosis Lumbosacral spondylosis without myelopathy- Primary Lumbosacral spondylosis without myelopathy- Primary Lumbosacral spondylosis without myelopathy Lumbosacral spondylosis without myelopathy documented in this encounter [facility]* Diagnosis Intractable migraine with aura without status migrainosus documented in this encounter [facility]* Diagnosis Essential hypertension Unspecified essential hypertension Arteriosclerosis of coronary artery Lumbosacral spondylosis without myelopathy documented in this encounter [facility]* Diagnosis Intractable migraine with aura without status migrainosus documented in this encounter [facility]* Diagnosis Essential hypertension Unspecified essential hypertension documented in this encounter [facility]* Diagnosis Essential hypertension Unspecified essential hypertension Screening cholesterol level- Primary Screening for lipoid disorders Essential hypertension Unspecified essential hypertension Prostate cancer screening Special screening for malignant neoplasm of prostate Acute non intractable tension-type headache Annual physical exam- Primary Routine general medical examination at a health care facility Encounter for screening for malignant neoplasm of prostate Blood tests for routine general physical examination Laboratory examination ordered as part of a routine general medical examination Mixed hyperlipidemia Essential hypertension Unspecified essential hypertension Arteriosclerosis of coronary artery [facility] Diagnosis Essential hypertension Unspecified essential hypertension Screening cholesterol level- Primary Screening for lipoid disorders Essential hypertension Unspecified essential hypertension Prostate cancer screening Special screening for malignant neoplasm of prostate Acute non intractable tension-type headache Essential hypertension Unspecified essential hypertension Arteriosclerosis of coronary artery documented in this encounter [facility]* Diagnosis Essential hypertension Unspecified essential hypertension Screening cholesterol level- Primary Screening for lipoid disorders Essential hypertension Unspecified essential hypertension Prostate cancer screening Special screening for malignant neoplasm of prostate Acute non intractable tension-type headache Acute non-recurrent pansinusitis- Primary documented in this encounter [facility]* Diagnosis Essential hypertension Unspecified essential hypertension Screening cholesterol level- Primary Screening for lipoid disorders Essential hypertension Unspecified essential hypertension Prostate cancer screening Special screening for malignant neoplasm of prostate Acute non intractable tension-type headache Intractable migraine with aura without status migrainosus documented in this encounter [facility]* Diagnosis Essential hypertension Unspecified essential hypertension Screening cholesterol level- Primary Screening for lipoid disorders Essential hypertension Unspecified essential hypertension Prostate cancer screening Special screening for malignant neoplasm of prostate Acute non intractable tension-type headache Lumbosacral spondylosis without myelopathy- Primary Disorder of sacrum Disorders of sacrum Left hip pain Pain in joint, pelvic region and thigh Disorder of sacrum- Primary Disorders of sacrum Left hip pain Pain in joint, pelvic region and thigh Disorder of sacrum Disorders of sacrum documented [facility]* Diagnosis Essential hypertension Unspecified essential hypertension Screening cholesterol level- Primary Screening for lipoid disorders Essential hypertension Unspecified essential hypertension Prostate cancer screening Special screening for malignant neoplasm of prostate Acute non intractable tension-type headache Disorder of sacrum- Primary Disorders of sacrum Rash- Primary Rash and other nonspecific skin eruption Disorder of sacrum Disorders of sacrum documented in this encounter [facility]* Diagnosis Essential hypertension Unspecified essential hypertension Screening cholesterol level- Primary Screening for lipoid disorders Essential hypertension Unspecified essential hypertension Prostate cancer screening Special screening for malignant neoplasm of prostate Acute non intractable tension-type headache Disorder of sacrum- Primary Disorders of sacrum Essential hypertension Unspecified essential hypertension Disorder of sacrum Disorders of sacrum documented in this encounter [facility]* Diagnosis Essential hypertension Unspecified essential hypertension Screening cholesterol level- Primary Screening for lipoid disorders Essential hypertension Unspecified essential hypertension Prostate cancer screening Special screening for malignant neoplasm of prostate Acute non intractable tension-type headache Disorder of sacrum- Primary Disorders of sacrum Intractable migraine with aura without status migrainosus- Primary Pseudobulbar affect Disorder of sacrum Disorders of sacrum [facility] Diagnosis Essential hypertension Unspecified essential hypertension Screening cholesterol level- Primary Screening for lipoid disorders Essential hypertension Unspecified essential hypertension Prostate cancer screening Special screening for malignant neoplasm of prostate Acute non intractable tension-type headache Frequency of urination- Primary Urinary frequency Lumbosacral spondylosis without myelopathy- Primary Lumbosacral spondylosis without myelopathy Lumbosacral spondylosis without myelopathy documented in this encounter [facility]* Diagnosis Essential hypertension Unspecified essential hypertension Screening cholesterol level- Primary Screening for lipoid disorders Essential hypertension Unspecified essential hypertension Prostate cancer screening Special screening for malignant neoplasm of prostate Acute non intractable tension-type headache Lumbosacral spondylosis without myelopathy- Primary Lumbosacral spondylosis without myelopathy- Primary Lumbosacral spondylosis without myelopathy Lumbosacral spondylosis without myelopathy documented in this encounter [facility]* Diagnosis Essential hypertension Unspecified essential hypertension Screening cholesterol level- Primary Screening for lipoid disorders Essential hypertension Unspecified essential hypertension Prostate cancer screening Special screening for malignant neoplasm of prostate Acute non intractable tension-type headache Essential hypertension- Primary Unspecified essential hypertension Mixed hyperlipidemia Arteriosclerosis of coronary artery Lumbosacral spondylosis without myelopathy [facility] Diagnosis Essential hypertension Unspecified essential hypertension Screening cholesterol level- Primary Screening for lipoid disorders Essential hypertension Unspecified essential hypertension Prostate cancer screening Special screening for malignant neoplasm of prostate Acute non intractable tension-type headache Disorder of sacrum- Primary Disorders of sacrum documented in this encounter [facility]* Diagnosis Essential hypertension Unspecified essential hypertension Screening cholesterol level- Primary Screening for lipoid disorders Essential hypertension Unspecified essential hypertension Prostate cancer screening Special screening for malignant neoplasm of prostate Acute non intractable tension-type headache Lumbosacral spondylosis without myelopathy- Primary documented in this encounter [facility]* Diagnosis Essential hypertension Unspecified essential hypertension Screening cholesterol level- Primary Screening for lipoid disorders Essential hypertension Unspecified essential hypertension Prostate cancer screening Special screening for malignant neoplasm of prostate Acute non intractable tension-type headache Essential hypertension Unspecified essential hypertension [facility] Diagnosis Essential hypertension Unspecified essential hypertension Screening cholesterol level- Primary Screening for lipoid disorders Essential hypertension Unspecified essential hypertension Prostate cancer screening Special screening for malignant neoplasm of prostate Acute non intractable tension-type headache Intractable migraine with aura without status migrainosus- Primary Pseudobulbar affect Lumbosacral spondylosis without myelopathy Bipolar affective disorder, remission status unspecified (CMS-HCC) Agoraphobia with panic attacks Agoraphobia with panic disorder [facility] - Reported* Type Description Date Medical History anxiety Medical Historychronic depressionMedical HistoryhypertensionMedical HistoryHIV positiveMedical Historymigraine headacheMedical Historyhypercholesterolemia Surgical Historynerves burnt in backHospitalization Historyneuro Kite Other InstructionsNot on filedocumented in this encounter [facility]Not on filedocumented in this encounter [facility]ructionsNot on filedocumented in this encounter [facility]ructionsNot on filedocumented in this encounter [facility]* Attachments The following attachments cannot be sent through Care Everywhere. * Chronic obstructive pulmonary disease (COPD) (American) * Exacerbation of COPD (American) documented in [facility] encounter[facility] SystemInstructionsNot on file documented in this encounterProMedica Health SystemInstructionsNot on file documented in this encounterProMedica Health SystemInstructionsNot on file documented in this encounterProMedica Health SystemInstructionsNot on file documented in this encounterProMedica Health SystemInstructionsNot on file documented in this encounterProMedinm Health SystemInstructions* Attachments The following attachments cannot be sent through Care Everywhere. * Skin Rash (American) documented in this encounterProUniversity [facility] CenterKahn[facility] SystemInstructionsNot on file documented in this encounterBerger HospitalCeltaxsys System Summary Purpose Family History No Family History Records FoundNo Family History Records FoundNo Family History Records FoundNo Family History Records FoundNo Family History Records FoundNo Family History Records Found Advance Directives No Advanced Directives Records FoundNo Advanced Directives Records FoundNo Advanced Directives Records FoundNo Advanced Directives Records FoundNo Advanced Directives Records FoundNo Advanced Directives Records Found Reason for Referral SpecialtyDiagnoses / ProceduresReferred By ContactReferred To Contact Diagnoses Lumbosacral spondylosis without myelopathy Procedures Case request operating room: RADIOFREQUENCY ABLATION SPINAL: left L45 [address] Marlys [place], [place] [address] [place] [address] Referral IDStatusReasonStart DateExpiration DateVisits RequestedVisits [id number] / ProceduresReferred By ContactReferred To Contact Diagnoses Lumbosacral spondylosis without myelopathy Procedures Case request operating room: RADIOFREQUENCY ABLATION SPINAL: right L45 [address] Marlys [place], [place] [address] [place] [address] Referral IDStatusReasonStart DateExpiration DateVisits RequestedVisits [id number] Review/ Additional Source Comments REASON FOR VISIT (unrecogniz ed section and content) ReasonCommentsFollow-upMigraines,ReasonCommentsBack PainReasonCommentsMed Refill ReasonCommentsFollow-upReasonCommentsBack PainReasonOnset DateCommentsMed Refill 05/24/2024easonCommentsAnnual ExamReasonOnset DateCommentsMed Mlbkpz8411/08/2024 ReasonCommentsBack PainReasonCommentsRashOn ankleReasonCommentsMigraine1 year follow upReasonOnset DateCommentsPrior Auth for LUCZYDLU31/20/2025ReasonComments Urinary frequencyReasonCommentsHyperlipidemiaHypertensionReasonOnset Date CommentsMed Vnkksp7204/02/2025ReasonCommentsMigraineFollow upReasonOnset Date CommentsMed Wfeegd1306/10/2025 (unrecognized sect ion and content) No Status Records FoundNo Status Records FoundNo Status Records FoundNo Status Records FoundNo Status Records FoundNo Status Records Found INFORMATION SOURCE (unrecogn ized section and content) DATE CREATED AUTHOR 05/08/2022 [facility] DATE CREATED AUTHOR AUTHOR'S ORGANIZ ATION 06/14/2022 [facility] DATE CREATED AUTHOR AUTHOR'S ORGANIZ ATION 01/17/2025 [facility] DATE CREATED AUTHOR AUTHOR'S ORGANIZ ATION 04/01/2025 [facility] DATE CREATED AUTHOR AUTHOR'S ORGANIZ ATION 05/31/2025 [facility] DATE CREATED AUTHOR AUTHOR'S ORGANIZ ATION 07/01/2025 [facility] Care Teams (unrecognized sec tion and content) Team MemberRelationshipSpecialtyStart DateEnd Date Quita Stoddard ONLINE JOURNALIST-TEST CASE DEVELOPER [address] [place] [address] PCP - GeneralFamily Kckkxkqq74/5/19Team MemberRelationshipSpecialtyStart DateEnd Date Quita Stoddard ONLINE JOURNALIST-TEST CASE DEVELOPER [address] [place] [address] PCP - GeneralFamily Mvfquyyp53/5/19Team MemberRelationshipSpecialtyStart DateEnd Date Quita Stoddard ONLINE JOURNALIST-TEST CASE DEVELOPER [address] [place] [address] PCP - GeneralFamily Rcnotrxn74/5/19Team MemberRelationshipSpecialtyStart DateEnd Date Quita Stoddard ONLINE JOURNALIST-TEST CASE DEVELOPER [address] [place] [address] PCP - GeneralFamily Urvgsctj05/5/19Team MemberRelationshipSpecialtyStart DateEnd Date Quita Stoddard, ONLINE JOURNALIST-TEST CASE DEVELOPER [address] [place] [address] PCP - GeneralFamily Nnpioukz76/5/19Team MemberRelationshipSpecialtyStart DateEnd Date Quita Stoddard, [facility] [address] [place] [address] PCP - GeneralFamily Yithqlyv12/5/19Team MemberRelationshipSpecialtyStart DateEnd Date Quita Stoddard, [facility] [address] [place] [address] PCP - Generalmily Cwrvbypy58/5/19Team MemberRelationshipSpecialtyStart DateEnd Date Quita Stoddard, [facility] [address] [place] [address] PCP - Generalmily Spoopfte01/5/19Team MemberRelationshipSpecialtyStart DateEnd Date Quita Stoddard, [facility] [address] [place] [address] PCP - GeneralFamily Bwhshygx96/5/19Team MemberRelationshipSpecialtyStart DateEnd Date Quita Stoddard, [facility] [address] [place] [address] PCP - GeneralFamily Dadjtwpj07/5/19Team MemberRelationshipSpecialtyStart DateEnd Date Quita Stoddard, [facility] [address] [place] [address] PCP - Generalmily Ljybknmj90/5/19Team MemberRelationshipSpecialtyStart DateEnd Date Quita Stoddard, ONLINE JOURNALIST-[facility] [address] [place] [address] PCP - Generalmi Gwyxlawf31/5/19Team MemberRelationshipSpecialtyStart DateEnd Date Quita Stoddard, ONLINE JOURNALIST-[facility] [address], [place] [address] PCP - [facility] Cuegpola37/5/19Team MemberRelationshipSpecialtyStart DateEnd Date Quita Stoddard, ONLINE JOURNALIST-[facility] [address] [place] [address] PCP - [facility] Wxxfawlr34/5/19Team MemberRelationshipSpecialtyStart DateEnd Date Quita Stoddard, ONLINE JOURNALIST-[facility] [address] [place] [address] PCP - Generalmily Hxnfjfyf10/5/19Team MemberRelationshipSpecialtyStart DateEnd Date Quita Stoddard, ONLINE JOURNALIST-[facility] [address], [place] [address] PCP - Generalmi Uazvkjbh68/5/19Team MemberRelationshipSpecialtyStart DateEnd Date Quita Stoddard, ONLINE JOURNALIST-[facility] [address], [place] [address] PCP - GeneralFamily Otbalxdr27/5/19Team MemberRelationshipSpecialtyStart DateEnd Date Quita Stoddard, [facility] [address] [place] [address] PCP - Generalmily Avaygavk57/5/19Team MemberRelationshipSpecialtyStart DateEnd Date Quita Stoddard, [facility] [address] [place] [address] [facility] - [facility] Aeoibzmv58/5/19Team MemberRelationshipSpecialtyStart DateEnd Date Quita Stoddard, [facility] [address] [place] [address] PCP - Generalmi Kvglfaud34/5/19Team MemberRelationshipSpecialtyStart DateEnd Date Quita Stoddard, [facility] [address] [place] [address] PCP - Generalmi Smapgfpb30/5/19Team MemberRelationshipSpecialtyStart DateEnd Date Quita Stoddard, [facility] [address] [place] [address] PCP - Generalmily Xerpessa86/5/19Team MemberRelationshipSpecialtyStart DateEnd Date Quita Stoddard, [facility] [phone] (work) PCP - [facility]08/16/19 FOR RECORDS PERTAINING TO PATIENTS WHO ARE OR HAVE BEEN ENROLLED IN A CHEMICAL DEPENDENCY/SUBSTANCEABUSE PROGRAM, SOME INFORMATION MAY BE OMITTED. This clinical summary was aggregated from multiple sources. Caution should be exercised in using it in the provision of clinical care. This summary normalizes information from multiple sources, and as a consequence, information in this document may materially change the coding, format and clinical context of patient data. In addition, data may be omitted in some cases. CLINICAL DECISIONS SHOULD BE BASED ON THE PRIMARY CLINICAL RECORDS. [facility] [employer] [facility]. provides no warranty or guarantee of the accuracy or completeness of information in this document.
[2025-07-03 08:41] VITALS: BP 113/68; PULSE 76; TEMP 36.8; O2SAT 97; BMI 30.6
--- NOTE | 2025-07-03 08:58 | ED.GENADUL1 ---
HPI HPI - General Adult General Chief complaint: Eye Problems Stated complaint: BLURRED VISION Time Seen by Provider: 07/03/25 08:44 Source: patient Mode of arrival: walk-in Limitations: no limitations History of Present Illness HPI narrative: 59-year-old male presents for blurry vision. He was started on metformin a few days ago for elevated blood sugar. No headache or localized weakness. Both eyes are blurry and he does not have any blind spots. Related Data Home Medications ?Medication ?Instructions ?Recorded ?Confirmed aripiprazole 5 mg tablet 5 mg PO DAILY 05/04/23 07/03/25 atorvastatin 80 mg tablet 80 mg PO DAILY 05/04/23 07/03/25 bictegravir 50 mg-emtricitabine 1 tab PO DAILY 05/04/23 07/03/25 200 mg-tenofovir alafenam 25 mg tablet (Biktarvy) dextromethorphan 20 mg-quinidine 1 cap PO DAILY 05/04/23 07/03/25 10 mg capsule (Nuedexta) lisinopril 20 mg tablet 20 mg PO DAILY 05/04/23 07/03/25 methimazole 10 mg tablet 5 mg PO DAILY 05/04/23 05/04/23 methylphenidate HCl 20 mg tablet 20 mg PO TID 05/04/23 07/03/25 metoprolol succinate 50 mg 50 mg PO DAILY 05/04/23 07/03/25 tablet,extended release 24 hr nifedipine 30 mg tablet,extended 30 mg PO DAILY 05/04/23 07/03/25 release ubrogepant 100 mg tablet (Ubrelvy) 100 mg PO DAILY PRN migraines 05/04/23 07/03/25 baclofen 10 mg tablet 10 mg PO DAILY 07/03/25 07/03/25 ezetimibe 10 mg tablet 10 mg PO DAILY 07/03/25 07/03/25 galcanezumab-gnlm 120 mg/mL 120 mg subcut .monthly 07/03/25 07/03/25 subcutaneous pen injector (Emgality Pen) metformin 500 mg tablet 500 mg PO BID 07/03/25 07/03/25 methimazole 5 mg tablet 5 mg PO DAILY 07/03/25 07/03/25 venlafaxine 75 mg capsule,extended 75 mg PO DAILY 07/03/25 07/03/25 release 24 hr Allergies Allergy/AdvReac Type Severity Reaction Status Date / Time No Known Drug Allergies Allergy Verified 05/04/23 09:35 Review of Systems ROS Narrative A ten point review of systems is negative except as noted above. PFSH PFS Social History Smoking status: Current every day smoker Little interest or pleasure in doing things: not at all Feeling down, depressed, or hopeless: not at all Exam Narrative Exam Narrative: Nurses note and vital signs reviewed General:The patient appears well and in no apparent distress.Patient is resting comfortably on cart. Skin:Warm, dry, no pallor noted.There is no rash noted. Head:Normocephalic, atraumatic Eye: Normal conjunctiva, no drainage, EOMI. PERRL. Ears, Nose, Mouth, and Throat: oral mucosa is moist. Nares patent. Cardiovascular:Regular Rate and Rhythm Respiratory:Patient is in no distress, no accessory muscle use, lungs are clear to auscultation, no wheezing, rales or rhonchi Back:non-tender GI: Soft and nontender Musculoskeletal: The patient has no evidence of calf tenderness, no pitting edema, symmetrical pulses noted bilaterally Neurological:A&O, normal speech Psychiatric:Cooperative Constitutional Vital Signs, click to edit/add: Last Vital Signs Temp 98.3 F 07/03/25 08:41 Pulse 71 07/03/25 10:20 Resp 18 07/03/25 10:20 BP 112/68 07/03/25 10:20 Pulse Ox 100 07/03/25 10:20 O2 Del Method Room Air 07/03/25 08:41 Course Vital Signs Vital signs: Vital Signs Temperature 98.3 F 07/03/25 08:41 Pulse Rate 76 07/03/25 08:41 Respiratory Rate 18 07/03/25 08:41 Blood Pressure 113/68 07/03/25 08:41 Pulse Oximetry 97 07/03/25 08:41 Oxygen Delivery Method Room Air 07/03/25 08:41 Temperature 98.3 F 07/03/25 08:41 Pulse Rate 71 07/03/25 10:20 Respiratory Rate 18 07/03/25 10:20 Blood Pressure 112/68 07/03/25 10:20 Pulse Oximetry 100 07/03/25 10:20 Oxygen Delivery Method Room Air 07/03/25 08:41 Medical Decision Making MDM Narrative Medical decision making narrative: The patient's workup is negative. Blurred vision is a known side effect of metformin and the patient will follow-up with his doctor if symptoms does not resolve. Treatment diagnosis and follow-up were discussed with the patient. Differential Diagnosis Differential Diagnosis: Medication side effect, hyperglycemia Lab Data Lab results reviewed: Yes I reviewed the patient's lab results Labs: Lab Results 07/03/25 Range/Units 09:10 WBC 8.5 (4.0-11.0) 10^3/uL RBC 4.87 (4.70-6.10) 10^6/uL Hgb 15.7 (14.0-18.0) g/dL Hct 45.4 (42.0-54.0) % MCV 93.2 (80.0-94.0) fL MCH 32.2 (25.9-34.0) pg MCHC 34.6 (29.9-35.2) g/dL RDW 13.2 (11.0-15.0) % Plt Count 243 (150-450) 10^3/uL MPV 8.3 L (9.5-13.5) fL Neut % (Auto) 67.6 (43.0-75.0) % Lymph % (Auto) 24.9 (20.5-60.0) % Elmore % (Auto) 4.2 (1.7-12.0) % Eos % (Auto) 2.2 (0.9-7.0) % Baso % (Auto) 0.6 (0.2-2.0) % Neut # (Auto) 5.7 (1.4-6.5) 10^3/uL Lymph # (Auto) 2.1 (1.2-3.8) 10^3/uL Elmore # (Auto) 0.4 (0.3-0.8) 10^3/uL Eos # (Auto) 0.2 (0.0-0.7) 10^3/uL Baso # (Auto) 0.1 (0.0-0.1) 10^3/uL Abs Immat Gran (auto) 0.04 H (0.00-0.03) 10^3/uL Imm/Tot Granulo (auto) 0.5 (0.0-0.5) % Sodium 139 (136-145) mmol/L Potassium 4.5 (3.5-5.1) mmol/L Chloride 103 (98-107) mmol/L Carbon Dioxide 26.5 (21.0-32.0) mmol/L Anion Gap 14.0 BUN 18.0 (7.0-18.0) mg/dL Creatinine 1.26 (0.70-1.30) mg/dL Est GFR ( Amer) >60 (>=60 mL/min/1.73m^2) Est GFR (Non-Af Amer) 59 L (>=60 mL/min/1.73m^2) BUN/Creatinine Ratio 14.3 Glucose 134 H (74-106) mg/dL Calcium 9.3 (8.5-10.1) mg/dL Imaging Data CT scan - head: Radiologist's impression: ITS Impressions Head CT 07/03/25 09:28 IMPRESSION: NO ACUTE INTRACRANIAL ABNORMALITY. CHRONIC SINUSITIS AND RIGHT MASTOIDITIS. Impression dictated by: Angie Monson M.D. 07/03/2025 10:07 AM Dictation Location: [place] [address] Electronically authenticated by: [id number] Y Date: 07/03/2025 10:07 Discharge Plan Discharge Chief Complaint: Eye Problems Clinical Impression: Medication side effect Patient Disposition: Home, Self-Care Time of Disposition Decision: 10:22 Condition: Good Mode of Transportation: Private Vehicle Prescriptions / Home Meds: No Action baclofen 10 mg tablet 10 mg PO DAILY ezetimibe 10 mg tablet 10 mg PO DAILY Emgality Pen 120 mg/mL pen injector 120 mg SUBCUT .monthly metformin 500 mg tablet 500 mg PO BID methimazole 5 mg tablet 5 mg PO DAILY venlafaxine 75 mg capsule,extended release 24hr 75 mg PO DAILY aripiprazole 5 mg tablet 5 mg PO DAILY atorvastatin 80 mg tablet 80 mg PO DAILY Biktarvy 50-200-25 mg tablet 1 tab PO DAILY Nuedexta 20-10 mg capsule 1 cap PO DAILY lisinopril 20 mg tablet 20 mg PO DAILY methimazole 10 mg tablet 5 mg PO DAILY methylphenidate HCl 20 mg tablet 20 mg PO TID metoprolol succinate 50 mg tablet extended release 24 hr 50 mg PO DAILY nifedipine 30 mg tablet extended release 30 mg PO DAILY Ubrelvy 100 mg tablet 100 mg PO DAILY PRN (Reason: migraines) Print Language: Hungarian Instructions: Adverse Drug Reaction (ED) Referrals: QUITA WOODS [Primary Care Provider, Unknown] - 1 week
[2025-07-03 09:21] LABS: Hematocrit 45.4 % (42.0-54.0); Hemoglobin 15.7 g/dL (14.0-18.0); Immature Granulocytes Abs Auto 0.04 10^3/uL (0.00-0.03); Immature Granulocytes Pct Auto 0.5 % (0.0-0.5); Lymphocytes Absolute Auto 2.1 10^3/uL (1.2-3.8); Mean Corpuscular HGB Conc 34.6 g/dL (29.9-35.2); Mean Corpuscular Hemoglobin 32.2 pg (25.9-34.0); Mean Corpuscular Volume 93.2 fL (80.0-94.0); Platelet Count 243 10^3/uL (150-450); Red Blood Count 4.87 10^6/uL (4.70-6.10); White Blood Count 8.5 10^3/uL (4.0-11.0)
[2025-07-03 09:26] LABS: Anion Gap 14.0; Blood Urea Nitrogen 18.0 mg/dL (7.0-18.0); Calcium 9.3 mg/dL (8.5-10.1); Carbon Dioxide 26.5 mmol/L (21.0-32.0); Chloride 103 mmol/L (98-107); Estimated GFR (African America >60 (>=60 mL/min/1.73m^2); Estimated GFR (Non-African Ame 59 (>=60 mL/min/1.73m^2); Glucose 134 mg/dL (74-106); Potassium 4.5 mmol/L (3.5-5.1); Sodium 139 mmol/L (136-145)
--- NOTE | 2025-07-03 09:28 | CT_ITS ---
The [address] [address] Patient Name: LUZ SHAHID MRN: [id number] date: 1965 Sex: M Assigned Patient Location: ER Current Patient Location: ER Accession/Order Number: [id number] Exam Date: 07/03/2025 09:25 Report Date: 07/03/2025 10:07 At the request of: VICTORIA APODACA MD Procedure: CT head/brain wo con CT BRAIN WITHOUT CONTRAST: CLINICAL HISTORY: Bilateral blurry vision COMPARISON: 10/10/2023 TECHNIQUE: Contiguous axial unenhanced images were obtained through the brain. This CT exam was performed using one or more following dose reduction techniques: Automated exposure control, adjustment of the mA and/or kV according to patient size, or use of iterative reconstruction technique. FINDINGS: There is continued generalized atrophy. The ventricles are normal in size and position. There are no areas of abnormal attenuation. There is no hemorrhage, mass effect or extra-axial collections. There is moderate mucosal thickening at the imaged maxillary sinuses. There is mild ethmoid mucosal thickening bilaterally. There are still some opacified mastoid air cells on the right. No orbital asymmetries are noted. CT/CT head/brain wo con IMPRESSION: NO ACUTE INTRACRANIAL ABNORMALITY. CHRONIC SINUSITIS AND RIGHT MASTOIDITIS. Impression dictated by: Angie Monson M.D. 07/03/2025 10:07 AM Dictation Location: [place] [address] Electronically authenticated by: [id number] Y Date: 07/03/2025 10:07
[2025-07-03 10:20] VITALS: BP 112/68; PULSE 71; O2SAT 100
== END 2025-07-03 10:28 | disposition home or self-care (01) ==
PROVIDERS: Emergency Provider Emergency Medicine; PCP Nurse Practitioner
DX: H53.8 Other visual disturbances (principal); T38.3X5A Adverse effect of insulin and oral hypoglycemic [antidiabetic] drugs, initial encounter; R73.9 Hyperglycemia, unspecified; Z79.84 Long term (current) use of oral hypoglycemic drugs; F17.200 Nicotine dependence, unspecified, uncomplicated
CPT/HCPCS: 36415; 70450; 80048; 85025; 99284